=== PATIENT | female | born 1950 | race African-American/Black ===

== ENCOUNTER 2016-06-16 19:17 | Emergency (ER) | payer OTHER ==
[2016-06-16 20:29] VITALS: TEMP 97.8; BMI 27.4
--- NOTE | 2016-06-16 20:39 | PDOC ---
History of Present Illness - General Chief Complaint: Alcohol intoxication Stated Complaint: Alcohol intoxication Time Seen by Provider: 06/16/16 19:40 History Source: Patient Exam Limitations: No Limitations - History of Present Illness Timing/Duration: 1/2 hour Associated Symptoms: reports: denies symptoms Past History - Travel Traveled outside of the country in the last 30 days: No Close contact w/someone who was outside of country & ill: No - Past Medical History Allergies/Adverse Reactions: Allergies Allergy/AdvReac Type Severity Reaction Status Date / Time Aminoglycosides Allergy Severe Rash Verified 06/16/16 19:44 potassium clavulanate Allergy Severe Rash Verified 06/16/16 19:44 [From Augmentin] amoxicillin trihydrate Allergy Rash Verified 06/16/16 19:44 [From Augmentin] erythromycin base Allergy Rash Verified 06/16/16 19:44 [Erythromycin Base] gentamicin [Gentamicin] Allergy Rash Verified 06/16/16 19:44 Home Medications: Ambulatory Orders Amlodipine Besylate [Norvasc -] 10 mg PO DAILY 03/20/15 Aspirin [ASA -] 81 mg PO DAILY 03/20/15 Doxepin HCl [Sinequan -] 10 mg PO HS PRN 03/20/15 Fluticasone/Salmeterol [Advair 250-50 Diskus] 1 each IH BID 03/20/15 Lisinopril [Prinivil] 10 mg PO DAILY 03/20/15 Montelukast Na [Singulair -] 10 mg PO HS 03/20/15 Simvastatin [Zocor -] 20 mg PO HS 03/20/15 Ipratropium/Albuterol Sulfate [Combivent Respimat Inhal [place]] 2 inh IH Q6H PRN 12/23/15 Magnesium Oxide [Mag-Ox -] 400 mg PO BID 12/23/15 Naproxen [Naprosyn -] 500 mg PO BID PRN 12/23/15 Potassium Chloride [K-Dur -] 20 meq PO DAILY 12/23/15 Duloxetine HCl [Cymbalta] 60 mg PO DAILY #20 capsule. 12/26/15 Anemia: No Asthma: Yes Cancer: No Cardiac Disorders: No CVA: Yes (right sided residule weakness) COPD: Yes CHF: No Dementia: No Diabetes: Yes (currently not on medication) GI Disorders: No Disorders: No HTN: Yes Hypercholesterolemia: Yes Kidney Stones: No Liver Disease: No Suicide Attempt (Hx): No Seizures: No Thyroid Disease: No - Surgical History Abdominal Surgery: Yes (lower) Appendectomy: Yes Cardiac Surgery: No Cholecystectomy: No Lung Surgery: No Neurologic Surgery: No Orthopedic Surgery: No - Reproductive History PID: No - Immunization History Td Vaccination: Yes Immunization Up to Date: Yes - Psycho/Social/Smoking Cessation Hx Anxiety: No Suicidal Ideation: No Smoking Status: Yes Smoking History: Current every day smoker Years of Tobacco Use: 20 Have you smoked in the past 12 months: No Number of Cigarettes Smoked Daily: 20 Cigars Per Day: 0 Information on smoking cessation initiated: No 'Breaking Loose' booklet given: 12/23/15 Hx Alcohol Use: Yes Drug/Substance Use Hx: No Substance Use Type: Alcohol Hx Substance Use Treatment: Yes Review of Systems - Review of Systems Able to Perform ROS?: Yes Comments:: 06/16/16 20:37 CONSTITUTIONAL: Absent: fever, chills, diaphoresis, generalized weakness, malaise, loss of appetite HEENT: Absent: rhinorrhea, nasal congestion, throat pain, throat swelling, difficulty swallowing, mouth swelling, ear pain, eye pain, visual Changes CARDIOVASCULAR: Absent: chest pain, loss of consciousness, palpitations, irregular heart rate, peripheral edema RESPIRATORY: Absent: cough, shortness of breath, dyspnea with exertion, orthopnea, wheezing, stridor, hemoptysis GASTROINTESTINAL: Absent: abdominal pain, abdominal distension, nausea, vomiting, diarrhea, constipation, melena, hematochezia GENITOURINARY: Absent: dysuria, frequency, urgency, hesitancy, hematuria, flank pain, genital pain MUSCULOSKELETAL: Absent: myalgia, arthralgia, joint swelling SKIN: Absent: rash, itching, pallor HEMATOLOGIC/IMMUNOLOGIC: Absent: easy bleeding, easy bruising, lymphadenopathy, frequent infections ENDOCRINE: Absent: unexplained weight gain, unexplained weight loss, heat intolerance, cold intolerance NEUROLOGIC: Absent: headache, focal weakness or paresthesias, dizziness, unsteady gait, seizure, mental status changes, bladder or bowel incontinence PSYCHIATRIC: Absent: anxiety, depression, suicidal or homicidal ideation, hallucinations. Is the patient limited Polish proficient: No *Physical Exam - Vital Signs Last Vital Signs Temp Pulse Resp BP Pulse Ox 97.8 F 84 18 131/76 96 06/16/16 19:44 06/16/16 19:44 06/16/16 19:44 06/16/16 19:44 06/16/16 19:44 - Physical Exam Comments: 06/16/16 20:37 GENERAL: Well developed, well nourished. Awake and alert. No acute distress. HEENT: Normocephalic, atraumatic. PERRLA, EOMI. No conjunctival pallor. Sclera are non- icteric. Moist mucous membranes. Oropharynx is clear. NECK: Supple. Full ROM. No JVD. Carotid pulses 2+ and symmetric, without bruits. No thyromegaly. No lymphadenopathy. CARDIOVASCULAR: Regular rate and rhythm. No murmurs, rubs, or gallops. Distal pulses are 2+ and symmetric. PULMONARY: No evidence of respiratory distress. Lungs clear to auscultation bilaterally. No wheezing, rales or rhonchi. ABDOMINAL: Soft. Non-tender. Non-distended. No rebound or guarding. No organomegaly. Normoactive bowel sounds. MUSCULOSKELETAL Normal range of motion at all joints. No bony deformities or tenderness. No CVA tenderness. EXTREMITIES: No cyanosis. No clubbing. No edema. No calf tenderness. SKIN: Warm and dry. Normal capillary refill. No rashes. No jaundice. NEUROLOGICAL: Alert, awake, appropriate. Cranial nerves 2-12 intact. No deficits to light touch and temperature in face, upper extremities and lower extremities. No motor deficits in the in face, upper extremities and lower extremities. Normoreflexic in the upper and lower extremities. Normal speech. Toes are down- going bilaterally. Gait is normal without ataxia. PSYCHIATRIC: Cooperative. Good eye contact. Appropriate mood and affect. *DC/Admit/Observation/Transfer Diagnosis at time of Disposition: Contusion of head Qualifiers: Encounter type: initial encounter Contusion of head detail: scalp Qualified Code(s): S00.03XA - Contusion of scalp, initial encounter - Discharge Dispostion Disposition: HOME Condition at time of disposition: Stable - Referrals Referrals: STAFF,NOT ON [Primary Care Provider] - Laury Canchola MD [Staff Physician] - - Patient Instructions Additional Instructions: Rest Tylenol as needed for pain Follow up with your physician or the physician listed on your discharge. Return to the ER for severe/persistent/worsening symptoms Progress Note - Progress Note Progress Note: 66-year-old female presents to the emergency department without any complaints. Patient states she lost her balance and almost fell but "bumped " her head against the wall prior to her arrival to the emergency department. She states she had 2 small drinks of gin 4 hours ago. Patient denies any headache, dizziness, lightheadedness, visual disturbance, blurry vision, neck pains, back pains, chest pain, shortness of breath, abdominal pains, urinary symptoms: Frequency/urgency/hesitancy, hematuria, extremity numbness or tingling sensation. Patient states she has no complaints at this time. CT head w/o contrast; neg
[2016-06-17 00:28] VITALS: BP 130/70; PULSE 80
== END 2016-06-17 00:27 | disposition home or self-care (01) ==
LOC: JER 19:17
DX: S00.03XA Contusion of scalp, initial encounter (principal); J45.909 Unspecified asthma, uncomplicated; J44.9 Chronic obstructive pulmonary disease, unspecified; E11.9 Type 2 diabetes mellitus without complications; I10 Essential (primary) hypertension; E78.00 Pure hypercholesterolemia, unspecified; F17.210 Nicotine dependence, cigarettes, uncomplicated; W18.39XA Other fall on same level, initial encounter; Y93.9 Activity, unspecified; Y92.9 Unspecified place or not applicable
CPT/HCPCS: 70450-TC; 99282-25

== ENCOUNTER 2018-04-16 05:02 | Inpatient (IN) | payer OTHER ==
--- NOTE | 2018-04-16 05:32 | PDOC ---
History of Present Illness - General Chief Complaint: Asthma Stated Complaint: DIFF BREATHING Time Seen by Provider: 04/16/18 05:27 History Source: Patient Exam Limitations: No Limitations - History of Present Illness Timing/Duration: 4-6 hours Severity: mild Associated Symptoms: reports: chest pain Asa Contraindications(Core Measure): Yes: Other Beta Juve Given by EMS(Core Measure): No Beta Juve Taken at Home(Core Measure): No Beta Juve Not Indicated at this Time(Core Measure): No Past History - Travel Traveled outside of the country in the last 30 days: No Close contact w/someone who was outside of country & ill: No - Past Medical History Allergies/Adverse Reactions: Allergies Allergy/AdvReac Type Severity Reaction Status Date / Time Aminoglycosides Allergy Severe Rash Verified 04/16/18 05:47 potassium clavulanate Allergy Severe Rash Verified 04/16/18 05:47 [From Augmentin] amoxicillin trihydrate Allergy Rash Verified 04/16/18 05:47 [From Augmentin] erythromycin base Allergy Rash Verified 04/16/18 05:47 [Erythromycin Base] gentamicin [Gentamicin] Allergy Rash Verified 04/16/18 05:47 Home Medications: Ambulatory Orders Amlodipine Besylate [Norvasc -] 10 mg PO DAILY 03/20/15 Aspirin [ASA -] 81 mg PO DAILY 03/20/15 Doxepin HCl [Sinequan -] 10 mg PO HS PRN 03/20/15 Fluticasone/Salmeterol [Advair 250-50 Diskus] 1 each IH BID 03/20/15 Lisinopril [Prinivil] 10 mg PO DAILY 03/20/15 Montelukast Na [Singulair -] 10 mg PO HS 03/20/15 Simvastatin [Zocor -] 20 mg PO HS 03/20/15 Ipratropium/Albuterol Sulfate [Combivent Respimat 20-100 Mcg] 2 inh IH Q6H PRN 12/23/15 Magnesium Oxide [Mag-Ox -] 400 mg PO BID 12/23/15 Naproxen [Naprosyn -] 500 mg PO BID PRN 12/23/15 Potassium Chloride [K-Dur -] 20 meq PO DAILY 12/23/15 Duloxetine HCl [Cymbalta] 60 mg PO DAILY #20 capsule. 12/26/15 Anemia: No Asthma: Yes Cancer: No Cardiac Disorders: No CVA: Yes (right sided residule weakness) COPD: Yes CHF: No Dementia: No Diabetes: Yes (currently not on medication) GI Disorders: No Disorders: No HTN: Yes Hypercholesterolemia: Yes Kidney Stones: No Liver Disease: No Seizures: No Thyroid Disease: No - Surgical History Abdominal Surgery: Yes (lower) Appendectomy: Yes Cardiac Surgery: No Cholecystectomy: No Lung Surgery: No Neurologic Surgery: No Orthopedic Surgery: No - Reproductive History PID: No - Immunization History Td Vaccination: Yes Immunization Up to Date: Yes - Suicide/Smoking/Psychosocial Hx Smoking Status: Yes Smoking History: Current every day smoker Years of Tobacco Use: 20 Have you smoked in the past 12 months: No Number of Cigarettes Smoked Daily: 20 Cigars Per Day: 0 'Breaking Loose' booklet given: 12/23/15 Hx Alcohol Use: Yes Drug/Substance Use Hx: No Substance Use Type: Alcohol Hx Substance Use Treatment: Yes Review of Systems - Review of Systems Constitutional: No: Symptoms Reported, See HPI, Chills, Diaphoresis, Fever, Loss of Appetite, Malaise, Night Sweats, Weakness, Weight Stable, Unintentional Wgt. Loss, Unexplained wgt Loss, Other Respiratory: Yes: Shortness of Breath, SOB at Rest, Wheezing Cardiac (ROS): No: Symptoms Reported, See HPI, Chest Pain, Edema, Irregular Heart Rate, Lightheadedness, Palpitations, Syncope, Chest Tightness, Other ABD/GI: No: Symptoms Reported, See HPI, Abdominal Distended, Abd. Pain w/ defecation, Blood Streaked Bowels, Constipated, Diarrhea, Difficulty Swallowing , Nausea, Poor Appetite, Poor Fluid Intake, Rectal Bleeding, Vomiting, Indigestion, Abdominal cramping, Tarry Stools, Other Musculoskeletal: No: Symptoms Reported, See HPI, Back Pain, Gout, Joint Pain, Joint Swelling, Muscle Pain, Muscle Weakness, Neck Pain, Joint Stiffness, Other Integumentary: No: Symptoms Reported, See HPI, Bruising, Change in Color, Change in Hair/Nails, Dryness, Erythema, Flushing, Lesions, Lumps, Pallor, Pruritus, Rash, Sweating, Other Neurological: No: Symptoms reported, See HPI, Headache, Numbness, Paresthesia, Pre-Existing Deficit, Seizure, Tingling, Tremors, Weakness, Unsteady Gait, Ataxia, Dizziness, Other Psychiatric: No: Anxiety, Depression, Frequent Crying, Stressors, Sleep Pattern Change, Emotional Problems, Mood Swings, Change in Appetite, Other Endocrine: No: Symptoms Reported, See HPI, Excessive Sweating, Flushing, Intolerance to Cold, Intolerance to Heat, Increased Hunger, Increased Thirst, Increased Urine, Unexplained Weight Gain, Unexplained Weight Loss, Change in Weight, Other *Physical Exam - Physical Exam General Appearance: Yes: Nourished, Appropriately Dressed, Mild Distress, Thin. No: Moderate Distress, Severe Distress, Alcohol on Breath, Intoxicated, Cachetic, Obese HEENT: positive: EOMI, CINDY, Normal ENT Inspection, Normal Voice, Symmetrical, TMs Normal, Pharynx Normal. negative: Scleral Icterus (R), Scleral Icterus (L) , Pharyngeal Erythema, Nasal Congestion, Rhinorrhea, Sinus Tenderness Neck: positive: Trachea midline, Supple Respiratory/Chest: positive: Lungs Clear, Normal Breath Sounds, Rhonchi, Wheezing. negative: Chest Tender, Stridor Cardiovascular: positive: Regular Rhythm, Regular Rate, S1, S2 Gastrointestinal/Abdominal: positive: Normal Bowel Sounds, Flat, Soft Musculoskeletal: positive: Normal Inspection Extremity: positive: Normal Inspection Integumentary: positive: Normal Color, Dry, Warm Neurologic: positive: modeling director II-XII NML intact, Fully Oriented, Normal Mood/Affect , Normal Response, Motor Strength 5/ ED Treatment Course - LABORATORY CBC & Chemistry Diagram: 04/16/18 06:58 04/17/18 01:45 Medical Decision Making - Medical Decision Making 04/16/18 06:57 Pt has CHF and enlarged heart on CXR 04/17/18 04:39 Signed out to the day team. She will require admission for her SOB. *DC/Admit/Observation/Transfer Diagnosis at time of Disposition: COPD (chronic obstructive pulmonary disease), CHF (congestive heart failure), NSTEMI (non-ST elevated myocardial infarction) - Discharge Dispostion Condition at time of disposition: Fair - Referrals - Patient Instructions - Post Discharge Activity
[2018-04-16 07:17] LABS: EOS % 0.1 % (0-4.5); HEMATOCRIT 26.4 % (32.4-45.2); HEMOGLOBIN 8.6 GM/dL (10.7-15.3); LYMPH % 29.2 % (8-40); MCHC 32.5 g/dl (32.0-36.0); MEAN CELL VOLUME 59.2 fl (80-96); MEAN PLT VOLUME 8.8 fl (7.5-11.1); NEUT % 59.7 % (42.8-82.8); PLATELET COUNT 462 K/MM3 (134-434); RBC 4.45 M/mm3 (3.60-5.2); RDW 25.6 % (11.6-15.6)
[2018-04-16 07:21] LABS: MCH 19.2 pg (25.7-33.7)
--- NOTE | 2018-04-16 07:43 | PDOC ---
*Physical Exam - Vital Signs Last Vital Signs Temp Pulse Resp BP Pulse Ox 98.5 F 72 18 148/85 98 04/16/18 05:02 04/16/18 07:09 04/16/18 07:09 04/16/18 07:09 04/16/18 07:09 ED Treatment Course - LABORATORY CBC & Chemistry Diagram: 04/20/18 05:30 04/20/18 05:30 - ADDITIONAL ORDERS Additional order review: 04/16/18 06:58 RBC 4.45 MCV 59.2 L MCHC 32.5 RDW 25.6 H MPV 8.8 Neutrophils % 59.7 D Lymphocytes % 29.2 D Monocytes % 10.0 Eosinophils % 0.1 D Basophils % 1.0 Medical Decision Making - Critical Care Time Total Critical Care Time (minutes): 90 Critical Care Statement: The care of this patient involved high complexity decision making to prevent further life threatening deterioration of the patient 's condition and/or to evaluate & treat vital organ system(s) failure or risk of failure. - Medical Decision Making 04/16/18 07:39 I received this patient on sign out Pt presents with shortness of breath which was thought to be a COPD exacerbation CXR wet read - CHF Hgb decreased 04/16/18 07:42 Laboratory Tests 03/08/16 04/16/18 02:24 06:58 WBC 9.5 8.0 Hgb 11.5 8.6 L Hct 36.4 26.4 L D Plt Count 306 462 H D 04/16/18 08:10 I have assessed this patient She 04/16/18 08:13 Laboratory Tests 03/08/16 04/16/18 04/16/18 02:24 06:58 06:58 Sodium 139 134 L Potassium 4.3 Chloride 102 74 L Carbon Dioxide 22 D > 45 H Anion Gap 15 15 BUN 11 D 5 L Creatinine 1.3 H D 0.7 Calcium 7.2 L Magnesium 1.6 L Total Bilirubin 0.9 AST 64 H ALT 21 Alkaline Phosphatase 99 B-Natriuretic Peptide 3690.1 H Total Protein 7.3 Albumin 2.2 L Lipase 88 Solumedrol/Magnesium/Azithromycin/Duo nebs ordered ABG ordered Cardiac profile added 04/16/18 08:55 Laboratory Tests 04/16/18 06:58 Creatine Kinase 1046 H Troponin I 0.18 H B-Natriuretic Peptide 3690.1 H 01/05/19 08:57 Laboratory Tests 04/16/18 08:47 ABG pH 7.60 H ABG pCO2 at Pt Temp 57.3 H ABG pO2 at Pt Temp 49.8 L* ABG HCO3 57.0 H* ABG O2 Sat (Measured) 81.5 L Will CTA 04/16/18 09:11 EKG could not be found Repeated EKG: NSR rate of 75 bpm, axis nml, intervals nml, no st elevations or depressions 04/16/18 09:12 Laboratory Tests 04/16/18 07:55 Stool Occult Blood Negative *DC/Admit/Observation/Transfer Diagnosis at time of Disposition: NSTEMI (non-ST elevated myocardial infarction) COPD (chronic obstructive pulmonary disease) Qualifiers: COPD type: unspecified COPD Qualified Code(s): J44.9 - Chronic obstructive pulmonary disease, unspecified CHF (congestive heart failure) Qualifiers: Heart failure type: unspecified Heart failure chronicity: acute Qualified Code( s): I50.9 - Heart failure, unspecified - Discharge Dispostion Condition at time of disposition: Fair Decision to Admit order: Yes - Referrals - Patient Instructions - Post Discharge Activity
[2018-04-16 07:59] LABS: ALBUMIN 2.2 g/dl (3.4-5.0); ALK PHOS 99 U/L (45-117); BILIRUBIN,TOTAL 0.9 mg/dL (0.2-1); BLOOD UREA NITROGEN 5 mg/dL (7-18); CALCIUM 7.2 mg/dL (8.5-10.1); CHLORIDE 74 mmol/L (98-107); CREATININE 0.7 mg/dL (0.55-1.3); GLUCOSE,RANDOM 87 mg/dL (74-106); LIPASE 88 U/L (73-393); N-TERMINAL BNP 3690.1 pg/ml (5-125); SGOT/AST 64 U/L (15-37); SGPT/ALT 21 U/L (13-61); SODIUM 134 mmol/L (136-145); TOT PROT 7.3 g/dl (6.4-8.2)
[2018-04-16] MEDS ORDERED: ALBUTEROL SO4 2.5/IPRATROPIUM 0.5 INH SOL 3 ML VIAL.NEB. NEB ONE ×6 (08:08→09:43)
[2018-04-16] MEDS ORDERED: methylPREDNISolone NA SUCC 125 MG/2 ML VIAL IVPB ONE (08:08)
[2018-04-16] MEDS ORDERED: MAGNESIUM 1GM/D5W - 1 GM/100 ML IVPB IVPB ONE (08:15)
[2018-04-16] MEDS ORDERED: methylPREDNISolone NA SUCC 125 MG/2 ML VIAL ONE (08:15)
[2018-04-16 08:50] LABS: ARTERIAL BLD GAS O2 SATURATION 81.5 % (90-98.9); ARTERIAL BLOOD GAS PCO2 57.3 mmHg (35-45)
[2018-04-16] MEDS ORDERED: POTASSIUM CHLORIDE TABS 20 MEQ TABLET.ER (FP) PO ONE ×6 (08:52→23:00)
[2018-04-16 08:56] LABS: ARTERIAL BLOOD GAS BASE EXCESS 30.1 meq/l (-2-2); ARTERIAL BLOOD GAS PO2 49.8 mmHg (80-100)
[2018-04-16] MEDS ORDERED: KCL 10 MEQ IVPB 30 MEQ/300 ML INFUS.BAG IVPB ONE (09:12)
[2018-04-16 09:20] LABS: ANION GAP 6 MMOL/L (8-16); CO2 54 mmol/L (21-32)
[2018-04-16] MEDS: KCL 10 MEQ IVPB 10 MEQ/100 ML INFUS.BAG IVPB SCH ×11 (09:28→22:55)
[2018-04-16 10:49] LABS: ANISOCYTOSIS 2+; PLATELET ESTIMATE SLT INCREASE
--- NOTE | 2018-04-16 11:52 | HP ---
Admitting History and Physical - Admission Chief Complaint: worsening SOB History of Present Illness: This is a 67 y/o female patient with Hx of HTN, DL, active smoking (quit 4 days ago), COPD and ?CHF presented to the hospital with worsening SOB productive cough with greyish sputum, inability to lay on her. Patient stated that she had a cold recently, and she is recovering from that, patient didnt receive her influenza vaccination this year. stated she does not know why. ROS is negative besides what was presented. 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: CVA (10 years ago...with right hemiparesis) Cardiovascular: Yes: HTN ( x 15years), Hyperlipdemia Pulmonary: Yes: COPD Psych: Yes: Depression Musculoskeletal: Yes: Hemiparesis (right sided) Endocrine: Yes: Diabetes Mellitus (x 10 years) - Past Surgical History Past Surgical History: Yes: Appendectomy, , Hernia Repair (multiple incisional hernia repairs), Hysterectomy, Oopherectomy - Smoking History Smoking history: Current every day smoker Have you smoked in the past 12 months: No Aproximately how many cigarettes per day: 20 - Alcohol/Substance Use Hx Alcohol Use: Yes - Social History 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 Home Medications - Allergies Allergies/Adverse Reactions: Allergies Allergy/AdvReac Type Severity Reaction Status Date / Time Aminoglycosides Allergy Severe Rash Verified 04/16/18 05:47 potassium clavulanate Allergy Severe Rash Verified 04/16/18 05:47 [From Augmentin] amoxicillin trihydrate Allergy Rash Verified 04/16/18 05:47 [From Augmentin] erythromycin base Allergy Rash Verified 04/16/18 05:47 [Erythromycin Base] gentamicin [Gentamicin] Allergy Rash Verified 04/16/18 05:47 - Home Medications Home Medications: Ambulatory Orders Amlodipine Besylate [Norvasc -] 10 mg PO DAILY 03/20/15 Aspirin [ASA -] 81 mg PO DAILY 03/20/15 Doxepin HCl [Sinequan -] 10 mg PO HS PRN 03/20/15 Fluticasone/Salmeterol [Advair 250-50 Diskus] 1 each IH BID 03/20/15 Lisinopril [Prinivil] 10 mg PO DAILY 03/20/15 Montelukast Na [Singulair -] 10 mg PO HS 03/20/15 Simvastatin [Zocor -] 20 mg PO HS 03/20/15 Ipratropium/Albuterol Sulfate [Combivent Respimat 20-100 Mcg] 2 inh IH Q6H PRN 12/23/15 Magnesium Oxide [Mag-Ox -] 400 mg PO BID 12/23/15 Naproxen [Naprosyn -] 500 mg PO BID PRN 12/23/15 Potassium Chloride [K-Dur -] 20 meq PO DAILY 12/23/15 Duloxetine HCl [Cymbalta] 60 mg PO DAILY #20 capsule. 12/26/15 Family Disease History - Family Disease History Family Disease History: Diabetes: Mother (HTN), Sister (HTN), Heart Disease: Mother, Other: Mother, Brother (HTN), Sister Review of Systems - Review of Systems Constitutional: reports: Loss of Appetite, Unintentional Wgt. Loss Eyes: reports: No Symptoms HENT: reports: No Symptoms Neck: reports: No Symptoms Cardiovascular: reports: Chest Pain Respiratory: reports: No Symptoms Gastrointestinal: reports: No Symptoms Genitourinary: reports: No Symptoms Breasts: reports: No Symptoms Reported Musculoskeletal: reports: No Symptoms Integumentary: reports: No Symptoms Neurological: reports: No Symptoms Physical Examination Vital Signs: Vital Signs Temperature 98.5 F 04/16/18 05:02 Pulse Rate 82 04/16/18 10:28 Respiratory Rate 18 04/16/18 10:28 Blood Pressure 168/94 04/16/18 10:28 O2 Sat by Pulse Oximetry (%) 95 04/16/18 10:28 Constitutional: Yes: Well Nourished, No Distress, Calm Eyes: Yes: Conjunctiva Clear, EOM Intact HENT: Yes: WNL, Atraumatic, Normocephalic Neck: Yes: WNL, Supple, Trachea Midline Cardiovascular: Yes: WNL, Regular Rate and Rhythm, S1, S2 Respiratory: Yes: WNL, Regular, CTA Bilaterally Gastrointestinal: Yes: WNL, Normal Bowel Sounds, Soft ...Rectal Exam: Yes: Deferred Musculoskeletal: Yes: WNL Extremities: Yes: WNL Integumentary: Yes: WNL Neurological: Yes: WNL, Alert, Oriented ...Motor Strength: WNL Psychiatric: Yes: WNL, Alert, Oriented Labs: CBC, BMP 04/16/18 06:58 04/16/18 06:58 Imaging - Results Chest X-ray: Report Reviewed, Image Reviewed X-ray: Report Reviewed, Image Reviewed EKG: Report Reviewed, Image Reviewed Problem List - Problems (1) CHF (congestive heart failure) Assessment/Plan: stable at this time not in an acute DCHF will start the patient on carvedilol 3.125mg twice a day c/w lisinopril 10mg obtain echocardiogram Code(s): I50.9 - HEART FAILURE, UNSPECIFIED Qualifiers: Heart failure type: unspecified Heart failure chronicity: acute Qualified Code(s): I50.9 - Heart failure, unspecified (2) COPD (chronic obstructive pulmonary disease) Assessment/Plan: acute exacerbation of COPD start patient on prednisone 40mg daily duonebs q4hrs pulmonary evaluation start the patient on antibiotics if she develops fever consider levofloxacin Code(s): J44.9 - CHRONIC OBSTRUCTIVE PULMONARY DISEASE, UNSPECIFIED Qualifiers: COPD type: unspecified COPD Qualified Code(s): J44.9 - Chronic obstructive pulmonary disease, unspecified (3) Diabetes mellitus type 2 in nonobese Assessment/Plan: insulin sliding scale diabetic diet Code(s): E11.9 - TYPE 2 DIABETES MELLITUS WITHOUT COMPLICATIONS (4) Hypercholesteremia Assessment/Plan: c/w atorvastatin 20mg daily Code(s): E78.0 - PURE HYPERCHOLESTEROLEMIA * DO NOT USE * (5) Hypertension Assessment/Plan: c/w lisinopril c/w amlodipine start the patient on spironolactone 25mg daily Code(s): I10 - ESSENTIAL (PRIMARY) HYPERTENSION Qualifiers: Hypertension type: essential hypertension Qualified Code(s): I10 - Essential (primary) hypertension (6) Metabolic alkalosis with respiratory acidosis Assessment/Plan: patient is on BiPAP unclear the reason for her metabolic alkylosis patient denied any diuretic use will obtain cortisol level will obtain aldosterone level will replenish potassium level will admit the patient to ICU Code(s): E87.4 - MIXED DISORDER OF ACID-BASE BALANCE (7) Hypokalemia due to loss of potassium Assessment/Plan: potassium supplementation monitor K+ level q6 hrs monitor ECG obtain magnesium supplement magnesium if needed Code(s): E87.6 - HYPOKALEMIA (8) Pneumonia Assessment/Plan: start the patient on levofloxacin obtain cultures Code(s): J18.9 - PNEUMONIA, UNSPECIFIED ORGANISM
--- NOTE | 2018-04-16 12:03 | CONSULT ---
Consult - text type - Consultation Consultation Note: Patient is a 67 y/o F w/ PMHx COPD not on O2, ?CHF, HTN, DM, current smoker 42- pack year Hx, p/w 1 week SOB, cough, malaise, anorexia. Severely hypokalemic and in metabolic alkalosis on presentation. CXR showing congestive changes, BNP elevated. Hemodynamically stable, maintaining target saturation on BiPAP. PE significant only for diffuse rhonchi and JVD. ICU team recommends monitoring on telemetry, electrolyte correction, possible diuresis once K is within target range. Dr. Alanis will see as pulmonary devops consultant. D/w primary team which agrees w/ tele admission.
--- NOTE | 2018-04-16 12:40 | EKG ---
Test Reason : Blood Pressure : / mmHG Vent. Rate : 079 BPM Atrial Rate : 079 BPM P-R Int : 180 ms QRS Dur : 094 ms QT Int : 430 ms P-R-T Axes : 085 -29 079 degrees QTc Int : 493 ms NORMAL SINUS RHYTHM POSSIBLE LEFT ATRIAL ENLARGEMENT POSSIBLE ANTERIOR INFARCT (CITED ON OR BEFORE 31-MAR-2012) ABNORMAL ECG WHEN COMPARED WITH ECG OF 24-DEC-2014 14:29, QUESTIONABLE CHANGE IN INITIAL FORCES OF ANTERIOR LEADS Confirmed by MD JARRETT, SAFIA ([id number]) on 04/16/2018 12:39:56 PM Referred By: Confirmed By:SAFIA FARIAS MD
[2018-04-16] MEDS ORDERED: ALBUTEROL SO4 2.5/IPRATROPIUM 0.5 INH SOL 3 ML VIAL.NEB. NEB PRN (14:23)
--- NOTE | 2018-04-16 15:41 | CONSULT ---
Consultation: REQUESTING PROVIDER: Sulaiman Montgomery MD CONSULT REQUEST: We have been asked to medically evaluate this patient for CHF/ severe alkalosis. HISTORY OF PRESENT ILLNESS: *This note amends and replaces prior ICU consult note.* The patient is a 67 y/o F w/ PMHx COPD not on O2, unspecified cardiac Hx including "enlarged heart", HTN , DM, current smoker 42-pack year Hx, p/w 1 week progressively worsening SOB, minimally productive cough, malaise, anorexia, orthopnea. ROS otherwise negative. Severely hypokalemic and in metabolic alkalosis on presentation. CXR showing congestive changes, troponins and BNP elevated. Hemodynamically stable, maintaining target saturation on NIPPV. REVIEW OF SYSTEMS: as per HPI PHYSICAL EXAMINATION Vital Signs - 24 hr 04/16/18 04/16/18 04/16/18 05:02 05:33 07:09 Temperature 98.5 F Pulse Rate 74 Pulse Rate [ 72 Apical] Respiratory 15 18 Rate Blood Pressure 118/78 Blood Pressure 148/85 [Left] O2 Sat by Pulse 95 98 98 Oximetry (%) 04/16/18 04/16/18 04/16/18 08:00 08:50 10:28 Temperature Pulse Rate Pulse Rate [ 82 Apical] Respiratory 18 Rate Blood Pressure Blood Pressure 168/94 [Left] O2 Sat by Pulse 97 96 95 Oximetry (%) 04/16/18 12:14 Temperature Pulse Rate Pulse Rate [ Apical] Respiratory Rate Blood Pressure Blood Pressure [Left] O2 Sat by Pulse 100 Oximetry (%) GENERAL: A&Ox3, NAD HEAD: NC/AT EYES: PERRLA, EOMI EARS, NOSE, THROAT: Dry mucous membranes NECK: Normal range of motion, supple, +JVD LUNGS: Coarse breathing and diffuse rhonchi HEART: RRR no m/r/g ABDOMEN: +bs, soft, NT, ND EXTREMITIES: 2+ pulses, warm, well-perfused. Non-edematous extremities appear dry and contracted. 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 Good eye contact. Appropriate mood and affect. SKIN: Warm, dry, decreased turgor Laboratory Results - last 24 hr 04/16/18 04/16/18 04/16/18 06:58 06:58 06:58 WBC 8.0 RBC 4.45 Hgb 8.6 L Hct 26.4 L D MCV 59.2 L MCH 19.2 L D MCHC 32.5 RDW 25.6 H Plt Count 462 H D MPV 8.8 Absolute Neuts (auto) 4.8 Neutrophils % 59.7 D Lymphocytes % 29.2 D Monocytes % 10.0 Eosinophils % 0.1 D Basophils % 1.0 Nucleated RBC % 0 Hypochromia 2+ Platelet Estimate Slt increase Platelet Comment Large platelets Polychromasia 1+ Anisocytosis 2+ [place] Cells Few ABG pH ABG pCO2 at Pt Temp ABG pO2 at Pt Temp ABG HCO3 ABG O2 Sat (Measured) ABG O2 Content ABG Base Excess Sodium 134 L Potassium 2.0 L* Chloride 74 L Carbon Dioxide 54 H Anion Gap 6 L BUN 5 L Creatinine 0.7 Creat Clearance w eGFR > 60 Random Glucose 87 Calcium 7.2 L Magnesium 1.6 L Total Bilirubin 0.9 AST 64 H ALT 21 Alkaline Phosphatase 99 Creatine Kinase 1046 H Creatine Kinase Index 0.2 CK-MB (CK-2) 2.1 Troponin I 0.18 H B-Natriuretic Peptide 3690.1 H Total Protein 7.3 Albumin 2.2 L Lipase 88 Stool Occult Blood 04/16/18 04/16/18 07:55 08:47 WBC RBC Hgb Hct MCV MCH MCHC RDW Plt Count MPV Absolute Neuts (auto) Neutrophils % Lymphocytes % Monocytes % Eosinophils % Basophils % Nucleated RBC % Hypochromia Platelet Estimate Platelet Comment Polychromasia Anisocytosis Foster Cells ABG pH 7.60 H ABG pCO2 at Pt Temp 57.3 H ABG pO2 at Pt Temp 49.8 L* ABG HCO3 57.0 H* ABG O2 Sat (Measured) 81.5 L ABG O2 Content 8.3 L* ABG Base Excess 30.1 H* Sodium Potassium Chloride Carbon Dioxide Anion Gap BUN Creatinine Creat Clearance w eGFR Random Glucose Calcium Magnesium Total Bilirubin AST ALT Alkaline Phosphatase Creatine Kinase Creatine Kinase Index CK-MB (CK-2) Troponin I B-Natriuretic Peptide Total Protein Albumin Lipase Stool Occult Blood Negative Active Medications Generic Name Dose Route Start Last Admin Trade Name Freq PRN Reason Stop Dose Admin Albuterol/Ipratropium 1 amp 04/16/18 14:23 Duoneb - NEB Q6H PRN SHORTNESS OF BREATH Amlodipine Besylate 10 mg 04/17/18 10:00 Norvasc - PO DAILY [facility] Aspirin 81 mg 04/17/18 10:00 Asa - PO DAILY [facility] Atorvastatin Calcium 10 mg 04/16/18 22:00 Lipitor - PO HS [facility] Budesonide/Formoterol Fumarate 2 puff 04/16/18 22:00 Symbicort 80/4.5mcg - IH BID [facility] Chlorhexidine Gluconate 1 applic 04/16/18 22:00 Hibiclens For Decolonization - TP HS [facility] Doxepin HCl 10 mg 04/16/18 22:00 Sinequan - PO HS PRN INSOMNIA Duloxetine HCl 60 mg 04/17/18 10:00 Cymbalta - PO DAILY [facility] Heparin Sodium (Porcine) 5,000 unit 04/16/18 22:00 Heparin - SQ TID [facility] Lisinopril 10 mg 04/17/18 10:00 Prinivil PO DAILY [facility] Montelukast Sodium 10 mg 04/16/18 22:00 Singulair - PO HS [facility] Mupirocin 1 applic 04/16/18 22:00 Bactroban Ointment (For Decolonization) - NS 04/21/18 21:59 BID [facility] Spironolactone 25 mg 04/17/18 10:00 Aldactone - PO DAILY [facility] ASSESSMENT/PLAN: 67 y/o F w/ PMHx COPD not on O2, unspecified cardiac Hx including "enlarged heart", HTN, DM, current smoker 42-pack year Hx, p/w 1 week progressively worsening SOB, minimally productive cough, malaise, anorexia, orthopnea. DDx is broad including: metabolic alkalosis w/ respiratory acidosis acute hypoxemic hypercapneic respiratory failure COPD exacerbation CHF r/o NSTEMI hypokalemia FTT r/o occult malignancy Plan: #CV -echo -aldosterone level -cortisol level -trend troponins -ASA, norvasc, atorvastatin -cardiology consulted #nephro -aggressive potassium repletion -trend electrolytes and aggressively replete K, Mg, Phos -trend ABG -starting spironolactone -consider acetazolamide for correction of HCO3 -urine electrolytes, spot sodium, creatinine -nephrology consulted -encourage PO hydration #pulmonary -maintaining saturation -trend ABG -avoid K-reducing bronchodilators if possible -contrast chest CT pending -NIPPV as needed #endocrine -BGM, SSI -A1c #social -encourage smoking cessation and nicotine patch #FEN -encourage PO hydration -trend BMP and correct electrolytes -diabetic sodium fat/cholesterol controlled diet #PPx -DVT: heparin subq -GI: not indicated #code -full #Dispo: We will continue to follow the patient in the ICU. Thank you for this consultative opportunity. Visit type - Emergency Visit Emergency Visit: Yes ED Registration Date: 04/16/18 Care time: The patient presented to the Emergency Department on the above date and was hospitalized for further evaluation of their emergent condition. - New Patient This patient is new to me today: Yes Date on this admission: 04/16/18 - Critical Care Critical Care patient: Yes Total Critical Care Time (in minutes): 40 Critical Care Statement: The care of this patient involved high complexity decision making to prevent further life threatening deterioration of the patient 's condition and/or to evaluate & treat vital organ system(s) failure or risk of failure.
[2018-04-16] MEDS ORDERED: MAGNESIUM SULF 50% (8.12 MEQ/2 ML-1 GM VIAL) IVPB ONE (15:45)
[2018-04-16] MEDS ORDERED: KCL 10 MEQ IVPB 10 MEQ/100 ML INFUS.BAG IVPB ONE (15:54)
[2018-04-16] MEDS ORDERED: INSULIN SLIDING SCALE (NOVOLOG) 1 VIAL SQ SCH (16:30)
[2018-04-16 16:40] LABS: ARTERIAL BLD GAS O2 SATURATION 92.6 % (90-98.9); ARTERIAL BLOOD GAS BASE EXCESS 25.7 meq/l (-2-2); ARTERIAL BLOOD GAS PCO2 58.3 mmHg (35-45); ARTERIAL BLOOD GAS PO2 70.4 mmHg (80-100); ARTERIAL BLOOD GAS pH 7.56 (7.35-7.45)
[2018-04-16 16:43] LABS: ALLENS TEST POSITIVE
[2018-04-16] MEDS: INSULIN SLIDING SCALE (NOVOLOG) 1 VIAL SQ SCH ×2 (18:01→22:54)
[2018-04-16 19:22] LABS: ANION GAP 14 MMOL/L (8-16); BLOOD UREA NITROGEN 6 mg/dL (7-18); CHLORIDE 76 mmol/L (98-107); CO2 > 45 mmol/L (21-32); CREATININE 0.7 mg/dL (0.55-1.3); GLUCOSE,RANDOM 132 mg/dL (74-106); MAGNESIUM 1.8 mg/dL (1.8-2.4); PHOSPHOROUS 3.9 mg/dL (2.5-4.9); SODIUM 135 mmol/L (136-145)
[2018-04-16 19:25] LABS: POTASSIUM 2.3 mmol/L (3.5-5.1)
--- NOTE | 2018-04-16 21:07 | CON.NEP ---
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) Cardio/Vascular: Yes: HTN ( x 15years), Hyperlipdemia Pulmonary: Yes: COPD ...: No Psych: Yes: Depression Musculoskeletal: Yes: Hemiparesis (right sided) Endocrine: Yes: Diabetes Mellitus (x 10 years) - Past Surgical History Past Surgical History: Yes: Appendectomy, , Hernia Repair (multiple incisional hernia repairs), Hysterectomy, Oopherectomy - Alcohol/Substance Use Hx Alcohol Use: Yes - Smoking History Smoking history: Current every day smoker Have you smoked in the past 12 months: No Aproximately how many cigarettes per day: 20 - Social History Usual Living Arrangement: Alone 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 Home Medications - Allergies Allergies/Adverse Reactions: Allergies Allergy/AdvReac Type Severity Reaction Status Date / Time Aminoglycosides Allergy Severe Rash Verified 04/16/18 05:47 potassium clavulanate Allergy Severe Rash Verified 04/16/18 05:47 [From Augmentin] amoxicillin trihydrate Allergy Rash Verified 04/16/18 05:47 [From Augmentin] erythromycin base Allergy Rash Verified 04/16/18 05:47 [Erythromycin Base] gentamicin [Gentamicin] Allergy Rash Verified 04/16/18 05:47 - Home Medications Home Medications: Ambulatory Orders Amlodipine Besylate [Norvasc -] 10 mg PO DAILY 03/20/15 Aspirin [ASA -] 81 mg PO DAILY 03/20/15 Doxepin HCl [Sinequan -] 10 mg PO HS PRN 03/20/15 Fluticasone/Salmeterol [Advair 250-50 Diskus] 1 each IH BID 03/20/15 Lisinopril [Prinivil] 10 mg PO DAILY 03/20/15 Montelukast Na [Singulair -] 10 mg PO HS 03/20/15 Simvastatin [Zocor -] 20 mg PO HS 03/20/15 Ipratropium/Albuterol Sulfate [Combivent Respimat 20-100 Mcg] 2 inh IH Q6H PRN 12/23/15 Magnesium Oxide [Mag-Ox -] 400 mg PO BID 12/23/15 Naproxen [Naprosyn -] 500 mg PO BID PRN 12/23/15 Potassium Chloride [K-Dur -] 20 meq PO DAILY 12/23/15 Duloxetine HCl [Cymbalta] 60 mg PO DAILY #20 capsule. 12/26/15 Family Disease History - Family Disease History Family Disease History: Diabetes: Mother (HTN), Sister (HTN), Heart Disease: Mother, Other: Mother, Brother (HTN), Sister Nephrology Consult - Height Height: 5 ft 5 in - Weight Weight: 163 lb 5 oz - BMI Body Mass Index (BMI): 27.1 - Lab Results CBC,BMP: CBC, BMP 04/16/18 06:58 04/16/18 17:29 Anion Gap: Anion Gap Anion Gap 14 MMOL/L (8-16) 04/16/18 17:29 - Physical Examination Vital Signs: Vital Signs Temperature 98 F 04/16/18 09:42 Pulse Rate 82 04/16/18 19:00 Respiratory Rate 24 H 04/16/18 19:00 Blood Pressure 138/69 04/16/18 19:00 O2 Sat by Pulse Oximetry (%) 99 04/16/18 20:30 Constitutional: Yes: Cachectic Eyes: Yes: WNL, Conjunctiva Clear, EOM Intact HENT: Yes: WNL, Atraumatic, Normocephalic Neck: Yes: WNL, Supple, Trachea Midline Respiratory: Yes: WNL, Regular, CTA Bilaterally, Accessory Muscle Use, Diminished Gastrointestinal: Yes: WNL, Normal Bowel Sounds Renal/: Yes: WNL Musculoskeletal: Yes: WNL Extremities: Yes: WNL Edema: No Integumentary: Yes: WNL Neurological: Yes: WNL, Alert, Oriented Psychiatric: Yes: WNL, Alert, Oriented Assessment/Plan hypokalemia primary metabolic alkalosis respiratory alkalosis hypochloremia electrolyte deficiency h/o dm h/o etoh copd htn replace k cautious rehydration orally and low rate of ns monitor trend of K
[2018-04-16] MEDS ORDERED: DOXEPIN HCL 10 MG CAPSULE PO PRN (22:00)
[2018-04-16] MEDS: HEPARIN NA (PORCINE) 5,000 UNITS/ML 1ML VIAL SQ SCH (22:28)
[2018-04-16] MEDS: ATORVASTATIN CA 10 MG TABLET (FP) PO SCH (22:30)
[2018-04-16] MEDS: MONTELUKAST NA 10 MG TABLET PO SCH (22:30)
[2018-04-16] MEDS: CARVEDILOL 3.125 MG TABLET (FP) PO SCH (22:35)
[2018-04-16] MEDS: MUPIROCIN 2% TOPICAL OINTMENT FOR DECOLONIZATION NS SCH (22:39)
[2018-04-16] MEDS: CHLORHEXIDINE GLUCONATE 4% CLEANSER FOR DECOLONIZATION TP SCH (22:40)
[2018-04-16] MEDS ORDERED: PT OWN MED DRAWER 7, Y5N ONE (22:58)
[2018-04-16] MEDS: BUDESONIDE/FORMETEROL FUMARATE 80/4.5 mcg INHALER IH SCH (22:58)
[2018-04-17 02:59] LABS: ALK PHOS 86 U/L (45-117); BILIRUBIN,TOTAL 0.5 mg/dL (0.2-1); BLOOD UREA NITROGEN 8 mg/dL (7-18); CHLORIDE 81 mmol/L (98-107); CREATININE 0.9 mg/dL (0.55-1.3); MAGNESIUM 2.1 mg/dL (1.8-2.4); PHOSPHOROUS 2.6 mg/dL (2.5-4.9); SGOT/AST 49 U/L (15-37); SGPT/ALT 21 U/L (13-61); SODIUM 136 mmol/L (136-145); TOT PROT 6.7 g/dl (6.4-8.2)
[2018-04-17 03:03] LABS: GLUCOSE,RANDOM 39 mg/dL (74-106)
[2018-04-17 03:04] LABS: POTASSIUM 2.8 mmol/L (3.5-5.1)
[2018-04-17 03:05] LABS: CALCIUM 6.9 mg/dL (8.5-10.1)
[2018-04-17] MEDS ORDERED: POTASSIUM CHLORIDE TABS 20 MEQ TABLET.ER (FP) PO ONE ×3 (03:10→11:09)
[2018-04-17] MEDS: KCL 10 MEQ IVPB 10 MEQ/100 ML INFUS.BAG IVPB SCH ×6 (03:28→13:41)
[2018-04-17 04:11] LABS: ANION GAP 1 MMOL/L (8-16)
[2018-04-17 04:12] LABS: CO2 54 mmol/L (21-32)
[2018-04-17] MEDS ORDERED: DEXTROSE 50%-WATER 25 GM/50 ML DISP.SYRIN IVPUSH PRN (04:34)
[2018-04-17] MEDS: INSULIN SLIDING SCALE (NOVOLOG) 1 VIAL SQ SCH ×4 (06:01→22:34)
[2018-04-17] MEDS: HEPARIN NA (PORCINE) 5,000 UNITS/ML 1ML VIAL SQ SCH ×3 (06:03→22:35)
[2018-04-17] MEDS ORDERED: PT OWN MED DRAWER 7, Y5N ONE ×3 (06:23→22:30)
[2018-04-17 07:50] LABS: ARTERIAL BLD GAS O2 SATURATION 82.9 % (90-98.9); ARTERIAL BLOOD GAS PO2 56.1 mmHg (80-100); ARTERIAL BLOOD GAS pH 7.49 (7.35-7.45)
[2018-04-17 07:52] LABS: ALLENS TEST POSITIVE
--- NOTE | 2018-04-17 07:52 | PN ---
Physical Exam: SUBJECTIVE: Patient seen and examined. Endorses SOB, cough. Denies chest pain, abdominal pain, N/V/C/D. OBJECTIVE: Vital Signs Period Temp Pulse Resp BP Sys/Min Pulse Ox Last 24 Hr 97.6 F-98 F 73-83 16-24 137-168/65-94 95-100 GENERAL: Awake, alert, and fully oriented, in no acute distress HEAD: No signs of trauma, normocephalic, atraumatic EYES: PERRLA, EOMI, sclera anicteric, conjunctiva clear ENT: Hearing grossly normal, nares patent, oropharynx clear without exudates. Moist mucosa LUNGS: Increased WOB, speaks in short phrases, becomes hypoxic w/ prolonged speech, diffuse b/l crackles/wheeze HEART: Regular rate and rhythm, normal S1 and S2, no murmurs appreciated, peripheral pulses normal and equal bilaterally ABDOMEN: Soft, nontender, normoactive bowel sounds. No guarding, no rebound EXTREMITIES : Normal inspection, Normal range of motion, no edema. No clubbing or cyanosis NEUROLOGICAL: Cranial nerves II through XII grossly intact. Normal speech, no focal sensorimotor deficits SKIN: Warm, Dry Active Medications Generic Name Dose Route Start Last Admin Trade Name Freq PRN Reason Stop Dose Admin Albuterol/Ipratropium 1 amp 04/16/18 14:23 Duoneb - NEB Q6H PRN SHORTNESS OF BREATH Amlodipine Besylate 10 mg 04/17/18 10:00 Norvasc - PO DAILY [facility] Aspirin 81 mg 04/17/18 10:00 Asa - PO DAILY [facility] Atorvastatin Calcium 10 mg 04/16/18 22:00 04/16/18 22:30 Lipitor - PO 10 mg HS [facility] Administration Budesonide/Formoterol Fumarate 2 puff 04/16/18 22:00 04/16/18 22:58 Symbicort 80/4.5mcg - IH 2 puff BID [facility] Administration Carvedilol 3.125 mg 04/16/18 22:00 04/16/18 22:35 Coreg - PO 3.125 mg BID [facility] Administration Chlorhexidine Gluconate 1 applic 04/16/18 22:00 04/16/18 22:40 Hibiclens For Decolonization - TP 1 applic HS [facility] Administration Dextrose 25 gm 04/17/18 04:34 D50w (Syringe) - IVPUSH PRN PRN HYPOGLYCEMIA (BG < 70) Doxepin HCl 10 mg 04/16/18 22:00 Sinequan - PO HS PRN INSOMNIA Duloxetine HCl 60 mg 04/17/18 10:00 Cymbalta - PO DAILY [facility] Heparin Sodium (Porcine) 5,000 unit 04/16/18 22:00 04/17/18 06:03 Heparin - SQ 5,000 unit TID [facility] Administration Influenza Virus Vaccine Quadrival 60 mcg 04/17/18 10:00 Flulaval Quad [id number] IM 04/17/18 10:01 .ONCE ONE Insulin Aspart 1 vial 04/16/18 16:30 04/17/18 06:01 Novolog Vial Sliding Scale - SQ Not Given ACHS [facility] Protocol Lisinopril 10 mg 04/17/18 10:00 Prinivil PO DAILY [facility] Montelukast Sodium 10 mg 04/16/18 22:00 04/16/18 22:30 Singulair - PO 10 mg HS [facility] Administration Mupirocin 1 applic 04/16/18 22:00 04/16/18 22:39 Bactroban Ointment (For Decolonization) - NS 04/21/18 21:59 1 applic BID [facility] Administration Pneumococcal 13-Valent Conj Vacc 0.5 ml 04/17/18 10:00 Prevnar 13 Syringe - IM 04/17/18 10:01 .ONCE ONE Spironolactone 25 mg 04/17/18 10:00 Aldactone - PO DAILY [facility] ASSESSMENT/PLAN: 67 y/o F w/ PMHx COPD not on O2, unspecified cardiac Hx including "enlarged heart", HTN, DM, current smoker 42-pack year Hx, p/w 1 week progressively worsening SOB, minimally productive cough, malaise, anorexia, orthopnea. DDx is broad including: Neuro Depression -Duloxetine Chronic Pain -Doxepin CV Troponinemia/NSTEMI -Trop down trending -ECHO pending -Cardiology consulted HTN -Lisinopril -Amlodipine -Coreg HLD -Atorvastatin Pulm COPD Acute hypercapnic respiratory failure -Continue nebs, symbicort -BiPap PRN -Duoneb -Symbicort -Singulair PNA -Levaquin IV daily -ID consulted -UAg for PNA -Sputum Cx GI Nutrition -DM/sodium diet Metabolic alkalosis w/ respiratory acidosis -trend ABG -Spironolactone 25mg PO daily -consider acetazolamide for correction of HCO3 once hypokalemia corrected -Nephrology consulted -Aldosterone level -C.ortisol level Hypokalemia -Repleted Hypoglycemia -Resolved s/p D50 x1 Heme DVT Ppx -Heparin 5000u SQ daily ID PNA -Abx as above -Blood Cx NGTD Endo DM -BGM, ISS Dispo: The patient continues to require ICU level of care Visit type - Emergency Visit Emergency Visit: Yes ED Registration Date: 04/16/18 Care time: The patient presented to the Emergency Department on the above date and was hospitalized for further evaluation of their emergent condition. - New Patient This patient is new to me today: Yes Date on this admission: 04/17/18 - Critical Care Critical Care patient: Yes Total Critical Care Time (in minutes): 35 Critical Care Statement: The care of this patient involved high complexity decision making to prevent further life threatening deterioration of the patient 's condition and/or to evaluate & treat vital organ system(s) failure or risk of failure.
[2018-04-17 07:54] LABS: ARTERIAL BLOOD GAS BASE EXCESS 24.5 meq/l (-2-2); ARTERIAL BLOOD GAS PCO2 67.7 mmHg (35-45)
[2018-04-17 08:59] LABS: CREATININE 0.8 mg/dL (0.55-1.3); POTASSIUM 2.8 mmol/L (3.5-5.1)
[2018-04-17] MEDS: DULoxetine HCL 30 MG CAPSULE.DR (FP) PO SCH (09:00)
[2018-04-17 09:01] LABS: ALBUMIN 2.3 g/dl (3.4-5.0)
[2018-04-17] MEDS: CARVEDILOL 3.125 MG TABLET (FP) PO SCH ×2 (09:02→22:32)
[2018-04-17] MEDS: amLODIPine BESYLATE 10 MG TABLET (FP) PO SCH (09:02)
[2018-04-17] MEDS: ASPIRIN 81 MG CHEWABLE TABLETS PO SCH (09:02)
[2018-04-17] MEDS: BUDESONIDE/FORMETEROL FUMARATE 80/4.5 mcg INHALER IH SCH ×2 (09:06→22:32)
[2018-04-17] MEDS ORDERED: FLU VACCINE QUAD 60 MCG/0.5 ML (MDV 18-19) IM ONE (10:00)
[2018-04-17] MEDS ORDERED: PNEUMOC 13-VAL CONJ-DIP CRM/PF 0.5 ML DISP.SYRIN IM ONE (10:00)
[2018-04-17] MEDS: SPIRONOLACTONE 25 MG TABLET (FP) PO SCH (10:24)
--- NOTE | 2018-04-17 10:31 | PN ---
Teaching Attending Note Name of Resident: Hayden Farris ATTENDING PHYSICIAN STATEMENT I saw and evaluated the patient. I reviewed the resident's note and discussed the case with the resident. I agree with the resident's findings and plan as documented. SUBJECTIVE: Patient seen and examined in the ICU. Awake and alert. Remains mildly tachypneic at rest, saturatuion low 80's on NC O2 while eating. Congested cough. No hemoptysis. Used NIPPV overnight. Intake & Output 04/14/18 04/15/18 04/16/18 04/17/18 23:59 23:59 23:59 23:59 Intake Total 889 Output Total 150 Balance -150 889 Weight 163 lb 5 oz 167 lb 15.876 oz Last Vital Signs Temp Pulse Resp BP Pulse Ox 98.4 F 76 21 H 123/59 L 88 L 04/17/18 09:14 04/17/18 09:14 04/17/18 09:14 04/17/18 08:00 04/17/18 08:14 Active Medications Albuterol/Ipratropium (Duoneb -) 1 amp NEB RQID [facility] Amlodipine Besylate (Norvasc -) 10 mg PO DAILY [facility] Last Admin: 04/17/18 09:02 Dose: 10 mg Aspirin (Asa -) 81 mg PO DAILY [facility] Last Admin: 04/17/18 09:02 Dose: 81 mg Atorvastatin Calcium (Lipitor -) 10 mg PO HS [facility] Last Admin: 04/16/18 22:30 Dose: 10 mg Budesonide/Formoterol Fumarate (Symbicort 80/4.5mcg -) 2 puff IH BID [facility] Last Admin: 04/17/18 09:06 Dose: 2 puff Carvedilol (Coreg -) 3.125 mg PO BID [facility] Last Admin: 04/17/18 09:02 Dose: 3.125 mg Chlorhexidine Gluconate (Hibiclens For Decolonization -) 1 applic TP HS [facility] Last Admin: 04/16/18 22:40 Dose: 1 applic Dextrose (D50w (Syringe) -) 25 gm IVPUSH PRN PRN PRN Reason: HYPOGLYCEMIA (BG < 70) Doxepin HCl (Sinequan -) 10 mg PO HS PRN PRN Reason: INSOMNIA Duloxetine HCl (Cymbalta -) 60 mg PO DAILY [facility] Last Admin: 04/17/18 09:00 Dose: 60 mg Heparin Sodium (Porcine) (Heparin -) 5,000 unit SQ TID [facility] Last Admin: 04/17/18 06:03 Dose: 5,000 unit Levofloxacin (Levaquin 750 Mg Premixed Ivpb -) 750 mg in 150 mls @ 150 mls/hr IVPB DAILY [facility]; Protocol Potassium Chloride (Potassium Chloride 10 Meq Premix Ivpb -) 10 meq in 100 mls @ 100 mls/hr IVPB Q60M [facility] Stop: 04/17/18 12:59 Insulin Aspart (Novolog Vial Sliding Scale -) 1 vial SQ ACHS [facility]; Protocol Last Admin: 04/17/18 06:01 Dose: Not Given Lisinopril (Prinivil) 10 mg PO DAILY [facility] Montelukast Sodium (Singulair -) 10 mg PO HS [facility] Last Admin: 04/16/18 22:30 Dose: 10 mg Mupirocin (Bactroban Ointment (For Decolonization) -) 1 applic NS BID [facility] Stop: 04/21/18 21:59 Last Admin: 04/16/18 22:39 Dose: 1 applic Potassium Chloride (K-Dur -) 40 meq PO BID [facility] Stop: 04/17/18 22:01 Spironolactone (Aldactone -) 25 mg PO DAILY [facility] GENERAL: A&Ox3, Mildly tachypneic at rest HEAD: NC/AT EYES: PERRLA, EOMI EARS, NOSE, THROAT: Dry mucous membranes NECK: Normal range of motion, supple, +JVD LUNGS: Coarse rhonchi and expiratory wheezing HEART: RRR no m/r/g ABDOMEN: +bs, soft, NT, ND EXTREMITIES: 2+ pulses, warm, well-perfused. Non-edematous extremities appear dry and contracted. 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 Good eye contact. Appropriate mood and affect. SKIN: Warm, dry, decreased turgor Laboratory Results - last 24 hr 04/16/18 04/16/18 04/16/18 06:58 16:32 17:06 Hypochromia 2+ Platelet Estimate Slt increase Platelet Comment Large platelets Polychromasia 1+ Anisocytosis 2+ [place] Cells Few Anticoagulation Therapy Puncture Site Right radial ABG pH 7.56 H ABG pCO2 at Pt Temp 58.3 H ABG pO2 at Pt Temp 70.4 L D ABG HCO3 52.2 H* ABG O2 Sat (Measured) 92.6 ABG O2 Content 10.6 L ABG Base Excess 25.7 H* Wyatt Test Positive O2 Delivery Device Oxygen Flow Rate Yes Vent Mode Vent Rate Mechanical Rate Pressure Support Vent Sodium Potassium Chloride Carbon Dioxide Anion Gap BUN Creatinine Creat Clearance w eGFR POC Glucometer 159.68444 Random Glucose Hemoglobin A1c % Calcium Phosphorus Magnesium Total Bilirubin AST ALT Alkaline Phosphatase Creatine Kinase Creatine Kinase Index CK-MB (CK-2) Troponin I Total Protein Albumin Cholesterol 04/16/18 04/17/18 04/17/18 17:29 01:00 01:45 Hypochromia Platelet Estimate Platelet Comment Polychromasia Anisocytosis [place] Cells Anticoagulation Therapy Puncture Site ABG pH ABG pCO2 at Pt Temp ABG pO2 at Pt Temp ABG HCO3 ABG O2 Sat (Measured) ABG O2 Content ABG Base Excess Wyatt Test O2 Delivery Device Oxygen Flow Rate Vent Mode Vent Rate Mechanical Rate Pressure Support Vent Sodium 135 L Cancelled 136 Potassium 2.3 L* Cancelled 2.8 L* Chloride 76 L Cancelled 81 L Carbon Dioxide > 45 H Cancelled 54 H Anion Gap 14 Cancelled 1 L BUN 6 L Cancelled 8 Creatinine 0.7 Cancelled 0.9 Creat Clearance w eGFR > 60 Cancelled > 60 POC Glucometer Random Glucose 132 H Cancelled 39 L* Hemoglobin A1c % Calcium 7.0 L Cancelled 6.9 L* Phosphorus 3.9 Cancelled 2.6 Magnesium 1.8 Cancelled 2.1 Total Bilirubin 0.5 AST 49 H ALT 21 Alkaline Phosphatase 86 Creatine Kinase 998 H Creatine Kinase Index 0.1 CK-MB (CK-2) 1.9 Troponin I 0.16 H Total Protein 6.7 Albumin 2.0 L Cholesterol 04/17/18 04/17/18 04/17/18 04:41 06:05 07:45 Hypochromia Platelet Estimate Platelet Comment Polychromasia Anisocytosis [place] Cells Anticoagulation Therapy No Result Required. Puncture Site Right radial ABG pH 7.49 H ABG pCO2 at Pt Temp 67.7 H* ABG pO2 at Pt Temp 56.1 L D ABG HCO3 51.1 H* ABG O2 Sat (Measured) 82.9 L ABG O2 Content 8.5 L* ABG Base Excess 24.5 H* Wyatt Test Positive O2 Delivery Device Bipap Oxygen Flow Rate 45% Vent Mode No Result Required. Vent Rate No Result Required. Mechanical Rate No Result Required. Pressure Support Vent No Result Required. Sodium 137 Potassium 2.8 L* Chloride 83 L Carbon Dioxide 52 H Anion Gap 2 L BUN 8 Creatinine 0.8 Creat Clearance w eGFR > 60 POC Glucometer 132.88126 Random Glucose 87 Hemoglobin A1c % Calcium 7.2 L Phosphorus 2.3 L Magnesium 2.0 Total Bilirubin 1.0 AST 62 H ALT 24 Alkaline Phosphatase 98 Creatine Kinase 1039 H Creatine Kinase Index 0.2 CK-MB (CK-2) 2.48 Troponin I 0.14 H Total Protein 7.1 Albumin 2.3 L Cholesterol 143 04/17/18 04/17/18 07:45 07:59 Hypochromia Platelet Estimate Platelet Comment Polychromasia Anisocytosis Foster Cells Anticoagulation Therapy Puncture Site ABG pH ABG pCO2 at Pt Temp ABG pO2 at Pt Temp ABG HCO3 ABG O2 Sat (Measured) ABG O2 Content ABG Base Excess Wyatt Test O2 Delivery Device Oxygen Flow Rate Vent Mode Vent Rate Mechanical Rate Pressure Support Vent Sodium Potassium Chloride Carbon Dioxide Anion Gap BUN Creatinine Creat Clearance w eGFR POC Glucometer 105.54509 Random Glucose Hemoglobin A1c % < 5.0 Calcium Phosphorus Magnesium Total Bilirubin AST ALT Alkaline Phosphatase Creatine Kinase Creatine Kinase Index CK-MB (CK-2) Troponin I Total Protein Albumin Cholesterol ASSESSMENT/PLAN: Acute Respiratory Failure AE of COPD HTN DM Active smoker Suspected CAP Severe Metabolic Alkalosis: Suspected contraction alkalosis in the setting on chronic hypercapnia (?) Hilar adenopathy, given prolonged smoking history need to rule out malignancy (+) Troponin Severe Metabolic derangement CHF ABX coverage Check sputum Check urinary antigen ECHO Lasix as needed BD TX Medrol Check urine lytes Noted Aldactone Would give Spironolactone Aggressive correction of K PO as tolerated Glycemic control No smoking Will need further evaluation of abnormal right hilar area Cardiology evaluation ICU monitoring Dr Alanis Critical Care patient: Yes Total Critical Care Time (in minutes): 35 Critical Care Statement: The care of this patient involved high complexity decision making to prevent further life threatening deterioration of the patient 's condition and/or to evaluate & treat vital organ system(s) failure or risk of failure.
[2018-04-17] MEDS: POTASSIUM CHLORIDE TABS 20 MEQ TABLET.ER (FP) PO SCH ×2 (10:36→22:32)
[2018-04-17] MEDS: LISINOPRIL 10 MG TABLET (FP) PO SCH (10:37)
[2018-04-17] MEDS: MUPIROCIN 2% TOPICAL OINTMENT FOR DECOLONIZATION NS SCH ×2 (10:37→22:35)
--- NOTE | 2018-04-17 11:10 | PN ---
Progress Note, Physician - Current Medication List Current Medications: Active Medications Albuterol/Ipratropium (Duoneb -) 1 amp NEB RQID [facility] Amlodipine Besylate (Norvasc -) 10 mg PO DAILY [facility] Last Admin: 04/17/18 09:02 Dose: 10 mg Aspirin (Asa -) 81 mg PO DAILY [facility] Last Admin: 04/17/18 09:02 Dose: 81 mg Atorvastatin Calcium (Lipitor -) 10 mg PO HS [facility] Last Admin: 04/16/18 22:30 Dose: 10 mg Budesonide/Formoterol Fumarate (Symbicort 80/4.5mcg -) 2 puff IH BID [facility] Last Admin: 04/17/18 09:06 Dose: 2 puff Carvedilol (Coreg -) 3.125 mg PO BID [facility] Last Admin: 04/17/18 09:02 Dose: 3.125 mg Chlorhexidine Gluconate (Hibiclens For Decolonization -) 1 applic TP HS [facility] Last Admin: 04/16/18 22:40 Dose: 1 applic Dextrose (D50w (Syringe) -) 25 gm IVPUSH PRN PRN PRN Reason: HYPOGLYCEMIA (BG < 70) Doxepin HCl (Sinequan -) 10 mg PO HS PRN PRN Reason: INSOMNIA Duloxetine HCl (Cymbalta -) 60 mg PO DAILY [facility] Last Admin: 04/17/18 09:00 Dose: 60 mg Heparin Sodium (Porcine) (Heparin -) 5,000 unit SQ TID [facility] Last Admin: 04/17/18 06:03 Dose: 5,000 unit Levofloxacin (Levaquin 750 Mg Premixed Ivpb -) 750 mg in 150 mls @ 150 mls/hr IVPB DAILY [facility]; Protocol Last Admin: 04/17/18 10:44 Dose: 150 mls/hr Potassium Chloride (Potassium Chloride 10 Meq Premix Ivpb -) 10 meq in 100 mls @ 100 mls/hr IVPB Q60M [facility] Stop: 04/17/18 12:59 Last Admin: 04/17/18 10:28 Dose: 100 mls/hr Insulin Aspart (Novolog Vial Sliding Scale -) 1 vial SQ ACHS [facility]; Protocol Last Admin: 04/17/18 06:01 Dose: Not Given Lisinopril (Prinivil) 10 mg PO DAILY [facility] Last Admin: 04/17/18 10:37 Dose: 10 mg Montelukast Sodium (Singulair -) 10 mg PO HS [facility] Last Admin: 04/16/18 22:30 Dose: 10 mg Mupirocin (Bactroban Ointment (For Decolonization) -) 1 applic NS BID [facility] Stop: 04/21/18 21:59 Last Admin: 04/17/18 10:37 Dose: 1 applic Potassium Chloride (K-Dur -) 40 meq PO BID [facility] Stop: 04/17/18 22:01 Last Admin: 04/17/18 10:36 Dose: 40 meq Spironolactone (Aldactone -) 25 mg PO DAILY [facility] Last Admin: 04/17/18 10:24 Dose: 25 mg - Objective Vital Signs: Vital Signs Temperature 98.4 F 04/17/18 10:00 Pulse Rate 76 04/17/18 10:00 Respiratory Rate 21 H 04/17/18 10:00 Blood Pressure 159/80 04/17/18 10:00 O2 Sat by Pulse Oximetry (%) 88 L 04/17/18 08:14 Constitutional: Yes: Well Nourished, No Distress, Calm Eyes: Yes: WNL, Conjunctiva Clear, EOM Intact HENT: Yes: WNL, Atraumatic, Normocephalic Neck: Yes: WNL, Supple, Trachea Midline Cardiovascular: Yes: WNL, Regular Rate and Rhythm, S1, S2 Respiratory: Yes: WNL, Regular, CTA Bilaterally, Cough, On BiPap, SOB on Exertion Gastrointestinal: Yes: WNL, Normal Bowel Sounds, Soft, Abdomen, Obese Extremities: Yes: WNL Edema: No Peripheral Pulses WNL: Yes Labs: CBC, BMP 04/17/18 07:45 Problem List - Problems (1) CHF (congestive heart failure) Code(s): I50.9 - HEART FAILURE, UNSPECIFIED Qualifiers: Heart failure type: unspecified Heart failure chronicity: acute Qualified Code(s): I50.9 - Heart failure, unspecified (2) COPD (chronic obstructive pulmonary disease) Code(s): J44.9 - CHRONIC OBSTRUCTIVE PULMONARY DISEASE, UNSPECIFIED Qualifiers: COPD type: unspecified COPD Qualified Code(s): J44.9 - Chronic obstructive pulmonary disease, unspecified (3) Diabetes mellitus type 2 in nonobese Code(s): E11.9 - TYPE 2 DIABETES MELLITUS WITHOUT COMPLICATIONS (4) Hypercholesteremia Code(s): E78.0 - PURE HYPERCHOLESTEROLEMIA * DO NOT USE * (5) Hypertension Code(s): I10 - ESSENTIAL (PRIMARY) HYPERTENSION Qualifiers: Hypertension type: essential hypertension Qualified Code(s): I10 - Essential (primary) hypertension (6) Metabolic alkalosis with respiratory acidosis Code(s): E87.4 - MIXED DISORDER OF ACID-BASE BALANCE (7) Hypokalemia due to loss of potassium Code(s): E87.6 - HYPOKALEMIA (8) Pneumonia Code(s): J18.9 - PNEUMONIA, UNSPECIFIED ORGANISM Assessment/Plan Assessment/Plan: CHF (congestive heart failure) stable at this time not in an acute DCHF will start the patient on carvedilol 3.125mg twice a day c/w lisinopril 10mg obtain echocardiogram COPD (chronic obstructive pulmonary disease) acute exacerbation of COPD start patient on prednisone 40mg daily duonebs q4hrs pulmonary evaluation Diabetes mellitus type 2 in non-obese insulin sliding scale diabetic diet Hypercholesteremia c/w atorvastatin 20mg daily Hypertension c/w lisinopril c/w amlodipine c/w spironolactone 25mg daily Metabolic alkalosis with respiratory acidosis patient is on BiPAP f/u with cortisol level F/u with aldosterone level will replenish potassium level will admit the patient to ICU (7) Hypokalemia due to loss of potassium with metabolic alkalosis - resolving potassium supplementation monitor K+ level q6 hrs monitor ECG obtain magnesium Pneumonia c/w with levofloxacin 750mg daily IVPG switch to PO when patient status improves. obtain cultures
[2018-04-17] MEDS: ALBUTEROL SO4 2.5/IPRATROPIUM 0.5 INH SOL 3 ML VIAL.NEB. NEB SCH ×3 (12:30→20:50)
[2018-04-17 12:32] LABS: ALK PHOS 98 U/L (45-117); ANION GAP 10 MMOL/L (8-16); BLOOD UREA NITROGEN 8 mg/dL (7-18); CALCIUM 7.2 mg/dL (8.5-10.1); CHLORIDE 83 mmol/L (98-107); CHOLESTEROL 143 mg/dL (50-200); CO2 > 45 mmol/L (21-32); GLUCOSE,RANDOM 87 mg/dL (74-106); PHOSPHOROUS 2.3 mg/dL (2.5-4.9); SGOT/AST 62 U/L (15-37); SGPT/ALT 24 U/L (13-61); SODIUM 137 mmol/L (136-145); TOT PROT 7.1 g/dl (6.4-8.2)
[2018-04-17 12:40] LABS: BASO % 0.5 % (0-2.0); EOS % 0.1 % (0-4.5); HEMOGLOBIN 8.1 GM/dL (10.7-15.3); LYMPH % 33.2 % (8-40); MEAN CELL VOLUME 61.5 fl (80-96); MEAN PLT VOLUME 8.7 fl (7.5-11.1); MONO % 7.8 % (3.8-10.2); NEUT % 58.4 % (42.8-82.8); PLATELET COUNT 340 K/MM3 (134-434); RBC 4.23 M/mm3 (3.60-5.2); RDW 26.9 % (11.6-15.6); WHITE BLOOD COUNT 9.5 K/mm3 (4.0-10.0)
--- NOTE | 2018-04-17 15:01 | PN ---
Progress Note (short form) - Note Progress Note: copd cardiomyopathy hypokalemia ?etoh Current Medications Albuterol/Ipratropium (Duoneb -) 1 amp NEB RQID [facility] Amlodipine Besylate (Norvasc -) 10 mg PO DAILY [facility] Last Admin: 04/17/18 09:02 Dose: 10 mg Aspirin (Asa -) 81 mg PO DAILY [facility] Last Admin: 04/17/18 09:02 Dose: 81 mg Atorvastatin Calcium (Lipitor -) 10 mg PO [facility] Last Admin: 04/16/18 22:30 Dose: 10 mg Budesonide/Formoterol Fumarate (Symbicort 80/4.5mcg -) 2 puff IH BID [facility] Last Admin: 04/17/18 09:06 Dose: 2 puff Carvedilol (Coreg -) 3.125 mg PO BID [facility] Last Admin: 04/17/18 09:02 Dose: 3.125 mg Chlorhexidine Gluconate (Hibiclens For Decolonization -) 1 applic TP [facility] Last Admin: 04/16/18 22:40 Dose: 1 applic Dextrose (D50w (Syringe) -) 25 gm IVPUSH PRN PRN PRN Reason: HYPOGLYCEMIA (BG < 70) Doxepin HCl (Sinequan -) 10 mg PO HS PRN PRN Reason: INSOMNIA Duloxetine HCl (Cymbalta -) 60 mg PO DAILY [facility] Last Admin: 04/17/18 09:00 Dose: 60 mg Heparin Sodium (Porcine) (Heparin -) 5,000 unit SQ TID [facility] Last Admin: 04/17/18 13:41 Dose: 5,000 unit Levofloxacin (Levaquin 750 Mg Premixed Ivpb -) 750 mg in 150 mls @ 150 mls/hr IVPB DAILY [facility]; Protocol Last Admin: 04/17/18 10:44 Dose: 150 mls/hr Insulin Aspart (Novolog Vial Sliding Scale -) 1 vial SQ ACHS [facility]; Protocol Last Admin: 04/17/18 06:01 Dose: Not Given Lisinopril (Prinivil) 10 mg PO DAILY [facility] Last Admin: 04/17/18 10:37 Dose: 10 mg Montelukast Sodium (Singulair -) 10 mg PO [facility] Last Admin: 04/16/18 22:30 Dose: 10 mg Mupirocin (Bactroban Ointment (For Decolonization) -) 1 applic NS BID [facility] Stop: 04/21/18 21:59 Last Admin: 04/17/18 10:37 Dose: 1 applic Potassium Chloride (K-Dur -) 40 meq PO BID [facility] Stop: 04/17/18 22:01 Last Admin: 04/17/18 10:36 Dose: 40 meq Spironolactone (Aldactone -) 25 mg PO DAILY [facility] Last Admin: 04/17/18 10:24 Dose: 25 mg Last Vital Signs Temp Pulse Resp BP Pulse Ox 98.6 F 74 22 H 139/82 88 L 04/17/18 14:00 04/17/18 14:00 04/17/18 14:00 04/17/18 14:00 04/17/18 08:14 sleepy but alert during exam on bipap Lungs clear Heart reg Abd soft Ext no edema CBC, BMP 04/17/18 07:45 04/17/18 07:45 IMP- electrolyte disorder hypokalemia protein malnutrition alcohol use? metabolic alkalosis resp alkalosis Plan- continue k replacements thiamine mvi nutrition consult
[2018-04-17 17:31] LABS: ANION GAP 6 MMOL/L (8-16); BLOOD UREA NITROGEN 8 mg/dL (7-18); CHLORIDE 86 mmol/L (98-107); CO2 > 45 mmol/L (21-32); CREATININE 0.8 mg/dL (0.55-1.3); GLUCOSE,RANDOM 111 mg/dL (74-106); POTASSIUM 3.4 mmol/L (3.5-5.1); SODIUM 137 mmol/L (136-145)
--- NOTE | 2018-04-17 20:42 | CON.CARD ---
Consult - History of Present Illness History of Present Illness: This is a 67 y/o female patient with Hx of HTN, DL, active smoking (quit 4 days ago), COPD and ?CHF presented to the hospital with worsening SOB productive cough with greyish sputum, inability to lay on her. Patient stated that she had a cold recently, and she is recovering from that, patient didnt receive her influenza vaccination this year. stated she does not know why. 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) Cardio/Vascular: Yes: HTN ( x 15years), Hyperlipdemia Pulmonary: Yes: COPD ...: No Psych: Yes: Depression Musculoskeletal: Yes: Hemiparesis (right sided) Endocrine: Yes: Diabetes Mellitus (x 10 years) - Past Surgical History Past Surgical History: Yes: Appendectomy, , Hernia Repair (multiple incisional hernia repairs), Hysterectomy, Oopherectomy - Alcohol/Substance Use Hx Alcohol Use: Yes - Smoking History Smoking history: Current every day smoker Have you smoked in the past 12 months: No Aproximately how many cigarettes per day: 20 - Social History Usual Living Arrangement: Alone 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 Home Medications - Allergies Allergies/Adverse Reactions: Allergies Allergy/AdvReac Type Severity Reaction Status Date / Time Aminoglycosides Allergy Severe Rash Verified 04/16/18 05:47 potassium clavulanate Allergy Severe Rash Verified 04/16/18 05:47 [From Augmentin] amoxicillin trihydrate Allergy Rash Verified 04/16/18 05:47 [From Augmentin] erythromycin base Allergy Rash Verified 04/16/18 05:47 [Erythromycin Base] gentamicin [Gentamicin] Allergy Rash Verified 04/16/18 05:47 - Home Medications Home Medications: Ambulatory Orders Amlodipine Besylate [Norvasc -] 10 mg PO DAILY 03/20/15 Aspirin [ASA -] 81 mg PO DAILY 03/20/15 Doxepin HCl [Sinequan -] 10 mg PO HS PRN 03/20/15 Fluticasone/Salmeterol [Advair 250-50 Diskus] 1 each IH BID 03/20/15 Lisinopril [Prinivil] 10 mg PO DAILY 03/20/15 Montelukast Na [Singulair -] 10 mg PO HS 03/20/15 Simvastatin [Zocor -] 20 mg PO HS 03/20/15 Ipratropium/Albuterol Sulfate [Combivent Respimat 20-100 Mcg] 2 inh IH Q6H PRN 12/23/15 Magnesium Oxide [Mag-Ox -] 400 mg PO BID 12/23/15 Naproxen [Naprosyn -] 500 mg PO BID PRN 12/23/15 Potassium Chloride [K-Dur -] 20 meq PO DAILY 12/23/15 Duloxetine HCl [Cymbalta] 60 mg PO DAILY #20 capsule. 12/26/15 Family Disease History - Family Disease History Family Disease History: Diabetes: Mother (HTN), Sister (HTN), Heart Disease: Mother, Other: Mother, Brother (HTN), Sister Review of Systems - Review of Systems Constitutional: reports: No Symptoms Eyes: reports: No Symptoms HENT: reports: No Symptoms Neck: reports: No Symptoms Cardiovascular: reports: No Symptoms Respiratory: reports: Cough Gastrointestinal: reports: No Symptoms Genitourinary: reports: No Symptoms Breasts: reports: No Symptoms Reported Musculoskeletal: reports: No Symptoms Integumentary: reports: No Symptoms Neurological: reports: No Symptoms Endocrine: reports: No Symptoms Hematology/Lymphatic: reports: No Symptoms Psychiatric: reports: No Symptoms Vital Signs: Vital Signs Temperature 98.4 F 04/17/18 20:00 Pulse Rate 79 04/17/18 20:00 Respiratory Rate 22 H 04/17/18 20:20 Blood Pressure 153/90 04/17/18 20:00 O2 Sat by Pulse Oximetry (%) 86 L 04/17/18 20:20 Constitutional: Yes: Well Nourished, No Distress, Calm Eyes: Yes: WNL, Conjunctiva Clear, EOM Intact HENT: Yes: WNL, Atraumatic, Normocephalic Neck: Yes: WNL, Supple, Trachea Midline Respiratory: Yes: WNL, Regular, CTA Bilaterally Gastrointestinal: Yes: WNL, Normal Bowel Sounds Renal/: Yes: WNL Cardiovascular: Yes: WNL, Regular Rate and Rhythm Musculoskeletal: Yes: WNL Extremities: Yes: WNL Integumentary: Yes: WNL Neurological: Yes: WNL, Alert, Oriented ...Motor Strength: WNL Psychiatric: Yes: WNL, Alert, Oriented - Other Data Labs, Other Data: CBC, BMP 04/17/18 07:45 04/17/18 14:45 Troponin, BNP 04/17/18 07:45 Troponin I 0.13 H Troponin, BNP 04/17/18 07:45 Troponin I 0.13 H Imaging - Results Chest X-ray: Image Reviewed (chf cm) EKG: Image Reviewed (sr old iwmi) Problem List - Problems (1) CHF (congestive heart failure) Code(s): I50.9 - HEART FAILURE, UNSPECIFIED Qualifiers: Heart failure type: unspecified Heart failure chronicity: acute Qualified Code(s): I50.9 - Heart failure, unspecified (2) Hypokalemia due to loss of potassium Code(s): E87.6 - HYPOKALEMIA (3) Metabolic alkalosis with respiratory acidosis Code(s): E87.4 - MIXED DISORDER OF ACID-BASE BALANCE (4) NSTEMI (non-ST elevated myocardial infarction) Code(s): I21.4 - NON-ST ELEVATION (NSTEMI) MYOCARDIAL INFARCTION (5) Pneumonia Code(s): J18.9 - PNEUMONIA, UNSPECIFIED ORGANISM (6) COPD (chronic obstructive pulmonary disease) Code(s): J44.9 - CHRONIC OBSTRUCTIVE PULMONARY DISEASE, UNSPECIFIED Qualifiers: COPD type: unspecified COPD Qualified Code(s): J44.9 - Chronic obstructive pulmonary disease, unspecified (7) Abdominal pain Code(s): R10.9 - UNSPECIFIED ABDOMINAL PAIN (8) Alcohol dependence Code(s): F10.20 - ALCOHOL DEPENDENCE, UNCOMPLICATED Qualifiers: Substance use status: uncomplicated Qualified Code(s): F10.20 - Alcohol dependence, uncomplicated (9) Alcohol intoxication Code(s): F10.129 - ALCOHOL ABUSE WITH INTOXICATION, UNSPECIFIED Qualifiers: Complication of substance-induced condition: uncomplicated Qualified Code(s ): F10.920 - Alcohol use, unspecified with intoxication, uncomplicated (10) Closed head injury Code(s): S09.90XA - UNSPECIFIED INJURY OF HEAD, INITIAL ENCOUNTER Qualifiers: Encounter type: initial encounter Qualified Code(s): S09.90XA - Unspecified injury of head, initial encounter (11) Diabetes mellitus type 2 in nonobese Code(s): E11.9 - TYPE 2 DIABETES MELLITUS WITHOUT COMPLICATIONS (12) Diabetes mellitus type 2 in obese Code(s): E11.9 - TYPE 2 DIABETES MELLITUS WITHOUT COMPLICATIONS; E66.9 - OBESITY , UNSPECIFIED (13) Encounter for removal of sutures Code(s): Z48.02 - ENCOUNTER FOR REMOVAL OF SUTURES (14) Fall Code(s): W19.XXXA - UNSPECIFIED FALL, INITIAL ENCOUNTER Qualifiers: Encounter type: initial encounter Qualified Code(s): W19.XXXA - Unspecified fall, initial encounter (15) Head contusion Code(s): S00.93XA - CONTUSION OF UNSPECIFIED PART OF HEAD, INITIAL ENCOUNTER Qualifiers: Encounter type: initial encounter Contusion of head detail: scalp Qualified Code(s): S00.03XA - Contusion of scalp, initial encounter (16) Headache Code(s): R51 - HEADACHE (17) Intoxication Code(s): [id number] - (18) Left against medical advice Code(s): Z53.20 - PROC/TRTMT NOT CRD OUT BEC PT DECISION FOR UNSP REASONS (19) Scalp laceration Code(s): S01.01XA - LACERATION WITHOUT FOREIGN BODY OF SCALP, INITIAL ENCOUNTER (20) Alcohol-induced mood disorder Code(s): F10.94 - ALCOHOL USE, UNSPECIFIED WITH ALCOHOL-INDUCED MOOD DISORDER (21) Asthma Code(s): J45.909 - UNSPECIFIED ASTHMA, UNCOMPLICATED Qualifiers: Asthma severity: mild intermittent Asthma complication type: with status asthmaticus (22) Borderline diabetes mellitus Code(s): R73.09 - OTHER ABNORMAL GLUCOSE (23) Depressive disorder Code(s): F32.9 - MAJOR DEPRESSIVE DISORDER, SINGLE EPISODE, UNSPECIFIED (24) Hypercholesteremia Code(s): E78.0 - PURE HYPERCHOLESTEROLEMIA * DO NOT USE * (25) Hypertension Code(s): I10 - ESSENTIAL (PRIMARY) HYPERTENSION Qualifiers: Hypertension type: essential hypertension Qualified Code(s): I10 - Essential (primary) hypertension (26) Sequela, post-stroke Code(s): I69.30 - UNSPECIFIED SEQUELAE OF CEREBRAL INFARCTION (27) Depression (emotion) Code(s): F32.9 - MAJOR DEPRESSIVE DISORDER, SINGLE EPISODE, UNSPECIFIED Qualifiers: Depression Type: dysthymia Qualified Code(s): F34.1 - Dysthymic disorder Assessment/Plan chf nonstemi ashd? stent or c. cath 2010 -pt not sure hypokalemia echo pending bronchitis old cva htn hlp plan echo, mibi when stable cionider iv lasix supplement K cont asa cc time 70 min
[2018-04-17] MEDS: MONTELUKAST NA 10 MG TABLET PO SCH (22:32)
[2018-04-17] MEDS: ATORVASTATIN CA 10 MG TABLET (FP) PO SCH (22:32)
[2018-04-17] MEDS: CHLORHEXIDINE GLUCONATE 4% CLEANSER FOR DECOLONIZATION TP SCH (22:35)
[2018-04-18 05:59] LABS: BASO % 0.6 % (0-2.0); EOS % 0.1 % (0-4.5); HEMATOCRIT 23.4 % (32.4-45.2); HEMOGLOBIN 7.4 GM/dL (10.7-15.3); LYMPH % 22.3 % (8-40); MCHC 31.8 g/dl (32.0-36.0); MEAN CELL VOLUME 60.8 fl (80-96); MEAN PLT VOLUME 8.9 fl (7.5-11.1); PLATELET COUNT 398 K/MM3 (134-434); RBC 3.85 M/mm3 (3.60-5.2); RDW 26.6 % (11.6-15.6); WHITE BLOOD COUNT 8.2 K/mm3 (4.0-10.0)
[2018-04-18 06:07] LABS: MCH 19.3 pg (25.7-33.7)
[2018-04-18] MEDS: HEPARIN NA (PORCINE) 5,000 UNITS/ML 1ML VIAL SQ SCH ×3 (06:07→21:05)
[2018-04-18] MEDS: INSULIN SLIDING SCALE (NOVOLOG) 1 VIAL SQ SCH ×4 (06:07→21:23)
[2018-04-18 06:20] LABS: ARTERIAL BLOOD GAS BASE EXCESS 19.5 meq/l (-2-2); ARTERIAL BLOOD GAS PCO2 58.5 mmHg (35-45)
[2018-04-18 06:28] LABS: ALK PHOS 82 U/L (45-117); ANION GAP 2 MMOL/L (8-16); BILIRUBIN,TOTAL 0.5 mg/dL (0.2-1); BLOOD UREA NITROGEN 6 mg/dL (7-18); CALCIUM 7.1 mg/dL (8.5-10.1); CHLORIDE 91 mmol/L (98-107); CO2 45 mmol/L (21-32); CREATININE 0.7 mg/dL (0.55-1.3); GLUCOSE,RANDOM 98 mg/dL (74-106); MAGNESIUM 1.7 mg/dL (1.8-2.4); PHOSPHOROUS 2.4 mg/dL (2.5-4.9); POTASSIUM 3.4 mmol/L (3.5-5.1); SGOT/AST 36 U/L (15-37); SGPT/ALT 18 U/L (13-61); SODIUM 138 mmol/L (136-145); TOT PROT 6.6 g/dl (6.4-8.2)
[2018-04-18 06:45] LABS: ALLENS TEST POSITIVE
--- NOTE | 2018-04-18 07:24 | PN ---
Physical Exam: SUBJECTIVE: Patient seen and examined. Reports feeling improved. Denies SOB. Denies chest pain. OBJECTIVE: Vital Signs Period Temp Pulse Resp BP Sys/Min Pulse Ox Last 24 Hr 98 F-98.8 F 71-88 18-26 123-163/59-90 85-100 GENERAL: Awake, alert, and fully oriented, in no acute distress HEAD: No signs of trauma, normocephalic, atraumatic EYES: PERRLA, EOMI, sclera anicteric, conjunctiva clear ENT: Hearing grossly normal, nares patent, oropharynx clear without exudates. Moist mucosa LUNGS: Breathing comfortably on NC, speaks in short phrases, becomes hypoxic w/ prolonged speech, mild diffuse b/l wheeze HEART: Regular rate and rhythm, normal S1 and S2, no murmurs appreciated, peripheral pulses normal and equal bilaterally ABDOMEN: Soft, nontender, normoactive bowel sounds. No guarding, no rebound EXTREMITIES : Normal inspection, Normal range of motion, no edema. No clubbing or cyanosis NEUROLOGICAL: Cranial nerves II through XII grossly intact. Normal speech, no focal sensorimotor deficits SKIN: Warm, Dry ASSESSMENT/PLAN: The pt is a 67F w/ a PMH of COPD, unspecified cardiac Hx including "enlarged heart", HTN, T2DM, current smoker 42-pack year Hx, p/w 1 week progressively worsening SOB, minimally productive cough, malaise, anorexia, orthopnea. DDx is broad including: Neuro Depression -Duloxetine 60mg PO daily Chronic Pain -Doxepin 10mg PO Qhs CV Troponinemia/NSTEMI -Trop down trending -ECHO pending -Cardiology consulted HTN -Lisinopril 10mg PO daily -Amlodipine 10 mg PO daily -Coreg 3.125mg PO BID HLD -Atorvastatin 10mg PO Qhs CAD -ASA 81mg PO daily Pulm COPD Acute hypercapnic respiratory failure -Continue nebs, symbicort -BiPap PRN -Duoneb 1 amp NEB QID -Symbicort 2 puff IH BID -Singulair 10mg PO Qhs -Methylprednisolone 40mg IV Q8H PNA -Levaquin 750mg IV daily -ID consulted -UAg for PNA -Sputum Cx GI Nutrition -DM/sodium diet -Thiamine 100mg PO daily -Mutlivitamin daily Metabolic alkalosis w/ respiratory acidosis -Spironolactone 25mg PO daily -Acetazolamide 250mg PO once for elevated bicarb -Nephrology consulted -Aldosterone level -Cortisol level Hypokalemia -Repleted Hypoglycemia -Resolved s/p D50 x1 Heme DVT Ppx -Heparin 5000u SQ Q8H ID PNA -Abx as above -Blood Cx NGTD Endo DM -BGM, ISS Dispo: The patient continues to require ICU level of care Visit type - Emergency Visit Emergency Visit: Yes ED Registration Date: 04/16/18 Care time: The patient presented to the Emergency Department on the above date and was hospitalized for further evaluation of their emergent condition. - New Patient This patient is new to me today: No - Critical Care Critical Care patient: Yes Total Critical Care Time (in minutes): 35 Critical Care Statement: The care of this patient involved high complexity decision making to prevent further life threatening deterioration of the patient 's condition and/or to evaluate & treat vital organ system(s) failure or risk of failure.
[2018-04-18] MEDS: ALBUTEROL SO4 2.5/IPRATROPIUM 0.5 INH SOL 3 ML VIAL.NEB. NEB SCH ×4 (07:50→21:35)
[2018-04-18] MEDS ORDERED: MAGNESIUM SULF 50% (8.12 MEQ/2 ML-1 GM VIAL) IVPB ONE (08:23)
--- NOTE | 2018-04-18 08:34 | PN ---
Physical Exam: SUBJECTIVE: Patient seen and examined OBJECTIVE: Vital Signs Period Temp Pulse Resp BP Sys/Min Pulse Ox Last 24 Hr 98 F-98.8 F 71-88 18-26 139-163/74-90 85-100 GENERAL: Awake, alert, and fully oriented, in no acute distress HEAD: No signs of trauma, normocephalic, atraumatic EYES: PERRLA, EOMI, sclera anicteric, conjunctiva clear ENT: Hearing grossly normal, nares patent, oropharynx clear without exudates. Moist mucosa LUNGS: Increased WOB, speaks in short phrases, becomes hypoxic w/ prolonged speech, diffuse b/l crackles/wheeze HEART: Regular rate and rhythm, normal S1 and S2, no murmurs appreciated, peripheral pulses normal and equal bilaterally ABDOMEN: Soft, nontender, normoactive bowel sounds. No guarding, no rebound EXTREMITIES : Normal inspection, Normal range of motion, no edema. No clubbing or cyanosis NEUROLOGICAL: Cranial nerves II through XII grossly intact. Normal speech, no focal sensorimotor deficits SKIN: Warm, Dry ASSESSMENT/PLAN: The pt is a 67F w/ a PMH of COPD, unspecified cardiac Hx including "enlarged heart", HTN, DM, current smoker 42-pack year Hx, p/w 1 week progressively worsening SOB, minimally productive cough, malaise, anorexia, orthopnea. DDx is broad including: Neuro Depression -Duloxetine Chronic Pain -Doxepin CV Troponinemia/NSTEMI -Trop down trending -ECHO pending -Cardiology consulted HTN -Lisinopril -Amlodipine -Coreg HLD -Atorvastatin Pulm COPD Acute hypercapnic respiratory failure -Continue nebs, symbicort -BiPap PRN -Duoneb -Symbicort -Singulair PNA -Levaquin IV daily -ID consulted -UAg for PNA -Sputum Cx GI Nutrition -DM/sodium diet Metabolic alkalosis w/ respiratory acidosis -trend ABG -Spironolactone 25mg PO daily -consider acetazolamide for correction of HCO3 once hypokalemia corrected -Nephrology consulted -Aldosterone level -Cortisol level Hypokalemia -Repleted Hypoglycemia -Resolved s/p D50 x1 Heme DVT Ppx -Heparin 5000u SQ daily ID PNA -Abx as above -Blood Cx NGTD Endo DM -BGM, ISS Dispo: The patient continues to require ICU level of care Visit type - Emergency Visit Emergency Visit: Yes ED Registration Date: 04/16/18 Care time: The patient presented to the Emergency Department on the above date and was hospitalized for further evaluation of their emergent condition. - New Patient This patient is new to me today: No - Critical Care Critical Care patient: Yes Total Critical Care Time (in minutes): 40 Critical Care Statement: The care of this patient involved high complexity decision making to prevent further life threatening deterioration of the patient 's condition and/or to evaluate & treat vital organ system(s) failure or risk of failure.
[2018-04-18] MEDS ORDERED: acetaZOLAMIDE 250 MG TABLET PO ONE (09:00)
[2018-04-18] MEDS ORDERED: PT OWN MED DRAWER 7, Y5N ONE ×3 (09:06→21:10)
[2018-04-18] MEDS: KCL 10 MEQ IVPB 10 MEQ/100 ML INFUS.BAG IVPB SCH ×3 (09:18→12:14)
[2018-04-18] MEDS: ASPIRIN 81 MG CHEWABLE TABLETS PO SCH (09:20)
[2018-04-18] MEDS: MULTIVITAMINS (DAILY MVI) TABLET (FP) PO SCH (09:21)
[2018-04-18] MEDS: LISINOPRIL 10 MG TABLET (FP) PO SCH (09:22)
[2018-04-18] MEDS: DULoxetine HCL 30 MG CAPSULE.DR (FP) PO SCH (09:22)
[2018-04-18] MEDS: amLODIPine BESYLATE 10 MG TABLET (FP) PO SCH (09:22)
[2018-04-18] MEDS: POTASSIUM CHLORIDE TABS 20 MEQ TABLET.ER (FP) PO SCH ×2 (09:23→21:06)
[2018-04-18] MEDS: SPIRONOLACTONE 25 MG TABLET (FP) PO SCH (09:25)
[2018-04-18] MEDS: MUPIROCIN 2% TOPICAL OINTMENT FOR DECOLONIZATION NS SCH ×2 (09:26→21:11)
[2018-04-18] MEDS: THIAMINE HCL 100 MG TABLET (FP) PO SCH (09:27)
[2018-04-18] MEDS: CARVEDILOL 3.125 MG TABLET (FP) PO SCH ×2 (09:27→21:05)
[2018-04-18] MEDS: BUDESONIDE/FORMETEROL FUMARATE 80/4.5 mcg INHALER IH SCH ×2 (09:52→21:07)
[2018-04-18] MEDS: methylPREDNISolone NA SUCC 40 MG/1 ML VIAL IVPUSH SCH ×2 (12:14→17:36)
--- NOTE | 2018-04-18 12:56 | PN ---
Teaching Attending Note Name of Resident: Hayden Farris ATTENDING PHYSICIAN STATEMENT I saw and evaluated the patient. I reviewed the resident's note and discussed the case with the resident. I agree with the resident's findings and plan as documented. SUBJECTIVE: Pt seen and examined in the ICU. States breathing is better today. On 50% ventimask saturating low 90s. +cough and wheezing. OBJECTIVE: Vital Signs Period Temp Pulse Resp BP Sys/Min Pulse Ox Last 24 Hr 98 F-98.9 F 71-88 18-26 139-174/74-90 85-100 Intake & Output 04/15/18 04/16/18 04/17/18 04/18/18 23:59 23:59 23:59 23:59 Intake Total 2089 Output Total 150 650 Balance -150 1439 Weight 74.077 kg 76.2 kg Gen: mildly tachypneic with speaking Heart: RRR Lung: scattered rhonchi, wheezes Abd: soft, nontender Ext: no edema CBC, BMP 04/18/18 05:15 04/18/18 05:15 Active Medications Albuterol/Ipratropium (Duoneb -) 1 amp NEB RQID [facility] Last Admin: 04/18/18 11:35 Dose: 1 amp Amlodipine Besylate (Norvasc -) 10 mg PO DAILY [facility] Last Admin: 04/18/18 09:22 Dose: 10 mg Aspirin (Asa -) 81 mg PO DAILY [facility] Last Admin: 04/18/18 09:20 Dose: 81 mg Atorvastatin Calcium (Lipitor -) 10 mg PO HS [facility] Last Admin: 04/17/18 22:32 Dose: 10 mg Budesonide/Formoterol Fumarate (Symbicort 80/4.5mcg -) 2 puff IH BID [facility] Last Admin: 04/18/18 09:52 Dose: 2 puff Carvedilol (Coreg -) 3.125 mg PO BID [facility] Last Admin: 04/18/18 09:27 Dose: 3.125 mg Chlorhexidine Gluconate (Hibiclens For Decolonization -) 1 applic TP [facility] Last Admin: 04/17/18 22:35 Dose: 1 applic Dextrose (D50w (Syringe) -) 25 gm IVPUSH PRN PRN PRN Reason: HYPOGLYCEMIA (BG < 70) Doxepin HCl (Sinequan -) 10 mg PO HS PRN PRN Reason: INSOMNIA Duloxetine HCl (Cymbalta -) 60 mg PO DAILY [facility] Last Admin: 04/18/18 09:22 Dose: 60 mg Heparin Sodium (Porcine) (Heparin -) 5,000 unit SQ TID [facility] Last Admin: 04/18/18 06:07 Dose: 5,000 unit Levofloxacin (Levaquin 750 Mg Premixed Ivpb -) 750 mg in 150 mls @ 150 mls/hr IVPB DAILY [facility]; Protocol Last Admin: 04/18/18 09:23 Dose: 150 mls/hr Insulin Aspart (Novolog Vial Sliding Scale -) 1 vial SQ ACHS [facility]; Protocol Last Admin: 04/18/18 12:00 Dose: Not Given Lisinopril (Prinivil) 10 mg PO DAILY [facility] Last Admin: 04/18/18 09:22 Dose: 10 mg Methylprednisolone Sodium Succinate (Solu-Medrol -) 40 mg IVPUSH Q8H-IV [facility] Last Admin: 04/18/18 12:14 Dose: 40 mg Montelukast Sodium (Singulair -) 10 mg PO HS [facility] Last Admin: 04/17/18 22:32 Dose: 10 mg Multivitamins/Minerals/Vitamin C (Tab-A-Vit -) 1 tab PO DAILY [facility] Last Admin: 04/18/18 09:21 Dose: 1 tab Mupirocin (Bactroban Ointment (For Decolonization) -) 1 applic NS BID [facility] Stop: 04/21/18 21:59 Last Admin: 04/18/18 09:26 Dose: 1 applic Potassium Chloride (K-Dur -) 40 meq PO BID [facility] Stop: 04/18/18 22:01 Last Admin: 04/18/18 09:23 Dose: 40 meq Spironolactone (Aldactone -) 25 mg PO DAILY [facility] Last Admin: 04/18/18 09:25 Dose: 25 mg Thiamine HCl (Vitamin B1 -) 100 mg PO DAILY [facility] Last Admin: 04/18/18 09:27 Dose: 100 mg ASSESSMENT AND PLAN: Acute on Likely Chronic Hypoxic and Hypercapneic Respiratory Failure Acute COPD Exacerbation Pneumonia LV Diastolic Dysfunction DM Hypercholesterolemia - continue antibiotics - start course of medrol - inhaled bronchodilators - O2 to keep Spo2 >90% - BiPAP as needed to assist in work of breathing - replete lytes - DVT prophylaxis - continue ICU monitoring for tenuous respiratory status critical care time spent in reviewing chart, evaluating patient and formulating plan 35 min
--- NOTE | 2018-04-18 14:03 | PN ---
Progress Note, Physician History of Present Illness: This is a 67 y/o female patient with Hx of HTN, DL, active smoking (quit 4 days ago), COPD and ?CHF presented to the hospital with worsening SOB productive cough with greyish sputum, inability to lay on her. Patient stated that she had a cold recently, and she is recovering from that, patient didnt receive her influenza vaccination this year. stated she does not know why. - Current Medication List Current Medications: Active Medications Albuterol/Ipratropium (Duoneb -) 1 amp NEB RQID [facility] Last Admin: 04/18/18 11:35 Dose: 1 amp Amlodipine Besylate (Norvasc -) 10 mg PO DAILY [facility] Last Admin: 04/18/18 09:22 Dose: 10 mg Aspirin (Asa -) 81 mg PO DAILY [facility] Last Admin: 04/18/18 09:20 Dose: 81 mg Atorvastatin Calcium (Lipitor -) 10 mg PO HS [facility] Last Admin: 04/17/18 22:32 Dose: 10 mg Budesonide/Formoterol Fumarate (Symbicort 80/4.5mcg -) 2 puff IH BID [facility] Last Admin: 04/18/18 09:52 Dose: 2 puff Carvedilol (Coreg -) 3.125 mg PO BID [facility] Last Admin: 04/18/18 09:27 Dose: 3.125 mg Chlorhexidine Gluconate (Hibiclens For Decolonization -) 1 applic TP HS [facility] Last Admin: 04/17/18 22:35 Dose: 1 applic Dextrose (D50w (Syringe) -) 25 gm IVPUSH PRN PRN PRN Reason: HYPOGLYCEMIA (BG < 70) Doxepin HCl (Sinequan -) 10 mg PO HS PRN PRN Reason: INSOMNIA Duloxetine HCl (Cymbalta -) 60 mg PO DAILY [facility] Last Admin: 04/18/18 09:22 Dose: 60 mg Heparin Sodium (Porcine) (Heparin -) 5,000 unit SQ TID [facility] Last Admin: 04/18/18 06:07 Dose: 5,000 unit Levofloxacin (Levaquin 750 Mg Premixed Ivpb -) 750 mg in 150 mls @ 150 mls/hr IVPB DAILY [facility]; Protocol Last Admin: 04/18/18 09:23 Dose: 150 mls/hr Insulin Aspart (Novolog Vial Sliding Scale -) 1 vial SQ ACHS [facility]; Protocol Last Admin: 04/18/18 12:00 Dose: Not Given Lisinopril (Prinivil) 10 mg PO DAILY [facility] Last Admin: 04/18/18 09:22 Dose: 10 mg Methylprednisolone Sodium Succinate (Solu-Medrol -) 40 mg IVPUSH Q8H-IV [facility] Last Admin: 04/18/18 12:14 Dose: 40 mg Montelukast Sodium (Singulair -) 10 mg PO HS [facility] Last Admin: 04/17/18 22:32 Dose: 10 mg Multivitamins/Minerals/Vitamin C (Tab-A-Vit -) 1 tab PO DAILY [facility] Last Admin: 04/18/18 09:21 Dose: 1 tab Mupirocin (Bactroban Ointment (For Decolonization) -) 1 applic NS BID [facility] Stop: 04/21/18 21:59 Last Admin: 04/18/18 09:26 Dose: 1 applic Potassium Chloride (K-Dur -) 40 meq PO BID [facility] Stop: 04/18/18 22:01 Last Admin: 04/18/18 09:23 Dose: 40 meq Spironolactone (Aldactone -) 25 mg PO DAILY [facility] Last Admin: 04/18/18 09:25 Dose: 25 mg Thiamine HCl (Vitamin B1 -) 100 mg PO DAILY [facility] Last Admin: 04/18/18 09:27 Dose: 100 mg - Objective Vital Signs: Vital Signs Temperature 98.6 F 04/18/18 14:00 Pulse Rate 76 04/18/18 14:00 Respiratory Rate 24 H 04/18/18 14:00 Blood Pressure 145/76 04/18/18 14:00 O2 Sat by Pulse Oximetry (%) 94 L 04/18/18 09:00 Eyes: Yes: WNL, Conjunctiva Clear, EOM Intact HENT: Yes: WNL, Atraumatic, Normocephalic Neck: Yes: WNL, Supple, Trachea Midline Cardiovascular: Yes: WNL, Regular Rate and Rhythm Respiratory: Yes: WNL, Regular, CTA Bilaterally Gastrointestinal: Yes: WNL, Normal Bowel Sounds Genitourinary: Yes: WNL Musculoskeletal: Yes: WNL Extremities: Yes: WNL Edema: No Integumentary: Yes: WNL Neurological: Yes: WNL, Alert, Oriented ...Motor Strength: WNL Psychiatric: Yes: WNL Labs: CBC, BMP 04/18/18 05:15 04/18/18 05:15 Assessment/Plan chf nonstemi ashd? stent or c. cath 2010 -pt not sure hypokalemia echo pending bronchitis old cva htn hlp plan echo, mibi when stable cionider iv lasix supplement K cont asa cc time 70 min
--- NOTE | 2018-04-18 14:49 | PN ---
Progress Note, Physician History of Present Illness: Pt seen and examined at bedside. She is awake and appears comfortable. She says she stopped drinking alcohol about 5 days ago. She was drinking a pint of gin daily. - Current Medication List Current Medications: Active Medications Albuterol/Ipratropium (Duoneb -) 1 amp NEB RQID [facility] Last Admin: 04/18/18 11:35 Dose: 1 amp Amlodipine Besylate (Norvasc -) 10 mg PO DAILY [facility] Last Admin: 04/18/18 09:22 Dose: 10 mg Aspirin (Asa -) 81 mg PO DAILY [facility] Last Admin: 04/18/18 09:20 Dose: 81 mg Atorvastatin Calcium (Lipitor -) 10 mg PO HS [facility] Last Admin: 04/17/18 22:32 Dose: 10 mg Budesonide/Formoterol Fumarate (Symbicort 80/4.5mcg -) 2 puff IH BID [facility] Last Admin: 04/18/18 09:52 Dose: 2 puff Carvedilol (Coreg -) 3.125 mg PO BID [facility] Last Admin: 04/18/18 09:27 Dose: 3.125 mg Chlorhexidine Gluconate (Hibiclens For Decolonization -) 1 applic TP HS [facility] Last Admin: 04/17/18 22:35 Dose: 1 applic Dextrose (D50w (Syringe) -) 25 gm IVPUSH PRN PRN PRN Reason: HYPOGLYCEMIA (BG < 70) Doxepin HCl (Sinequan -) 10 mg PO HS PRN PRN Reason: INSOMNIA Duloxetine HCl (Cymbalta -) 60 mg PO DAILY [facility] Last Admin: 04/18/18 09:22 Dose: 60 mg Heparin Sodium (Porcine) (Heparin -) 5,000 unit SQ TID [facility] Last Admin: 04/18/18 06:07 Dose: 5,000 unit Levofloxacin (Levaquin 750 Mg Premixed Ivpb -) 750 mg in 150 mls @ 150 mls/hr IVPB DAILY [facility]; Protocol Last Admin: 04/18/18 09:23 Dose: 150 mls/hr Insulin Aspart (Novolog Vial Sliding Scale -) 1 vial SQ ACHS [facility]; Protocol Last Admin: 04/18/18 12:00 Dose: Not Given Lisinopril (Prinivil) 10 mg PO DAILY [facility] Last Admin: 01/07/19 09:22 Dose: 10 mg Methylprednisolone Sodium Succinate (Solu-Medrol -) 40 mg IVPUSH Q8H-IV [facility] Last Admin: 04/18/18 12:14 Dose: 40 mg Montelukast Sodium (Singulair -) 10 mg PO HS [facility] Last Admin: 04/17/18 22:32 Dose: 10 mg Multivitamins/Minerals/Vitamin C (Tab-A-Vit -) 1 tab PO DAILY [facility] Last Admin: 04/18/18 09:21 Dose: 1 tab Mupirocin (Bactroban Ointment (For Decolonization) -) 1 applic NS BID [facility] Stop: 04/21/18 21:59 Last Admin: 04/18/18 09:26 Dose: 1 applic Potassium Chloride (K-Dur -) 40 meq PO BID [facility] Stop: 04/18/18 22:01 Last Admin: 04/18/18 09:23 Dose: 40 meq Spironolactone (Aldactone -) 25 mg PO DAILY [facility] Last Admin: 04/18/18 09:25 Dose: 25 mg Thiamine HCl (Vitamin B1 -) 100 mg PO DAILY [facility] Last Admin: 04/18/18 09:27 Dose: 100 mg - Objective Vital Signs: Vital Signs Temperature 98.6 F 04/18/18 14:00 Pulse Rate 76 04/18/18 14:00 Respiratory Rate 24 H 04/18/18 14:00 Blood Pressure 145/76 04/18/18 14:00 O2 Sat by Pulse Oximetry (%) 94 L 04/18/18 09:00 Constitutional: Yes: Calm Eyes: Yes: Conjunctiva Clear HENT: Yes: Atraumatic Cardiovascular: Yes: S1, S2 Respiratory: Yes: On Nasal O2 Gastrointestinal: Yes: Normal Bowel Sounds Musculoskeletal: Yes: WNL Edema: No Neurological: Yes: Oriented Psychiatric: Yes: Oriented Labs: CBC, BMP 04/18/18 05:15 04/18/18 05:15 Assessment/Plan Current Medications Generic Name Dose Route Start Last Admin Trade Name Freq PRN Reason Stop Dose Admin Albuterol/Ipratropium 1 amp 04/17/18 12:00 04/18/18 11:35 Duoneb - NEB 1 amp RQID [facility] Administration Amlodipine Besylate 10 mg 04/17/18 10:00 04/18/18 09:22 Norvasc - PO 10 mg DAILY [facility] Administration Aspirin 81 mg 04/17/18 10:00 04/18/18 09:20 Asa - PO 81 mg DAILY [facility] Administration Atorvastatin Calcium 10 mg 04/16/18 22:00 04/17/18 22:32 Lipitor - PO 10 mg HS [facility] Administration Budesonide/Formoterol Fumarate 2 puff 04/16/18 22:00 04/18/18 09:52 Symbicort 80/4.5mcg - IH 2 puff BID [facility] Administration Carvedilol 3.125 mg 04/16/18 22:00 04/18/18 09:27 Coreg - PO 3.125 mg BID [facility] Administration Chlorhexidine Gluconate 1 applic 04/16/18 22:00 04/17/18 22:35 Hibiclens For Decolonization - TP 1 applic HS [facility] Administration Dextrose 25 gm 04/17/18 04:34 D50w (Syringe) - IVPUSH PRN PRN HYPOGLYCEMIA (BG < 70) Doxepin HCl 10 mg 04/16/18 22:00 Sinequan - PO HS PRN INSOMNIA Duloxetine HCl 60 mg 04/17/18 10:00 04/18/18 09:22 Cymbalta - PO 60 mg DAILY [facility] Administration Heparin Sodium (Porcine) 5,000 unit 04/16/18 22:00 04/18/18 06:07 Heparin - SQ 5,000 unit TID [facility] Administration Levofloxacin 750 mg in 150 mls @ 150 mls/hr 04/17/18 10:00 04/18/18 09:23 Levaquin 750 Mg Premixed Ivpb - IVPB 150 mls/hr DAILY [facility] Administration Protocol Insulin Aspart 1 vial 04/16/18 16:30 04/18/18 12:00 Novolog Vial Sliding Scale - SQ Not Given ACHS [facility] Protocol Lisinopril 10 mg 04/17/18 10:00 04/18/18 09:22 Prinivil PO 10 mg DAILY [facility] Administration Methylprednisolone Sodium Succinate 40 mg 04/18/18 11:15 04/18/18 12:14 Solu-Medrol - IVPUSH 40 mg Q8H-IV [facility] Administration Montelukast Sodium 10 mg 04/16/18 22:00 04/17/18 22:32 Singulair - PO 10 mg HS [facility] Administration Multivitamins/Minerals/Vitamin C 1 tab 04/18/18 10:00 04/18/18 09:21 Tab-A-Vit - PO 1 tab DAILY [facility] Administration Mupirocin 1 applic 04/16/18 22:00 04/18/18 09:26 Bactroban Ointment (For Decolonization) - NS 04/21/18 21:59 1 applic BID [facility] Administration Potassium Chloride 40 meq 04/18/18 10:00 04/18/18 09:23 K-Dur - PO 04/18/18 22:01 40 meq BID [facility] Administration Spironolactone 25 mg 04/17/18 10:00 04/18/18 09:25 Aldactone - PO 25 mg DAILY [facility] Administration Thiamine HCl 100 mg 04/18/18 10:00 04/18/18 09:27 Vitamin B1 - PO 100 mg DAILY [facility] Administration Impression 1. hypokalemia 2. hypomagnesemia 3. etoh abuse 4. cardiomyopathy 5. HTN 6. HLD Plan - cont supplements - check lytes daily - check ua - monitor renal function Dr Mccauley
--- NOTE | 2018-04-18 15:27 | PN ---
Physical Exam: SUBJECTIVE: Patient seen and examined FeeLS better today. No acute distress otherwise. OBJECTIVE: Vital Signs Period Temp Pulse Resp BP Sys/Min Pulse Ox Last 24 Hr 98 F-98.9 F 71-88 18-26 141-174/74-90 85-100 GENERAL: The patient is awake, alert, and fully oriented, in no acute distress. HEAD: Normal with no signs of trauma. EYES: PERRL, extraocular movements intact, sclera anicteric, conjunctiva clear. No ptosis. ENT: Ears normal, nares patent, oropharynx clear without exudates, moist mucous membranes. NECK: Trachea midline, full range of motion, supple. LUNGS: Breath sounds equal, B/B crackles , no accessory muscle use. HEART: Regular rate and rhythm, S1, S2 without murmur, rub or gallop. ABDOMEN: Soft, nontender, nondistended, normoactive bowel sounds, no guarding, no rebound, no hepatosplenomegaly, no masses. EXTREMITIES: 2+ pulses, warm, well-perfused, Improved LE edema. NEUROLOGICAL: Cranial nerves II through XII grossly intact. Normal speech, gait not observed. PSYCH: Normal mood, normal affect. SKIN: Warm, dry, normal turgor, no rashes or lesions noted Laboratory Results - last 24 hr 04/16/18 04/17/18 04/17/18 08:47 07:45 14:45 WBC RBC Hgb Hct MCV MCH MCHC RDW Plt Count MPV Absolute Neuts (auto) Neutrophils % Lymphocytes % Monocytes % Eosinophils % Basophils % Nucleated RBC % Puncture Site No Result Required. ABG pH ABG pCO2 at Pt Temp ABG pO2 at Pt Temp ABG HCO3 ABG O2 Sat (Measured) ABG O2 Content ABG Base Excess Wyatt Test No Result Required. O2 Delivery Device Oxygen Flow Rate No Result Required. Vent Mode Vent Rate Mechanical Rate Pressure Support Vent Sodium 137 Potassium 3.4 L Chloride 86 L Carbon Dioxide > 45 H Anion Gap 6 L BUN 8 Creatinine 0.8 Creat Clearance w eGFR > 60 POC Glucometer Random Glucose 111 H Calcium 7.0 L Phosphorus Magnesium Ferritin Total Bilirubin AST ALT Alkaline Phosphatase Total Protein Albumin Serum Folate 5 Cortisol AM Sample 5.7 Urine Creatinine 04/17/18 04/17/18 04/17/18 17:17 20:00 22:31 WBC RBC Hgb Hct MCV MCH MCHC RDW Plt Count MPV Absolute Neuts (auto) Neutrophils % Lymphocytes % Monocytes % Eosinophils % Basophils % Nucleated RBC % Puncture Site ABG pH ABG pCO2 at Pt Temp ABG pO2 at Pt Temp ABG HCO3 ABG O2 Sat (Measured) ABG O2 Content ABG Base Excess Wyatt Test O2 Delivery Device Oxygen Flow Rate Vent Mode Vent Rate Mechanical Rate Pressure Support Vent Sodium Potassium Chloride Carbon Dioxide Anion Gap BUN Creatinine Creat Clearance w eGFR POC Glucometer 128.14639 165.33911 Random Glucose Calcium Phosphorus Magnesium Ferritin Total Bilirubin AST ALT Alkaline Phosphatase Total Protein Albumin Serum Folate Cortisol AM Sample Urine Creatinine 57.0 H 04/18/18 04/18/18 04/18/18 05:15 05:15 05:15 WBC 8.2 RBC 3.85 Hgb 7.4 L Hct 23.4 L MCV 60.8 L MCH 19.3 L MCHC 31.8 L RDW 26.6 H Plt Count 398 MPV 8.9 Absolute Neuts (auto) 5.8 Neutrophils % 70.0 Lymphocytes % 22.3 D Monocytes % 7.0 Eosinophils % 0.1 Basophils % 0.6 Nucleated RBC % 0 Puncture Site ABG pH ABG pCO2 at Pt Temp ABG pO2 at Pt Temp ABG HCO3 ABG O2 Sat (Measured) ABG O2 Content ABG Base Excess Wyatt Test O2 Delivery Device Oxygen Flow Rate Vent Mode Vent Rate Mechanical Rate Pressure Support Vent Sodium 138 Potassium 3.4 L Chloride 91 L Carbon Dioxide 45 H Anion Gap 2 L BUN 6 L Creatinine 0.7 Creat Clearance w eGFR > 60 POC Glucometer Random Glucose 98 Calcium 7.1 L Phosphorus 2.4 L Magnesium 1.7 L Ferritin Total Bilirubin 0.5 AST 36 ALT 18 Alkaline Phosphatase 82 Total Protein 6.6 Albumin 2.0 L Serum Folate 6 Cortisol AM Sample Urine Creatinine 04/18/18 04/18/18 04/18/18 05:15 05:47 05:53 WBC RBC Hgb Hct MCV MCH MCHC RDW Plt Count MPV Absolute Neuts (auto) Neutrophils % Lymphocytes % Monocytes % Eosinophils % Basophils % Nucleated RBC % Puncture Site Left radial ABG pH 7.50 H ABG pCO2 at Pt Temp 58.5 H ABG pO2 at Pt Temp 65.0 L ABG HCO3 45.1 H* ABG O2 Sat (Measured) 90.0 ABG O2 Content 8.9 L* ABG Base Excess 19.5 H* Wyatt Test Positive O2 Delivery Device Bipap Oxygen Flow Rate 50% Vent Mode S/t Vent Rate 14 Mechanical Rate Bipab Pressure Support Vent [id number] Sodium Potassium Chloride Carbon Dioxide Anion Gap BUN Creatinine Creat Clearance w eGFR POC Glucometer 115.52608 Random Glucose Calcium Phosphorus Magnesium Ferritin 12.6 Total Bilirubin AST ALT Alkaline Phosphatase Total Protein Albumin Serum Folate Cortisol AM Sample Urine Creatinine 04/18/18 12:06 WBC RBC Hgb Hct MCV MCH MCHC RDW Plt Count MPV Absolute Neuts (auto) Neutrophils % Lymphocytes % Monocytes % Eosinophils % Basophils % Nucleated RBC % Puncture Site ABG pH ABG pCO2 at Pt Temp ABG pO2 at Pt Temp ABG HCO3 ABG O2 Sat (Measured) ABG O2 Content ABG Base Excess Wyatt Test O2 Delivery Device Oxygen Flow Rate Vent Mode Vent Rate Mechanical Rate Pressure Support Vent Sodium Potassium Chloride Carbon Dioxide Anion Gap BUN Creatinine Creat Clearance w eGFR POC Glucometer [phone] Random Glucose Calcium Phosphorus Magnesium Ferritin Total Bilirubin AST ALT Alkaline Phosphatase Total Protein Albumin Serum Folate Cortisol AM Sample Urine Creatinine Active Medications Generic Name Dose Route Start Last Admin Trade Name Freq PRN Reason Stop Dose Admin Albuterol/Ipratropium 1 amp 04/17/18 12:00 04/18/18 11:35 Duoneb - NEB 1 amp RQID [facility] Administration Amlodipine Besylate 10 mg 04/17/18 10:00 04/18/18 09:22 Norvasc - PO 10 mg DAILY [facility] Administration Aspirin 81 mg 04/17/18 10:00 04/18/18 09:20 Asa - PO 81 mg DAILY [facility] Administration Atorvastatin Calcium 10 mg 04/16/18 22:00 04/17/18 22:32 Lipitor - PO 10 mg HS [facility] Administration Budesonide/Formoterol Fumarate 2 puff 04/16/18 22:00 04/18/18 09:52 Symbicort 80/4.5mcg - IH 2 puff BID [facility] Administration Carvedilol 3.125 mg 04/16/18 22:00 04/18/18 09:27 Coreg - PO 3.125 mg BID [facility] Administration Chlorhexidine Gluconate 1 applic 04/16/18 22:00 04/17/18 22:35 Hibiclens For Decolonization - TP 1 applic HS [facility] Administration Dextrose 25 gm 04/17/18 04:34 D50w (Syringe) - IVPUSH PRN PRN HYPOGLYCEMIA (BG < 70) Doxepin HCl 10 mg 04/16/18 22:00 Sinequan - PO HS PRN INSOMNIA Duloxetine HCl 60 mg 04/17/18 10:00 04/18/18 09:22 Cymbalta - PO 60 mg DAILY [facility] Administration Heparin Sodium (Porcine) 5,000 unit 04/16/18 22:00 04/18/18 06:07 Heparin - SQ 5,000 unit TID [facility] Administration Levofloxacin 750 mg in 150 mls @ 150 mls/hr 04/17/18 10:00 04/18/18 09:23 Levaquin 750 Mg Premixed Ivpb - IVPB 150 mls/hr DAILY [facility] Administration Protocol Insulin Aspart 1 vial 04/16/18 16:30 04/18/18 12:00 Novolog Vial Sliding Scale - SQ Not Given ACHS [facility] Protocol Lisinopril 10 mg 04/17/18 10:00 04/18/18 09:22 Prinivil PO 10 mg DAILY [facility] Administration Methylprednisolone Sodium Succinate 40 mg 04/18/18 11:15 04/18/18 12:14 Solu-Medrol - IVPUSH 40 mg Q8H-IV [facility] Administration Montelukast Sodium 10 mg 04/16/18 22:00 04/17/18 22:32 Singulair - PO 10 mg HS [facility] Administration Multivitamins/Minerals/Vitamin C 1 tab 04/18/18 10:00 04/18/18 09:21 Tab-A-Vit - PO 1 tab DAILY [facility] Administration Mupirocin 1 applic 04/16/18 22:00 04/18/18 09:26 Bactroban Ointment (For Decolonization) - NS 04/21/18 21:59 1 applic BID [facility] Administration Potassium Chloride 40 meq 04/18/18 10:00 04/18/18 09:23 K-Dur - PO 04/18/18 22:01 40 meq BID [facility] Administration Spironolactone 25 mg 04/17/18 10:00 04/18/18 09:25 Aldactone - PO 25 mg DAILY [facility] Administration Thiamine HCl 100 mg 04/18/18 10:00 04/18/18 09:27 Vitamin B1 - PO 100 mg DAILY [facility] Administration ASSESSMENT/PLAN: This is a 67 y/o female patient with Hx of HTN, DL, active smoking (quit 4 days ago), COPD and ?CHF presented to the hospital with worsening SOB productive cough with greyish sputum, inability to lay on her. Patient stated that she had a cold recently, and she is recovering from that, patient didnt receive her influenza vaccination this year. # COPD exacerbation 2/2 possible PNA improving , would taper down IV steroid to q12 c/w Nebs. Check Pulse ox, wean off oxygen. # HTN/ DL >>c/w current medical mgmt. Plan d/w the patient at bedside. Visit type - Emergency Visit Emergency Visit: Yes ED Registration Date: 04/16/18 Care time: The patient presented to the Emergency Department on the above date and was hospitalized for further evaluation of their emergent condition. - New Patient This patient is new to me today: Yes Date on this admission: 04/18/18 - Critical Care Critical Care patient: Yes Total Critical Care Time (in minutes): 35 Critical Care Statement: The care of this patient involved high complexity decision making to prevent further life threatening deterioration of the patient 's condition and/or to evaluate & treat vital organ system(s) failure or risk of failure. - Discharge Referral Referred to [facility] No
[2018-04-18] MEDS: ATORVASTATIN CA 10 MG TABLET (FP) PO SCH (21:05)
[2018-04-18] MEDS: MONTELUKAST NA 10 MG TABLET PO SCH (21:06)
[2018-04-18] MEDS: CHLORHEXIDINE GLUCONATE 4% CLEANSER FOR DECOLONIZATION TP SCH (21:06)
[2018-04-19] MEDS: methylPREDNISolone NA SUCC 40 MG/1 ML VIAL IVPUSH SCH ×4 (02:30→21:39)
[2018-04-19 04:17] LABS: SERUM IRON SATURATION 6 % (15-55); TOTAL IRON BINDING CAPACITY 278 ug/dL (250-450); UIBC 260 ug/dL (118-369)
[2018-04-19] MEDS: INSULIN SLIDING SCALE (NOVOLOG) 1 VIAL SQ SCH ×4 (06:16→23:00)
[2018-04-19] MEDS: HEPARIN NA (PORCINE) 5,000 UNITS/ML 1ML VIAL SQ SCH ×3 (06:16→21:37)
[2018-04-19 06:43] LABS: HEMATOCRIT 29.6 % (32.4-45.2); HEMOGLOBIN 8.4 GM/dL (10.7-15.3); MCHC 28.5 g/dl (32.0-36.0); MEAN CELL VOLUME 61.8 fl (80-96); MEAN PLT VOLUME 8.5 fl (7.5-11.1); PLATELET COUNT 345 K/MM3 (134-434); RBC 4.79 M/mm3 (3.60-5.2); RDW 27.6 % (11.6-15.6); WHITE BLOOD COUNT 14.1 K/mm3 (4.0-10.0)
[2018-04-19 06:45] LABS: MCH 17.6 pg (25.7-33.7)
[2018-04-19 06:46] LABS: ADD RBC MORPHOLOGY YES
--- NOTE | 2018-04-19 07:17 | PN ---
Physical Exam: SUBJECTIVE: Patient seen and examined. Reports improved breathing. Endorses persistent mild cough and wheeze. Denies pain. Denies N/V. OBJECTIVE: Vital Signs Period Temp Pulse Resp BP Sys/Min Pulse Ox Last 24 Hr 98.6 F-99.0 F 74-88 14-26 90-174/61-86 90-98 GENERAL: Awake, alert, and fully oriented, in no acute distress HEAD: No signs of trauma, normocephalic, atraumatic EYES: PERRLA, EOMI, sclera anicteric, conjunctiva clear ENT: Hearing grossly normal, nares patent, oropharynx clear without exudates. Moist mucosa LUNGS: Breathing comfortably on NC, speaking in full sentences, no increased WOB , mild b/l wheeze but improved from previously HEART: Regular rate and rhythm, normal S1 and S2, no murmurs appreciated, peripheral pulses normal and equal bilaterally ABDOMEN: Soft, nontender, normoactive bowel sounds. No guarding, no rebound EXTREMITIES : Normal inspection, Normal range of motion, no edema. No clubbing or cyanosis NEUROLOGICAL: Cranial nerves II through XII grossly intact. Normal speech, no focal sensorimotor deficits SKIN: Warm, Dry ASSESSMENT/PLAN: The pt is a 67F w/ a PMH of COPD, unspecified cardiac Hx including "enlarged heart", HTN, T2DM, current smoker 42-pack year Hx, p/w 1 week progressively worsening SOB, minimally productive cough, malaise, anorexia, orthopnea. DDx is broad including: Neuro Depression -Duloxetine 60mg PO daily Insomnia -Doxepin 10mg PO Qhs CV Troponinemia/NSTEMI -Trop down trending -ECHO pending -Cardiology consulted HTN -Lisinopril 10mg PO daily -Amlodipine 10 mg PO daily -Coreg 3.125mg PO BID HLD -Atorvastatin 10mg PO Qhs CAD -ASA 81mg PO daily Pulm COPD Acute hypercapnic respiratory failure -Acute failure resolving -BiPap PRN -On NC today -Duoneb 1 amp NEB QID -Symbicort 2 puff IH BID -Singulair 10mg PO Qhs -Methylprednisolone 40mg IV Q12H PNA -Levaquin 750mg IV daily -ID consulted -UAg for PNA --Positive -Sputum Cx GI Nutrition -DM/sodium diet -Thiamine 100mg PO daily -Mutlivitamin daily Metabolic alkalosis w/ respiratory acidosis -Resolving -Spironolactone 25mg PO daily --Will D/C as hypokalemia resolved -Acetazolamide 250mg PO once for elevated bicarb --Resolved -Nephrology consulted -Aldosterone level -Cortisol level Hypokalemia -Repleted -Resolved Hypoglycemia -Resolved s/p D50 x1 Heme DVT Ppx -Heparin 5000u SQ Q8H ID PNA -Abx as above -Blood Cx NGTD Endo DM -BGM, ISS Dispo: Patient no longer requires ICU level of care, plan to transfer to floor today Visit type - Emergency Visit Emergency Visit: Yes ED Registration Date: 04/16/18 Care time: The patient presented to the Emergency Department on the above date and was hospitalized for further evaluation of their emergent condition. - New Patient This patient is new to me today: No - Critical Care Critical Care patient: Yes Total Critical Care Time (in minutes): 35 Critical Care Statement: The care of this patient involved high complexity decision making to prevent further life threatening deterioration of the patient 's condition and/or to evaluate & treat vital organ system(s) failure or risk of failure.
[2018-04-19 07:25] LABS: ALBUMIN 2.3 g/dl (3.4-5.0); ALK PHOS 96 U/L (45-117); ANION GAP 4 MMOL/L (8-16); BILIRUBIN,TOTAL 0.5 mg/dL (0.2-1); BLOOD UREA NITROGEN 9 mg/dL (7-18); CALCIUM 8.5 mg/dL (8.5-10.1); CHLORIDE 99 mmol/L (98-107); CO2 32 mmol/L (21-32); CREATININE 0.7 mg/dL (0.55-1.3); GLUCOSE,RANDOM 128 mg/dL (74-106); MAGNESIUM 1.9 mg/dL (1.8-2.4); PHOSPHOROUS 2.9 mg/dL (2.5-4.9); SGOT/AST 31 U/L (15-37); SGPT/ALT 19 U/L (13-61); SODIUM 135 mmol/L (136-145); TOT PROT 7.5 g/dl (6.4-8.2)
[2018-04-19] MEDS: ALBUTEROL SO4 2.5/IPRATROPIUM 0.5 INH SOL 3 ML VIAL.NEB. NEB SCH ×4 (07:45→21:00)
--- NOTE | 2018-04-19 09:24 | PN ---
Physical Exam: SUBJECTIVE: Patient seen and examined in the ICU. Awake, alert, in no acute distress. feels better, denies pain. not home oxygen dependent. OBJECTIVE: Vital Signs Period Temp Pulse Resp BP Sys/Min Pulse Ox Last 24 Hr 98.6 F-99.0 F 74-88 14-26 90-168/61-86 95-98 GENERAL: The patient is awake, alert, and fully oriented, in no acute distress. HEAD: Normal with no signs of trauma. EYES: PERRL, extraocular movements intact, sclera anicteric, conjunctiva clear. No ptosis. ENT: Ears normal, nares patent, oropharynx clear without exudates, moist mucous membranes. NECK: Trachea midline, full range of motion, supple. LUNGS: Breath sounds equal, no wheezing, no crackles, on supplemental oxygen @ 3 litersaccessory muscle use. HEART: Regular rate and rhythm, S1, S2 without murmur, rub or gallop. ABDOMEN: Soft, nontender, nondistended, normoactive bowel sounds, no guarding, no rebound, no hepatosplenomegaly, no masses. EXTREMITIES: 2+ pulses, warm, well-perfused NEUROLOGICAL: Normal speech, gait not observed. PSYCH: Normal mood, normal affect. SKIN: Warm, dry, normal turgor, no rashes or lesions noted Laboratory Results - last 24 hr 04/17/18 04/18/18 04/18/18 07:45 05:15 12:06 WBC RBC Hgb Hct MCV MCH MCHC RDW Plt Count MPV Absolute Neuts (auto) Neutrophils % Lymphocytes % Monocytes % Eosinophils % Basophils % Nucleated RBC % Sodium Potassium Chloride Carbon Dioxide Anion Gap BUN Creatinine Creat Clearance w eGFR POC Glucometer [phone] Random Glucose Calcium Phosphorus Magnesium Iron 18 L TIBC 278 Iron Saturation 6 L Transferrin 224 Total Bilirubin AST ALT Alkaline Phosphatase Total Protein Albumin Cortisol AM Sample 5.7 04/18/18 04/18/18 04/19/18 17:33 21:19 05:15 WBC 14.1 H RBC 4.79 Hgb 8.4 L Hct 29.6 L D MCV 61.8 L MCH 17.6 L MCHC 28.5 L RDW 27.6 H Plt Count 345 MPV 8.5 Absolute Neuts (auto) 12.8 H Neutrophils % Instrument And Control Service Person Lymphocytes % Instrument And Control Service Person Monocytes % Instrument And Control Service Person Eosinophils % Instrument And Control Service Person Basophils % Instrument And Control Service Person Nucleated RBC % 0 Sodium Potassium Chloride Carbon Dioxide Anion Gap BUN Creatinine Creat Clearance w eGFR POC Glucometer [phone] Random Glucose Calcium Phosphorus Magnesium Iron TIBC Iron Saturation Transferrin Total Bilirubin AST ALT Alkaline Phosphatase Total Protein Albumin Cortisol AM Sample 04/19/18 05:15 WBC RBC Hgb Hct MCV MCH MCHC RDW Plt Count MPV Absolute Neuts (auto) Neutrophils % Lymphocytes % Monocytes % Eosinophils % Basophils % Nucleated RBC % Sodium 135 L Potassium 5.0 Chloride 99 Carbon Dioxide 32 Anion Gap 4 L BUN 9 Creatinine 0.7 Creat Clearance w eGFR > 60 POC Glucometer Random Glucose 128 H Calcium 8.5 Phosphorus 2.9 Magnesium 1.9 Iron TIBC Iron Saturation Transferrin Total Bilirubin 0.5 AST 31 ALT 19 Alkaline Phosphatase 96 Total Protein 7.5 Albumin 2.3 L Cortisol AM Sample Active Medications Generic Name Dose Route Start Last Admin Trade Name Freq PRN Reason Stop Dose Admin Albuterol/Ipratropium 1 amp 04/17/18 12:00 04/19/18 07:45 Duoneb - NEB 1 amp RQID MAGDA Administration Amlodipine Besylate 10 mg 04/17/18 10:00 04/18/18 09:22 Norvasc - PO 10 mg DAILY [facility]DA Administration Aspirin 81 mg 04/17/18 10:00 04/18/18 09:20 Asa - PO 81 mg DAILY [facility]DA Administration Atorvastatin Calcium 10 mg 04/16/18 22:00 04/18/18 21:05 Lipitor - PO 10 mg HS [facility]DA Administration Budesonide/Formoterol Fumarate 2 puff 04/16/18 22:00 04/18/18 21:07 Symbicort 80/4.5mcg - IH 2 puff BID MAGDA Administration Carvedilol 3.125 mg 04/16/18 22:00 04/18/18 21:05 Coreg - PO 3.125 mg BID MAGDA Administration Chlorhexidine Gluconate 1 applic 04/16/18 22:00 04/18/18 21:06 Hibiclens For Decolonization - TP 1 applic HS [facility]DA Administration Dextrose 25 gm 04/17/18 04:34 D50w (Syringe) - IVPUSH PRN PRN HYPOGLYCEMIA (BG < 70) Doxepin HCl 10 mg 04/16/18 22:00 Sinequan - PO HS PRN INSOMNIA Duloxetine HCl 60 mg 04/17/18 10:00 04/18/18 09:22 Cymbalta - PO 60 mg DAILY [facility]DA Administration Heparin Sodium (Porcine) 5,000 unit 04/16/18 22:00 04/19/18 06:16 Heparin - SQ 5,000 unit TID [facility]DA Administration Levofloxacin 750 mg in 150 mls @ 150 mls/hr 04/17/18 10:00 04/18/18 09:23 Levaquin 750 Mg Premixed Ivpb - IVPB 150 mls/hr DAILY MAGDA Administration Protocol Insulin Aspart 1 vial 04/16/18 16:30 04/19/18 06:16 Novolog Vial Sliding Scale - SQ Not Given ACHS [facility] Protocol Lisinopril 10 mg 04/17/18 10:00 04/18/18 09:22 Prinivil PO 10 mg DAILY [facility] Administration Methylprednisolone Sodium Succinate 40 mg 04/18/18 11:15 04/19/18 02:30 Solu-Medrol - IVPUSH 40 mg Q8H-IV MAGDA Administration Montelukast Sodium 10 mg 04/16/18 22:00 04/18/18 21:06 Singulair - PO 10 mg HS [facility]DA Administration Multivitamins/Minerals/Vitamin C 1 tab 04/18/18 10:00 04/18/18 09:21 Tab-A-Vit - PO 1 tab DAILY [facility] Administration Mupirocin 1 applic 04/16/18 22:00 04/18/18 21:11 Bactroban Ointment (For Decolonization) - NS 04/21/18 21:59 1 applic BID [facility]DA Administration Spironolactone 25 mg 04/17/18 10:00 04/18/18 09:25 Aldactone - PO 25 mg DAILY [facility] Administration Thiamine HCl 100 mg 04/18/18 10:00 04/18/18 09:27 Vitamin B1 - PO 100 mg DAILY [facility] Administration ASSESSMENT/PLAN: Patient is a 67 year old female with a significant past medical history of HTN, DM, active smoking (quit 4 days ago), COPD and CHF. She presents to the ED with c/o of worsening SOB productive cough with greyish sputum, inability to lay flat. Pulmonary: COPD exacerbation 2/2 possible PNA Clinically improving, on supplemental oxygen at 3 liters She is improving On duonebs, symbicort 2 puffs bid, singular 10mg hs On Levaquin 750mg iv Attempt to wean her off oxygen will need pre and post prior to d/c Card: hypertension, controlled Endocrine: diabetes, controlled Psyche: smoking, cessation discussed. fen tolerating po monitor electrolytes low salt diet/diabetic full code Visit type - Emergency Visit Emergency Visit: Yes ED Registration Date: 04/16/18 Care time: The patient presented to the Emergency Department on the above date and was hospitalized for further evaluation of their emergent condition. - New Patient This patient is new to me today: Yes Date on this admission: 04/19/18 - Critical Care Critical Care patient: Yes Total Critical Care Time (in minutes): 45 Critical Care Statement: The care of this patient involved high complexity decision making to prevent further life threatening deterioration of the patient 's condition and/or to evaluate & treat vital organ system(s) failure or risk of failure. - Discharge Referral Referred to [facility] Med P.C.: No
--- NOTE | 2018-04-19 10:05 | EKG ---
Test Reason : Blood Pressure : / mmHG Vent. Rate : 075 BPM Atrial Rate : 075 BPM P-R Int : 140 ms QRS Dur : 094 ms QT Int : 402 ms P-R-T Axes : 083 -11 086 degrees QTc Int : 448 ms NORMAL SINUS RHYTHM POSSIBLE LEFT ATRIAL ENLARGEMENT ANTERIOR INFARCT (CITED ON OR BEFORE 31-MAR-2012) ABNORMAL ECG WHEN COMPARED WITH ECG OF 16-APR-2018 05:27, NO SIGNIFICANT CHANGE WAS FOUND Confirmed by Rohith Gage MD ([id number]) on 04/19/2018 10:04:46 AM Referred By: Confirmed By:Rohith Gage MD
[2018-04-19] MEDS: MULTIVITAMINS (DAILY MVI) TABLET (FP) PO SCH (10:06)
[2018-04-19] MEDS: PANTOPRAZOLE 40 MG TABLET (FP) PO SCH (10:06)
[2018-04-19] MEDS: LISINOPRIL 10 MG TABLET (FP) PO SCH (10:06)
[2018-04-19] MEDS: amLODIPine BESYLATE 10 MG TABLET (FP) PO SCH (10:06)
[2018-04-19] MEDS: DULoxetine HCL 30 MG CAPSULE.DR (FP) PO SCH (10:07)
[2018-04-19] MEDS: CARVEDILOL 3.125 MG TABLET (FP) PO SCH ×2 (10:07→21:38)
[2018-04-19] MEDS: THIAMINE HCL 100 MG TABLET (FP) PO SCH (10:07)
[2018-04-19] MEDS: ASPIRIN 81 MG CHEWABLE TABLETS PO SCH (10:07)
[2018-04-19] MEDS: MUPIROCIN 2% TOPICAL OINTMENT FOR DECOLONIZATION NS SCH ×2 (10:08→21:38)
[2018-04-19] MEDS: BUDESONIDE/FORMETEROL FUMARATE 80/4.5 mcg INHALER IH SCH ×2 (10:10→23:00)
[2018-04-19 11:58] LABS: ANISOCYTOSIS 2+; MACROCYTOSIS 1+; OVALOCYTE 1+; PLATELET ESTIMATE NORMAL; TARGET CELLS 2+
--- NOTE | 2018-04-19 12:02 | PN ---
Teaching Attending Note Name of Resident: Hayden Farris ATTENDING PHYSICIAN STATEMENT I saw and evaluated the patient. I reviewed the resident's note and discussed the case with the resident. I agree with the resident's findings and plan as documented. SUBJECTIVE: Pt seen and examined in the ICU. Breathing much improved today. Less cough and wheezing. Did not require BiPAP. OBJECTIVE: Vital Signs Period Temp Pulse Resp BP Sys/Min Pulse Ox Last 24 Hr 98.6 F-99.8 F 76-88 14-25 90-168/61-84 93-98 Intake & Output 04/16/18 04/17/18 04/18/18 04/19/18 23:59 23:59 23:59 23:59 Intake Total 2089 600 Output Total 150 650 Balance -150 1439 600 Weight 74.077 kg 76.2 kg 75.75 kg 76.3 kg Gen: less tachypneic Heart: RRR Lung: decreased breath sounds at the bases, no wheezes Abd: soft, nontender Ext: no edema CBC, BMP 04/19/18 05:15 04/19/18 05:15 Active Medications Albuterol/Ipratropium (Duoneb -) 1 amp NEB RQID [facility] Last Admin: 04/19/18 07:45 Dose: 1 amp Amlodipine Besylate (Norvasc -) 10 mg PO DAILY [facility] Last Admin: 04/19/18 10:06 Dose: 10 mg Aspirin (Asa -) 81 mg PO DAILY [facility] Last Admin: 04/19/18 10:07 Dose: 81 mg Atorvastatin Calcium (Lipitor -) 10 mg PO [facility] Last Admin: 04/18/18 21:05 Dose: 10 mg Budesonide/Formoterol Fumarate (Symbicort 80/4.5mcg -) 2 puff IH BID [facility] Last Admin: 04/19/18 10:10 Dose: 2 puff Carvedilol (Coreg -) 3.125 mg PO BID [facility] Last Admin: 04/19/18 10:07 Dose: 3.125 mg Chlorhexidine Gluconate (Hibiclens For Decolonization -) 1 applic TP [facility] Last Admin: 04/18/18 21:06 Dose: 1 applic Dextrose (D50w (Syringe) -) 25 gm IVPUSH PRN PRN PRN Reason: HYPOGLYCEMIA (BG < 70) Doxepin HCl (Sinequan -) 10 mg PO HS PRN PRN Reason: INSOMNIA Duloxetine HCl (Cymbalta -) 60 mg PO DAILY [facility] Last Admin: 04/19/18 10:07 Dose: 60 mg Heparin Sodium (Porcine) (Heparin -) 5,000 unit SQ TID [facility] Last Admin: 04/19/18 06:16 Dose: 5,000 unit Levofloxacin (Levaquin 750 Mg Premixed Ivpb -) 750 mg in 150 mls @ 150 mls/hr IVPB DAILY [facility]; Protocol Last Admin: 04/19/18 10:08 Dose: 150 mls/hr Insulin Aspart (Novolog Vial Sliding Scale -) 1 vial SQ ACHS [facility]; Protocol Last Admin: 04/19/18 06:16 Dose: Not Given Lisinopril (Prinivil) 10 mg PO DAILY [facility] Last Admin: 04/19/18 10:06 Dose: 10 mg Methylprednisolone Sodium Succinate (Solu-Medrol -) 40 mg IVPUSH BID [facility] Montelukast Sodium (Singulair -) 10 mg PO HS [facility] Last Admin: 04/18/18 21:06 Dose: 10 mg Multivitamins/Minerals/Vitamin C (Tab-A-Vit -) 1 tab PO DAILY [facility] Last Admin: 04/19/18 10:06 Dose: 1 tab Mupirocin (Bactroban Ointment (For Decolonization) -) 1 applic NS BID [facility] Stop: 04/21/18 21:59 Last Admin: 04/19/18 10:08 Dose: 1 applic Pantoprazole Sodium (Protonix -) 40 mg PO DAILY [facility] Last Admin: 04/19/18 10:06 Dose: 40 mg Thiamine HCl (Vitamin B1 -) 100 mg PO DAILY [facility] Last Admin: 04/19/18 10:07 Dose: 100 mg ASSESSMENT AND PLAN: Acute on Likely Chronic Hypoxic and Hypercapneic Respiratory Failure Acute COPD Exacerbation Pneumonia LV Diastolic Dysfunction DM Hypercholesterolemia - continue antibiotics - taper medrol - inhaled bronchodilators - O2 to keep Spo2 >90% - BiPAP as needed to assist in work of breathing - replete lytes - DVT prophylaxis - continued smoking cessation - can monitor on floor
[2018-04-19] MEDS ORDERED: FLU VACCINE QUAD 60 MCG/0.5 ML (MDV 18-19) IM ONE (16:00)
[2018-04-19] MEDS ORDERED: PNEUMOC 13-VAL CONJ-DIP CRM/PF 0.5 ML DISP.SYRIN IM ONE (16:00)
[2018-04-19 16:06] LABS: URINE APPEARANCE CLEAR; URINE BILIRUBIN NEGATIVE (<2.0 mg/dL); URINE COLOR LTYELLOW; URINE GLUCOSE (UA) NEGATIVE (NEGATIVE); URINE KETONE NEGATIVE (NEGATIVE); URINE LEUK ESTERASE NEGATIVE (NEGATIVE); URINE NITRITE NEGATIVE (NEGATIVE); URINE PROTEIN NEGATIVE (NEGATIVE)
--- NOTE | 2018-04-19 16:46 | PN ---
Progress Note, Physician History of Present Illness: Pt seen and examined at bedside. She is awake and alert. She is out of bed to chair. - Current Medication List Current Medications: Active Medications Albuterol/Ipratropium (Duoneb -) 1 amp NEB RQID [facility] Last Admin: 04/19/18 15:18 Dose: 1 amp Amlodipine Besylate (Norvasc -) 10 mg PO DAILY [facility] Last Admin: 04/19/18 10:06 Dose: 10 mg Aspirin (Asa -) 81 mg PO DAILY [facility] Last Admin: 04/19/18 10:07 Dose: 81 mg Atorvastatin Calcium (Lipitor -) 10 mg PO HS [facility] Last Admin: 04/18/18 21:05 Dose: 10 mg Budesonide/Formoterol Fumarate (Symbicort 80/4.5mcg -) 2 puff IH BID [facility] Last Admin: 04/19/18 10:10 Dose: 2 puff Carvedilol (Coreg -) 3.125 mg PO BID [facility] Last Admin: 04/19/18 10:07 Dose: 3.125 mg Chlorhexidine Gluconate (Hibiclens For Decolonization -) 1 applic TP HS [facility] Last Admin: 04/18/18 21:06 Dose: 1 applic Dextrose (D50w (Syringe) -) 25 gm IVPUSH PRN PRN PRN Reason: HYPOGLYCEMIA (BG < 70) Doxepin HCl (Sinequan -) 10 mg PO HS PRN PRN Reason: INSOMNIA Duloxetine HCl (Cymbalta -) 60 mg PO DAILY [facility] Last Admin: 04/19/18 10:07 Dose: 60 mg Heparin Sodium (Porcine) (Heparin -) 5,000 unit SQ TID [facility] Last Admin: 04/19/18 13:17 Dose: 5,000 unit Levofloxacin (Levaquin 750 Mg Premixed Ivpb -) 750 mg in 150 mls @ 150 mls/hr IVPB DAILY [facility]; Protocol Last Admin: 04/19/18 10:08 Dose: 150 mls/hr Insulin Aspart (Novolog Vial Sliding Scale -) 1 vial SQ ACHS [facility]; Protocol Last Admin: 04/19/18 12:05 Dose: 4 units Lisinopril (Prinivil) 10 mg PO DAILY [facility] Last Admin: 04/19/18 10:06 Dose: 10 mg Methylprednisolone Sodium Succinate (Solu-Medrol -) 40 mg IVPUSH BID [facility] Last Admin: 04/19/18 13:17 Dose: 40 mg Montelukast Sodium (Singulair -) 10 mg PO HS [facility] Last Admin: 04/18/18 21:06 Dose: 10 mg Multivitamins/Minerals/Vitamin C (Tab-A-Vit -) 1 tab PO DAILY [facility] Last Admin: 04/19/18 10:06 Dose: 1 tab Mupirocin (Bactroban Ointment (For Decolonization) -) 1 applic NS BID [facility] Stop: 04/21/18 21:59 Last Admin: 04/19/18 10:08 Dose: 1 applic Pantoprazole Sodium (Protonix -) 40 mg PO DAILY [facility] Last Admin: 04/19/18 10:06 Dose: 40 mg Thiamine HCl (Vitamin B1 -) 100 mg PO DAILY [facility] Last Admin: 04/19/18 10:07 Dose: 100 mg - Objective Vital Signs: Vital Signs Temperature 98.5 F 04/19/18 14:00 Pulse Rate 90 04/19/18 14:00 Respiratory Rate 22 H 04/19/18 14:00 Blood Pressure 152/75 04/19/18 14:00 O2 Sat by Pulse Oximetry (%) 93 L 04/19/18 09:00 Constitutional: Yes: Calm Eyes: Yes: Conjunctiva Clear HENT: Yes: Atraumatic Neck: Yes: Supple Cardiovascular: Yes: S1, S2 Respiratory: Yes: CTA Bilaterally Gastrointestinal: Yes: Soft Genitourinary: Yes: WNL Musculoskeletal: Yes: WNL Edema: No Neurological: Yes: Oriented Psychiatric: Yes: Oriented Labs: CBC, BMP 04/19/18 05:15 04/19/18 05:15 Assessment/Plan Current Medications Generic Name Dose Route Start Last Admin Trade Name Keeganq PRN Reason Stop Dose Admin Albuterol/Ipratropium 1 amp 04/17/18 12:00 04/19/18 15:18 Duoneb - NEB 1 amp RQID [facility] Administration Amlodipine Besylate 10 mg 04/17/18 10:00 04/19/18 10:06 Norvasc - PO 10 mg DAILY [facility] Administration Aspirin 81 mg 04/17/18 10:00 04/19/18 10:07 Asa - PO 81 mg DAILY [facility] Administration Atorvastatin Calcium 10 mg 04/16/18 22:00 04/18/18 21:05 Lipitor - PO 10 mg HS [facility] Administration Budesonide/Formoterol Fumarate 2 puff 04/16/18 22:00 04/19/18 10:10 Symbicort 80/4.5mcg - IH 2 puff BID [facility] Administration Carvedilol 3.125 mg 04/16/18 22:00 04/19/18 10:07 Coreg - PO 3.125 mg BID [facility] Administration Chlorhexidine Gluconate 1 applic 04/16/18 22:00 04/18/18 21:06 Hibiclens For Decolonization - TP 1 applic HS [facility] Administration Dextrose 25 gm 04/17/18 04:34 D50w (Syringe) - IVPUSH PRN PRN HYPOGLYCEMIA (BG < 70) Doxepin HCl 10 mg 04/16/18 22:00 Sinequan - PO HS PRN INSOMNIA Duloxetine HCl 60 mg 04/17/18 10:00 04/19/18 10:07 Cymbalta - PO 60 mg DAILY [facility] Administration Heparin Sodium (Porcine) 5,000 unit 04/16/18 22:00 04/19/18 13:17 Heparin - SQ 5,000 unit TID [facility] Administration Levofloxacin 750 mg in 150 mls @ 150 mls/hr 04/17/18 10:00 04/19/18 10:08 Levaquin 750 Mg Premixed Ivpb - IVPB 150 mls/hr DAILY [facility] Administration Protocol Insulin Aspart 1 vial 04/16/18 16:30 04/19/18 12:05 Novolog Vial Sliding Scale - SQ 4 units ACHS [facility] Administration Protocol Lisinopril 10 mg 04/17/18 10:00 04/19/18 10:06 Prinivil PO 10 mg DAILY [facility] Administration Methylprednisolone Sodium Succinate 40 mg 04/19/18 12:00 04/19/18 13:17 Solu-Medrol - IVPUSH 40 mg BID [facility] Administration Montelukast Sodium 10 mg 04/16/18 22:00 04/18/18 21:06 Singulair - PO 10 mg HS [facility] Administration Multivitamins/Minerals/Vitamin C 1 tab 04/18/18 10:00 04/19/18 10:06 Tab-A-Vit - PO 1 tab DAILY [facility] Administration Mupirocin 1 applic 04/16/18 22:00 04/19/18 10:08 Bactroban Ointment (For Decolonization) - NS 04/21/18 21:59 1 applic BID [facility] Administration Pantoprazole Sodium 40 mg 04/19/18 10:00 04/19/18 10:06 Protonix - PO 40 mg DAILY [facility] Administration Thiamine HCl 100 mg 04/18/18 10:00 04/19/18 10:07 Vitamin B1 - PO 100 mg DAILY [facility] Administration Impression 1. hypokalemia 2. hypomagnesemia 3. etoh abuse 4. cardiomyopathy 5. HTN 6. HLD Plan - repeat labs in am - aldactone on hold - hold potassium supplements - check lytes daily - check ua - monitor renal function Dr Mccauley
[2018-04-19] MEDS: MONTELUKAST NA 10 MG TABLET PO SCH (21:39)
[2018-04-19] MEDS: ATORVASTATIN CA 10 MG TABLET (FP) PO SCH (21:39)
[2018-04-19] MEDS: CHLORHEXIDINE GLUCONATE 4% CLEANSER FOR DECOLONIZATION TP SCH (21:40)
[2018-04-20] MEDS: HEPARIN NA (PORCINE) 5,000 UNITS/ML 1ML VIAL SQ SCH ×3 (05:53→21:35)
[2018-04-20] MEDS: INSULIN SLIDING SCALE (NOVOLOG) 1 VIAL SQ SCH ×4 (06:10→21:35)
[2018-04-20 06:57] LABS: BASO % 0.4 % (0-2.0); HEMATOCRIT 27.2 % (32.4-45.2); HEMOGLOBIN 8.4 GM/dL (10.7-15.3); LYMPH % 9.3 % (8-40); MCHC 30.8 g/dl (32.0-36.0); MEAN CELL VOLUME 60.8 fl (80-96); MEAN PLT VOLUME 9.4 fl (7.5-11.1); MONO % 2.5 % (3.8-10.2); NEUT % 87.8 % (42.8-82.8); PLATELET COUNT 449 K/MM3 (134-434); RBC 4.48 M/mm3 (3.60-5.2); RDW 27.1 % (11.6-15.6); WHITE BLOOD COUNT 14.9 K/mm3 (4.0-10.0)
[2018-04-20 07:08] LABS: MCH 18.7 pg (25.7-33.7)
[2018-04-20 07:17] LABS: ALBUMIN 2.4 g/dl (3.4-5.0); ALK PHOS 91 U/L (45-117); ANION GAP 5 MMOL/L (8-16); BILIRUBIN,TOTAL 0.4 mg/dL (0.2-1); BLOOD UREA NITROGEN 12 mg/dL (7-18); CALCIUM 9.1 mg/dL (8.5-10.1); CHLORIDE 101 mmol/L (98-107); CO2 27 mmol/L (21-32); CREATININE 0.7 mg/dL (0.55-1.3); GLUCOSE,RANDOM 132 mg/dL (74-106); MAGNESIUM 1.6 mg/dL (1.8-2.4); PHOSPHOROUS 3.4 mg/dL (2.5-4.9); POTASSIUM 4.7 mmol/L (3.5-5.1); SGOT/AST 24 U/L (15-37); SGPT/ALT 18 U/L (13-61); SODIUM 132 mmol/L (136-145); TOT PROT 7.5 g/dl (6.4-8.2)
[2018-04-20] MEDS ORDERED: MAGNESIUM SULF 50% (8.12 MEQ/2 ML-1 GM VIAL) IVPB ONE (07:39)
[2018-04-20] MEDS: ALBUTEROL SO4 2.5/IPRATROPIUM 0.5 INH SOL 3 ML VIAL.NEB. NEB SCH ×4 (08:41→19:38)
--- NOTE | 2018-04-20 08:57 | PN ---
Progress Note, Physician Chief Complaint: Pt A&O; no chest pain; able to breathe much better today. History of Present Illness: This is a 67 y/o female patient with Hx of HTN, DL, active smoking (quit 4 days ago), COPD and ?CHF presented to the hospital with worsening SOB productive cough with greyish sputum, inability to lay on her back. Patient stated that she had a cold recently, and she is recovering from that, patient didnt receive her influenza vaccination this year. - Current Medication List Current Medications: Active Medications Albuterol/Ipratropium (Duoneb -) 1 amp NEB RQID [facility] Last Admin: 04/20/18 08:41 Dose: 1 amp Amlodipine Besylate (Norvasc -) 10 mg PO DAILY [facility] Last Admin: 04/19/18 10:06 Dose: 10 mg Aspirin (Asa -) 81 mg PO DAILY [facility] Last Admin: 04/19/18 10:07 Dose: 81 mg Atorvastatin Calcium (Lipitor -) 10 mg PO HS [facility] Last Admin: 04/19/18 21:39 Dose: 10 mg Budesonide/Formoterol Fumarate (Symbicort 80/4.5mcg -) 2 puff IH BID [facility] Last Admin: 04/19/18 23:00 Dose: 2 puff Carvedilol (Coreg -) 3.125 mg PO BID [facility] Last Admin: 04/19/18 21:38 Dose: 3.125 mg Chlorhexidine Gluconate (Hibiclens For Decolonization -) 1 applic TP HS [facility] Last Admin: 04/19/18 21:40 Dose: 1 applic Dextrose (D50w (Syringe) -) 25 gm IVPUSH PRN PRN PRN Reason: HYPOGLYCEMIA (BG < 70) Doxepin HCl (Sinequan -) 10 mg PO HS PRN PRN Reason: INSOMNIA Duloxetine HCl (Cymbalta -) 60 mg PO DAILY [facility] Last Admin: 04/19/18 10:07 Dose: 60 mg Heparin Sodium (Porcine) (Heparin -) 5,000 unit SQ TID [facility] Last Admin: 04/20/18 05:53 Dose: 5,000 unit Levofloxacin (Levaquin 750 Mg Premixed Ivpb -) 750 mg in 150 mls @ 150 mls/hr IVPB DAILY [facility]; Protocol Last Admin: 04/19/18 10:08 Dose: 150 mls/hr Insulin Aspart (Novolog Vial Sliding Scale -) 1 vial SQ ACHS [facility]; Protocol Last Admin: 04/20/18 06:10 Dose: 2 units Lisinopril (Prinivil) 20 mg PO DAILY [facility] Methylprednisolone Sodium Succinate (Solu-Medrol -) 40 mg IVPUSH BID [facility] Last Admin: 04/19/18 21:39 Dose: 40 mg Montelukast Sodium (Singulair -) 10 mg PO HS [facility] Last Admin: 04/19/18 21:39 Dose: 10 mg Multivitamins/Minerals/Vitamin C (Tab-A-Vit -) 1 tab PO DAILY [facility] Last Admin: 04/19/18 10:06 Dose: 1 tab Mupirocin (Bactroban Ointment (For Decolonization) -) 1 applic NS BID [facility] Stop: 04/21/18 21:59 Last Admin: 04/19/18 21:38 Dose: 1 applic Pantoprazole Sodium (Protonix -) 40 mg PO DAILY [facility] Last Admin: 04/19/18 10:06 Dose: 40 mg Thiamine HCl (Vitamin B1 -) 100 mg PO DAILY [facility] Last Admin: 04/19/18 10:07 Dose: 100 mg - Objective Vital Signs: Vital Signs Temperature 99.3 F 04/19/18 22:00 Pulse Rate 86 04/20/18 08:00 Respiratory Rate 24 H 04/20/18 08:00 Blood Pressure 176/91 H 04/20/18 08:00 O2 Sat by Pulse Oximetry (%) 99 04/20/18 08:40 Constitutional: Yes: Calm Eyes: Yes: WNL Labs: CBC, BMP 04/20/18 05:30 04/20/18 05:30 Problem List - Problems (1) Diastolic CHF Code(s): I50.30 - UNSPECIFIED DIASTOLIC (CONGESTIVE) HEART FAILURE (2) COPD (chronic obstructive pulmonary disease) Code(s): J44.9 - CHRONIC OBSTRUCTIVE PULMONARY DISEASE, UNSPECIFIED Qualifiers: COPD type: unspecified COPD Qualified Code(s): J44.9 - Chronic obstructive pulmonary disease, unspecified (3) Depressive disorder Code(s): F32.9 - MAJOR DEPRESSIVE DISORDER, SINGLE EPISODE, UNSPECIFIED (4) Hypercholesteremia Code(s): E78.0 - PURE HYPERCHOLESTEROLEMIA * DO NOT USE * (5) Hypertension Code(s): I10 - ESSENTIAL (PRIMARY) HYPERTENSION Qualifiers: Hypertension type: essential hypertension Qualified Code(s): I10 - Essential (primary) hypertension (6) Elevated troponin Assessment/Plan: Mildly elevated likely due to demand ischemia from respiratory condition, sepsis. Multiple CAD risks. Coronary artery evaluation (stress MIBI) when stable. Code(s): R74.8 - ABNORMAL LEVELS OF OTHER SERUM ENZYMES
--- NOTE | 2018-04-20 09:06 | PN ---
Physical Exam: SUBJECTIVE: Patient seen and examined at bed side , make 3 L of urine last 24 hours , not on any diuretics , mild hyponatremia and BP was elevated in 170 over night cough or sob has improved saturating 95 % on 3 L , will try pre and post today OBJECTIVE: Vital Signs Period Temp Pulse Resp BP Sys/Min Pulse Ox Last 24 Hr 98.5 F-99.8 F 83-93 17-25 151-176/72-95 95-99 GENERAL:AAOx3 in AND HEAD:NC/AT EYES: PERRL, extraocular movements intact, sclera anicteric, ENT: MMM NECK: Trachea midline, full range of motion, supple. LUNGS: decreased at the bases , no wheezes HEART: Regular rate and rhythm, S1, S2 without murmur, rub or gallop. ABDOMEN: Soft, nontender, nondistended, normoactive bowel sounds, no guarding, no rebound, EXTREMITIES: 2+ pulses, warm, well-perfused, no edema. NEUROLOGICAL:no focal deficit . Normal speech, gait not observed. PSYCH: Normal mood, normal affect. SKIN: Warm, dry, normal turgor, Laboratory Results - last 24 hr 04/17/18 04/19/18 04/19/18 07:45 05:15 05:17 WBC RBC Hgb Hct MCV MCH MCHC RDW Plt Count MPV Absolute Neuts (auto) Neutrophils % Neutrophils % (Manual) 94.0 H Band Neutrophils % 0.0 Lymphocytes % Lymphocytes % (Manual) 6.0 L Monocytes % Monocytes % (Manual) 0 L Eosinophils % Eosinophils % (Manual) 0.0 Basophils % Basophils % (Manual) 0.0 Myelocytes % (Man) 0 Promyelocytes % (Man) 0 Blast Cells % (Manual) 0 Nucleated RBC % Metamyelocytes 0 Hypochromia 2+ Platelet Estimate Normal Polychromasia 1+ Poikilocytosis 2+ Anisocytosis 2+ Microcytosis 2+ Macrocytosis 1+ Target Cells 2+ Ovalocytes 1+ Sodium Potassium Chloride Carbon Dioxide Anion Gap BUN Creatinine Creat Clearance w eGFR POC Glucometer [phone] Random Glucose Calcium Phosphorus Magnesium Total Bilirubin AST ALT Alkaline Phosphatase Total Protein Albumin Aldosterone < 1.0 Urine Color Urine Appearance Urine pH Ur Specific [place] Urine Protein Urine Glucose (UA) Urine Ketones Urine Blood Urine Nitrite Urine Bilirubin Urine Urobilinogen Ur Leukocyte Esterase 04/19/18 04/19/18 04/19/18 11:13 15:15 17:33 WBC RBC Hgb Hct MCV MCH MCHC RDW Plt Count MPV Absolute Neuts (auto) Neutrophils % Neutrophils % (Manual) Band Neutrophils % Lymphocytes % Lymphocytes % (Manual) Monocytes % Monocytes % (Manual) Eosinophils % Eosinophils % (Manual) Basophils % Basophils % (Manual) Myelocytes % (Man) Promyelocytes % (Man) Blast Cells % (Manual) Nucleated RBC % Metamyelocytes Hypochromia Platelet Estimate Polychromasia Poikilocytosis Anisocytosis Microcytosis Macrocytosis Target Cells Ovalocytes Sodium Potassium Chloride Carbon Dioxide Anion Gap BUN Creatinine Creat Clearance w eGFR POC Glucometer [phone] Random Glucose Calcium Phosphorus Magnesium Total Bilirubin AST ALT Alkaline Phosphatase Total Protein Albumin Aldosterone Urine Color Ltyellow Urine Appearance Clear Urine pH 9.0 H D Ur Specific [place] 1.011 Urine Protein Negative Urine Glucose (UA) Negative Urine Ketones Negative Urine Blood Negative Urine Nitrite Negative Urine Bilirubin Negative Urine Urobilinogen 2.0 H Ur Leukocyte Esterase Negative 04/19/18 04/20/18 04/20/18 22:15 05:30 05:30 WBC 14.9 H RBC 4.48 Hgb 8.4 L Hct 27.2 L MCV 60.8 L MCH 18.7 L MCHC 30.8 L RDW 27.1 H Plt Count 449 H D MPV 9.4 D Absolute Neuts (auto) 13.1 H Neutrophils % 87.8 H D Neutrophils % (Manual) Band Neutrophils % Lymphocytes % 9.3 D Lymphocytes % (Manual) Monocytes % 2.5 L Monocytes % (Manual) Eosinophils % 0.0 D Eosinophils % (Manual) Basophils % 0.4 Basophils % (Manual) Myelocytes % (Man) Promyelocytes % (Man) Blast Cells % (Manual) Nucleated RBC % 0 Metamyelocytes Hypochromia Platelet Estimate Polychromasia Poikilocytosis Anisocytosis Microcytosis Macrocytosis Target Cells Ovalocytes Sodium 132 L Potassium 4.7 Chloride 101 Carbon Dioxide 27 Anion Gap 5 L BUN 12 Creatinine 0.7 Creat Clearance w eGFR > 60 POC Glucometer [phone] Random Glucose 132 H Calcium 9.1 Phosphorus 3.4 Magnesium 1.6 L Total Bilirubin 0.4 AST 24 ALT 18 Alkaline Phosphatase 91 Total Protein 7.5 Albumin 2.4 L Aldosterone Urine Color Urine Appearance Urine pH Ur Specific [place] Urine Protein Urine Glucose (UA) Urine Ketones Urine Blood Urine Nitrite Urine Bilirubin Urine Urobilinogen Ur Leukocyte Esterase 04/20/18 05:31 WBC RBC Hgb Hct MCV MCH MCHC RDW Plt Count MPV Absolute Neuts (auto) Neutrophils % Neutrophils % (Manual) Band Neutrophils % Lymphocytes % Lymphocytes % (Manual) Monocytes % Monocytes % (Manual) Eosinophils % Eosinophils % (Manual) Basophils % Basophils % (Manual) Myelocytes % (Man) Promyelocytes % (Man) Blast Cells % (Manual) Nucleated RBC % Metamyelocytes Hypochromia Platelet Estimate Polychromasia Poikilocytosis Anisocytosis Microcytosis Macrocytosis Target Cells Ovalocytes Sodium Potassium Chloride Carbon Dioxide Anion Gap BUN Creatinine Creat Clearance w eGFR POC Glucometer [phone] Random Glucose Calcium Phosphorus Magnesium Total Bilirubin AST ALT Alkaline Phosphatase Total Protein Albumin Aldosterone Urine Color Urine Appearance Urine pH Ur Specific [place] Urine Protein Urine Glucose (UA) Urine Ketones Urine Blood Urine Nitrite Urine Bilirubin Urine Urobilinogen Ur Leukocyte Esterase Active Medications Generic Name Dose Route Start Last Admin Trade Name Freq PRN Reason Stop Dose Admin Albuterol/Ipratropium 1 amp 04/17/18 12:00 04/20/18 08:41 Duoneb - NEB 1 amp RQID MAGDA Administration Amlodipine Besylate 10 mg 04/17/18 10:00 04/19/18 10:06 Norvasc - PO 10 mg DAILY MAGDA Administration Aspirin 81 mg 04/17/18 10:00 04/19/18 10:07 Asa - PO 81 mg DAILY MAGDA Administration Atorvastatin Calcium 10 mg 04/16/18 22:00 04/19/18 21:39 Lipitor - PO 10 mg HS MAGDA Administration Budesonide/Formoterol Fumarate 2 puff 04/16/18 22:00 04/19/18 23:00 Symbicort 80/4.5mcg - IH 2 puff BID MAGDA Administration Carvedilol 3.125 mg 04/16/18 22:00 04/19/18 21:38 Coreg - PO 3.125 mg BID MAGDA Administration Chlorhexidine Gluconate 1 applic 04/16/18 22:00 04/19/18 21:40 Hibiclens For Decolonization - TP 1 applic HS MAGDA Administration Dextrose 25 gm 04/17/18 04:34 D50w (Syringe) - IVPUSH PRN PRN HYPOGLYCEMIA (BG < 70) Doxepin HCl 10 mg 04/16/18 22:00 Sinequan - PO HS PRN INSOMNIA Duloxetine HCl 60 mg 04/17/18 10:00 04/19/18 10:07 Cymbalta - PO 60 mg DAILY MAGDA Administration Heparin Sodium (Porcine) 5,000 unit 04/16/18 22:00 04/20/18 05:53 Heparin - SQ 5,000 unit TID MAGDA Administration Levofloxacin 750 mg in 150 mls @ 150 mls/hr 04/17/18 10:00 04/19/18 10:08 Levaquin 750 Mg Premixed Ivpb - IVPB 150 mls/hr DAILY MAGDA Administration Protocol Insulin Aspart 1 vial 04/16/18 16:30 04/20/18 06:10 Novolog Vial Sliding Scale - SQ 2 units ACHS MAGDA Administration Protocol Lisinopril 20 mg 04/20/18 08:14 Prinivil PO DAILY MAGDA Methylprednisolone Sodium Succinate 40 mg 04/19/18 12:00 04/19/18 21:39 Solu-Medrol - IVPUSH 40 mg BID MAGDA Administration Montelukast Sodium 10 mg 04/16/18 22:00 04/19/18 21:39 Singulair - PO 10 mg HS MAGDA Administration Multivitamins/Minerals/Vitamin C 1 tab 04/18/18 10:00 04/19/18 10:06 Tab-A-Vit - PO 1 tab DAILY MAGDA Administration Mupirocin 1 applic 04/16/18 22:00 04/19/18 21:38 Bactroban Ointment (For Decolonization) - NS 04/21/18 21:59 1 applic BID MAGDA Administration Pantoprazole Sodium 40 mg 04/19/18 10:00 04/19/18 10:06 Protonix - PO 40 mg DAILY MAGDA Administration Thiamine HCl 100 mg 04/18/18 10:00 04/19/18 10:07 Vitamin B1 - PO 100 mg DAILY MAGDA Administration CBC, BMP 04/20/18 05:30 04/20/18 05:30 ASSESSMENT/PLAN: pt is a 67F w/ a PMH of COPD, unspecified cardiac Hx including "enlarged heart ", HTN, T2DM, current smoker 42-pack year Hx, p/w 1 week progressively worsening SOB, minimally productive cough, malaise, anorexia, orthopnea. DDx is broad including: #Neuro -Depression * Duloxetine 60mg PO daily -Insomnia * cont Doxepin 10mg PO Qhs #CV -Troponinemia/NSTEMI * Trop down trending * ECHO ith EF 55-60% * Cardiology consulted -HTN * Lisinopril 10mg PO daily increased to 20 * Amlodipine 10 mg PO daily * Coreg 3.125mg PO BID -HLD resume Atorvastatin 10mg PO Qhs -CAD resume ASA 81mg PO daily Pulm COPD Acute hypercapnic respiratory failure,improving * BiPap PRN * On NC today , pre and post * Duoneb 1 amp NEB QID * Symbicort 2 puff IH BID * Singulair 10mg PO Qhs * switch Solumedrol to prednisone 40 daily -PNA * Levaquin 750mg IV daily switch to po if primary team agree * ID consulted * UAg negative legionealla and strpto * Sputum Cx negative #GI -Nutrition * DM/sodium diet * Thiamine 100mg PO daily * Mutlivitamin daily # Metabolic alkalosis w/ respiratory acidosis, Resolving * Spironolactone 25mg PO X1 * Acetazolamide 250mg PO once for elevated bicarb, resolved * Nephrology consulted * Aldosterone level * Cortisol level * serum osmolality , Urine osmolality , Urine NA -Hypokalemia, Repleted, Resolved #Heme -DVT Ppx Heparin 5000u SQ Q8H #ID -PNA * cont Levaquin 750 IV can switch to PO * Blood Cx NGTD #Endo -DM * BGM, ISS, diabetic diet #Dispo: monitor on med surg Visit type - Emergency Visit Emergency Visit: Yes ED Registration Date: 04/16/18 Care time: The patient presented to the Emergency Department on the above date and was hospitalized for further evaluation of their emergent condition. - New Patient This patient is new to me today: No - Critical Care Critical Care patient: Yes Total Critical Care Time (in minutes): 45 Critical Care Statement: The care of this patient involved high complexity decision making to prevent further life threatening deterioration of the patient 's condition and/or to evaluate & treat vital organ system(s) failure or risk of failure. - Discharge Referral Referred to [facility] Med [facility].: No
[2018-04-20] MEDS ORDERED: PT OWN MED DRAWER 7, Y5N ONE (09:27)
[2018-04-20] MEDS: ASPIRIN 81 MG CHEWABLE TABLETS PO SCH (09:36)
[2018-04-20] MEDS: MULTIVITAMINS (DAILY MVI) TABLET (FP) PO SCH (09:36)
[2018-04-20] MEDS: DULoxetine HCL 30 MG CAPSULE.DR (FP) PO SCH (09:36)
[2018-04-20] MEDS: CARVEDILOL 3.125 MG TABLET (FP) PO SCH ×2 (09:37→21:36)
[2018-04-20] MEDS: amLODIPine BESYLATE 10 MG TABLET (FP) PO SCH (09:37)
[2018-04-20] MEDS: THIAMINE HCL 100 MG TABLET (FP) PO SCH (09:37)
[2018-04-20] MEDS: LISINOPRIL 20 MG TABLET (FP) PO SCH (09:37)
[2018-04-20] MEDS: PANTOPRAZOLE 40 MG TABLET (FP) PO SCH (09:41)
[2018-04-20] MEDS: methylPREDNISolone NA SUCC 40 MG/1 ML VIAL IVPUSH SCH (09:47)
[2018-04-20] MEDS: BUDESONIDE/FORMETEROL FUMARATE 80/4.5 mcg INHALER IH SCH ×2 (09:49→22:18)
[2018-04-20] MEDS: MUPIROCIN 2% TOPICAL OINTMENT FOR DECOLONIZATION NS SCH (09:52)
[2018-04-20 10:13] LABS: ANISOCYTOSIS 2+; MACROCYTOSIS 1+
[2018-04-20 10:14] LABS: TARGET CELLS 2+
--- NOTE | 2018-04-20 12:14 | PN ---
Progress Note, Physician History of Present Illness: This is a 67 y/o female patient with Hx of HTN, DL, active smoking (quit 4 days ago), COPD and ?CHF presented to the hospital with worsening SOB productive cough with greyish sputum, inability to lay on her. Patient stated that she had a cold recently, and she is recovering from that, patient didnt receive her influenza vaccination this year. stated she does not know why. - Current Medication List Current Medications: Active Medications Albuterol/Ipratropium (Duoneb -) 1 amp NEB RQID [facility] Last Admin: 04/20/18 08:41 Dose: 1 amp Amlodipine Besylate (Norvasc -) 10 mg PO DAILY [facility] Last Admin: 04/20/18 09:37 Dose: 10 mg Aspirin (Asa -) 81 mg PO DAILY [facility] Last Admin: 04/20/18 09:36 Dose: 81 mg Atorvastatin Calcium (Lipitor -) 10 mg PO HS [facility] Last Admin: 04/19/18 21:39 Dose: 10 mg Budesonide/Formoterol Fumarate (Symbicort 80/4.5mcg -) 2 puff IH BID [facility] Last Admin: 04/20/18 09:49 Dose: 2 puff Carvedilol (Coreg -) 3.125 mg PO BID [facility] Last Admin: 04/20/18 09:37 Dose: 3.125 mg Chlorhexidine Gluconate (Hibiclens For Decolonization -) 1 applic TP HS [facility] Last Admin: 04/19/18 21:40 Dose: 1 applic Dextrose (D50w (Syringe) -) 25 gm IVPUSH PRN PRN PRN Reason: HYPOGLYCEMIA (BG < 70) Doxepin HCl (Sinequan -) 10 mg PO HS PRN PRN Reason: INSOMNIA Duloxetine HCl (Cymbalta -) 60 mg PO DAILY [facility] Last Admin: 04/20/18 09:36 Dose: 60 mg Heparin Sodium (Porcine) (Heparin -) 5,000 unit SQ TID [facility] Last Admin: 04/20/18 05:53 Dose: 5,000 unit Levofloxacin (Levaquin 750 Mg Premixed Ivpb -) 750 mg in 150 mls @ 150 mls/hr IVPB DAILY [facility]; Protocol Last Admin: 04/20/18 09:42 Dose: 150 mls/hr Insulin Aspart (Novolog Vial Sliding Scale -) 1 vial SQ ACHS [facility]; Protocol Last Admin: 04/20/18 06:10 Dose: 2 units Lisinopril (Prinivil) 20 mg PO DAILY [facility] Last Admin: 04/20/18 09:37 Dose: 20 mg Montelukast Sodium (Singulair -) 10 mg PO HS [facility] Last Admin: 04/19/18 21:39 Dose: 10 mg Multivitamins/Minerals/Vitamin C (Tab-A-Vit -) 1 tab PO DAILY [facility] Last Admin: 04/20/18 09:36 Dose: 1 tab Mupirocin (Bactroban Ointment (For Decolonization) -) 1 applic NS BID [facility] Stop: 04/21/18 21:59 Last Admin: 04/20/18 09:52 Dose: 1 applic Pantoprazole Sodium (Protonix -) 40 mg PO DAILY [facility] Last Admin: 04/20/18 09:41 Dose: 40 mg Prednisone (Deltasone -) 40 mg PO DAILY [facility] Thiamine HCl (Vitamin B1 -) 100 mg PO DAILY [facility] Last Admin: 04/20/18 09:37 Dose: 100 mg - Objective Vital Signs: Vital Signs Temperature 98.9 F 04/20/18 10:00 Pulse Rate 86 04/20/18 12:00 Respiratory Rate 24 H 04/20/18 12:00 Blood Pressure 148/83 04/20/18 12:00 O2 Sat by Pulse Oximetry (%) 99 04/20/18 08:40 Eyes: Yes: WNL, Conjunctiva Clear, EOM Intact HENT: Yes: WNL, Atraumatic, Normocephalic Neck: Yes: WNL, Supple, Trachea Midline Cardiovascular: Yes: WNL, Regular Rate and Rhythm Respiratory: Yes: WNL, Regular, CTA Bilaterally Gastrointestinal: Yes: WNL, Normal Bowel Sounds Genitourinary: Yes: WNL Musculoskeletal: Yes: WNL Extremities: Yes: WNL Edema: No Integumentary: Yes: WNL Neurological: Yes: WNL, Alert, Oriented ...Motor Strength: WNL Psychiatric: Yes: WNL Labs: CBC, BMP 04/20/18 05:30 04/20/18 05:30 Problem List - Problems (1) CHF (congestive heart failure) Code(s): I50.9 - HEART FAILURE, UNSPECIFIED Qualifiers: Heart failure type: unspecified Heart failure chronicity: acute Qualified Code(s): I50.9 - Heart failure, unspecified (2) Hypokalemia due to loss of potassium Code(s): E87.6 - HYPOKALEMIA (3) Metabolic alkalosis with respiratory acidosis Code(s): E87.4 - MIXED DISORDER OF ACID-BASE BALANCE (4) NSTEMI (non-ST elevated myocardial infarction) Code(s): I21.4 - NON-ST ELEVATION (NSTEMI) MYOCARDIAL INFARCTION (5) Pneumonia Code(s): J18.9 - PNEUMONIA, UNSPECIFIED ORGANISM (6) COPD (chronic obstructive pulmonary disease) Code(s): J44.9 - CHRONIC OBSTRUCTIVE PULMONARY DISEASE, UNSPECIFIED Qualifiers: COPD type: unspecified COPD Qualified Code(s): J44.9 - Chronic obstructive pulmonary disease, unspecified (7) Abdominal pain Code(s): R10.9 - UNSPECIFIED ABDOMINAL PAIN (8) Alcohol dependence Code(s): F10.20 - ALCOHOL DEPENDENCE, UNCOMPLICATED Qualifiers: Substance use status: uncomplicated Qualified Code(s): F10.20 - Alcohol dependence, uncomplicated (9) Alcohol intoxication Code(s): F10.129 - ALCOHOL ABUSE WITH INTOXICATION, UNSPECIFIED Qualifiers: Complication of substance-induced condition: uncomplicated Qualified Code(s ): F10.920 - Alcohol use, unspecified with intoxication, uncomplicated (10) Closed head injury Code(s): S09.90XA - UNSPECIFIED INJURY OF HEAD, INITIAL ENCOUNTER Qualifiers: Encounter type: initial encounter Qualified Code(s): S09.90XA - Unspecified injury of head, initial encounter (11) Diabetes mellitus type 2 in nonobese Code(s): E11.9 - TYPE 2 DIABETES MELLITUS WITHOUT COMPLICATIONS (12) Diabetes mellitus type 2 in obese Code(s): E11.9 - TYPE 2 DIABETES MELLITUS WITHOUT COMPLICATIONS; E66.9 - OBESITY , UNSPECIFIED (13) Encounter for removal of sutures Code(s): Z48.02 - ENCOUNTER FOR REMOVAL OF SUTURES (14) Fall Code(s): W19.XXXA - UNSPECIFIED FALL, INITIAL ENCOUNTER Qualifiers: Encounter type: initial encounter Qualified Code(s): W19.XXXA - Unspecified fall, initial encounter (15) Head contusion Code(s): S00.93XA - CONTUSION OF UNSPECIFIED PART OF HEAD, INITIAL ENCOUNTER Qualifiers: Encounter type: initial encounter Contusion of head detail: scalp Qualified Code(s): S00.03XA - Contusion of scalp, initial encounter (16) Headache Code(s): R51 - HEADACHE (17) Intoxication Code(s): [id number] - (18) Left against medical advice Code(s): Z53.20 - PROC/TRTMT NOT CRD OUT BEC PT DECISION FOR UNSP REASONS (19) Scalp laceration Code(s): S01.01XA - LACERATION WITHOUT FOREIGN BODY OF SCALP, INITIAL ENCOUNTER (20) Alcohol-induced mood disorder Code(s): F10.94 - ALCOHOL USE, UNSPECIFIED WITH ALCOHOL-INDUCED MOOD DISORDER (21) Asthma Code(s): J45.909 - UNSPECIFIED ASTHMA, UNCOMPLICATED Qualifiers: Asthma severity: mild intermittent Asthma complication type: with status asthmaticus (22) Borderline diabetes mellitus Code(s): R73.09 - OTHER ABNORMAL GLUCOSE (23) Depressive disorder Code(s): F32.9 - MAJOR DEPRESSIVE DISORDER, SINGLE EPISODE, UNSPECIFIED (24) Hypercholesteremia Code(s): E78.0 - PURE HYPERCHOLESTEROLEMIA * DO NOT USE * (25) Hypertension Code(s): I10 - ESSENTIAL (PRIMARY) HYPERTENSION Qualifiers: Hypertension type: essential hypertension Qualified Code(s): I10 - Essential (primary) hypertension (26) Sequela, post-stroke Code(s): I69.30 - UNSPECIFIED SEQUELAE OF CEREBRAL INFARCTION (27) Depression (emotion) Code(s): F32.9 - MAJOR DEPRESSIVE DISORDER, SINGLE EPISODE, UNSPECIFIED Qualifiers: Depression Type: dysthymia Qualified Code(s): F34.1 - Dysthymic disorder Assessment/Plan - Problems (1) Diastolic CHF Code(s): I50.30 - UNSPECIFIED DIASTOLIC (CONGESTIVE) HEART FAILURE (2) COPD (chronic obstructive pulmonary disease) Code(s): J44.9 - CHRONIC OBSTRUCTIVE PULMONARY DISEASE, UNSPECIFIED Qualifiers: COPD type: unspecified COPD Qualified Code(s): J44.9 - Chronic obstructive pulmonary disease, unspecified (3) Depressive disorder Code(s): F32.9 - MAJOR DEPRESSIVE DISORDER, SINGLE EPISODE, UNSPECIFIED (4) Hypercholesteremia Code(s): E78.0 - PURE HYPERCHOLESTEROLEMIA * DO NOT USE * (5) Hypertension Code(s): I10 - ESSENTIAL (PRIMARY) HYPERTENSION Qualifiers: Hypertension type: essential hypertension Qualified Code(s): I10 - Essential (primary) hypertension (6) Elevated troponin Assessment/Plan: Mildly elevated likely due to demand ischemia from respiratory condition, sepsis. Multiple CAD risks. Coronary artery evaluation (stress MIBI) when stable. Code(s): R74.8 - ABNORMAL LEVELS OF OTHER SERUM ENZYMES cc time 36 min
--- NOTE | 2018-04-20 12:33 | PN ---
Teaching Attending Note Name of Resident: Robert Seo ATTENDING PHYSICIAN STATEMENT I saw and evaluated the patient. I reviewed the resident's note and discussed the case with the resident. I agree with the resident's findings and plan as documented. SUBJECTIVE: Pt seen and examined in the ICU. Breathing continues to improve. Cough and wheezing resolved. OBJECTIVE: Vital Signs Period Temp Pulse Resp BP Sys/Min Pulse Ox Last 24 Hr 98.5 F-99.3 F 86-93 17-25 148-176/72-95 95-99 Intake & Output 04/17/18 04/18/18 04/19/18 04/20/18 23:59 23:59 23:59 23:59 Intake Total 2089 600 750 Output Total 650 1000 300 Balance 1439 600 -250 -300 Weight 76.2 kg 75.75 kg 76.3 kg 73.9 kg Gen: NAD at rest Heart: RRR Lung: decreased breath sounds at the bases Abd: soft, nontender Ext: no edema CBC, BMP 04/20/18 05:30 04/20/18 05:30 Active Medications Albuterol/Ipratropium (Duoneb -) 1 amp NEB RQID [facility] Last Admin: 04/20/18 08:41 Dose: 1 amp Amlodipine Besylate (Norvasc -) 10 mg PO DAILY [facility] Last Admin: 04/20/18 09:37 Dose: 10 mg Aspirin (Asa -) 81 mg PO DAILY [facility] Last Admin: 04/20/18 09:36 Dose: 81 mg Atorvastatin Calcium (Lipitor -) 10 mg PO HS [facility] Last Admin: 04/19/18 21:39 Dose: 10 mg Budesonide/Formoterol Fumarate (Symbicort 80/4.5mcg -) 2 puff IH BID [facility] Last Admin: 04/20/18 09:49 Dose: 2 puff Carvedilol (Coreg -) 3.125 mg PO BID [facility] Last Admin: 04/20/18 09:37 Dose: 3.125 mg Chlorhexidine Gluconate (Hibiclens For Decolonization -) 1 applic TP HS [facility] Last Admin: 04/19/18 21:40 Dose: 1 applic Dextrose (D50w (Syringe) -) 25 gm IVPUSH PRN PRN PRN Reason: HYPOGLYCEMIA (BG < 70) Doxepin HCl (Sinequan -) 10 mg PO HS PRN PRN Reason: INSOMNIA Duloxetine HCl (Cymbalta -) 60 mg PO DAILY [facility] Last Admin: 04/20/18 09:36 Dose: 60 mg Heparin Sodium (Porcine) (Heparin -) 5,000 unit SQ TID [facility] Last Admin: 04/20/18 05:53 Dose: 5,000 unit Levofloxacin (Levaquin 750 Mg Premixed Ivpb -) 750 mg in 150 mls @ 150 mls/hr IVPB DAILY [facility]; Protocol Last Admin: 04/20/18 09:42 Dose: 150 mls/hr Insulin Aspart (Novolog Vial Sliding Scale -) 1 vial SQ ACHS [facility]; Protocol Last Admin: 04/20/18 06:10 Dose: 2 units Lisinopril (Prinivil) 20 mg PO DAILY [facility] Last Admin: 04/20/18 09:37 Dose: 20 mg Montelukast Sodium (Singulair -) 10 mg PO HS [facility] Last Admin: 04/19/18 21:39 Dose: 10 mg Multivitamins/Minerals/Vitamin C (Tab-A-Vit -) 1 tab PO DAILY [facility] Last Admin: 04/20/18 09:36 Dose: 1 tab Mupirocin (Bactroban Ointment (For Decolonization) -) 1 applic NS BID [facility] Stop: 04/21/18 21:59 Last Admin: 04/20/18 09:52 Dose: 1 applic Pantoprazole Sodium (Protonix -) 40 mg PO DAILY [facility] Last Admin: 04/20/18 09:41 Dose: 40 mg Prednisone (Deltasone -) 40 mg PO DAILY [facility] Thiamine HCl (Vitamin B1 -) 100 mg PO DAILY [facility] Last Admin: 04/20/18 09:37 Dose: 100 mg ASSESSMENT AND PLAN: Acute on Likely Chronic Hypoxic and Hypercapneic Respiratory Failure improving Acute COPD Exacerbation Pneumonia LV Diastolic Dysfunction DM Hypercholesterolemia - continue antibiotics - can change steroids to PO prednisone 40mg daily - inhaled bronchodilators - O2 to keep Spo2 >90% - DVT prophylaxis - outpt PFTs - continued smoking cessation - check ambulatory SpO2 on room air to assess for home O2 - can monitor on floor or d/c home pending oxygen evaluation from pulmonary standpoint
--- NOTE | 2018-04-20 13:00 | PN ---
Progress Note, Physician History of Present Illness: Pt seen and examined at bedside. She is awake and alert. She is tolerating diet. - Current Medication List Current Medications: Active Medications Albuterol/Ipratropium (Duoneb -) 1 amp NEB RQID [facility] Last Admin: 04/20/18 08:41 Dose: 1 amp Amlodipine Besylate (Norvasc -) 10 mg PO DAILY [facility] Last Admin: 04/20/18 09:37 Dose: 10 mg Aspirin (Asa -) 81 mg PO DAILY [facility] Last Admin: 04/20/18 09:36 Dose: 81 mg Atorvastatin Calcium (Lipitor -) 10 mg PO HS [facility] Last Admin: 04/19/18 21:39 Dose: 10 mg Budesonide/Formoterol Fumarate (Symbicort 80/4.5mcg -) 2 puff IH BID [facility] Last Admin: 04/20/18 09:49 Dose: 2 puff Carvedilol (Coreg -) 3.125 mg PO BID [facility] Last Admin: 04/20/18 09:37 Dose: 3.125 mg Chlorhexidine Gluconate (Hibiclens For Decolonization -) 1 applic TP HS [facility] Last Admin: 04/19/18 21:40 Dose: 1 applic Dextrose (D50w (Syringe) -) 25 gm IVPUSH PRN PRN PRN Reason: HYPOGLYCEMIA (BG < 70) Doxepin HCl (Sinequan -) 10 mg PO HS PRN PRN Reason: INSOMNIA Duloxetine HCl (Cymbalta -) 60 mg PO DAILY [facility] Last Admin: 04/20/18 09:36 Dose: 60 mg Heparin Sodium (Porcine) (Heparin -) 5,000 unit SQ TID [facility] Last Admin: 04/20/18 05:53 Dose: 5,000 unit Levofloxacin (Levaquin 750 Mg Premixed Ivpb -) 750 mg in 150 mls @ 150 mls/hr IVPB DAILY [facility]; Protocol Last Admin: 04/20/18 09:42 Dose: 150 mls/hr Insulin Aspart (Novolog Vial Sliding Scale -) 1 vial SQ ACHS [facility]; Protocol Last Admin: 04/20/18 06:10 Dose: 2 units Lisinopril (Prinivil) 20 mg PO DAILY [facility] Last Admin: 04/20/18 09:37 Dose: 20 mg Montelukast Sodium (Singulair -) 10 mg PO HS [facility] Last Admin: 01/08/19 21:39 Dose: 10 mg Multivitamins/Minerals/Vitamin C (Tab-A-Vit -) 1 tab PO DAILY [facility] Last Admin: 04/20/18 09:36 Dose: 1 tab Mupirocin (Bactroban Ointment (For Decolonization) -) 1 applic NS BID [facility] Stop: 04/21/18 21:59 Last Admin: 04/20/18 09:52 Dose: 1 applic Pantoprazole Sodium (Protonix -) 40 mg PO DAILY [facility] Last Admin: 04/20/18 09:41 Dose: 40 mg Prednisone (Deltasone -) 40 mg PO DAILY [facility] Thiamine HCl (Vitamin B1 -) 100 mg PO DAILY [facility] Last Admin: 04/20/18 09:37 Dose: 100 mg - Objective Vital Signs: Vital Signs Temperature 98.9 F 04/20/18 10:00 Pulse Rate 86 04/20/18 12:00 Respiratory Rate 24 H 04/20/18 12:00 Blood Pressure 148/83 04/20/18 12:00 O2 Sat by Pulse Oximetry (%) 99 04/20/18 08:40 Constitutional: Yes: Calm Eyes: Yes: Conjunctiva Clear HENT: Yes: Atraumatic Cardiovascular: Yes: S1, S2 Respiratory: Yes: CTA Bilaterally Gastrointestinal: Yes: Soft Genitourinary: Yes: WNL Musculoskeletal: Yes: WNL Edema: No Neurological: Yes: Oriented Psychiatric: Yes: Oriented Labs: CBC, BMP 04/20/18 05:30 04/20/18 05:30 Assessment/Plan Current Medications Generic Name Dose Route Start Last Admin Trade Name Santi PRN Reason Stop Dose Admin Albuterol/Ipratropium 1 amp 04/17/18 12:00 04/20/18 08:41 Duoneb - NEB 1 amp RQID [facility] Administration Amlodipine Besylate 10 mg 04/17/18 10:00 04/20/18 09:37 Norvasc - PO 10 mg DAILY [facility] Administration Aspirin 81 mg 04/17/18 10:00 04/20/18 09:36 Asa - PO 81 mg DAILY [facility] Administration Atorvastatin Calcium 10 mg 04/16/18 22:00 04/19/18 21:39 Lipitor - PO 10 mg HS [facility] Administration Budesonide/Formoterol Fumarate 2 puff 04/16/18 22:00 04/20/18 09:49 Symbicort 80/4.5mcg - IH 2 puff BID [facility] Administration Carvedilol 3.125 mg 04/16/18 22:00 04/20/18 09:37 Coreg - PO 3.125 mg BID [facility] Administration Chlorhexidine Gluconate 1 applic 04/16/18 22:00 04/19/18 21:40 Hibiclens For Decolonization - TP 1 applic HS [facility] Administration Dextrose 25 gm 04/17/18 04:34 D50w (Syringe) - IVPUSH PRN PRN HYPOGLYCEMIA (BG < 70) Doxepin HCl 10 mg 04/16/18 22:00 Sinequan - PO HS PRN INSOMNIA Duloxetine HCl 60 mg 04/17/18 10:00 04/20/18 09:36 Cymbalta - PO 60 mg DAILY [facility] Administration Heparin Sodium (Porcine) 5,000 unit 04/16/18 22:00 04/20/18 05:53 Heparin - SQ 5,000 unit TID [facility] Administration Levofloxacin 750 mg in 150 mls @ 150 mls/hr 04/17/18 10:00 04/20/18 09:42 Levaquin 750 Mg Premixed Ivpb - IVPB 150 mls/hr DAILY [facility] Administration Protocol Insulin Aspart 1 vial 04/16/18 16:30 04/20/18 06:10 Novolog Vial Sliding Scale - SQ 2 units ACHS [facility] Administration Protocol Lisinopril 20 mg 04/20/18 08:14 04/20/18 09:37 Prinivil PO 20 mg DAILY [facility] Administration Montelukast Sodium 10 mg 04/16/18 22:00 04/19/18 21:39 Singulair - PO 10 mg HS [facility] Administration Multivitamins/Minerals/Vitamin C 1 tab 04/18/18 10:00 04/20/18 09:36 Tab-A-Vit - PO 1 tab DAILY [facility] Administration Mupirocin 1 applic 04/16/18 22:00 04/20/18 09:52 Bactroban Ointment (For Decolonization) - NS 04/21/18 21:59 1 applic BID [facility] Administration Pantoprazole Sodium 40 mg 04/19/18 10:00 04/20/18 09:41 Protonix - PO 40 mg DAILY [facility] Administration Prednisone 40 mg 04/20/18 11:45 Deltasone - PO DAILY [facility] Thiamine HCl 100 mg 04/18/18 10:00 04/20/18 09:37 Vitamin B1 - PO 100 mg DAILY [facility] Administration Impression 1. hypokalemia 2. hypomagnesemia 3. etoh abuse 4. cardiomyopathy 5. HTN 6. HLD Plan - cont to monitor renal function - repeat sodium in am - encourage PO intake - replace lytes - check ua - Dr Mccauley
[2018-04-20] MEDS: predniSONE 20 MG TABLET (UD) PO SCH (14:14)
--- NOTE | 2018-04-20 18:09 | PN ---
Physical Exam: SUBJECTIVE: Patient seen and examined OBJECTIVE: Vital Signs Period Temp Pulse Resp BP Sys/Min Pulse Ox Last 24 Hr 98.2 F-99.3 F 81-93 18-25 135-176/75-95 85-99 GENERAL: The patient is awake, alert, and fully oriented, in no acute distress. HEAD: Normal with no signs of trauma. EYES: PERRL, extraocular movements intact, sclera anicteric, conjunctiva clear. No ptosis. ENT: Ears normal, nares patent, oropharynx clear without exudates, moist mucous membranes. NECK: Trachea midline, full range of motion, supple. LUNGS: Breath sounds equal, no wheezing, no crackles, on supplemental oxygen @ 3 liters HEART: Regular rate and rhythm, S1, S2 without murmur, rub or gallop. ABDOMEN: Soft, nontender, nondistended, normoactive bowel sounds, no guarding, no rebound, no hepatosplenomegaly, no masses. EXTREMITIES: 2+ pulses, warm, well-perfused NEUROLOGICAL: Normal speech, gait not observed. PSYCH: Normal mood, normal affect. SKIN: Warm, dry, normal turgor, no rashes or lesions noted Laboratory Results - last 24 hr 04/16/18 04/17/18 04/19/18 22:53 07:45 17:33 WBC RBC Hgb Hct MCV MCH MCHC RDW Plt Count MPV Absolute Neuts (auto) Neutrophils % Lymphocytes % Monocytes % Eosinophils % Basophils % Nucleated RBC % Hypochromia Polychromasia Poikilocytosis Anisocytosis Microcytosis Macrocytosis Target Cells Sodium Potassium Chloride Carbon Dioxide Anion Gap BUN Creatinine Creat Clearance w eGFR POC Glucometer [phone] Random Glucose Calcium Phosphorus Magnesium Total Bilirubin AST ALT Alkaline Phosphatase Total Protein Albumin Aldosterone < 1.0 04/19/18 04/20/18 04/20/18 22:15 05:30 05:30 WBC 14.9 H RBC 4.48 Hgb 8.4 L Hct 27.2 L MCV 60.8 L MCH 18.7 L MCHC 30.8 L RDW 27.1 H Plt Count 449 H D MPV 9.4 D Absolute Neuts (auto) 13.1 H Neutrophils % 87.8 H D Lymphocytes % 9.3 D Monocytes % 2.5 L Eosinophils % 0.0 D Basophils % 0.4 Nucleated RBC % 0 Hypochromia 2+ Polychromasia 1+ Poikilocytosis 2+ Anisocytosis 2+ Microcytosis 2+ Macrocytosis 1+ Target Cells 2+ Sodium 132 L Potassium 4.7 Chloride 101 Carbon Dioxide 27 Anion Gap 5 L BUN 12 Creatinine 0.7 Creat Clearance w eGFR > 60 POC Glucometer [phone] Random Glucose 132 H Calcium 9.1 Phosphorus 3.4 Magnesium 1.6 L Total Bilirubin 0.4 AST 24 ALT 18 Alkaline Phosphatase 91 Total Protein 7.5 Albumin 2.4 L Aldosterone 04/20/18 04/20/18 04/20/18 05:31 14:13 16:50 WBC RBC Hgb Hct MCV MCH MCHC RDW Plt Count MPV Absolute Neuts (auto) Neutrophils % Lymphocytes % Monocytes % Eosinophils % Basophils % Nucleated RBC % Hypochromia Polychromasia Poikilocytosis Anisocytosis Microcytosis Macrocytosis Target Cells Sodium Potassium Chloride Carbon Dioxide Anion Gap BUN Creatinine Creat Clearance w eGFR POC Glucometer [phone] 121 Random Glucose Calcium Phosphorus Magnesium Total Bilirubin AST ALT Alkaline Phosphatase Total Protein Albumin Aldosterone Active Medications Generic Name Dose Route Start Last Admin Trade Name Freq PRN Reason Stop Dose Admin Albuterol/Ipratropium 1 amp 04/17/18 12:00 04/20/18 15:52 Duoneb - NEB 1 amp RQID [facility] Administration Amlodipine Besylate 10 mg 04/17/18 10:00 04/20/18 09:37 Norvasc - PO 10 mg DAILY [facility] Administration Aspirin 81 mg 04/17/18 10:00 04/20/18 09:36 Asa - PO 81 mg DAILY [facility] Administration Atorvastatin Calcium 10 mg 04/16/18 22:00 04/19/18 21:39 Lipitor - PO 10 mg HS [facility] Administration Budesonide/Formoterol Fumarate 2 puff 04/16/18 22:00 04/20/18 09:49 Symbicort 80/4.5mcg - IH 2 puff BID [facility] Administration Carvedilol 3.125 mg 04/16/18 22:00 04/20/18 09:37 Coreg - PO 3.125 mg BID [facility] Administration Chlorhexidine Gluconate 1 applic 04/16/18 22:00 04/19/18 21:40 Hibiclens For Decolonization - TP 1 applic HS [facility] Administration Dextrose 25 gm 04/17/18 04:34 D50w (Syringe) - IVPUSH PRN PRN HYPOGLYCEMIA (BG < 70) Doxepin HCl 10 mg 04/16/18 22:00 Sinequan - PO HS PRN INSOMNIA Duloxetine HCl 60 mg 04/17/18 10:00 04/20/18 09:36 Cymbalta - PO 60 mg DAILY [facility] Administration Heparin Sodium (Porcine) 5,000 unit 04/16/18 22:00 04/20/18 14:14 Heparin - SQ 5,000 unit TID [facility] Administration Levofloxacin 750 mg in 150 mls @ 150 mls/hr 04/17/18 10:00 04/20/18 09:42 Levaquin 750 Mg Premixed Ivpb - IVPB 150 mls/hr DAILY [facility] Administration Protocol Insulin Aspart 1 vial 04/16/18 16:30 04/20/18 16:52 Novolog Vial Sliding Scale - SQ Not Given ACHS [facility] Protocol Lisinopril 20 mg 04/20/18 08:14 04/20/18 09:37 Prinivil PO 20 mg DAILY [facility] Administration Montelukast Sodium 10 mg 04/16/18 22:00 04/19/18 21:39 Singulair - PO 10 mg HS [facility] Administration Multivitamins/Minerals/Vitamin C 1 tab 04/18/18 10:00 04/20/18 09:36 Tab-A-Vit - PO 1 tab DAILY [facility] Administration Mupirocin 1 applic 04/16/18 22:00 04/20/18 09:52 Bactroban Ointment (For Decolonization) - NS 04/21/18 21:59 1 applic BID [facility] Administration Pantoprazole Sodium 40 mg 04/19/18 10:00 04/20/18 09:41 Protonix - PO 40 mg DAILY [facility] Administration Prednisone 40 mg 04/20/18 11:45 04/20/18 14:14 Deltasone - PO 40 mg DAILY [facility] Administration Thiamine HCl 100 mg 04/18/18 10:00 04/20/18 09:37 Vitamin B1 - PO 100 mg DAILY [facility] Administration ASSESSMENT/PLAN: Patient is a 67 year old female with a significant past medical history of HTN, DM, active smoking (quit 4 days ago), COPD and CHF. She presents to the ED with c/o of worsening SOB productive cough with greyish sputum, inability to lay flat. Pulmonary: COPD exacerbation 2/2 possible PNA Clinically improving, on supplemental oxygen at 3 liters On duonebs, symbicort 2 puffs bid, singular 10mg hs On Levaquin 750mg iv Attempt to wean her off oxygen will need pre and post prior to d/c Card: hypertension, controlled Elevated troponins Seen and evaluated by cardiology for possible stress test when more stable, per cardiology. Endocrine: diabetes, controlled Psyche: smoking, cessation discussed. fen tolerating po monitor electrolytes low salt diet/diabetic full code Visit type - Emergency Visit Emergency Visit: Yes ED Registration Date: 04/16/18 Care time: The patient presented to the Emergency Department on the above date and was hospitalized for further evaluation of their emergent condition. - New Patient This patient is new to me today: No - Critical Care Critical Care patient: No - Discharge Referral Referred to [facility] No
[2018-04-20] MEDS ORDERED: DOXEPIN HCL 10 MG CAPSULE PO PRN (20:18)
[2018-04-20] MEDS ORDERED: DEXTROSE 50%-WATER 25 GM/50 ML DISP.SYRIN IVPUSH PRN (20:18)
[2018-04-20] MEDS: ATORVASTATIN CA 10 MG TABLET (FP) PO SCH (21:35)
[2018-04-20] MEDS: MONTELUKAST NA 10 MG TABLET PO SCH (21:36)
[2018-04-21] MEDS: INSULIN SLIDING SCALE (NOVOLOG) 1 VIAL SQ SCH ×5 (06:34→21:43)
[2018-04-21] MEDS: HEPARIN NA (PORCINE) 5,000 UNITS/ML 1ML VIAL SQ SCH ×4 (06:35→21:37)
[2018-04-21 07:20] LABS: BASO % 0.5 % (0-2.0); HEMATOCRIT 26.2 % (32.4-45.2); HEMOGLOBIN 8.3 GM/dL (10.7-15.3); LYMPH % 16.7 % (8-40); MCHC 31.7 g/dl (32.0-36.0); MEAN CELL VOLUME 60.2 fl (80-96); MEAN PLT VOLUME 9.1 fl (7.5-11.1); MONO % 7.6 % (3.8-10.2); NEUT % 75.2 % (42.8-82.8); PLATELET COUNT 448 K/MM3 (134-434); RBC 4.35 M/mm3 (3.60-5.2); RDW 26.8 % (11.6-15.6); WHITE BLOOD COUNT 10.1 K/mm3 (4.0-10.0)
[2018-04-21 07:23] LABS: MCH 19.1 pg (25.7-33.7)
[2018-04-21] MEDS: ALBUTEROL SO4 2.5/IPRATROPIUM 0.5 INH SOL 3 ML VIAL.NEB. NEB SCH ×3 (07:43→15:40)
[2018-04-21 07:46] LABS: ALBUMIN 2.3 g/dl (3.4-5.0); ALK PHOS 86 U/L (45-117); ANION GAP 6 MMOL/L (8-16); BILIRUBIN,TOTAL 0.4 mg/dL (0.2-1); BLOOD UREA NITROGEN 13 mg/dL (7-18); CALCIUM 8.7 mg/dL (8.5-10.1); CHLORIDE 103 mmol/L (98-107); CO2 26 mmol/L (21-32); CREATININE 0.8 mg/dL (0.55-1.3); GLUCOSE,RANDOM 181 mg/dL (74-106); MAGNESIUM 1.7 mg/dL (1.8-2.4); POTASSIUM 4.2 mmol/L (3.5-5.1); SGOT/AST 19 U/L (15-37); SGPT/ALT 20 U/L (13-61); SODIUM 135 mmol/L (136-145)
[2018-04-21] MEDS: ASPIRIN 81 MG CHEWABLE TABLETS PO SCH (09:07)
[2018-04-21] MEDS: amLODIPine BESYLATE 10 MG TABLET (FP) PO SCH (09:07)
[2018-04-21] MEDS: DULoxetine HCL 30 MG CAPSULE.DR (FP) PO SCH (09:07)
[2018-04-21] MEDS: CARVEDILOL 3.125 MG TABLET (FP) PO SCH ×2 (09:08→21:36)
[2018-04-21] MEDS: BUDESONIDE/FORMETEROL FUMARATE 80/4.5 mcg INHALER IH SCH ×2 (09:08→22:00)
[2018-04-21] MEDS: MULTIVITAMINS (DAILY MVI) TABLET (FP) PO SCH (09:08)
[2018-04-21] MEDS: predniSONE 20 MG TABLET (UD) PO SCH (09:08)
[2018-04-21] MEDS: LISINOPRIL 20 MG TABLET (FP) PO SCH (09:08)
[2018-04-21] MEDS: THIAMINE HCL 100 MG TABLET (FP) PO SCH (09:08)
[2018-04-21] MEDS: PANTOPRAZOLE 40 MG TABLET (FP) PO SCH (09:08)
--- NOTE | 2018-04-21 09:42 | PN ---
Progress Note (short form) - Note Progress Note: Overall feels better. Less SOB. Apparently ambulated yesterday. No CP. Intake & Output 04/18/18 04/19/18 04/20/18 04/21/18 23:59 23:59 23:59 23:59 Intake Total 600 750 500 400 Output Total 1000 300 Balance 600 -250 200 400 Weight 167 lb 168 lb 3.403 oz 162 lb 14.746 oz Last Vital Signs Temp Pulse Resp BP Pulse Ox 98.1 F 82 20 150/71 96 04/21/18 06:00 04/21/18 06:00 04/21/18 06:00 04/21/18 06:00 04/21/18 07:43 Active Medications Albuterol/Ipratropium (Duoneb -) 1 amp NEB RQID [facility] Last Admin: 04/21/18 07:43 Dose: 1 amp Amlodipine Besylate (Norvasc -) 10 mg PO DAILY [facility] Last Admin: 04/21/18 09:07 Dose: 10 mg Aspirin (Asa -) 81 mg PO DAILY [facility] Last Admin: 04/21/18 09:07 Dose: 81 mg Atorvastatin Calcium (Lipitor -) 10 mg PO HS [facility] Last Admin: 04/20/18 21:35 Dose: 10 mg Budesonide/Formoterol Fumarate (Symbicort 80/4.5mcg -) 2 puff IH BID [facility] Last Admin: 04/21/18 09:08 Dose: 2 puff Carvedilol (Coreg -) 3.125 mg PO BID [facility] Last Admin: 04/21/18 09:08 Dose: 3.125 mg Dextrose (D50w (Syringe) -) 25 gm IVPUSH PRN PRN PRN Reason: HYPOGLYCEMIA (BG < 70) Doxepin HCl (Sinequan -) 10 mg PO HS PRN PRN Reason: INSOMNIA Duloxetine HCl (Cymbalta -) 60 mg PO DAILY [facility] Last Admin: 04/21/18 09:07 Dose: 60 mg Heparin Sodium (Porcine) (Heparin -) 5,000 unit SQ TID [facility] Last Admin: 04/21/18 06:40 Dose: Not Given Levofloxacin (Levaquin 750 Mg Premixed Ivpb -) 750 mg in 150 mls @ 100 mls/hr IVPB DAILY [facility]; Protocol Last Admin: 04/21/18 09:07 Dose: 100 mls/hr Insulin Aspart (Novolog Vial Sliding Scale -) 1 vial SQ ACHS [facility]; Protocol Last Admin: 04/21/18 06:39 Dose: Not Given Lisinopril (Prinivil) 20 mg PO DAILY [facility] Last Admin: 04/21/18 09:08 Dose: 20 mg Montelukast Sodium (Singulair -) 10 mg PO HS [facility] Last Admin: 04/20/18 21:36 Dose: 10 mg Multivitamins/Minerals/Vitamin C (Tab-A-Vit -) 1 tab PO DAILY [facility] Last Admin: 04/21/18 09:08 Dose: 1 tab Pantoprazole Sodium (Protonix -) 40 mg PO DAILY [facility] Last Admin: 04/21/18 09:08 Dose: 40 mg Prednisone (Deltasone -) 40 mg PO DAILY [facility] Last Admin: 04/21/18 09:08 Dose: 40 mg Thiamine HCl (Vitamin B1 -) 100 mg PO DAILY [facility] Last Admin: 04/21/18 09:08 Dose: 100 mg Gen: NAD at rest Heart: RRR Lung: decreased breath sounds at the bases, no wheeze Abd: soft, nontender Ext: no edema Intake & Output 04/18/18 04/19/18 04/20/18 04/21/18 23:59 23:59 23:59 23:59 Intake Total 600 750 500 400 Output Total 1000 300 Balance 600 -250 200 400 Weight 167 lb 168 lb 3.403 oz 162 lb 14.746 oz Last Vital Signs Temp Pulse Resp BP Pulse Ox 98.1 F 82 20 150/71 96 04/21/18 06:00 04/21/18 06:00 04/21/18 06:00 04/21/18 06:00 04/21/18 07:43 Active Medications Albuterol/Ipratropium (Duoneb -) 1 amp NEB RQID [facility] Last Admin: 04/21/18 07:43 Dose: 1 amp Amlodipine Besylate (Norvasc -) 10 mg PO DAILY [facility] Last Admin: 04/21/18 09:07 Dose: 10 mg Aspirin (Asa -) 81 mg PO DAILY [facility] Last Admin: 04/21/18 09:07 Dose: 81 mg Atorvastatin Calcium (Lipitor -) 10 mg PO HS [facility] Last Admin: 04/20/18 21:35 Dose: 10 mg Budesonide/Formoterol Fumarate (Symbicort 80/4.5mcg -) 2 puff IH BID [facility] Last Admin: 04/21/18 09:08 Dose: 2 puff Carvedilol (Coreg -) 3.125 mg PO BID [facility] Last Admin: 04/21/18 09:08 Dose: 3.125 mg Dextrose (D50w (Syringe) -) 25 gm IVPUSH PRN PRN PRN Reason: HYPOGLYCEMIA (BG < 70) Doxepin HCl (Sinequan -) 10 mg PO HS PRN PRN Reason: INSOMNIA Duloxetine HCl (Cymbalta -) 60 mg PO DAILY [facility] Last Admin: 04/21/18 09:07 Dose: 60 mg Heparin Sodium (Porcine) (Heparin -) 5,000 unit SQ TID [facility] Last Admin: 04/21/18 06:40 Dose: Not Given Levofloxacin (Levaquin 750 Mg Premixed Ivpb -) 750 mg in 150 mls @ 100 mls/hr IVPB DAILY [facility]; Protocol Last Admin: 04/21/18 09:07 Dose: 100 mls/hr Insulin Aspart (Novolog Vial Sliding Scale -) 1 vial SQ ACHS [facility]; Protocol Last Admin: 04/21/18 06:39 Dose: Not Given Lisinopril (Prinivil) 20 mg PO DAILY [facility] Last Admin: 04/21/18 09:08 Dose: 20 mg Montelukast Sodium (Singulair -) 10 mg PO HS [facility] Last Admin: 04/20/18 21:36 Dose: 10 mg Multivitamins/Minerals/Vitamin C (Tab-A-Vit -) 1 tab PO DAILY [facility] Last Admin: 04/21/18 09:08 Dose: 1 tab Pantoprazole Sodium (Protonix -) 40 mg PO DAILY [facility] Last Admin: 04/21/18 09:08 Dose: 40 mg Prednisone (Deltasone -) 40 mg PO DAILY [facility] Last Admin: 04/21/18 09:08 Dose: 40 mg Thiamine HCl (Vitamin B1 -) 100 mg PO DAILY [facility] Last Admin: 04/21/18 09:08 Dose: 100 mg ASSESSMENT AND PLAN: Acute on Likely Chronic Hypoxic and Hypercapneic Respiratory Failure improved Acute COPD Exacerbation Pneumonia LV Diastolic Dysfunction DM Hypercholesterolemia - Prednisone 40mg OD - ABX - inhaled bronchodilators - O2 to keep Spo2 >90% - DVT prophylaxis - outpt PFTs - No smoking - continued smoking cessation - Has qualified for home O2 with RA saturation of 85% - There is no Pulmonary contraindication for D/C planning - Should be on LABA/LAMA/ICS on D/C Dr Alanis
--- NOTE | 2018-04-21 15:04 | PN ---
Progress Note, Physician History of Present Illness: Pt seen and examined at bedside. She is tolerating diet. She denies shortness of breath. - Current Medication List Current Medications: Active Medications Albuterol/Ipratropium (Duoneb -) 1 amp NEB RQID [facility] Last Admin: 04/21/18 11:19 Dose: 1 amp Amlodipine Besylate (Norvasc -) 10 mg PO DAILY [facility] Last Admin: 04/21/18 09:07 Dose: 10 mg Aspirin (Asa -) 81 mg PO DAILY [facility] Last Admin: 04/21/18 09:07 Dose: 81 mg Atorvastatin Calcium (Lipitor -) 10 mg PO HS [facility] Last Admin: 04/20/18 21:35 Dose: 10 mg Budesonide/Formoterol Fumarate (Symbicort 80/4.5mcg -) 2 puff IH BID [facility] Last Admin: 04/21/18 09:08 Dose: 2 puff Carvedilol (Coreg -) 3.125 mg PO BID [facility] Last Admin: 04/21/18 09:08 Dose: 3.125 mg Dextrose (D50w (Syringe) -) 25 gm IVPUSH PRN PRN PRN Reason: HYPOGLYCEMIA (BG < 70) Doxepin HCl (Sinequan -) 10 mg PO HS PRN PRN Reason: INSOMNIA Duloxetine HCl (Cymbalta -) 60 mg PO DAILY [facility] Last Admin: 04/21/18 09:07 Dose: 60 mg Heparin Sodium (Porcine) (Heparin -) 5,000 unit SQ TID [facility] Last Admin: 04/21/18 13:52 Dose: 5,000 unit Levofloxacin (Levaquin 750 Mg Premixed Ivpb -) 750 mg in 150 mls @ 100 mls/hr IVPB DAILY [facility]; Protocol Last Admin: 04/21/18 09:07 Dose: 100 mls/hr Insulin Aspart (Novolog Vial Sliding Scale -) 1 vial SQ ACHS [facility]; Protocol Last Admin: 04/21/18 12:00 Dose: 2 units Lisinopril (Prinivil) 20 mg PO DAILY [facility] Last Admin: 04/21/18 09:08 Dose: 20 mg Montelukast Sodium (Singulair -) 10 mg PO HS [facility] Last Admin: 04/20/18 21:36 Dose: 10 mg Multivitamins/Minerals/Vitamin C (Tab-A-Vit -) 1 tab PO DAILY [facility] Last Admin: 04/21/18 09:08 Dose: 1 tab Pantoprazole Sodium (Protonix -) 40 mg PO DAILY [facility] Last Admin: 04/21/18 09:08 Dose: 40 mg Prednisone (Deltasone -) 40 mg PO DAILY [facility] Last Admin: 04/21/18 09:08 Dose: 40 mg Thiamine HCl (Vitamin B1 -) 100 mg PO DAILY [facility] Last Admin: 04/21/18 09:08 Dose: 100 mg - Objective Vital Signs: Vital Signs Temperature 98.7 F 04/21/18 14:33 Pulse Rate 82 04/21/18 14:33 Respiratory Rate 20 04/21/18 14:33 Blood Pressure 151/81 04/21/18 14:33 O2 Sat by Pulse Oximetry (%) 96 04/21/18 09:00 Constitutional: Yes: Calm Eyes: Yes: Conjunctiva Clear HENT: Yes: Atraumatic Cardiovascular: Yes: S1, S2 Respiratory: Yes: CTA Bilaterally Gastrointestinal: Yes: Soft Genitourinary: Yes: WNL Musculoskeletal: Yes: WNL Extremities: Yes: WNL Edema: No Integumentary: Yes: WNL Neurological: Yes: Oriented Psychiatric: Yes: Oriented Labs: CBC, BMP 04/21/18 06:30 04/21/18 06:30 Assessment/Plan Current Medications Generic Name Dose Route Start Last Admin Trade Name Santi PRN Reason Stop Dose Admin Albuterol/Ipratropium 1 amp 04/21/18 08:00 04/21/18 11:19 Duoneb - NEB 1 amp RQID [facility] Administration Amlodipine Besylate 10 mg 04/21/18 10:00 04/21/18 09:07 Norvasc - PO 10 mg DAILY [facility] Administration Aspirin 81 mg 04/21/18 10:00 04/21/18 09:07 Asa - PO 81 mg DAILY [facility] Administration Atorvastatin Calcium 10 mg 04/20/18 22:00 04/20/18 21:35 Lipitor - PO 10 mg HS [facility] Administration Budesonide/Formoterol Fumarate 2 puff 04/20/18 22:00 04/21/18 09:08 Symbicort 80/4.5mcg - IH 2 puff BID [facility] Administration Carvedilol 3.125 mg 04/20/18 22:00 04/21/18 09:08 Coreg - PO 3.125 mg BID [facility] Administration Dextrose 25 gm 04/20/18 20:18 D50w (Syringe) - IVPUSH PRN PRN HYPOGLYCEMIA (BG < 70) Doxepin HCl 10 mg 04/20/18 20:18 Sinequan - PO HS PRN INSOMNIA Duloxetine HCl 60 mg 04/21/18 10:00 04/21/18 09:07 Cymbalta - PO 60 mg DAILY [facility] Administration Heparin Sodium (Porcine) 5,000 unit 04/20/18 22:00 04/21/18 13:52 Heparin - SQ 5,000 unit TID [facility] Administration Levofloxacin 750 mg in 150 mls @ 100 mls/hr 04/21/18 10:00 04/21/18 09:07 Levaquin 750 Mg Premixed Ivpb - IVPB 100 mls/hr DAILY [facility] Administration Protocol Insulin Aspart 1 vial 04/20/18 22:00 04/21/18 12:00 Novolog Vial Sliding Scale - SQ 2 units ACHS [facility] Administration Protocol Lisinopril 20 mg 04/20/18 08:14 04/21/18 09:08 Prinivil PO 20 mg DAILY [facility] Administration Montelukast Sodium 10 mg 04/20/18 22:00 04/20/18 21:36 Singulair - PO 10 mg HS [facility] Administration Multivitamins/Minerals/Vitamin C 1 tab 04/21/18 10:00 04/21/18 09:08 Tab-A-Vit - PO 1 tab DAILY [facility] Administration Pantoprazole Sodium 40 mg 04/21/18 10:00 04/21/18 09:08 Protonix - PO 40 mg DAILY [facility] Administration Prednisone 40 mg 04/20/18 11:45 04/21/18 09:08 Deltasone - PO 40 mg DAILY [facility] Administration Thiamine HCl 100 mg 04/21/18 10:00 04/21/18 09:08 Vitamin B1 - PO 100 mg DAILY [facility] Administration Laboratory Tests 04/19/18 04/21/18 15:15 06:30 Potassium 4.2 Creatinine 0.8 Magnesium 1.7 L Urine Protein Negative Urine Blood Negative Impression 1. hypokalemia 2. hypomagnesemia 3. etoh abuse 4. cardiomyopathy 5. HTN 6. HLD Plan - replace mag - monitor renal function - monitor potassium - will follow prn - ua neg for blood or protein Dr Mccauley
--- NOTE | 2018-04-21 16:38 | PN ---
Physical Exam: SUBJECTIVE: Patient seen and examined at the bedside. reports feeling better. pt qualifies for home oxygen OBJECTIVE: patient unsteady, will benefit from STR Vital Signs Period Temp Pulse Resp BP Sys/Min Pulse Ox Last 24 Hr 98.1 F-98.7 F 80-86 18-20 136-160/71-89 96-96 GENERAL: The patient is awake, alert, and fully oriented, in no acute distress. HEAD: Normal with no signs of trauma. EYES: PERRL, extraocular movements intact, sclera anicteric, conjunctiva clear. No ptosis. ENT: Ears normal, nares patent, oropharynx clear without exudates, moist mucous membranes. NECK: Trachea midline, full range of motion, supple. LUNGS: Breath sounds equal, no wheezing, no crackles, on supplemental oxygen @ 3 liters HEART: Regular rate and rhythm, S1, S2 without murmur, rub or gallop. ABDOMEN: Soft, nontender, nondistended, normoactive bowel sounds, no guarding, no rebound, no hepatosplenomegaly, no masses. EXTREMITIES: 2+ pulses, warm, well-perfused NEUROLOGICAL: Normal speech, gait not observed. PSYCH: Normal mood, normal affect. SKIN: Warm, dry, normal turgor, no rashes or lesions noted Laboratory Results - last 24 hr 04/16/18 04/20/18 04/20/18 22:53 16:50 21:33 WBC RBC Hgb Hct MCV MCH MCHC RDW Plt Count MPV Absolute Neuts (auto) Neutrophils % Lymphocytes % Monocytes % Eosinophils % Basophils % Nucleated RBC % Sodium Potassium Chloride Carbon Dioxide Anion Gap BUN Creatinine Creat Clearance w eGFR POC Glucometer [phone] 321 Random Glucose Serum Osmolality Calcium Phosphorus Magnesium Total Bilirubin AST ALT Alkaline Phosphatase Total Protein Albumin Urine Osmolality Ur Random Sodium 04/21/18 04/21/18 04/21/18 06:30 06:30 06:30 WBC 10.1 H RBC 4.35 Hgb 8.3 L Hct 26.2 L MCV 60.2 L MCH 19.1 L MCHC 31.7 L RDW 26.8 H Plt Count 448 H MPV 9.1 Absolute Neuts (auto) 7.6 Neutrophils % 75.2 Lymphocytes % 16.7 D Monocytes % 7.6 D Eosinophils % 0.0 Basophils % 0.5 Nucleated RBC % 0 Sodium 135 L Potassium 4.2 Chloride 103 Carbon Dioxide 26 Anion Gap 6 L BUN 13 Creatinine 0.8 Creat Clearance w eGFR > 60 POC Glucometer Random Glucose 181 H Serum Osmolality 288 Calcium 8.7 Phosphorus 4.0 Magnesium 1.7 L Total Bilirubin 0.4 AST 19 ALT 20 Alkaline Phosphatase 86 Total Protein 7.0 Albumin 2.3 L Urine Osmolality Ur Random Sodium 04/21/18 04/21/18 04/21/18 06:33 09:35 09:35 WBC RBC Hgb Hct MCV MCH MCHC RDW Plt Count MPV Absolute Neuts (auto) Neutrophils % Lymphocytes % Monocytes % Eosinophils % Basophils % Nucleated RBC % Sodium Potassium Chloride Carbon Dioxide Anion Gap BUN Creatinine Creat Clearance w eGFR POC Glucometer 269 Random Glucose Serum Osmolality Calcium Phosphorus Magnesium Total Bilirubin AST ALT Alkaline Phosphatase Total Protein Albumin Urine Osmolality 414 Ur Random Sodium 100 04/21/18 04/21/18 11:48 16:19 WBC RBC Hgb Hct MCV MCH MCHC RDW Plt Count MPV Absolute Neuts (auto) Neutrophils % Lymphocytes % Monocytes % Eosinophils % Basophils % Nucleated RBC % Sodium Potassium Chloride Carbon Dioxide Anion Gap BUN Creatinine Creat Clearance w eGFR POC Glucometer 163 221 Random Glucose Serum Osmolality Calcium Phosphorus Magnesium Total Bilirubin AST ALT Alkaline Phosphatase Total Protein Albumin Urine Osmolality Ur Random Sodium Active Medications Generic Name Dose Route Start Last Admin Trade Name Freq PRN Reason Stop Dose Admin Albuterol/Ipratropium 1 amp 04/21/18 08:00 04/21/18 11:19 Duoneb - NEB 1 amp RQID MAGDA Administration Amlodipine Besylate 10 mg 04/21/18 10:00 04/21/18 09:07 Norvasc - PO 10 mg DAILY MAGDA Administration Aspirin 81 mg 04/21/18 10:00 04/21/18 09:07 Asa - PO 81 mg DAILY MAGDA Administration Atorvastatin Calcium 10 mg 04/20/18 22:00 04/20/18 21:35 Lipitor - PO 10 mg HS MAGDA Administration Budesonide/Formoterol Fumarate 2 puff 04/20/18 22:00 04/21/18 09:08 Symbicort 80/4.5mcg - IH 2 puff BID MAGDA Administration Carvedilol 3.125 mg 04/20/18 22:00 04/21/18 09:08 Coreg - PO 3.125 mg BID MAGDA Administration Dextrose 25 gm 04/20/18 20:18 D50w (Syringe) - IVPUSH PRN PRN HYPOGLYCEMIA (BG < 70) Doxepin HCl 10 mg 04/20/18 20:18 Sinequan - PO HS PRN INSOMNIA Duloxetine HCl 60 mg 04/21/18 10:00 04/21/18 09:07 Cymbalta - PO 60 mg DAILY MAGDA Administration Heparin Sodium (Porcine) 5,000 unit 04/20/18 22:00 04/21/18 13:52 Heparin - SQ 5,000 unit TID MAGDA Administration Levofloxacin 750 mg in 150 mls @ 100 mls/hr 04/21/18 10:00 04/21/18 09:07 Levaquin 750 Mg Premixed Ivpb - IVPB 100 mls/hr DAILY MAGDA Administration Protocol Insulin Aspart 1 vial 04/20/18 22:00 04/21/18 12:00 Novolog Vial Sliding Scale - SQ 2 units ACHS MAGDA Administration Protocol Lisinopril 20 mg 04/20/18 08:14 04/21/18 09:08 Prinivil PO 20 mg DAILY MAGDA Administration Montelukast Sodium 10 mg 04/20/18 22:00 04/20/18 21:36 Singulair - PO 10 mg HS MAGDA Administration Multivitamins/Minerals/Vitamin C 1 tab 04/21/18 10:00 04/21/18 09:08 Tab-A-Vit - PO 1 tab DAILY MAGDA Administration Pantoprazole Sodium 40 mg 04/21/18 10:00 04/21/18 09:08 Protonix - PO 40 mg DAILY MAGDA Administration Prednisone 40 mg 04/20/18 11:45 04/21/18 09:08 Deltasone - PO 40 mg DAILY MAGDA Administration Thiamine HCl 100 mg 04/21/18 10:00 04/21/18 09:08 Vitamin B1 - PO 100 mg DAILY MAGDA Administration ASSESSMENT/PLAN: Patient is a 67 year old female with a significant past medical history of HTN, DM, active smoking, COPD and CHF. She presents to the ED with c/o of worsening SOB productive cough with greyish sputum, inability to lay flat. Pulmonary: COPD exacerbation 2/2 possible PNA Clinically improving, on supplemental oxygen at 3 liters On duonebs, symbicort 2 puffs bid, singular 10mg hs and spiriva On Levaquin 750mg iv She qualifies for home oxygen per pre and post Card: hypertension, controlled Elevated troponins, flat trending. Seen and evaluated by cardiology no chest pain, no shortness of breath for possible stress test when more stable, per cardiology. patient w/o chest pain Endocrine: diabetes, controlled Psyche: smoking, cessation discussed. fen tolerating po monitor electrolytes low salt diet/diabetic full code Visit type - Emergency Visit Emergency Visit: Yes ED Registration Date: 04/16/18 Care time: The patient presented to the Emergency Department on the above date and was hospitalized for further evaluation of their emergent condition. - New Patient This patient is new to me today: No - Critical Care Critical Care patient: No - Discharge Referral Referred to [facility] Med P.C.: No
[2018-04-21] MEDS: MONTELUKAST NA 10 MG TABLET PO SCH (21:36)
[2018-04-21] MEDS: ATORVASTATIN CA 10 MG TABLET (FP) PO SCH (21:36)
[2018-04-22] MEDS: HEPARIN NA (PORCINE) 5,000 UNITS/ML 1ML VIAL SQ SCH ×3 (05:59→22:22)
[2018-04-22] MEDS: INSULIN SLIDING SCALE (NOVOLOG) 1 VIAL SQ SCH ×4 (06:00→22:57)
[2018-04-22 08:04] LABS: ALBUMIN 2.6 g/dl (3.4-5.0); ALK PHOS 111 U/L (45-117); ANION GAP 6 MMOL/L (8-16); BILIRUBIN,TOTAL 0.4 mg/dL (0.2-1); BLOOD UREA NITROGEN 14 mg/dL (7-18); CHLORIDE 101 mmol/L (98-107); CO2 29 mmol/L (21-32); CREATININE 0.7 mg/dL (0.55-1.3); GLUCOSE,RANDOM 86 mg/dL (74-106); MAGNESIUM 1.4 mg/dL (1.8-2.4); POTASSIUM 3.9 mmol/L (3.5-5.1); SGOT/AST 43 U/L (15-37); SGPT/ALT 43 U/L (13-61); SODIUM 135 mmol/L (136-145); TOT PROT 7.5 g/dl (6.4-8.2)
[2018-04-22] MEDS ORDERED: MAGNESIUM OXIDE 400 MG TABLET (FP) PO ONE (08:30)
[2018-04-22 08:41] LABS: BASO % 0.4 % (0-2.0); EOS % 0.2 % (0-4.5); HEMOGLOBIN 9.1 GM/dL (10.7-15.3); LYMPH % 32.6 % (8-40); MCHC 31.6 g/dl (32.0-36.0); MEAN CELL VOLUME 60.5 fl (80-96); MEAN PLT VOLUME 9.4 fl (7.5-11.1); MONO % 14.4 % (3.8-10.2); NEUT % 52.4 % (42.8-82.8); PLATELET COUNT 484 K/MM3 (134-434); RBC 4.79 M/mm3 (3.60-5.2); RDW 27.1 % (11.6-15.6); WHITE BLOOD COUNT 12.9 K/mm3 (4.0-10.0)
[2018-04-22 08:43] LABS: MCH 19.1 pg (25.7-33.7)
[2018-04-22] MEDS ORDERED: PT OWN MED DRAWER 7, Y5N ONE (10:26)
[2018-04-22] MEDS: BUDESONIDE/FORMETEROL FUMARATE 80/4.5 mcg INHALER IH SCH ×2 (10:45→22:23)
[2018-04-22] MEDS: MULTIVITAMINS (DAILY MVI) TABLET (FP) PO SCH (10:46)
[2018-04-22] MEDS: CARVEDILOL 3.125 MG TABLET (FP) PO SCH ×2 (10:46→22:22)
[2018-04-22] MEDS: predniSONE 20 MG TABLET (UD) PO SCH (10:46)
[2018-04-22] MEDS: DULoxetine HCL 30 MG CAPSULE.DR (FP) PO SCH (10:46)
[2018-04-22] MEDS: ASPIRIN 81 MG CHEWABLE TABLETS PO SCH (10:47)
[2018-04-22] MEDS: PANTOPRAZOLE 40 MG TABLET (FP) PO SCH (10:47)
[2018-04-22] MEDS: amLODIPine BESYLATE 10 MG TABLET (FP) PO SCH (10:47)
[2018-04-22] MEDS: LISINOPRIL 20 MG TABLET (FP) PO SCH (10:47)
[2018-04-22] MEDS: THIAMINE HCL 100 MG TABLET (FP) PO SCH (10:47)
[2018-04-22] MEDS: TIOTROPIUM BROMIDE 2.5 MCG (SPIRIVA) RESPIMAT INHALER IH SCH (10:55)
[2018-04-22] MEDS ORDERED: MAGNESIUM SULF 50% (8.12 MEQ/2 ML-1 GM VIAL) IVPB ONE (11:00)
--- NOTE | 2018-04-22 11:53 | PN ---
Progress Note, Physician History of Present Illness: Pt seen and examined at bedside. She is awake and alert. She denies shortness of breath or palpitations. - Current Medication List Current Medications: Active Medications Amlodipine Besylate (Norvasc -) 10 mg PO DAILY [facility] Last Admin: 04/22/18 10:47 Dose: 10 mg Aspirin (Asa -) 81 mg PO DAILY [facility] Last Admin: 04/22/18 10:47 Dose: 81 mg Atorvastatin Calcium (Lipitor -) 10 mg PO HS [facility] Last Admin: 04/21/18 21:36 Dose: 10 mg Budesonide/Formoterol Fumarate (Symbicort 80/4.5mcg -) 2 puff IH BID [facility] Last Admin: 04/22/18 10:45 Dose: 2 puff Carvedilol (Coreg -) 3.125 mg PO BID [facility] Last Admin: 04/22/18 10:46 Dose: 3.125 mg Dextrose (D50w (Syringe) -) 25 gm IVPUSH PRN PRN PRN Reason: HYPOGLYCEMIA (BG < 70) Doxepin HCl (Sinequan -) 10 mg PO HS PRN PRN Reason: INSOMNIA Duloxetine HCl (Cymbalta -) 60 mg PO DAILY [facility] Last Admin: 04/22/18 10:46 Dose: 60 mg Heparin Sodium (Porcine) (Heparin -) 5,000 unit SQ TID [facility] Last Admin: 04/22/18 05:59 Dose: 5,000 unit Levofloxacin (Levaquin 750 Mg Premixed Ivpb -) 750 mg in 150 mls @ 100 mls/hr IVPB DAILY [facility]; Protocol Last Admin: 04/22/18 10:49 Dose: 100 mls/hr Insulin Aspart (Novolog Vial Sliding Scale -) 1 vial SQ ACHS [facility]; Protocol Last Admin: 04/22/18 06:00 Dose: Not Given Lisinopril (Prinivil) 20 mg PO DAILY [facility] Last Admin: 04/22/18 10:47 Dose: 20 mg Montelukast Sodium (Singulair -) 10 mg PO HS [facility] Last Admin: 04/21/18 21:36 Dose: 10 mg Multivitamins/Minerals/Vitamin C (Tab-A-Vit -) 1 tab PO DAILY [facility] Last Admin: 04/22/18 10:46 Dose: 1 tab Pantoprazole Sodium (Protonix -) 40 mg PO DAILY [facility] Last Admin: 04/22/18 10:47 Dose: 40 mg Prednisone (Deltasone -) 40 mg PO DAILY [facility] Last Admin: 04/22/18 10:46 Dose: 40 mg Thiamine HCl (Vitamin B1 -) 100 mg PO DAILY [facility] Last Admin: 04/22/18 10:47 Dose: 100 mg Tiotropium [place] (Spiriva Respimat) 2 puff IH DAILY [facility] Last Admin: 04/22/18 10:55 Dose: 2 puff - Objective Vital Signs: Vital Signs Temperature 98.8 F 04/22/18 10:00 Pulse Rate 85 04/22/18 10:00 Respiratory Rate 20 04/22/18 10:00 Blood Pressure 151/79 04/22/18 10:00 O2 Sat by Pulse Oximetry (%) 96 04/21/18 21:00 Constitutional: Yes: Calm Eyes: Yes: Conjunctiva Clear HENT: Yes: Atraumatic Cardiovascular: Yes: S1, S2 Respiratory: Yes: CTA Bilaterally Gastrointestinal: Yes: Normal Bowel Sounds, Soft Genitourinary: Yes: WNL Musculoskeletal: Yes: WNL Edema: No Neurological: Yes: Oriented Psychiatric: Yes: Oriented Labs: CBC, BMP 04/22/18 06:45 04/22/18 06:45 Assessment/Plan Current Medications Generic Name Dose Route Start Last Admin Trade Name Freq PRN Reason Stop Dose Admin Amlodipine Besylate 10 mg 04/21/18 10:00 04/22/18 10:47 Norvasc - PO 10 mg DAILY MAGDA Administration Aspirin 81 mg 04/21/18 10:00 04/22/18 10:47 Asa - PO 81 mg DAILY MAGDA Administration Atorvastatin Calcium 10 mg 04/20/18 22:00 04/21/18 21:36 Lipitor - PO 10 mg HS MAGDA Administration Budesonide/Formoterol Fumarate 2 puff 04/20/18 22:00 04/22/18 10:45 Symbicort 80/4.5mcg - IH 2 puff BID MAGDA Administration Carvedilol 3.125 mg 04/20/18 22:00 04/22/18 10:46 Coreg - PO 3.125 mg BID MAGDA Administration Dextrose 25 gm 04/20/18 20:18 D50w (Syringe) - IVPUSH PRN PRN HYPOGLYCEMIA (BG < 70) Doxepin HCl 10 mg 04/20/18 20:18 Sinequan - PO HS PRN INSOMNIA Duloxetine HCl 60 mg 04/21/18 10:00 04/22/18 10:46 Cymbalta - PO 60 mg DAILY MAGDA Administration Heparin Sodium (Porcine) 5,000 unit 04/20/18 22:00 04/22/18 05:59 Heparin - SQ 5,000 unit TID MAGDA Administration Levofloxacin 750 mg in 150 mls @ 100 mls/hr 04/21/18 10:00 04/22/18 10:49 Levaquin 750 Mg Premixed Ivpb - IVPB 100 mls/hr DAILY MAGDA Administration Protocol Insulin Aspart 1 vial 04/20/18 22:00 04/22/18 06:00 Novolog Vial Sliding Scale - SQ Not Given ACHS [facility] Protocol Lisinopril 20 mg 04/20/18 08:14 04/22/18 10:47 Prinivil PO 20 mg DAILY MAGDA Administration Montelukast Sodium 10 mg 04/20/18 22:00 04/21/18 21:36 Singulair - PO 10 mg HS MAGDA Administration Multivitamins/Minerals/Vitamin C 1 tab 04/21/18 10:00 04/22/18 10:46 Tab-A-Vit - PO 1 tab DAILY MAGDA Administration Pantoprazole Sodium 40 mg 04/21/18 10:00 04/22/18 10:47 Protonix - PO 40 mg DAILY MAGDA Administration Prednisone 40 mg 04/20/18 11:45 04/22/18 10:46 Deltasone - PO 40 mg DAILY MAGDA Administration Thiamine HCl 100 mg 04/21/18 10:00 04/22/18 10:47 Vitamin B1 - PO 100 mg DAILY MAGDA Administration Tiotropium [place] 2 puff 04/22/18 10:00 04/22/18 10:55 Spiriva Respimat IH 2 puff DAILY MAGDA Administration Impression 1. hypokalemia 2. hypomagnesemia 3. etoh abuse 4. cardiomyopathy 5. HTN 6. HLD Plan - replace lytes - renal function stable - encourage PO intake - discussed etoh intake - will follow prn - ua neg for blood or protein Dr Mccauley
--- NOTE | 2018-04-22 12:24 | PN ---
Progress Note, Physician History of Present Illness: This is a 67 y/o female patient with Hx of HTN, DL, active smoking (quit 4 days ago), COPD and ?CHF presented to the hospital with worsening SOB productive cough with greyish sputum, inability to lay on her. Patient stated that she had a cold recently, and she is recovering from that, patient didnt receive her influenza vaccination this year. stated she does not know why. - Current Medication List Current Medications: Active Medications Amlodipine Besylate (Norvasc -) 10 mg PO DAILY [facility] Last Admin: 04/22/18 10:47 Dose: 10 mg Aspirin (Asa -) 81 mg PO DAILY [facility] Last Admin: 04/22/18 10:47 Dose: 81 mg Atorvastatin Calcium (Lipitor -) 10 mg PO HS [facility] Last Admin: 04/21/18 21:36 Dose: 10 mg Budesonide/Formoterol Fumarate (Symbicort 80/4.5mcg -) 2 puff IH BID [facility] Last Admin: 04/22/18 10:45 Dose: 2 puff Carvedilol (Coreg -) 3.125 mg PO BID [facility] Last Admin: 04/22/18 10:46 Dose: 3.125 mg Dextrose (D50w (Syringe) -) 25 gm IVPUSH PRN PRN PRN Reason: HYPOGLYCEMIA (BG < 70) Doxepin HCl (Sinequan -) 10 mg PO HS PRN PRN Reason: INSOMNIA Duloxetine HCl (Cymbalta -) 60 mg PO DAILY [facility] Last Admin: 04/22/18 10:46 Dose: 60 mg Heparin Sodium (Porcine) (Heparin -) 5,000 unit SQ TID [facility] Last Admin: 04/22/18 05:59 Dose: 5,000 unit Levofloxacin (Levaquin 750 Mg Premixed Ivpb -) 750 mg in 150 mls @ 100 mls/hr IVPB DAILY [facility]; Protocol Last Admin: 04/22/18 10:49 Dose: 100 mls/hr Insulin Aspart (Novolog Vial Sliding Scale -) 1 vial SQ ACHS [facility]; Protocol Last Admin: 04/22/18 12:12 Dose: Not Given Lisinopril (Prinivil) 20 mg PO DAILY [facility] Last Admin: 04/22/18 10:47 Dose: 20 mg Magnesium Oxide (Mag-Ox -) 400 mg PO DAILY [facility] Stop: 04/29/18 10:01 Montelukast Sodium (Singulair -) 10 mg PO HS [facility] Last Admin: 04/21/18 21:36 Dose: 10 mg Multivitamins/Minerals/Vitamin C (Tab-A-Vit -) 1 tab PO DAILY [facility] Last Admin: 04/22/18 10:46 Dose: 1 tab Pantoprazole Sodium (Protonix -) 40 mg PO DAILY [facility] Last Admin: 04/22/18 10:47 Dose: 40 mg Prednisone (Deltasone -) 40 mg PO DAILY [facility] Last Admin: 04/22/18 10:46 Dose: 40 mg Thiamine HCl (Vitamin B1 -) 100 mg PO DAILY [facility] Last Admin: 04/22/18 10:47 Dose: 100 mg Tiotropium [place] (Spiriva Respimat) 2 puff IH DAILY [facility] Last Admin: 04/22/18 10:55 Dose: 2 puff - Objective Vital Signs: Vital Signs Temperature 98.8 F 04/22/18 10:00 Pulse Rate 85 04/22/18 10:00 Respiratory Rate 20 04/22/18 10:00 Blood Pressure 151/79 04/22/18 10:00 O2 Sat by Pulse Oximetry (%) 96 04/21/18 21:00 Eyes: Yes: WNL, Conjunctiva Clear, EOM Intact HENT: Yes: WNL, Atraumatic, Normocephalic Neck: Yes: WNL, Supple, Trachea Midline Cardiovascular: Yes: WNL, Regular Rate and Rhythm Respiratory: Yes: WNL, Regular, CTA Bilaterally Gastrointestinal: Yes: WNL, Normal Bowel Sounds Genitourinary: Yes: WNL Musculoskeletal: Yes: WNL Extremities: Yes: WNL Edema: No Integumentary: Yes: WNL Neurological: Yes: WNL, Alert, Oriented ...Motor Strength: WNL Psychiatric: Yes: WNL Labs: CBC, BMP 04/22/18 06:45 04/22/18 06:45 Problem List - Problems (1) CHF (congestive heart failure) Code(s): I50.9 - HEART FAILURE, UNSPECIFIED Qualifiers: Heart failure type: unspecified Heart failure chronicity: acute Qualified Code(s): I50.9 - Heart failure, unspecified (2) Hypokalemia due to loss of potassium Code(s): E87.6 - HYPOKALEMIA (3) Metabolic alkalosis with respiratory acidosis Code(s): E87.4 - MIXED DISORDER OF ACID-BASE BALANCE (4) NSTEMI (non-ST elevated myocardial infarction) Code(s): I21.4 - NON-ST ELEVATION (NSTEMI) MYOCARDIAL INFARCTION (5) Pneumonia Code(s): J18.9 - PNEUMONIA, UNSPECIFIED ORGANISM (6) COPD (chronic obstructive pulmonary disease) Code(s): J44.9 - CHRONIC OBSTRUCTIVE PULMONARY DISEASE, UNSPECIFIED Qualifiers: COPD type: unspecified COPD Qualified Code(s): J44.9 - Chronic obstructive pulmonary disease, unspecified (7) Abdominal pain Code(s): R10.9 - UNSPECIFIED ABDOMINAL PAIN (8) Alcohol dependence Code(s): F10.20 - ALCOHOL DEPENDENCE, UNCOMPLICATED Qualifiers: Substance use status: uncomplicated Qualified Code(s): F10.20 - Alcohol dependence, uncomplicated (9) Alcohol intoxication Code(s): F10.129 - ALCOHOL ABUSE WITH INTOXICATION, UNSPECIFIED Qualifiers: Complication of substance-induced condition: uncomplicated Qualified Code(s ): F10.920 - Alcohol use, unspecified with intoxication, uncomplicated (10) Closed head injury Code(s): S09.90XA - UNSPECIFIED INJURY OF HEAD, INITIAL ENCOUNTER Qualifiers: Encounter type: initial encounter Qualified Code(s): S09.90XA - Unspecified injury of head, initial encounter (11) Diabetes mellitus type 2 in nonobese Code(s): E11.9 - TYPE 2 DIABETES MELLITUS WITHOUT COMPLICATIONS (12) Diabetes mellitus type 2 in obese Code(s): E11.9 - TYPE 2 DIABETES MELLITUS WITHOUT COMPLICATIONS; E66.9 - OBESITY , UNSPECIFIED (13) Encounter for removal of sutures Code(s): Z48.02 - ENCOUNTER FOR REMOVAL OF SUTURES (14) Fall Code(s): W19.XXXA - UNSPECIFIED FALL, INITIAL ENCOUNTER Qualifiers: Encounter type: initial encounter Qualified Code(s): W19.XXXA - Unspecified fall, initial encounter (15) Head contusion Code(s): S00.93XA - CONTUSION OF UNSPECIFIED PART OF HEAD, INITIAL ENCOUNTER Qualifiers: Encounter type: initial encounter Contusion of head detail: scalp Qualified Code(s): S00.03XA - Contusion of scalp, initial encounter (16) Headache Code(s): R51 - HEADACHE (17) Intoxication Code(s): [id number] - (18) Left against medical advice Code(s): Z53.20 - PROC/TRTMT NOT CRD OUT BEC PT DECISION FOR UNSP REASONS (19) Scalp laceration Code(s): S01.01XA - LACERATION WITHOUT FOREIGN BODY OF SCALP, INITIAL ENCOUNTER (20) Alcohol-induced mood disorder Code(s): F10.94 - ALCOHOL USE, UNSPECIFIED WITH ALCOHOL-INDUCED MOOD DISORDER (21) Asthma Code(s): J45.909 - UNSPECIFIED ASTHMA, UNCOMPLICATED Qualifiers: Asthma severity: mild intermittent Asthma complication type: with status asthmaticus (22) Borderline diabetes mellitus Code(s): R73.09 - OTHER ABNORMAL GLUCOSE (23) Depressive disorder Code(s): F32.9 - MAJOR DEPRESSIVE DISORDER, SINGLE EPISODE, UNSPECIFIED (24) Hypercholesteremia Code(s): E78.0 - PURE HYPERCHOLESTEROLEMIA * DO NOT USE * (25) Hypertension Code(s): I10 - ESSENTIAL (PRIMARY) HYPERTENSION Qualifiers: Hypertension type: essential hypertension Qualified Code(s): I10 - Essential (primary) hypertension (26) [place], post-stroke Code(s): I69.30 - UNSPECIFIED SEQUELAE OF CEREBRAL INFARCTION (27) Depression (emotion) Code(s): F32.9 - MAJOR DEPRESSIVE DISORDER, SINGLE EPISODE, UNSPECIFIED Qualifiers: Depression Type: dysthymia Qualified Code(s): F34.1 - Dysthymic disorder Assessment/Plan - Problems (1) Diastolic CHF Code(s): I50.30 - UNSPECIFIED DIASTOLIC (CONGESTIVE) HEART FAILURE (2) COPD (chronic obstructive pulmonary disease) Code(s): J44.9 - CHRONIC OBSTRUCTIVE PULMONARY DISEASE, UNSPECIFIED Qualifiers: COPD type: unspecified COPD Qualified Code(s): J44.9 - Chronic obstructive pulmonary disease, unspecified (3) Depressive disorder Code(s): F32.9 - MAJOR DEPRESSIVE DISORDER, SINGLE EPISODE, UNSPECIFIED (4) Hypercholesteremia Code(s): E78.0 - PURE HYPERCHOLESTEROLEMIA * DO NOT USE * (5) Hypertension Code(s): I10 - ESSENTIAL (PRIMARY) HYPERTENSION Qualifiers: Hypertension type: essential hypertension Qualified Code(s): I10 - Essential (primary) hypertension (6) Elevated troponin Assessment/Plan: Mildly elevated likely due to demand ischemia from respiratory condition, sepsis. Multiple CAD risks. Coronary artery evaluation (stress MIBI) when stable. Will order MIBI stress tets Code(s): R74.8 - ABNORMAL LEVELS OF OTHER SERUM ENZYMES
[2018-04-22 13:24] VITALS: BMI 26.9
--- NOTE | 2018-04-22 16:49 | PN ---
Physical Exam: SUBJECTIVE: Patient seen and examined at the bedside. patient in agreement to go to rehab. SW aware. OBJECTIVE: Vital Signs Period Temp Pulse Resp BP Sys/Min Pulse Ox Last 24 Hr 98.1 F-98.8 F 81-100 20-20 123-166/67-96 96 GENERAL: The patient is awake, alert, and fully oriented, in no acute distress. HEAD: Normal with no signs of trauma. EYES: PERRL, extraocular movements intact, sclera anicteric, conjunctiva clear. No ptosis. ENT: Ears normal, nares patent, oropharynx clear without exudates, moist mucous membranes. NECK: Trachea midline, full range of motion, supple. LUNGS: Breath sounds equal, no wheezing, no crackles, on supplemental oxygen 2 liters HEART: Regular rate and rhythm, S1, S2 without murmur, rub or gallop. ABDOMEN: Soft, nontender, nondistended, normoactive bowel sounds, no guarding, no rebound, no hepatosplenomegaly, no masses. EXTREMITIES: 2+ pulses, warm, well-perfused NEUROLOGICAL: Normal speech, gait not observed. PSYCH: Normal mood, normal affect. SKIN: Warm, dry, normal turgor, no rashes or lesions noted Laboratory Results - last 24 hr 04/21/18 04/22/18 04/22/18 21:43 05:57 06:45 WBC 12.9 H RBC 4.79 Hgb 9.1 L Hct 29.0 L MCV 60.5 L MCH 19.1 L MCHC 31.6 L RDW 27.1 H Plt Count 484 H MPV 9.4 Absolute Neuts (auto) 6.8 Neutrophils % 52.4 D Lymphocytes % 32.6 D Monocytes % 14.4 H D Eosinophils % 0.2 D Basophils % 0.4 Nucleated RBC % 0 Sodium Potassium Chloride Carbon Dioxide Anion Gap BUN Creatinine Creat Clearance w eGFR POC Glucometer 333 112 Random Glucose Calcium Magnesium Total Bilirubin AST ALT Alkaline Phosphatase Total Protein Albumin 04/22/18 04/22/18 06:45 11:21 WBC RBC Hgb Hct MCV MCH MCHC RDW Plt Count MPV Absolute Neuts (auto) Neutrophils % Lymphocytes % Monocytes % Eosinophils % Basophils % Nucleated RBC % Sodium 135 L Potassium 3.9 Chloride 101 Carbon Dioxide 29 Anion Gap 6 L BUN 14 Creatinine 0.7 Creat Clearance w eGFR > 60 POC Glucometer 126 Random Glucose 86 Calcium 9.0 Magnesium 1.4 L Total Bilirubin 0.4 AST 43 H ALT 43 Alkaline Phosphatase 111 Total Protein 7.5 Albumin 2.6 L Active Medications Generic Name Dose Route Start Last Admin Trade Name Freq PRN Reason Stop Dose Admin Amlodipine Besylate 10 mg 04/21/18 10:00 04/22/18 10:47 Norvasc - PO 10 mg DAILY [facility] Administration Aspirin 81 mg 04/21/18 10:00 04/22/18 10:47 Asa - PO 81 mg DAILY [facility] Administration Atorvastatin Calcium 10 mg 04/20/18 22:00 04/21/18 21:36 Lipitor - PO 10 mg HS [facility] Administration Budesonide/Formoterol Fumarate 2 puff 04/20/18 22:00 04/22/18 10:45 Symbicort 80/4.5mcg - IH 2 puff BID [facility] Administration Carvedilol 3.125 mg 04/20/18 22:00 04/22/18 10:46 Coreg - PO 3.125 mg BID [facility] Administration Dextrose 25 gm 04/20/18 20:18 D50w (Syringe) - IVPUSH PRN PRN HYPOGLYCEMIA (BG < 70) Doxepin HCl 10 mg 04/20/18 20:18 Sinequan - PO HS PRN INSOMNIA Duloxetine HCl 60 mg 04/21/18 10:00 04/22/18 10:46 Cymbalta - PO 60 mg DAILY [facility] Administration Heparin Sodium (Porcine) 5,000 unit 04/20/18 22:00 04/22/18 14:36 Heparin - SQ Not Given TID [facility] Levofloxacin 750 mg in 150 mls @ 100 mls/hr 04/21/18 10:00 04/22/18 10:49 Levaquin 750 Mg Premixed Ivpb - IVPB 100 mls/hr DAILY [facility] Administration Protocol Insulin Aspart 1 vial 04/20/18 22:00 04/22/18 12:12 Novolog Vial Sliding Scale - SQ Not Given ACHS [facility] Protocol Lisinopril 20 mg 04/20/18 08:14 04/22/18 10:47 Prinivil PO 20 mg DAILY [facility] Administration Magnesium Oxide 400 mg 04/23/18 10:00 Mag-Ox - PO 04/29/18 10:01 DAILY [facility] Montelukast Sodium 10 mg 04/20/18 22:00 04/21/18 21:36 Singulair - PO 10 mg HS [facility] Administration Multivitamins/Minerals/Vitamin C 1 tab 04/21/18 10:00 04/22/18 10:46 Tab-A-Vit - PO 1 tab DAILY [facility] Administration Pantoprazole Sodium 40 mg 04/21/18 10:00 04/22/18 10:47 Protonix - PO 40 mg DAILY [facility] Administration Prednisone 40 mg 04/20/18 11:45 04/22/18 10:46 Deltasone - PO 40 mg DAILY [facility] Administration Thiamine HCl 100 mg 04/21/18 10:00 04/22/18 10:47 Vitamin B1 - PO 100 mg DAILY [facility] Administration Tiotropium [place] 2 puff 04/22/18 10:00 04/22/18 10:55 Spiriva Respimat IH 2 puff DAILY [facility] Administration ASSESSMENT/PLAN: Patient is a 67 year old female with a significant past medical history of HTN, DM, active smoking, COPD and CHF. She presents to the ED with c/o of worsening SOB productive cough with greyish sputum, inability to lay flat. Pulmonary: COPD exacerbation 2/2 possible PNA Clinically improving, on supplemental oxygen at 2-3 liters On duonebs, symbicort 2 puffs bid, singular 10mg hs and spiriva On Levaquin 750mg iv, received 7 days of levaquin, discontinue She qualifies for home oxygen per pre and post Card: hypertension, controlled Elevated troponins, flat trending. Seen and evaluated by cardiology no chest pain, no shortness of breath for stress test Wednesday, npo wednesday night. Endocrine: diabetes, controlled Psyche: smoking, cessation discussed. fen tolerating po monitor electrolytes low salt diet/diabetic full code Visit type - Emergency Visit Emergency Visit: Yes ED Registration Date: 04/16/18 Care time: The patient presented to the Emergency Department on the above date and was hospitalized for further evaluation of their emergent condition. - New Patient This patient is new to me today: No - Critical Care Critical Care patient: No - Discharge Referral Referred to [facility] Med P.C.: No
[2018-04-22] MEDS: ATORVASTATIN CA 10 MG TABLET (FP) PO SCH (22:22)
[2018-04-22] MEDS: MONTELUKAST NA 10 MG TABLET PO SCH (22:22)
[2018-04-23] MEDS: HEPARIN NA (PORCINE) 5,000 UNITS/ML 1ML VIAL SQ SCH ×3 (06:57→22:30)
[2018-04-23] MEDS: INSULIN SLIDING SCALE (NOVOLOG) 1 VIAL SQ SCH ×4 (07:03→22:30)
--- NOTE | 2018-04-23 08:15 | PN ---
Physical Exam: SUBJECTIVE: Patient seen and examined. tolerating PT. pt for placement to snf. OBJECTIVE: ambulating with PT still with an unsteady gait. for stress test wednesday, then can d/c to rehab Vital Signs Period Temp Pulse Resp BP Sys/Min Pulse Ox Last 24 Hr 98.1 F-98.8 F 79-85 20-20 123-175/67-84 97 GENERAL: The patient is awake, alert, and fully oriented, in no acute distress. HEAD: Normal with no signs of trauma. EYES: PERRL, extraocular movements intact, sclera anicteric, conjunctiva clear. No ptosis. ENT: Ears normal, nares patent, oropharynx clear without exudates, moist mucous membranes. NECK: Trachea midline, full range of motion, supple. LUNGS: Breath sounds equal, no wheezing, no crackles, on supplemental oxygen 2 liters HEART: Regular rate and rhythm, S1, S2 without murmur, rub or gallop. ABDOMEN: Soft, nontender, nondistended, normoactive bowel sounds, no guarding, no rebound, no hepatosplenomegaly, no masses. EXTREMITIES: 2+ pulses, warm, well-perfused NEUROLOGICAL: Normal speech, gait not observed. PSYCH: Normal mood, normal affect. SKIN: Warm, dry, normal turgor, no rashes or lesions noted Laboratory Results - last 24 hr 04/22/18 04/22/18 04/22/18 06:45 11:21 16:43 WBC 12.9 H RBC 4.79 Hgb 9.1 L Hct 29.0 L MCV 60.5 L MCH 19.1 L MCHC 31.6 L RDW 27.1 H Plt Count 484 H MPV 9.4 Absolute Neuts (auto) 6.8 Neutrophils % 52.4 D Lymphocytes % 32.6 D Monocytes % 14.4 H D Eosinophils % 0.2 D Basophils % 0.4 Nucleated RBC % 0 POC Glucometer 126 323 04/22/18 04/23/18 22:54 07:00 WBC RBC Hgb Hct MCV MCH MCHC RDW Plt Count MPV Absolute Neuts (auto) Neutrophils % Lymphocytes % Monocytes % Eosinophils % Basophils % Nucleated RBC % POC Glucometer 184 132 Active Medications Generic Name Dose Route Start Last Admin Trade Name Freq PRN Reason Stop Dose Admin Amlodipine Besylate 10 mg 04/21/18 10:00 04/22/18 10:47 Norvasc - PO 10 mg DAILY [facility] Administration Aspirin 81 mg 04/21/18 10:00 04/22/18 10:47 Asa - PO 81 mg DAILY [facility] Administration Atorvastatin Calcium 10 mg 04/20/18 22:00 04/22/18 22:22 Lipitor - PO 10 mg HS [facility] Administration Budesonide/Formoterol Fumarate 2 puff 04/20/18 22:00 04/22/18 22:23 Symbicort 80/4.5mcg - IH 2 puff BID [facility] Administration Carvedilol 3.125 mg 04/20/18 22:00 04/22/18 22:22 Coreg - PO 3.125 mg BID [facility] Administration Dextrose 25 gm 04/20/18 20:18 D50w (Syringe) - IVPUSH PRN PRN HYPOGLYCEMIA (BG < 70) Doxepin HCl 10 mg 04/20/18 20:18 Sinequan - PO HS PRN INSOMNIA Duloxetine HCl 60 mg 04/21/18 10:00 04/22/18 10:46 Cymbalta - PO 60 mg DAILY [facility] Administration Heparin Sodium (Porcine) 5,000 unit 04/20/18 22:00 04/23/18 06:57 Heparin - SQ 5,000 unit TID [facility] Administration Insulin Aspart 1 vial 04/20/18 22:00 04/23/18 07:03 Novolog Vial Sliding Scale - SQ Not Given ACHS [facility] Protocol Lisinopril 20 mg 04/20/18 08:14 04/22/18 10:47 Prinivil PO 20 mg DAILY [facility] Administration Magnesium Oxide 400 mg 04/23/18 10:00 Mag-Ox - PO 04/29/18 10:01 DAILY [facility] Montelukast Sodium 10 mg 04/20/18 22:00 04/22/18 22:22 Singulair - PO 10 mg HS [facility] Administration Multivitamins/Minerals/Vitamin C 1 tab 04/21/18 10:00 04/22/18 10:46 Tab-A-Vit - PO 1 tab DAILY [facility] Administration Pantoprazole Sodium 40 mg 04/21/18 10:00 04/22/18 10:47 Protonix - PO 40 mg DAILY [facility] Administration Prednisone 40 mg 04/20/18 11:45 04/22/18 10:46 Deltasone - PO 40 mg DAILY [facility] Administration Thiamine HCl 100 mg 04/21/18 10:00 04/22/18 10:47 Vitamin B1 - PO 100 mg DAILY [facility] Administration Tiotropium [place] 2 puff 04/22/18 10:00 04/22/18 10:55 Spiriva Respimat IH 2 puff DAILY [facility] Administration ASSESSMENT/PLAN: Patient is a 67 year old female with a significant past medical history of HTN, DM, active smoking, COPD and CHF. She presents to the ED with c/o of worsening SOB productive cough with greyish sputum, inability to lay flat. Pulmonary: COPD exacerbation 2/2 possible PNA Clinically improving, on supplemental oxygen at 2-3 liters On duonebs, symbicort 2 puffs bid, singular 10mg hs and spiriva received 7 days of levaquin She qualifies for home oxygen per pre and post Card: hypertension, controlled Elevated troponins, flat trending. for stress test Wednesday, npo wednesday night. Endocrine: diabetes, controlled Psyche: smoking, cessation discussed. fen tolerating po monitor electrolytes low salt diet/diabetic full code Visit type - Emergency Visit Emergency Visit: Yes ED Registration Date: 04/16/18 Care time: The patient presented to the Emergency Department on the above date and was hospitalized for further evaluation of their emergent condition. - New Patient This patient is new to me today: No - Critical Care Critical Care patient: No - Discharge Referral Referred to [facility] Med P.C.: No
--- NOTE | 2018-04-23 09:41 | PN ---
Progress Note, Physician History of Present Illness: This is a 67 y/o female patient with Hx of HTN, DL, active smoking (quit 4 days ago), COPD and ?CHF presented to the hospital with worsening SOB productive cough with greyish sputum, inability to lay on her. Patient stated that she had a cold recently, and she is recovering from that, patient didnt receive her influenza vaccination this year. stated she does not know why. - Current Medication List Current Medications: Active Medications Amlodipine Besylate (Norvasc -) 10 mg PO DAILY [facility] Last Admin: 04/22/18 10:47 Dose: 10 mg Aspirin (Asa -) 81 mg PO DAILY [facility] Last Admin: 04/22/18 10:47 Dose: 81 mg Atorvastatin Calcium (Lipitor -) 10 mg PO HS [facility] Last Admin: 04/22/18 22:22 Dose: 10 mg Budesonide/Formoterol Fumarate (Symbicort 80/4.5mcg -) 2 puff IH BID [facility] Last Admin: 04/22/18 22:23 Dose: 2 puff Carvedilol (Coreg -) 3.125 mg PO BID [facility] Last Admin: 04/22/18 22:22 Dose: 3.125 mg Dextrose (D50w (Syringe) -) 25 gm IVPUSH PRN PRN PRN Reason: HYPOGLYCEMIA (BG < 70) Doxepin HCl (Sinequan -) 10 mg PO HS PRN PRN Reason: INSOMNIA Duloxetine HCl (Cymbalta -) 60 mg PO DAILY [facility] Last Admin: 04/22/18 10:46 Dose: 60 mg Heparin Sodium (Porcine) (Heparin -) 5,000 unit SQ TID [facility] Last Admin: 04/23/18 06:57 Dose: 5,000 unit Insulin Aspart (Novolog Vial Sliding Scale -) 1 vial SQ ACHS [facility]; Protocol Last Admin: 04/23/18 07:03 Dose: Not Given Lisinopril (Prinivil) 20 mg PO DAILY [facility] Last Admin: 04/22/18 10:47 Dose: 20 mg Magnesium Oxide (Mag-Ox -) 400 mg PO DAILY [facility] Stop: 04/29/18 10:01 Montelukast Sodium (Singulair -) 10 mg PO HS [facility] Last Admin: 04/22/18 22:22 Dose: 10 mg Multivitamins/Minerals/Vitamin C (Tab-A-Vit -) 1 tab PO DAILY [facility] Last Admin: 04/22/18 10:46 Dose: 1 tab Pantoprazole Sodium (Protonix -) 40 mg PO DAILY [facility] Last Admin: 04/22/18 10:47 Dose: 40 mg Prednisone (Deltasone -) 40 mg PO DAILY [facility] Last Admin: 04/22/18 10:46 Dose: 40 mg Thiamine HCl (Vitamin B1 -) 100 mg PO DAILY [facility] Last Admin: 04/22/18 10:47 Dose: 100 mg Tiotropium [place] (Spiriva Respimat) 2 puff IH DAILY [facility] Last Admin: 04/22/18 10:55 Dose: 2 puff - Objective Vital Signs: Vital Signs Temperature 98.2 F 04/23/18 06:00 Pulse Rate 79 04/23/18 06:00 Respiratory Rate 20 04/23/18 06:00 Blood Pressure 175/84 H 04/23/18 06:00 O2 Sat by Pulse Oximetry (%) 97 04/22/18 21:00 Eyes: Yes: WNL, Conjunctiva Clear, EOM Intact HENT: Yes: WNL, Atraumatic, Normocephalic Neck: Yes: WNL, Supple, Trachea Midline Cardiovascular: Yes: WNL, Regular Rate and Rhythm Respiratory: Yes: WNL, Regular, CTA Bilaterally Gastrointestinal: Yes: WNL, Normal Bowel Sounds Genitourinary: Yes: WNL Musculoskeletal: Yes: WNL Extremities: Yes: WNL Edema: No Integumentary: Yes: WNL Neurological: Yes: WNL, Alert, Oriented ...Motor Strength: WNL Psychiatric: Yes: WNL Labs: CBC, BMP 04/22/18 06:45 04/22/18 06:45 Problem List - Problems (1) CHF (congestive heart failure) Code(s): I50.9 - HEART FAILURE, UNSPECIFIED Qualifiers: Heart failure type: unspecified Heart failure chronicity: acute Qualified Code(s): I50.9 - Heart failure, unspecified (2) Hypokalemia due to loss of potassium Code(s): E87.6 - HYPOKALEMIA (3) Metabolic alkalosis with respiratory acidosis Code(s): E87.4 - MIXED DISORDER OF ACID-BASE BALANCE (4) NSTEMI (non-ST elevated myocardial infarction) Code(s): I21.4 - NON-ST ELEVATION (NSTEMI) MYOCARDIAL INFARCTION (5) Pneumonia Code(s): J18.9 - PNEUMONIA, UNSPECIFIED ORGANISM (6) COPD (chronic obstructive pulmonary disease) Code(s): J44.9 - CHRONIC OBSTRUCTIVE PULMONARY DISEASE, UNSPECIFIED Qualifiers: COPD type: unspecified COPD Qualified Code(s): J44.9 - Chronic obstructive pulmonary disease, unspecified (7) Abdominal pain Code(s): R10.9 - UNSPECIFIED ABDOMINAL PAIN (8) Alcohol dependence Code(s): F10.20 - ALCOHOL DEPENDENCE, UNCOMPLICATED Qualifiers: Substance use status: uncomplicated Qualified Code(s): F10.20 - Alcohol dependence, uncomplicated (9) Alcohol intoxication Code(s): F10.129 - ALCOHOL ABUSE WITH INTOXICATION, UNSPECIFIED Qualifiers: Complication of substance-induced condition: uncomplicated Qualified Code(s ): F10.920 - Alcohol use, unspecified with intoxication, uncomplicated (10) Closed head injury Code(s): S09.90XA - UNSPECIFIED INJURY OF HEAD, INITIAL ENCOUNTER Qualifiers: Encounter type: initial encounter Qualified Code(s): S09.90XA - Unspecified injury of head, initial encounter (11) Diabetes mellitus type 2 in nonobese Code(s): E11.9 - TYPE 2 DIABETES MELLITUS WITHOUT COMPLICATIONS (12) Diabetes mellitus type 2 in obese Code(s): E11.9 - TYPE 2 DIABETES MELLITUS WITHOUT COMPLICATIONS; E66.9 - OBESITY , UNSPECIFIED (13) Encounter for removal of sutures Code(s): Z48.02 - ENCOUNTER FOR REMOVAL OF SUTURES (14) Fall Code(s): W19.XXXA - UNSPECIFIED FALL, INITIAL ENCOUNTER Qualifiers: Encounter type: initial encounter Qualified Code(s): W19.XXXA - Unspecified fall, initial encounter (15) Head contusion Code(s): S00.93XA - CONTUSION OF UNSPECIFIED PART OF HEAD, INITIAL ENCOUNTER Qualifiers: Encounter type: initial encounter Contusion of head detail: scalp Qualified Code(s): S00.03XA - Contusion of scalp, initial encounter (16) Headache Code(s): R51 - HEADACHE (17) Intoxication Code(s): QDW1212 - (18) Left against medical advice Code(s): Z53.20 - PROC/TRTMT NOT CRD OUT BEC PT DECISION FOR UNSP REASONS (19) Scalp laceration Code(s): S01.01XA - LACERATION WITHOUT FOREIGN BODY OF SCALP, INITIAL ENCOUNTER (20) Alcohol-induced mood disorder Code(s): F10.94 - ALCOHOL USE, UNSPECIFIED WITH ALCOHOL-INDUCED MOOD DISORDER (21) Asthma Code(s): J45.909 - UNSPECIFIED ASTHMA, UNCOMPLICATED Qualifiers: Asthma severity: mild intermittent Asthma complication type: with status asthmaticus (22) Borderline diabetes mellitus Code(s): R73.09 - OTHER ABNORMAL GLUCOSE (23) Depressive disorder Code(s): F32.9 - MAJOR DEPRESSIVE DISORDER, SINGLE EPISODE, UNSPECIFIED (24) Hypercholesteremia Code(s): E78.0 - PURE HYPERCHOLESTEROLEMIA * DO NOT USE * (25) Hypertension Code(s): I10 - ESSENTIAL (PRIMARY) HYPERTENSION Qualifiers: Hypertension type: essential hypertension Qualified Code(s): I10 - Essential (primary) hypertension (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, post-stroke Code(s): I69.30 - UNSPECIFIED SEQUELAE OF CEREBRAL INFARCTION (27) Depression (emotion) Code(s): F32.9 - MAJOR DEPRESSIVE DISORDER, SINGLE EPISODE, UNSPECIFIED Qualifiers: Depression Type: dysthymia Qualified Code(s): F34.1 - Dysthymic disorder Assessment/Plan - Problems (1) Diastolic CHF Code(s): I50.30 - UNSPECIFIED DIASTOLIC (CONGESTIVE) HEART FAILURE (2) COPD (chronic obstructive pulmonary disease) Code(s): J44.9 - CHRONIC OBSTRUCTIVE PULMONARY DISEASE, UNSPECIFIED Qualifiers: COPD type: unspecified COPD Qualified Code(s): J44.9 - Chronic obstructive pulmonary disease, unspecified (3) Depressive disorder Code(s): F32.9 - MAJOR DEPRESSIVE DISORDER, SINGLE EPISODE, UNSPECIFIED (4) Hypercholesteremia Code(s): E78.0 - PURE HYPERCHOLESTEROLEMIA * DO NOT USE * (5) Hypertension Code(s): I10 - ESSENTIAL (PRIMARY) HYPERTENSION Qualifiers: Hypertension type: essential hypertension Qualified Code(s): I10 - Essential (primary) hypertension (6) Elevated troponin Assessment/Plan: Mildly elevated likely due to demand ischemia from respiratory condition, sepsis. Multiple CAD risks. Coronary artery evaluation (stress MIBI) when stable. Will order MIBI stress tets Code(s): R74.8 - ABNORMAL LEVELS OF OTHER SERUM ENZYMES
[2018-04-23] MEDS ORDERED: PT OWN MED DRAWER 7, Y5N ONE (10:20)
[2018-04-23] MEDS: amLODIPine BESYLATE 10 MG TABLET (FP) PO SCH (10:27)
[2018-04-23] MEDS: DULoxetine HCL 30 MG CAPSULE.DR (FP) PO SCH (10:27)
[2018-04-23] MEDS: CARVEDILOL 3.125 MG TABLET (FP) PO SCH ×2 (10:27→22:29)
[2018-04-23] MEDS: THIAMINE HCL 100 MG TABLET (FP) PO SCH (10:27)
[2018-04-23] MEDS: MAGNESIUM OXIDE 400 MG TABLET (FP) PO SCH (10:27)
[2018-04-23] MEDS: ASPIRIN 81 MG CHEWABLE TABLETS PO SCH (10:27)
[2018-04-23] MEDS: LISINOPRIL 20 MG TABLET (FP) PO SCH (10:28)
[2018-04-23] MEDS: MULTIVITAMINS (DAILY MVI) TABLET (FP) PO SCH (10:28)
[2018-04-23] MEDS: predniSONE 20 MG TABLET (UD) PO SCH (10:28)
[2018-04-23] MEDS: PANTOPRAZOLE 40 MG TABLET (FP) PO SCH (10:28)
[2018-04-23] MEDS: TIOTROPIUM BROMIDE 2.5 MCG (SPIRIVA) RESPIMAT INHALER IH SCH (10:40)
[2018-04-23] MEDS: BUDESONIDE/FORMETEROL FUMARATE 80/4.5 mcg INHALER IH SCH ×2 (10:40→22:34)
--- NOTE | 2018-04-23 16:43 | PN ---
Progress Note, Physician History of Present Illness: pulmonary alert,comfortable,sob improving,-cough,-cp - Current Medication List Current Medications: Active Medications Amlodipine Besylate (Norvasc -) 10 mg PO DAILY [facility] Last Admin: 04/23/18 10:27 Dose: 10 mg Aspirin (Asa -) 81 mg PO DAILY [facility] Last Admin: 04/23/18 10:27 Dose: 81 mg Atorvastatin Calcium (Lipitor -) 10 mg PO HS [facility] Last Admin: 04/22/18 22:22 Dose: 10 mg Budesonide/Formoterol Fumarate (Symbicort 80/4.5mcg -) 2 puff IH BID [facility] Last Admin: 04/23/18 10:40 Dose: 2 puff Carvedilol (Coreg -) 3.125 mg PO BID [facility] Last Admin: 04/23/18 10:27 Dose: 3.125 mg Dextrose (D50w (Syringe) -) 25 gm IVPUSH PRN PRN PRN Reason: HYPOGLYCEMIA (BG < 70) Doxepin HCl (Sinequan -) 10 mg PO HS PRN PRN Reason: INSOMNIA Duloxetine HCl (Cymbalta -) 60 mg PO DAILY [facility] Last Admin: 04/23/18 10:27 Dose: 60 mg Heparin Sodium (Porcine) (Heparin -) 5,000 unit SQ TID [facility] Last Admin: 04/23/18 16:02 Dose: Not Given Insulin Aspart (Novolog Vial Sliding Scale -) 1 vial SQ [facility]; Protocol Last Admin: 04/23/18 14:25 Dose: Not Given Lisinopril (Prinivil) 20 mg PO DAILY [facility] Last Admin: 04/23/18 10:28 Dose: 20 mg Magnesium Oxide (Mag-Ox -) 400 mg PO DAILY [facility] Stop: 04/29/18 10:01 Last Admin: 04/23/18 10:27 Dose: 400 mg Montelukast Sodium (Singulair -) 10 mg PO HS [facility] Last Admin: 04/22/18 22:22 Dose: 10 mg Multivitamins/Minerals/Vitamin C (Tab-A-Vit -) 1 tab PO DAILY [facility] Last Admin: 04/23/18 10:28 Dose: 1 tab Pantoprazole Sodium (Protonix -) 40 mg PO DAILY [facility] Last Admin: 04/23/18 10:28 Dose: 40 mg Prednisone (Deltasone -) 40 mg PO DAILY [facility] Last Admin: 04/23/18 10:28 Dose: 40 mg Thiamine HCl (Vitamin B1 -) 100 mg PO DAILY [facility] Last Admin: 04/23/18 10:27 Dose: 100 mg Tiotropium [place] (Spiriva Respimat) 2 puff IH DAILY [facility] Last Admin: 04/23/18 10:40 Dose: 2 puff - Objective Vital Signs: Vital Signs Temperature 98.6 F 04/23/18 13:55 Pulse Rate 87 04/23/18 13:55 Respiratory Rate 20 04/23/18 13:55 Blood Pressure 117/72 04/23/18 13:55 O2 Sat by Pulse Oximetry (%) 98 04/23/18 09:00 Constitutional: Yes: Well Nourished, Calm Eyes: Yes: WNL HENT: Yes: WNL Neck: Yes: WNL Cardiovascular: Yes: Regular Rate and Rhythm, S1, S2 Respiratory: Yes: Diminished Gastrointestinal: Yes: Normal Bowel Sounds, Soft Extremities: Yes: WNL Edema: No Labs: Problem List - Problems (1) COPD exacerbation Code(s): J44.1 - CHRONIC OBSTRUCTIVE PULMONARY DISEASE W (ACUTE) EXACERBATION (2) CHF (congestive heart failure) Code(s): I50.9 - HEART FAILURE, UNSPECIFIED Qualifiers: Heart failure type: unspecified Heart failure chronicity: acute Qualified Code(s): I50.9 - Heart failure, unspecified (3) Diastolic CHF Code(s): I50.30 - UNSPECIFIED DIASTOLIC (CONGESTIVE) HEART FAILURE (4) Hypercholesteremia Code(s): E78.0 - PURE HYPERCHOLESTEROLEMIA * DO NOT USE * (5) Hypertension Code(s): I10 - ESSENTIAL (PRIMARY) HYPERTENSION Qualifiers: Hypertension type: essential hypertension Qualified Code(s): I10 - Essential (primary) hypertension Assessment/Plan ASSESSMENT AND PLAN: Acute on Likely Chronic Hypoxic and Hypercapneic Respiratory Failure improving Acute COPD Exacerbation Pneumonia LV Diastolic Dysfunction DM Hypercholesterolemia - prednisone 40mg daily - inhaled bronchodilators - O2 to keep Spo2 >90% - DVT prophylaxis - outpt PFTs - continued smoking cessation - check ambulatory SpO2 on room air to assess for home O2 DR HERNANDEZ
[2018-04-23] MEDS ORDERED: INSULIN (NOVOLOG) ASPART 100 UNITS/ML 10ML VIAL SQ ONE (17:57)
[2018-04-23] MEDS: MONTELUKAST NA 10 MG TABLET PO SCH (22:29)
[2018-04-23] MEDS: ATORVASTATIN CA 10 MG TABLET (FP) PO SCH (22:29)
[2018-04-23] MEDS: INSULIN (LEVEMIR) 100 UNITS/ML UNITS SQ SCH (22:32)
[2018-04-24] MEDS: INSULIN SLIDING SCALE (NOVOLOG) 1 VIAL SQ SCH ×4 (06:42→22:18)
[2018-04-24] MEDS: HEPARIN NA (PORCINE) 5,000 UNITS/ML 1ML VIAL SQ SCH ×3 (06:42→22:19)
[2018-04-24] MEDS ORDERED: INSULIN (NOVOLOG) ASPART 100 UNITS/ML 10ML VIAL ONE (06:53)
[2018-04-24 08:38] LABS: BASO % 0.4 % (0-2.0); EOS % 0.1 % (0-4.5); HEMATOCRIT 27.8 % (32.4-45.2); HEMOGLOBIN 8.1 GM/dL (10.7-15.3); LYMPH % 39.1 % (8-40); MEAN CELL VOLUME 61.2 fl (80-96); NEUT % 46.4 % (42.8-82.8); PLATELET COUNT 436 K/MM3 (134-434); RBC 4.55 M/mm3 (3.60-5.2); RDW 26.1 % (11.6-15.6); WHITE BLOOD COUNT 13.6 K/mm3 (4.0-10.0)
[2018-04-24 08:41] LABS: MCH 17.8 pg (25.7-33.7)
[2018-04-24 09:11] LABS: ALBUMIN 2.6 g/dl (3.4-5.0); ALK PHOS 103 U/L (45-117); ANION GAP 7 MMOL/L (8-16); BILIRUBIN,TOTAL 0.4 mg/dL (0.2-1); BLOOD UREA NITROGEN 22 mg/dL (7-18); CALCIUM 8.9 mg/dL (8.5-10.1); CHLORIDE 102 mmol/L (98-107); CO2 27 mmol/L (21-32); CREATININE 0.7 mg/dL (0.55-1.3); GLUCOSE,RANDOM 81 mg/dL (74-106); MAGNESIUM 1.7 mg/dL (1.8-2.4); POTASSIUM 4.2 mmol/L (3.5-5.1); SGOT/AST 25 U/L (15-37); SGPT/ALT 45 U/L (13-61); SODIUM 136 mmol/L (136-145); TOT PROT 6.8 g/dl (6.4-8.2)
--- NOTE | 2018-04-24 09:21 | PN ---
Progress Note, Physician History of Present Illness: This is a 67 y/o female patient with Hx of HTN, DL, active smoking (quit 4 days ago), COPD and ?CHF presented to the hospital with worsening SOB productive cough with greyish sputum, inability to lay on her. Patient stated that she had a cold recently, and she is recovering from that, patient didnt receive her influenza vaccination this year. stated she does not know why. - Current Medication List Current Medications: Active Medications Amlodipine Besylate (Norvasc -) 10 mg PO DAILY [facility] Last Admin: 04/23/18 10:27 Dose: 10 mg Aspirin (Asa -) 81 mg PO DAILY [facility] Last Admin: 04/23/18 10:27 Dose: 81 mg Atorvastatin Calcium (Lipitor -) 10 mg PO HS [facility] Last Admin: 04/23/18 22:29 Dose: 10 mg Budesonide/Formoterol Fumarate (Symbicort 80/4.5mcg -) 2 puff IH BID [facility] Last Admin: 04/23/18 22:34 Dose: 2 puff Carvedilol (Coreg -) 3.125 mg PO BID [facility] Last Admin: 04/23/18 22:29 Dose: 3.125 mg Dextrose (D50w (Syringe) -) 25 gm IVPUSH PRN PRN PRN Reason: HYPOGLYCEMIA (BG < 70) Doxepin HCl (Sinequan -) 10 mg PO HS PRN PRN Reason: INSOMNIA Duloxetine HCl (Cymbalta -) 60 mg PO DAILY [facility] Last Admin: 04/23/18 10:27 Dose: 60 mg Heparin Sodium (Porcine) (Heparin -) 5,000 unit SQ TID [facility] Last Admin: 04/24/18 06:42 Dose: 5,000 unit Insulin Aspart (Novolog Vial Sliding Scale -) 1 vial SQ [facility]; Protocol Last Admin: 04/24/18 06:42 Dose: Not Given Insulin Detemir (Levemir Vial) 5 units SQ HS [facility] Last Admin: 04/23/18 22:32 Dose: 5 unit Lisinopril (Prinivil) 20 mg PO DAILY [facility] Last Admin: 04/23/18 10:28 Dose: 20 mg Magnesium Oxide (Mag-Ox -) 400 mg PO DAILY [facility] Stop: 04/29/18 10:01 Last Admin: 04/23/18 10:27 Dose: 400 mg Montelukast Sodium (Singulair -) 10 mg PO HS [facility] Last Admin: 04/23/18 22:29 Dose: 10 mg Multivitamins/Minerals/Vitamin C (Tab-A-Vit -) 1 tab PO DAILY [facility] Last Admin: 04/23/18 10:28 Dose: 1 tab Pantoprazole Sodium (Protonix -) 40 mg PO DAILY [facility] Last Admin: 04/23/18 10:28 Dose: 40 mg Prednisone (Deltasone -) 40 mg PO DAILY [facility] Last Admin: 04/23/18 10:28 Dose: 40 mg Thiamine HCl (Vitamin B1 -) 100 mg PO DAILY [facility] Last Admin: 04/23/18 10:27 Dose: 100 mg Tiotropium [place] (Spiriva Respimat) 2 puff IH DAILY [facility] Last Admin: 04/23/18 10:40 Dose: 2 puff - Objective Vital Signs: Vital Signs Temperature 99.1 F 04/24/18 06:18 Pulse Rate 84 04/24/18 06:18 Respiratory Rate 20 04/24/18 06:18 Blood Pressure 159/87 04/24/18 06:18 O2 Sat by Pulse Oximetry (%) 96 04/23/18 20:34 Eyes: Yes: WNL, Conjunctiva Clear, EOM Intact HENT: Yes: WNL, Atraumatic, Normocephalic Neck: Yes: WNL, Supple, Trachea Midline Cardiovascular: Yes: WNL, Regular Rate and Rhythm Respiratory: Yes: WNL, Regular, CTA Bilaterally Gastrointestinal: Yes: WNL, Normal Bowel Sounds Genitourinary: Yes: WNL Musculoskeletal: Yes: WNL Extremities: Yes: WNL Edema: No Integumentary: Yes: WNL Neurological: Yes: WNL, Alert, Oriented ...Motor Strength: WNL Psychiatric: Yes: WNL Labs: CBC, BMP 04/24/18 07:00 04/24/18 07:00 Problem List - Problems (1) CHF (congestive heart failure) Code(s): I50.9 - HEART FAILURE, UNSPECIFIED Qualifiers: Heart failure type: unspecified Heart failure chronicity: acute Qualified Code(s): I50.9 - Heart failure, unspecified (2) Hypokalemia due to loss of potassium Code(s): E87.6 - HYPOKALEMIA (3) Metabolic alkalosis with respiratory acidosis Code(s): E87.4 - MIXED DISORDER OF ACID-BASE BALANCE (4) NSTEMI (non-ST elevated myocardial infarction) Code(s): I21.4 - NON-ST ELEVATION (NSTEMI) MYOCARDIAL INFARCTION (5) Pneumonia Code(s): J18.9 - PNEUMONIA, UNSPECIFIED ORGANISM (6) COPD (chronic obstructive pulmonary disease) Code(s): J44.9 - CHRONIC OBSTRUCTIVE PULMONARY DISEASE, UNSPECIFIED Qualifiers: COPD type: unspecified COPD Qualified Code(s): J44.9 - Chronic obstructive pulmonary disease, unspecified (7) Abdominal pain Code(s): R10.9 - UNSPECIFIED ABDOMINAL PAIN (8) Alcohol dependence Code(s): F10.20 - ALCOHOL DEPENDENCE, UNCOMPLICATED Qualifiers: Substance use status: uncomplicated Qualified Code(s): F10.20 - Alcohol dependence, uncomplicated (9) Alcohol intoxication Code(s): F10.129 - ALCOHOL ABUSE WITH INTOXICATION, UNSPECIFIED Qualifiers: Complication of substance-induced condition: uncomplicated Qualified Code(s ): F10.920 - Alcohol use, unspecified with intoxication, uncomplicated (10) Closed head injury Code(s): S09.90XA - UNSPECIFIED INJURY OF HEAD, INITIAL ENCOUNTER Qualifiers: Encounter type: initial encounter Qualified Code(s): S09.90XA - Unspecified injury of head, initial encounter (11) Diabetes mellitus type 2 in nonobese Code(s): E11.9 - TYPE 2 DIABETES MELLITUS WITHOUT COMPLICATIONS (12) Diabetes mellitus type 2 in obese Code(s): E11.9 - TYPE 2 DIABETES MELLITUS WITHOUT COMPLICATIONS; E66.9 - OBESITY , UNSPECIFIED (13) Encounter for removal of sutures Code(s): Z48.02 - ENCOUNTER FOR REMOVAL OF SUTURES (14) Fall Code(s): W19.XXXA - UNSPECIFIED FALL, INITIAL ENCOUNTER Qualifiers: Encounter type: initial encounter Qualified Code(s): W19.XXXA - Unspecified fall, initial encounter (15) Head contusion Code(s): S00.93XA - CONTUSION OF UNSPECIFIED PART OF HEAD, INITIAL ENCOUNTER Qualifiers: Encounter type: initial encounter Contusion of head detail: scalp Qualified Code(s): S00.03XA - Contusion of scalp, initial encounter (16) Headache Code(s): R51 - HEADACHE (17) Intoxication Code(s): NNP2497 - (18) Left against medical advice Code(s): Z53.20 - PROC/TRTMT NOT CRD OUT BEC PT DECISION FOR UNSP REASONS (19) Scalp laceration Code(s): S01.01XA - LACERATION WITHOUT FOREIGN BODY OF SCALP, INITIAL ENCOUNTER (20) Alcohol-induced mood disorder Code(s): F10.94 - ALCOHOL USE, UNSPECIFIED WITH ALCOHOL-INDUCED MOOD DISORDER (21) Asthma Code(s): J45.909 - UNSPECIFIED ASTHMA, UNCOMPLICATED Qualifiers: Asthma severity: mild intermittent Asthma complication type: with status asthmaticus (22) Borderline diabetes mellitus Code(s): R73.09 - OTHER ABNORMAL GLUCOSE (23) Depressive disorder Code(s): F32.9 - MAJOR DEPRESSIVE DISORDER, SINGLE EPISODE, UNSPECIFIED (24) Hypercholesteremia Code(s): E78.0 - PURE HYPERCHOLESTEROLEMIA * DO NOT USE * (25) Hypertension Code(s): I10 - ESSENTIAL (PRIMARY) HYPERTENSION Qualifiers: Hypertension type: essential hypertension Qualified Code(s): I10 - Essential (primary) hypertension (26) [place], post-stroke Code(s): I69.30 - UNSPECIFIED SEQUELAE OF CEREBRAL INFARCTION (27) Depression (emotion) Code(s): F32.9 - MAJOR DEPRESSIVE DISORDER, SINGLE EPISODE, UNSPECIFIED Qualifiers: Depression Type: dysthymia Qualified Code(s): F34.1 - Dysthymic disorder Assessment/Plan - Problems (1) Diastolic CHF Code(s): I50.30 - UNSPECIFIED DIASTOLIC (CONGESTIVE) HEART FAILURE (2) COPD (chronic obstructive pulmonary disease) Code(s): J44.9 - CHRONIC OBSTRUCTIVE PULMONARY DISEASE, UNSPECIFIED Qualifiers: COPD type: unspecified COPD Qualified Code(s): J44.9 - Chronic obstructive pulmonary disease, unspecified (3) Depressive disorder Code(s): F32.9 - MAJOR DEPRESSIVE DISORDER, SINGLE EPISODE, UNSPECIFIED (4) Hypercholesteremia Code(s): E78.0 - PURE HYPERCHOLESTEROLEMIA * DO NOT USE * (5) Hypertension Code(s): I10 - ESSENTIAL (PRIMARY) HYPERTENSION Qualifiers: Hypertension type: essential hypertension Qualified Code(s): I10 - Essential (primary) hypertension (6) Elevated troponin Assessment/Plan: Mildly elevated likely due to demand ischemia from respiratory condition, sepsis. Multiple CAD risks. Coronary artery evaluation (stress MIBI) when stable. Will order MIBI stress tets Code(s): R74.8 - ABNORMAL LEVELS OF OTHER SERUM ENZYMES
[2018-04-24 10:02] LABS: ANISOCYTOSIS 2+; MACROCYTOSIS 0; PLATELET ESTIMATE NORMAL; TARGET CELLS 2+
[2018-04-24] MEDS ORDERED: PT OWN MED DRAWER 7, Y5N ONE (10:15)
[2018-04-24] MEDS: ASPIRIN 81 MG CHEWABLE TABLETS PO SCH (10:36)
[2018-04-24] MEDS: BUDESONIDE/FORMETEROL FUMARATE 80/4.5 mcg INHALER IH SCH ×2 (10:36→22:22)
[2018-04-24] MEDS: CARVEDILOL 3.125 MG TABLET (FP) PO SCH ×2 (10:36→22:20)
[2018-04-24] MEDS: amLODIPine BESYLATE 10 MG TABLET (FP) PO SCH (10:36)
[2018-04-24] MEDS: MAGNESIUM OXIDE 400 MG TABLET (FP) PO SCH (10:42)
[2018-04-24] MEDS: DULoxetine HCL 30 MG CAPSULE.DR (FP) PO SCH (10:42)
[2018-04-24] MEDS: THIAMINE HCL 100 MG TABLET (FP) PO SCH (10:42)
[2018-04-24] MEDS: MULTIVITAMINS (DAILY MVI) TABLET (FP) PO SCH (10:43)
[2018-04-24] MEDS: LISINOPRIL 20 MG TABLET (FP) PO SCH (10:43)
[2018-04-24] MEDS: PANTOPRAZOLE 40 MG TABLET (FP) PO SCH (10:43)
[2018-04-24] MEDS: predniSONE 20 MG TABLET (UD) PO SCH (10:43)
--- NOTE | 2018-04-24 13:53 | PN ---
Progress Note, Physician History of Present Illness: pulmonary alert,no distress,-sob,-cp,-cough - Current Medication List Current Medications: Active Medications Amlodipine Besylate (Norvasc -) 10 mg PO DAILY [facility] Last Admin: 04/24/18 10:36 Dose: 10 mg Aspirin (Asa -) 81 mg PO DAILY [facility] Last Admin: 04/24/18 10:36 Dose: 81 mg Atorvastatin Calcium (Lipitor -) 10 mg PO HS [facility] Last Admin: 04/23/18 22:29 Dose: 10 mg Budesonide/Formoterol Fumarate (Symbicort 80/4.5mcg -) 2 puff IH BID [facility] Last Admin: 04/24/18 10:36 Dose: 2 puff Carvedilol (Coreg -) 3.125 mg PO BID [facility] Last Admin: 04/24/18 10:36 Dose: 3.125 mg Dextrose (D50w (Syringe) -) 25 gm IVPUSH PRN PRN PRN Reason: HYPOGLYCEMIA (BG < 70) Doxepin HCl (Sinequan -) 10 mg PO HS PRN PRN Reason: INSOMNIA Last Admin: 04/24/18 10:36 Dose: 10 mg Duloxetine HCl (Cymbalta -) 60 mg PO DAILY [facility] Last Admin: 04/24/18 10:42 Dose: 60 mg Heparin Sodium (Porcine) (Heparin -) 5,000 unit SQ TID [facility] Last Admin: 04/24/18 06:42 Dose: 5,000 unit Insulin Aspart (Novolog Vial Sliding Scale -) 1 vial SQ [facility]; Protocol Last Admin: 04/24/18 12:00 Dose: Not Given Insulin Detemir (Levemir Vial) 5 units SQ [facility] Last Admin: 04/23/18 22:32 Dose: 5 unit Lisinopril (Prinivil) 20 mg PO DAILY [facility] Last Admin: 04/24/18 10:43 Dose: 20 mg Magnesium Oxide (Mag-Ox -) 400 mg PO DAILY [facility] Stop: 04/29/18 10:01 Last Admin: 04/24/18 10:42 Dose: 400 mg Montelukast Sodium (Singulair -) 10 mg PO HS [facility] Last Admin: 04/23/18 22:29 Dose: 10 mg Multivitamins/Minerals/Vitamin C (Tab-A-Vit -) 1 tab PO DAILY [facility] Last Admin: 04/24/18 10:43 Dose: 1 tab Pantoprazole Sodium (Protonix -) 40 mg PO DAILY [facility] Last Admin: 04/24/18 10:43 Dose: 40 mg Prednisone (Deltasone -) 40 mg PO DAILY [facility] Last Admin: 04/24/18 10:43 Dose: 40 mg Thiamine HCl (Vitamin B1 -) 100 mg PO DAILY [facility] Last Admin: 04/24/18 10:42 Dose: 100 mg Tiotropium [place] (Spiriva Respimat) 2 puff IH DAILY [facility] Last Admin: 04/23/18 10:40 Dose: 2 puff - Objective Vital Signs: Vital Signs Temperature 98.7 F 04/24/18 13:18 Pulse Rate 90 04/24/18 13:18 Respiratory Rate 20 04/24/18 13:18 Blood Pressure 145/66 04/24/18 13:18 O2 Sat by Pulse Oximetry (%) 96 04/23/18 20:34 Constitutional: Yes: Well Nourished, Calm HENT: Yes: WNL Neck: Yes: WNL Cardiovascular: Yes: Regular Rate and Rhythm, S1, S2 Respiratory: Yes: Diminished Gastrointestinal: Yes: Normal Bowel Sounds, Soft Extremities: Yes: WNL Edema: No Labs: CBC, BMP 04/24/18 07:00 04/24/18 07:00 Problem List - Problems (1) COPD exacerbation Code(s): J44.1 - CHRONIC OBSTRUCTIVE PULMONARY DISEASE W (ACUTE) EXACERBATION (2) CHF (congestive heart failure) Code(s): I50.9 - HEART FAILURE, UNSPECIFIED Qualifiers: Heart failure type: unspecified Heart failure chronicity: acute Qualified Code(s): I50.9 - Heart failure, unspecified (3) Diastolic CHF Code(s): I50.30 - UNSPECIFIED DIASTOLIC (CONGESTIVE) HEART FAILURE (4) Hypercholesteremia Code(s): E78.0 - PURE HYPERCHOLESTEROLEMIA * DO NOT USE * (5) Hypertension Code(s): I10 - ESSENTIAL (PRIMARY) HYPERTENSION Qualifiers: Hypertension type: essential hypertension Qualified Code(s): I10 - Essential (primary) hypertension Assessment/Plan ASSESSMENT AND PLAN: Acute on Likely Chronic Hypoxic and Hypercapneic Respiratory Failure improving Acute COPD Exacerbation Pneumonia LV Diastolic Dysfunction DM Hypercholesterolemia - prednisone 40mg daily - inhaled bronchodilators - O2 to keep Spo2 >90% - DVT prophylaxis - outpt PFTs - continued smoking cessation - check ambulatory SpO2 on room air to assess for home O2 DR HERNANDEZ
[2018-04-24] MEDS: TIOTROPIUM BROMIDE 2.5 MCG (SPIRIVA) RESPIMAT INHALER IH SCH (15:05)
--- NOTE | 2018-04-24 16:31 | PN ---
Physical Exam: SUBJECTIVE: Patient seen and examined at the bedside. pt for a stress test tomorrow. she wants to go to rehab, either inpatient or outpatient. OBJECTIVE: Vital Signs Period Temp Pulse Resp BP Sys/Min Pulse Ox Last 24 Hr 98.5 F-99.1 F 76-90 18-20 141-159/66-87 96-96 GENERAL: The patient is awake, alert, and fully oriented, in no acute distress. HEAD: Normal with no signs of trauma. EYES: PERRL, extraocular movements intact, sclera anicteric, conjunctiva clear. No ptosis. ENT: Ears normal, nares patent, oropharynx clear without exudates, moist mucous membranes. NECK: Trachea midline, full range of motion, supple. LUNGS: Breath sounds equal, no wheezing, no crackles, tolerating episodes of room air HEART: Regular rate and rhythm, S1, S2 without murmur, rub or gallop. ABDOMEN: Soft, nontender, nondistended, normoactive bowel sounds, no guarding, no rebound, no hepatosplenomegaly, no masses. EXTREMITIES: 2+ pulses, warm, well-perfused NEUROLOGICAL: Normal speech, gait not observed. PSYCH: Normal mood, normal affect. SKIN: Warm, dry, normal turgor, no rashes or lesions noted Laboratory Results - last 24 hr 04/23/18 04/23/18 04/23/18 16:59 17:01 19:31 WBC RBC Hgb Hct MCV MCH MCHC RDW Plt Count MPV Absolute Neuts (auto) Neutrophils % Lymphocytes % Monocytes % Eosinophils % Basophils % Nucleated RBC % Hypochromia Platelet Estimate Polychromasia Poikilocytosis Anisocytosis Microcytosis Macrocytosis Target Cells Sodium Potassium Chloride Carbon Dioxide Anion Gap BUN Creatinine Creat Clearance w eGFR POC Glucometer 449 430 367 Random Glucose Calcium Magnesium Total Bilirubin AST ALT Alkaline Phosphatase Total Protein Albumin 04/23/18 04/24/18 04/24/18 22:27 06:42 07:00 WBC 13.6 H RBC 4.55 Hgb 8.1 L Hct 27.8 L MCV 61.2 L MCH 17.8 L MCHC 29.0 L RDW 26.1 H Plt Count 436 H MPV 9.0 Absolute Neuts (auto) 6.3 Neutrophils % 46.4 Lymphocytes % 39.1 Monocytes % 14.0 H Eosinophils % 0.1 Basophils % 0.4 Nucleated RBC % 0 Hypochromia 1+ Platelet Estimate Normal Polychromasia 0 Poikilocytosis 1+ Anisocytosis 2+ Microcytosis 2+ Macrocytosis 0 Target Cells 2+ Sodium Potassium Chloride Carbon Dioxide Anion Gap BUN Creatinine Creat Clearance w eGFR POC Glucometer 240 106 Random Glucose Calcium Magnesium Total Bilirubin AST ALT Alkaline Phosphatase Total Protein Albumin 04/24/18 04/24/18 07:00 11:52 WBC RBC Hgb Hct MCV MCH MCHC RDW Plt Count MPV Absolute Neuts (auto) Neutrophils % Lymphocytes % Monocytes % Eosinophils % Basophils % Nucleated RBC % Hypochromia Platelet Estimate Polychromasia Poikilocytosis Anisocytosis Microcytosis Macrocytosis Target Cells Sodium 136 Potassium 4.2 Chloride 102 Carbon Dioxide 27 Anion Gap 7 L BUN 22 H Creatinine 0.7 Creat Clearance w eGFR > 60 POC Glucometer 155 Random Glucose 81 Calcium 8.9 Magnesium 1.7 L Total Bilirubin 0.4 AST 25 ALT 45 Alkaline Phosphatase 103 Total Protein 6.8 Albumin 2.6 L Active Medications Generic Name Dose Route Start Last Admin Trade Name Freq PRN Reason Stop Dose Admin Amlodipine Besylate 10 mg 04/21/18 10:00 04/24/18 10:36 Norvasc - PO 10 mg DAILY [facility] Administration Aspirin 81 mg 04/21/18 10:00 04/24/18 10:36 Asa - PO 81 mg DAILY [facility] Administration Atorvastatin Calcium 10 mg 04/20/18 22:00 04/23/18 22:29 Lipitor - PO 10 mg HS [facility] Administration Budesonide/Formoterol Fumarate 2 puff 04/20/18 22:00 04/24/18 10:36 Symbicort 80/4.5mcg - IH 2 puff BID [facility] Administration Carvedilol 3.125 mg 04/20/18 22:00 04/24/18 10:36 Coreg - PO 3.125 mg BID [facility] Administration Dextrose 25 gm 04/20/18 20:18 D50w (Syringe) - IVPUSH PRN PRN HYPOGLYCEMIA (BG < 70) Doxepin HCl 10 mg 04/20/18 20:18 04/24/18 10:36 Sinequan - PO 10 mg HS PRN Administration INSOMNIA Duloxetine HCl 60 mg 04/21/18 10:00 04/24/18 10:42 Cymbalta - PO 60 mg DAILY [facility] Administration Heparin Sodium (Porcine) 5,000 unit 04/20/18 22:00 04/24/18 15:05 Heparin - SQ 5,000 unit TID [facility] Administration Insulin Aspart 1 vial 04/23/18 22:00 04/24/18 12:00 Novolog Vial Sliding Scale - SQ Not Given ACHS [facility] Protocol Insulin Detemir 5 units 04/23/18 22:00 04/23/18 22:32 Levemir Vial SQ 5 unit HS [facility] Administration Lisinopril 20 mg 04/20/18 08:14 04/24/18 10:43 Prinivil PO 20 mg DAILY [facility] Administration Magnesium Oxide 400 mg 04/23/18 10:00 04/24/18 10:42 Mag-Ox - PO 04/29/18 10:01 400 mg DAILY [facility] Administration Montelukast Sodium 10 mg 04/20/18 22:00 04/23/18 22:29 Singulair - PO 10 mg HS [facility] Administration Multivitamins/Minerals/Vitamin C 1 tab 04/21/18 10:00 04/24/18 10:43 Tab-A-Vit - PO 1 tab DAILY [facility] Administration Pantoprazole Sodium 40 mg 04/21/18 10:00 04/24/18 10:43 Protonix - PO 40 mg DAILY [facility] Administration Prednisone 40 mg 04/20/18 11:45 04/24/18 10:43 Deltasone - PO 40 mg DAILY [facility] Administration Thiamine HCl 100 mg 04/21/18 10:00 04/24/18 10:42 Vitamin B1 - PO 100 mg DAILY [facility] Administration Tiotropium [place] 2 puff 04/22/18 10:00 04/24/18 15:05 Spiriva Respimat IH 2 puff DAILY [facility] Administration ASSESSMENT/PLAN: Patient is a 67 year old female with a significant past medical history of HTN, DM, active smoking, COPD and CHF. She presents to the ED with c/o of worsening SOB productive cough with greyish sputum, inability to lay flat. Pulmonary: COPD exacerbation 2/2 possible PNA. resolved. On duonebs, symbicort 2 puffs bid, singular 10mg hs and spiriva received 7 days of levaquin She qualifies for home oxygen per pre and post Card: hypertension, controlled Elevated troponins, flat trending. for stress test Wednesday, npo wednesday night. Endocrine: diabetes, controlled Psyche: smoking, cessation discussed. fen tolerating po monitor electrolytes low salt diet/diabetic full code Visit type - Emergency Visit Emergency Visit: Yes ED Registration Date: 04/16/18 Care time: The patient presented to the Emergency Department on the above date and was hospitalized for further evaluation of their emergent condition. - New Patient This patient is new to me today: No - Critical Care Critical Care patient: No - Discharge Referral Referred to [facility] Med P.C.: No
[2018-04-24] MEDS: INSULIN (LEVEMIR) 100 UNITS/ML UNITS SQ SCH (22:19)
[2018-04-24] MEDS: MONTELUKAST NA 10 MG TABLET PO SCH (22:20)
[2018-04-24] MEDS: ATORVASTATIN CA 10 MG TABLET (FP) PO SCH (22:20)
[2018-04-25] MEDS: HEPARIN NA (PORCINE) 5,000 UNITS/ML 1ML VIAL SQ SCH ×2 (06:01→14:48)
[2018-04-25] MEDS: INSULIN SLIDING SCALE (NOVOLOG) 1 VIAL SQ SCH ×3 (06:01→17:47)
[2018-04-25] MEDS ORDERED: INSULIN (LEVEMIR) 100 UNITS/ML UNITS SQ ONE (06:36)
[2018-04-25] MEDS: amLODIPine BESYLATE 10 MG TABLET (FP) PO SCH (09:37)
[2018-04-25] MEDS: LISINOPRIL 20 MG TABLET (FP) PO SCH (09:37)
[2018-04-25] MEDS ORDERED: REGADENOSON 0.4 MG/5 ML PRE-FILLED SYRINGE IVPUSH ONE ×2 (10:17→10:45)
--- NOTE | 2018-04-25 12:03 | PN ---
Physical Exam: SUBJECTIVE: Patient seen and examined OBJECTIVE: Vital Signs Period Temp Pulse Resp BP Sys/Min Pulse Ox Last 24 Hr 98.2 F-98.9 F 74-90 18-20 136-153/66-93 96-97 GENERAL: The patient is awake, alert, and fully oriented, in no acute distress. HEAD: Normal with no signs of trauma. EYES: PERRL, extraocular movements intact, sclera anicteric, conjunctiva clear. No ptosis. ENT: Ears normal, nares patent, oropharynx clear without exudates, moist mucous membranes. NECK: Trachea midline, full range of motion, supple. LUNGS: Breath sounds equal, clear to auscultation bilaterally, no wheezes, no crackles, no accessory muscle use. HEART: Regular rate and rhythm, S1, S2 without murmur, rub or gallop. ABDOMEN: Soft, nontender, nondistended, normoactive bowel sounds, no guarding, no rebound, no hepatosplenomegaly, no masses. EXTREMITIES: 2+ pulses, warm, well-perfused, no edema. NEUROLOGICAL: Cranial nerves II through XII grossly intact. Normal speech, gait not observed. PSYCH: Normal mood, normal affect. SKIN: Warm, dry, normal turgor, no rashes or lesions noted Laboratory Results - last 24 hr 04/24/18 04/24/18 04/24/18 11:52 16:53 22:18 POC Glucometer 155 247 223 04/25/18 04/25/18 03:57 06:00 POC Glucometer 141 117 Active Medications Generic Name Dose Route Start Last Admin Trade Name Freq PRN Reason Stop Dose Admin Amlodipine Besylate 10 mg 04/21/18 10:04/25/18 09:37 Norvasc - PO 10 mg DAILY [facility] Administration Aspirin 81 mg 04/21/18 10:04/24/18 10:36 Asa - PO 81 mg DAILY [facility] Administration Atorvastatin Calcium 10 mg 04/20/18 22:00 04/24/18 22:20 Lipitor - PO 10 mg HS [facility] Administration Budesonide/Formoterol Fumarate 2 puff 04/20/18 22:00 04/24/18 22:22 Symbicort 80/4.5mcg - IH 2 puff BID [facility] Administration Carvedilol 3.125 mg 04/20/18 22:00 04/24/18 22:20 Coreg - PO 3.125 mg BID [facility] Administration Dextrose 25 gm 04/20/18 20:18 D50w (Syringe) - IVPUSH PRN PRN HYPOGLYCEMIA (BG < 70) Doxepin HCl 10 mg 04/20/18 20:18 04/24/18 10:36 Sinequan - PO 10 mg HS PRN Administration INSOMNIA Duloxetine HCl 60 mg 04/21/18 10:00 04/24/18 10:42 Cymbalta - PO 60 mg DAILY [facility] Administration Heparin Sodium (Porcine) 5,000 unit 04/20/18 22:00 04/25/18 06:01 Heparin - SQ 5,000 unit TID [facility] Administration Insulin Aspart 1 vial 04/23/18 22:00 04/25/18 06:01 Novolog Vial Sliding Scale - SQ Not Given ACHS [facility] Protocol Insulin Detemir 5 units 04/23/18 22:00 04/24/18 22:19 Levemir Vial SQ 5 unit HS [facility] Administration Lisinopril 20 mg 04/20/18 08:14 04/25/18 09:37 Prinivil PO 20 mg DAILY [facility] Administration Magnesium Oxide 400 mg 04/23/18 10:00 04/24/18 10:42 Mag-Ox - PO 04/29/18 10:01 400 mg DAILY [facility] Administration Montelukast Sodium 10 mg 04/20/18 22:00 04/24/18 22:20 Singulair - PO 10 mg HS [facility] Administration Multivitamins/Minerals/Vitamin C 1 tab 04/21/18 10:00 04/24/18 10:43 Tab-A-Vit - PO 1 tab DAILY [facility] Administration Pantoprazole Sodium 40 mg 04/21/18 10:00 04/24/18 10:43 Protonix - PO 40 mg DAILY [facility] Administration Prednisone 40 mg 04/20/18 11:45 04/24/18 10:43 Deltasone - PO 40 mg DAILY [facility] Administration Thiamine HCl 100 mg 04/21/18 10:00 04/24/18 10:42 Vitamin B1 - PO 100 mg DAILY [facility] Administration Tiotropium [place] 2 puff 04/22/18 10:00 04/24/18 15:05 Spiriva Respimat IH 2 puff DAILY [facility] Administration ASSESSMENT/PLAN:
--- NOTE | 2018-04-25 12:09 | PN ---
Progress Note (short form) - Note Progress Note: PULMONARY Denies shortness of breath, cough or wheezing. Vital Signs Period Temp Pulse Resp BP Sys/Min Pulse Ox Last 24 Hr 98.2 F-98.9 F 74-90 18-20 136-153/66-93 96-97 Gen: NAD at rest Heart: RRR Lung: decreased breath sounds at the bases Abd: soft, nontender Ext: no edema CBC, BMP 04/24/18 07:00 04/24/18 07:00 Active Medications Amlodipine Besylate (Norvasc -) 10 mg PO DAILY [facility] Last Admin: 04/25/18 09:37 Dose: 10 mg Aspirin (Asa -) 81 mg PO DAILY [facility] Last Admin: 04/24/18 10:36 Dose: 81 mg Atorvastatin Calcium (Lipitor -) 10 mg PO HS [facility] Last Admin: 04/24/18 22:20 Dose: 10 mg Budesonide/Formoterol Fumarate (Symbicort 80/4.5mcg -) 2 puff IH BID [facility] Last Admin: 04/24/18 22:22 Dose: 2 puff Carvedilol (Coreg -) 3.125 mg PO BID [facility] Last Admin: 04/24/18 22:20 Dose: 3.125 mg Dextrose (D50w (Syringe) -) 25 gm IVPUSH PRN PRN PRN Reason: HYPOGLYCEMIA (BG < 70) Doxepin HCl (Sinequan -) 10 mg PO HS PRN PRN Reason: INSOMNIA Last Admin: 04/24/18 10:36 Dose: 10 mg Duloxetine HCl (Cymbalta -) 60 mg PO DAILY [facility] Last Admin: 04/24/18 10:42 Dose: 60 mg Heparin Sodium (Porcine) (Heparin -) 5,000 unit SQ TID [facility] Last Admin: 04/25/18 06:01 Dose: 5,000 unit Insulin Aspart (Novolog Vial Sliding Scale -) 1 vial SQ [facility]; Protocol Last Admin: 04/25/18 06:01 Dose: Not Given Insulin Detemir (Levemir Vial) 5 units SQ HS [facility] Last Admin: 04/24/18 22:19 Dose: 5 unit Lisinopril (Prinivil) 20 mg PO DAILY [facility] Last Admin: 04/25/18 09:37 Dose: 20 mg Magnesium Oxide (Mag-Ox -) 400 mg PO DAILY [facility] Stop: 04/29/18 10:01 Last Admin: 04/24/18 10:42 Dose: 400 mg Montelukast Sodium (Singulair -) 10 mg PO [facility] Last Admin: 04/24/18 22:20 Dose: 10 mg Multivitamins/Minerals/Vitamin C (Tab-A-Vit -) 1 tab PO DAILY [facility] Last Admin: 04/24/18 10:43 Dose: 1 tab Pantoprazole Sodium (Protonix -) 40 mg PO DAILY [facility] Last Admin: 04/24/18 10:43 Dose: 40 mg Prednisone (Deltasone -) 40 mg PO DAILY [facility] Last Admin: 04/24/18 10:43 Dose: 40 mg Thiamine HCl (Vitamin B1 -) 100 mg PO DAILY [facility] Last Admin: 04/24/18 10:42 Dose: 100 mg Tiotropium [place] (Spiriva Respimat) 2 puff IH DAILY [facility] Last Admin: 04/24/18 15:05 Dose: 2 puff A/P Acute on Likely Chronic Hypoxic and Hypercapneic Respiratory Failure improving Acute COPD Exacerbation Pneumonia LV Diastolic Dysfunction DM Hypercholesterolemia - continue antibiotics - prednisone taper - inhaled bronchodilators - O2 to keep Spo2 >90% - DVT prophylaxis - outpt PFTs - continued smoking cessation - will need home O2 - can discharge with home O2 from pulmonary standpoint
[2018-04-25] MEDS: ASPIRIN 81 MG CHEWABLE TABLETS PO SCH (12:55)
[2018-04-25] MEDS: PANTOPRAZOLE 40 MG TABLET (FP) PO SCH (13:15)
[2018-04-25] MEDS: DULoxetine HCL 30 MG CAPSULE.DR (FP) PO SCH (13:16)
[2018-04-25] MEDS: predniSONE 20 MG TABLET (UD) PO SCH (13:16)
[2018-04-25] MEDS: CARVEDILOL 3.125 MG TABLET (FP) PO SCH (13:22)
[2018-04-25] MEDS: MULTIVITAMINS (DAILY MVI) TABLET (FP) PO SCH (13:22)
[2018-04-25] MEDS: MAGNESIUM OXIDE 400 MG TABLET (FP) PO SCH (13:22)
[2018-04-25] MEDS: THIAMINE HCL 100 MG TABLET (FP) PO SCH (13:22)
[2018-04-25] MEDS: TIOTROPIUM BROMIDE 2.5 MCG (SPIRIVA) RESPIMAT INHALER IH SCH (13:24)
[2018-04-25] MEDS: BUDESONIDE/FORMETEROL FUMARATE 80/4.5 mcg INHALER IH SCH (13:25)
[2018-04-25 13:32] VITALS: BP 122/61; TEMP 98
--- NOTE | 2018-04-25 14:45 | PN ---
Progress Note, Physician History of Present Illness: This is a 67 y/o female patient with Hx of HTN, DL, active smoking (quit 4 days ago), COPD and ?CHF presented to the hospital with worsening SOB productive cough with greyish sputum, inability to lay on her. Patient stated that she had a cold recently, and she is recovering from that, patient didnt receive her influenza vaccination this year. stated she does not know why. - Current Medication List Current Medications: Active Medications Amlodipine Besylate (Norvasc -) 10 mg PO DAILY [facility] Last Admin: 04/25/18 09:37 Dose: 10 mg Aspirin (Asa -) 81 mg PO DAILY [facility] Last Admin: 04/25/18 12:55 Dose: 81 mg Atorvastatin Calcium (Lipitor -) 10 mg PO HS [facility] Last Admin: 04/24/18 22:20 Dose: 10 mg Budesonide/Formoterol Fumarate (Symbicort 80/4.5mcg -) 2 puff IH BID [facility] Last Admin: 04/25/18 13:25 Dose: 2 puff Carvedilol (Coreg -) 3.125 mg PO BID [facility] Last Admin: 04/25/18 13:22 Dose: 3.125 mg Dextrose (D50w (Syringe) -) 25 gm IVPUSH PRN PRN PRN Reason: HYPOGLYCEMIA (BG < 70) Doxepin HCl (Sinequan -) 10 mg PO HS PRN PRN Reason: INSOMNIA Last Admin: 04/24/18 10:36 Dose: 10 mg Duloxetine HCl (Cymbalta -) 60 mg PO DAILY [facility] Last Admin: 04/25/18 13:16 Dose: 60 mg Heparin Sodium (Porcine) (Heparin -) 5,000 unit SQ TID [facility] Last Admin: 04/25/18 06:01 Dose: 5,000 unit Insulin Aspart (Novolog Vial Sliding Scale -) 1 vial SQ [facility]; Protocol Last Admin: 04/25/18 13:22 Dose: 4 unit Insulin Detemir (Levemir Vial) 5 units SQ HS [facility] Last Admin: 04/24/18 22:19 Dose: 5 unit Lisinopril (Prinivil) 20 mg PO DAILY [facility] Last Admin: 04/25/18 09:37 Dose: 20 mg Magnesium Oxide (Mag-Ox -) 400 mg PO DAILY [facility] Stop: 04/29/18 10:01 Last Admin: 04/25/18 13:22 Dose: 400 mg Montelukast Sodium (Singulair -) 10 mg PO HS [facility] Last Admin: 04/24/18 22:20 Dose: 10 mg Multivitamins/Minerals/Vitamin C (Tab-A-Vit -) 1 tab PO DAILY [facility] Last Admin: 04/25/18 13:22 Dose: 1 tab Pantoprazole Sodium (Protonix -) 40 mg PO DAILY [facility] Last Admin: 04/25/18 13:15 Dose: 40 mg Prednisone (Deltasone -) 40 mg PO DAILY [facility] Last Admin: 04/25/18 13:16 Dose: 40 mg Thiamine HCl (Vitamin B1 -) 100 mg PO DAILY [facility] Last Admin: 04/25/18 13:22 Dose: 100 mg Tiotropium [place] (Spiriva Respimat) 2 puff IH DAILY [facility] Last Admin: 04/25/18 13:24 Dose: 2 puff - Objective Vital Signs: Vital Signs Temperature 98.0 F 04/25/18 13:30 Pulse Rate 86 04/25/18 13:30 Respiratory Rate 18 04/25/18 13:30 Blood Pressure 122/61 04/25/18 13:30 O2 Sat by Pulse Oximetry (%) 97 04/25/18 09:00 Eyes: Yes: WNL, Conjunctiva Clear, EOM Intact HENT: Yes: WNL, Atraumatic, Normocephalic Neck: Yes: WNL, Supple, Trachea Midline Cardiovascular: Yes: WNL, Regular Rate and Rhythm Respiratory: Yes: WNL, Regular, CTA Bilaterally Gastrointestinal: Yes: WNL, Normal Bowel Sounds Genitourinary: Yes: WNL Musculoskeletal: Yes: WNL Extremities: Yes: WNL Edema: No Integumentary: Yes: WNL Neurological: Yes: WNL, Alert, Oriented ...Motor Strength: WNL Psychiatric: Yes: WNL Labs: CBC, BMP 04/24/18 07:00 04/24/18 07:00 Problem List - Problems (1) CHF (congestive heart failure) Code(s): I50.9 - HEART FAILURE, UNSPECIFIED Qualifiers: Heart failure type: unspecified Heart failure chronicity: acute Qualified Code(s): I50.9 - Heart failure, unspecified (2) Hypokalemia due to loss of potassium Code(s): E87.6 - HYPOKALEMIA (3) Metabolic alkalosis with respiratory acidosis Code(s): E87.4 - MIXED DISORDER OF ACID-BASE BALANCE (4) NSTEMI (non-ST elevated myocardial infarction) Code(s): I21.4 - NON-ST ELEVATION (NSTEMI) MYOCARDIAL INFARCTION (5) Pneumonia Code(s): J18.9 - PNEUMONIA, UNSPECIFIED ORGANISM (6) COPD (chronic obstructive pulmonary disease) Code(s): J44.9 - CHRONIC OBSTRUCTIVE PULMONARY DISEASE, UNSPECIFIED Qualifiers: COPD type: unspecified COPD Qualified Code(s): J44.9 - Chronic obstructive pulmonary disease, unspecified (7) Abdominal pain Code(s): R10.9 - UNSPECIFIED ABDOMINAL PAIN (8) Alcohol dependence Code(s): F10.20 - ALCOHOL DEPENDENCE, UNCOMPLICATED Qualifiers: Substance use status: uncomplicated Qualified Code(s): F10.20 - Alcohol dependence, uncomplicated (9) Alcohol intoxication Code(s): F10.129 - ALCOHOL ABUSE WITH INTOXICATION, UNSPECIFIED Qualifiers: Complication of substance-induced condition: uncomplicated Qualified Code(s ): F10.920 - Alcohol use, unspecified with intoxication, uncomplicated (10) Closed head injury Code(s): S09.90XA - UNSPECIFIED INJURY OF HEAD, INITIAL ENCOUNTER Qualifiers: Encounter type: initial encounter Qualified Code(s): S09.90XA - Unspecified injury of head, initial encounter (11) Diabetes mellitus type 2 in nonobese Code(s): E11.9 - TYPE 2 DIABETES MELLITUS WITHOUT COMPLICATIONS (12) Diabetes mellitus type 2 in obese Code(s): E11.9 - TYPE 2 DIABETES MELLITUS WITHOUT COMPLICATIONS; E66.9 - OBESITY , UNSPECIFIED (13) Encounter for removal of sutures Code(s): Z48.02 - ENCOUNTER FOR REMOVAL OF SUTURES (14) Fall Code(s): W19.XXXA - UNSPECIFIED FALL, INITIAL ENCOUNTER Qualifiers: Encounter type: initial encounter Qualified Code(s): W19.XXXA - Unspecified fall, initial encounter (15) Head contusion Code(s): S00.93XA - CONTUSION OF UNSPECIFIED PART OF HEAD, INITIAL ENCOUNTER Qualifiers: Encounter type: initial encounter Contusion of head detail: scalp Qualified Code(s): S00.03XA - Contusion of scalp, initial encounter (16) Headache Code(s): R51 - HEADACHE (17) Intoxication Code(s): GNQ6372 - (18) Left against medical advice Code(s): Z53.20 - PROC/TRTMT NOT CRD OUT BEC PT DECISION FOR UNSP REASONS (19) Scalp laceration Code(s): S01.01XA - LACERATION WITHOUT FOREIGN BODY OF SCALP, INITIAL ENCOUNTER (20) Alcohol-induced mood disorder Code(s): F10.94 - ALCOHOL USE, UNSPECIFIED WITH ALCOHOL-INDUCED MOOD DISORDER (21) Asthma Code(s): J45.909 - UNSPECIFIED ASTHMA, UNCOMPLICATED Qualifiers: Asthma severity: mild intermittent Asthma complication type: with status asthmaticus (22) Borderline diabetes mellitus Code(s): R73.09 - OTHER ABNORMAL GLUCOSE (23) Depressive disorder Code(s): F32.9 - MAJOR DEPRESSIVE DISORDER, SINGLE EPISODE, UNSPECIFIED (24) Hypercholesteremia Code(s): E78.0 - PURE HYPERCHOLESTEROLEMIA * DO NOT USE * (25) Hypertension Code(s): I10 - ESSENTIAL (PRIMARY) HYPERTENSION Qualifiers: Hypertension type: essential hypertension Qualified Code(s): I10 - Essential (primary) hypertension (26) [place], post-stroke Code(s): I69.30 - UNSPECIFIED SEQUELAE OF CEREBRAL INFARCTION (27) Depression (emotion) Code(s): F32.9 - MAJOR DEPRESSIVE DISORDER, SINGLE EPISODE, UNSPECIFIED Qualifiers: Depression Type: dysthymia Qualified Code(s): F34.1 - Dysthymic disorder Assessment/Plan - Problems (1) Diastolic CHF Code(s): I50.30 - UNSPECIFIED DIASTOLIC (CONGESTIVE) HEART FAILURE (2) COPD (chronic obstructive pulmonary disease) Code(s): J44.9 - CHRONIC OBSTRUCTIVE PULMONARY DISEASE, UNSPECIFIED Qualifiers: COPD type: unspecified COPD Qualified Code(s): J44.9 - Chronic obstructive pulmonary disease, unspecified (3) Depressive disorder Code(s): F32.9 - MAJOR DEPRESSIVE DISORDER, SINGLE EPISODE, UNSPECIFIED (4) Hypercholesteremia Code(s): E78.0 - PURE HYPERCHOLESTEROLEMIA * DO NOT USE * (5) Hypertension Code(s): I10 - ESSENTIAL (PRIMARY) HYPERTENSION Qualifiers: Hypertension type: essential hypertension Qualified Code(s): I10 - Essential (primary) hypertension (6) Elevated troponin Assessment/Plan: Mildly elevated likely due to demand ischemia from respiratory condition, sepsis. Multiple CAD risks. Coronary artery evaluation (stress MIBI) when stable. Awaiting MIBI stress test results Code(s): R74.8 - ABNORMAL LEVELS OF OTHER SERUM ENZYMES
[2018-04-25 16:09] VITALS: PULSE 99
--- NOTE | 2018-04-25 17:07 | DS ---
Physical Exam: SUBJECTIVE: Patient seen and examined at the bedside. feels well, denies chest pain or shortness of breath. sitting up in chair, headphones on. reading books. Tells me she is ready to go home. Does not want rehab at a facility. wants to do itou OBJECTIVE: Vital Signs Period Temp Pulse Resp BP Sys/Min Pulse Ox Last 24 Hr 98.0 F-98.9 F 74-99 18-20 122-153/61-93 96-97 PHYSICAL EXAM GENERAL: The patient is awake, alert, and fully oriented, in no acute distress. HEAD: Normal with no signs of trauma. EYES: PERRL, extraocular movements intact, sclera anicteric, conjunctiva clear. No ptosis. ENT: Ears normal, nares patent, oropharynx clear without exudates, moist mucous membranes. NECK: Trachea midline, full range of motion, supple. LUNGS: Breath sounds equal, no wheezing, no crackles, tolerating episodes of room air HEART: Regular rate and rhythm, S1, S2 without murmur, rub or gallop. ABDOMEN: Soft, nontender, nondistended, normoactive bowel sounds, no guarding, no rebound, no hepatosplenomegaly, no masses. EXTREMITIES: 2+ pulses, warm, well-perfused NEUROLOGICAL: Normal speech, gait not observed. PSYCH: Normal mood, normal affect. SKIN: Warm, dry, normal turgor, no rashes or lesions noted LABS Laboratory Results - last 24 hr 04/24/18 04/24/18 04/25/18 16:53 22:18 03:57 POC Glucometer 247 223 141 04/25/18 04/25/18 06:00 12:04 POC Glucometer 117 189 HOSPITAL COURSE: Date of Admission:04/16/18 Date of Discharge: 04/25/18 Hospital Course by problem list: Patient is a 67 year old female with a significant past medical history of HTN, DM, active smoking, COPD and CHF. She presents to the ED with c/o of worsening SOB productive cough with greyish sputum, inability to lay flat. Pulmonary: COPD exacerbation 2/2 possible PNA. resolved. On duonebs, symbicort 2 puffs bid, singular 10mg hs and spiriva received 7 days of IV Levaquin. Will be sent home on a Prednisone taper. Initially qualified for home oxygen, but improved. Before discharge, a repeat of pre and post shows stable oxygen levels with ambulation. Card: hypertension, controlled Elevated troponins, flat trending. Negative MIBI stress test today. Cardiology follow up outpatient. Endocrine: diabetes, controlled Psyche: smoking, cessation discussed. Mrs Cutler refused transfer to an inpatient rehab placement and instead wants therapy as an outpatient. Prescription handed to patient for outpatient therapy at [facility], [address]. Patient to call for an appointment. full code Minutes to complete discharge: 60 Discharge Summary Reason For Visit: CHF,COPD, NSTEMI, HYPOKALEMIA Current Active Problems CHF (congestive heart failure) (Acute) COPD exacerbation (Acute) Diastolic CHF (Acute) Elevated troponin (Acute) Hypokalemia due to loss of potassium (Acute) Metabolic alkalosis with respiratory acidosis (Acute) NSTEMI (non-ST elevated myocardial infarction) (Acute) Pneumonia (Acute) COPD (chronic obstructive pulmonary disease) (Chronic) Condition: Improved - Instructions Diet, Activity, Other Instructions: Mrs Cutler: You were admitted to [facility] for shortness of breath. Here are our recommendations. Pulmonary: COPD exacerbation. You were treated with IV antibiotics and steriods. Please continue the Symbicort, Singular and Spriva You have completed the antibiotics and your oxygen is now stable. You dont require home oxygen therapy. It is important that you stop smoking. I have added some information on smoking cessation on your discharge packet. Please call [facility] Physical therapy outpatient to make an appointment for you to start physical therapy. In the meantime, please use the rolliing walker when you ambulate. Please call me with any questions that you may have. New medications: Continue the Prednisone as follows: Prednisone 30mg once at 8am on 04/26/2018 Prednisone 20mg once at 8am on 04/27/2018 Prednisone 10mg once at 8am on 04/28/2018 Then stop taking prednisone. Please call me with any questions that you may have. Call the below number and leave a message. I will call you back. [facility] @ [facility] [phone] Referrals: Blayne Ireland MD [Staff Physician] - ON STAFF,NOT [Non Staff, Medical] - Disposition: HOME - Home Medications Comprehensive Discharge Medication List: Ambulatory Orders Amlodipine Besylate [Norvasc -] 10 mg PO DAILY 03/20/15 Aspirin [ASA -] 81 mg PO DAILY 03/20/15 Doxepin HCl [Sinequan -] 10 mg PO HS PRN 03/20/15 Fluticasone/Salmeterol [Advair 250-50 Diskus] 1 each IH BID 03/20/15 Lisinopril [Prinivil] 10 mg PO DAILY 03/20/15 Montelukast Na [Singulair -] 10 mg PO HS 03/20/15 Simvastatin [Zocor -] 20 mg PO HS 03/20/15 Ipratropium/Albuterol Sulfate [Combivent Respimat 20-100 Mcg] 2 inh IH Q6H PRN 12/23/15 Naproxen [Naprosyn -] 500 mg PO BID PRN 12/23/15 Potassium Chloride [K-Dur -] 20 meq PO DAILY 12/23/15 Duloxetine HCl [Cymbalta] 60 mg PO DAILY #20 capsule. 12/26/15 Budesonide/Formeterol Fumarate [SYMBICORT 80/4.5mcg -] 1 inh PO DAILY #2 cannister 04/25/18 Carvedilol [Coreg -] 3.125 mg PO BID #60 tablet 04/25/18 Magnesium Oxide [Mag-Ox -] 400 mg PO DAILY #0 tablet 04/25/18 Miscellaneous Medical Supply [Outpatient Order] 1 each ASDIR #1 misc Prednisone 10 mg PO DAILY #10 tablet 04/25/18 Thiamine HCl [Vitamin B1 -] 100 mg PO DAILY #30 tablet 04/25/18 Tiotropium [place] [Spiriva Respimat] 2 puff IH DAILY #2 inhaler 04/25/18 This patient is new to me today: Yes Date on this admission: 04/25/18 Emergency Visit: No Critical Care patient: No - Discharge Referral Referred to [facility] No
== END 2018-04-25 19:20 | disposition home or self-care (01) | DRG 280 ==
LOC: JER 05:02 → JERBED 09:42 → JICU 17:11 → J7W 04-20 15:26
PROVIDERS: ADMIT Internal Medicine; ATTEND Nurse Practitioner Family
DX: I21.4 Non-ST elevation (NSTEMI) myocardial infarction (principal); J96.02 Acute respiratory failure with hypercapnia; J18.9 Pneumonia, unspecified organism; I69.351 Hemiplegia and hemiparesis following cerebral infarction affecting right dominant side; E87.4 Mixed disorder of acid-base balance; J44.1 Chronic obstructive pulmonary disease with (acute) exacerbation; R64 Cachexia; I42.8 Other cardiomyopathies; E46 Unspecified protein-calorie malnutrition; I50.32 Chronic diastolic (congestive) heart failure; E87.1 Hypo-osmolality and hyponatremia; E87.6 Hypokalemia; E83.42 Hypomagnesemia; E87.8 Other disorders of electrolyte and fluid balance, not elsewhere classified; F32.9 Major depressive disorder, single episode, unspecified; G89.29 Other chronic pain; E11.649 Type 2 diabetes mellitus with hypoglycemia without coma; I11.0 Hypertensive heart disease with heart failure; F10.20 Alcohol dependence, uncomplicated; G47.00 Insomnia, unspecified; I25.10 Atherosclerotic heart disease of native coronary artery without angina pectoris; Z79.4 Long term (current) use of insulin; F17.210 Nicotine dependence, cigarettes, uncomplicated; E78.5 Hyperlipidemia, unspecified
CPT/HCPCS: 36415; 36600; 71045-TC-FY; 71275-TC; 78452-TC; 80048; 80053; 81003; 82088; 82272; 82465; 82533; 82550; 82553; 82570; 82728; 82746; 82803; 82962; 83036; 83540; 83550; 83690; 83735; 83880; 83930; 83935; 84100; 84300; 84466; 84484; 85025; 87040; 87899; 90670; 90688; 93005; 93010; 93017; 93306-TC; 94640; 94660; 94761; 97116-GP; 97161-GP; 99284-25; A9502; G0008; G0009; J1644; J2785

== ENCOUNTER 2018-05-07 17:54 | Emergency (ER) | payer OTHER ==
[2018-05-07 18:19] VITALS: BMI 26.6
--- NOTE | 2018-05-07 18:31 | PDOC ---
History of Present Illness - General Chief Complaint: Injury Stated Complaint: FALL Time Seen by Provider: 05/07/18 18:30 - History of Present Illness Initial Comments: 05/07/18 19:29 The patient is a 67 year old female with a PMH of COPD (not on home O2), HTN, NIDDM, and recent hospitalization for PNA who was BIBEMS for a fall. Patient states she was drinking 1/2 pint of gin in bed when she got up to go to the bathroom and slipped on the tile floor hitting her buttocks. Denies any head trauma/LOC. Denies any pre-fall chest pain, lightheadeness, shortness of breath. Patient states she does not drink on a daily basis but binges drinks. Last binge drinking episode was 6 months previous. The patient denies abdominal pain, nausea/vomiting, diarrhea/constipation, dysuria/hematuria. As per EMR patient evaluated in our ED on 04/16/18 for shortnes of breath. Admitted for PNA and associated COPD exacerbation, s/p Levaquin x 7 days. Past History - Past Medical History Allergies/Adverse Reactions: Allergies Allergy/AdvReac Type Severity Reaction Status Date / Time Aminoglycosides Allergy Severe Rash Verified 04/16/18 05:47 potassium clavulanate Allergy Severe Rash Verified 04/16/18 05:47 [From Augmentin] amoxicillin trihydrate Allergy Rash Verified 04/16/18 05:47 [From Augmentin] erythromycin base Allergy Rash Verified 04/16/18 05:47 [Erythromycin Base] gentamicin [Gentamicin] Allergy Rash Verified 04/16/18 05:47 Home Medications: Ambulatory Orders Amlodipine Besylate [Norvasc -] 10 mg PO DAILY 03/20/15 Aspirin [ASA -] 81 mg PO DAILY 03/20/15 Doxepin HCl [Sinequan -] 10 mg PO HS PRN 03/20/15 Fluticasone/Salmeterol [Advair 250-50 Diskus] 1 each IH BID 03/20/15 Lisinopril [Prinivil] 10 mg PO DAILY 03/20/15 Montelukast Na [Singulair -] 10 mg PO HS 03/20/15 Simvastatin [Zocor -] 20 mg PO HS 03/20/15 Ipratropium/Albuterol Sulfate [Combivent Respimat 20-100 Mcg] 2 inh IH Q6H PRN 12/23/15 Naproxen [Naprosyn -] 500 mg PO BID PRN 12/23/15 Potassium Chloride [K-Dur -] 20 meq PO DAILY 12/23/15 Duloxetine HCl [Cymbalta] 60 mg PO DAILY #20 capsule. 12/26/15 Budesonide/Formeterol Fumarate [SYMBICORT 80/4.5mcg -] 1 inh PO DAILY #2 cannister 04/25/18 Carvedilol [Coreg -] 3.125 mg PO BID #60 tablet 04/25/18 Magnesium Oxide [Mag-Ox -] 400 mg PO DAILY #0 tablet 04/25/18 Miscellaneous Medical Supply [Outpatient Order] 1 each ASDIR #1 misc Prednisone 10 mg PO DAILY #10 tablet 04/25/18 Thiamine HCl [Vitamin B1 -] 100 mg PO DAILY #30 tablet 04/25/18 Tiotropium [place] [Spiriva Respimat] 2 puff IH DAILY #2 inhaler 04/25/18 Anemia: No Asthma: Yes Cancer: No Cardiac Disorders: No CVA: Yes COPD: Yes CHF: No Dementia: No Diabetes: Yes GI Disorders: No Disorders: No HTN: Yes Hypercholesterolemia: Yes Kidney Stones: No Liver Disease: No Seizures: No Thyroid Disease: No - Surgical History Abdominal Surgery: Yes Appendectomy: Yes Cardiac Surgery: No Cholecystectomy: No Lung Surgery: No Neurologic Surgery: No Orthopedic Surgery: No - Reproductive History PID: No - Immunization History Td Vaccination: Yes Immunization Up to Date: Yes - Suicide/Smoking/Psychosocial Hx Smoking Status: Yes Smoking History: Former smoker Years of Tobacco Use: 20 Have you smoked in the past 12 months: No Number of Cigarettes Smoked Daily: 20 Cigars Per Day: 0 Information on smoking cessation initiated: No 'Breaking Loose' booklet given: 12/23/15 Hx Alcohol Use: No Drug/Substance Use Hx: No Substance Use Type: Alcohol Hx Substance Use Treatment: Yes Review of Systems - Review of Systems Constitutional: No: Chills, Fever HEENTM: No: Recent change in vision Cardiac (ROS): No: Chest Pain, Lightheadedness, Palpitations, Syncope ABD/GI: No: Constipated, Diarrhea, Nausea, Vomiting : No: Burning, Dysuria *Physical Exam - Vital Signs Last Vital Signs Temp Pulse Resp BP Pulse Ox 97.6 F 87 18 122/65 95 05/07/18 18:10 05/07/18 18:10 05/07/18 18:10 05/07/18 18:10 05/07/18 18:10 - Physical Exam Comments: 05/07/18 19:57 VS stable Moves all 4 extremities No midline C-spine/L/T/S tenderness Head is normocephalic, atraumatic A&O x3 General Appearance: Yes: Other (alcohol on breath; disheveled) HEENT: positive: Normal Voice, Hearing Grossly Normal, Other (no periorbital/ mastoid ecchymosis). negative: TM Bulging, TM Dull, TM Erythema Neck: positive: Trachea midline, Supple Respiratory/Chest: positive: Lungs Clear, Normal Breath Sounds. negative: Crackles, Wheezing Vascular Pulses: Dorsalis-Pedis (R): 2+, Doralis-Pedis (L): 2+ Gastrointestinal/Abdominal: positive: Normal Bowel Sounds, Soft. negative: Distended, Guarding, Rebound, Tenderness Musculoskeletal: negative: CVA Tenderness (R), CVA Tenderness (L) Extremity: positive: Normal Capillary Refill, Normal Inspection, Pelvis Stable Integumentary: positive: Normal Color, Dry, Warm Neurologic: positive: Fully Oriented, Alert Moderate Sedation - Procedure Monitoring Vital Signs: Procedure Monitoring Vital Signs Temperature 97.6 F 05/07/18 18:10 Pulse Rate 87 05/07/18 18:10 Respiratory Rate 18 05/07/18 18:10 Blood Pressure 122/65 05/07/18 18:10 O2 Sat by Pulse Oximetry (%) 95 05/07/18 18:10 Medical Decision Making - Medical Decision Making 05/07/18 19:30 67 year old female s/p fall. Alcohol on breath at presentation. VS unremarkable. Pelvis stable, moves all 4 extremities, no midline C-spine/L/T/S TTP. Will observe while metabolizing ETOH. Reassess 05/07/18 19:47 Patient reassessed @ bedside. Improved, ambulatory, tolerating PO intake. At this time, patient has been observed for 1+ hour and is ambulatory around the ED, clinically sober, VS unremarkable, A&O x3 and has no active medical complaints. Will discharge home with return precautions. *DC/Admit/Observation/Transfer Diagnosis at time of Disposition: Alcohol intoxication - Discharge Dispostion Disposition: HOME Condition at time of disposition: Good Decision to Admit order: No - Referrals Referrals: Kayla Gracia MD [Primary Care Provider] - - Patient Instructions Printed Discharge Instructions: How to Prevent Falls, DI for Alcohol Abuse Additional Instructions: You were evaluated today following a fall out of bed. At this time you are safe for discharge home. We have provided information on alcohol cessation. Return to the Emergency Department for any new/worsening/concerning symptoms. - Post Discharge Activity
--- NOTE | 2018-05-07 19:30 | PDOC ---
Attending Attestation - Resident Resident Name: Abigail Covarrubias - ED Attending Attestation I have performed the following: I have examined & evaluated the patient, The case was reviewed & discussed with the resident, I agree w/resident's findings & plan, Exceptions are as noted - HPI HPI: 05/07/18 19:25 67 year old female patient with history of HTN, DM, HLD, COPD presents with mechanical fall. The patient reports having two drinks of alcohol tonight. She slipped because of her slippers and fell on her buttocks. The patient had difficulty getting up so hit her life alert. Pt was brought to the ED. She absolutely denies any pain. Denies hitting her head. No LOC. Pt reports feeling mildly intoxicated from alcohol but otherwise she is aware of what is going on and ambulatory with a steady gait. Denies neck pain. - Physicial Exam PE: 05/07/18 19:29 GENERAL: Awake, alert, and fully oriented, in no acute distress. Some mild alcohol on breath, but speaking in clear sentences. HEAD: No signs of trauma EYES: PERRLA, EOMI, sclera anicteric, conjunctiva clear ENT: Auricles normal inspection, hearing grossly normal, nares patent, Moist mucosa NECK: Normal ROM, supple. no c-spine tenderness. LUNGS: Breath sounds equal, clear to auscultation bilaterally. No wheezes, and no crackles HEART: Regular rate and rhythm, normal S1 and S2, no murmurs, rubs or gallops ABDOMEN: Soft, nontender, No guarding, no rebound. No masses EXTREMITIES: Normal range of motion, no edema. No clubbing or cyanosis. No cords, erythema, or tenderness NEUROLOGICAL: Cranial nerves II through XII grossly intact. Normal speech, normal gait SKIN: Warm, Dry, normal turgor, no rashes or lesions noted. - Medical Decision Making 05/07/18 19:30 Vital Signs Temp Pulse Resp BP Pulse Ox 97.6 F 87 18 122/65 95 05/07/18 18:10 05/07/18 18:10 05/07/18 18:10 05/07/18 18:10 05/07/18 18:10 The patient has no evidence of injury on her. The patient declines any further workup. The patient is mildly toxic but certainly alert and aware and can refuse any further workup. And I also believe the patient likely does not need any further workup at this time. Will observe her for some time and d/c her when she feels ready to go home.
[2018-05-07 19:54] VITALS: BP 149/75; PULSE 92
[2018-05-07 19:55] VITALS: TEMP 98.8
== END 2018-05-07 20:22 | disposition home or self-care (01) ==
LOC: JER 17:54
DX: F10.120 Alcohol abuse with intoxication, uncomplicated (principal); Y90.9 Presence of alcohol in blood, level not specified; W18.39XA Other fall on same level, initial encounter; Y93.89 Activity, other specified; Y92.032 Bedroom in apartment as the place of occurrence of the external cause; Y99.8 Other external cause status; I10 Essential (primary) hypertension; E11.9 Type 2 diabetes mellitus without complications; E78.00 Pure hypercholesterolemia, unspecified; J44.9 Chronic obstructive pulmonary disease, unspecified; J45.909 Unspecified asthma, uncomplicated; Z86.73 Personal history of transient ischemic attack (TIA), and cerebral infarction without residual deficits
CPT/HCPCS: 99282-25

== ENCOUNTER 2018-05-21 02:15 | Emergency (ER) | payer OTHER ==
[2018-05-21 02:27] VITALS: BP 149/81; PULSE 86; TEMP 97.6; BMI 24.7
--- NOTE | 2018-05-21 03:15 | PDOC ---
Attending Attestation - Resident Resident Name: JamshidpamelaaramByron - ED Attending Attestation I have performed the following: I have examined & evaluated the patient, The case was reviewed & discussed with the resident, I agree w/resident's findings & plan - HPI HPI: 05/21/18 04:55 Pt comes with cough and cold. - Physicial Exam PE: 05/21/18 04:55 Agree with resident exam - Medical Decision Making 05/21/18 04:56 CXR shows cardiac enlargement; CHF with effusion in the lungs. 05/21/18 04:56 Alcohol is 258; pt has a hx of alcoholism. 05/21/18 06:09 Pt has normal urine and she is flu negative. 05/21/18 06:30 Pt is refusing kayexalate and she wants to go home. 05/21/18 06:58 labs normal; pt is sobering and she feels better. She is eating a sandwich and a drink and she will be discharged home. Pt will take a cab home to her 2nd floor elevator [facility]. She is stable for discharge.
--- NOTE | 2018-05-21 03:18 | PDOC ---
History of Present Illness - General Chief Complaint: Cold Symptoms Stated Complaint: FLU LIKE SYMPTOM Time Seen by Provider: 05/21/18 02:26 History Source: Patient Exam Limitations: No Limitations - History of Present Illness Initial Comments: 05/21/18 03:11 The patient is a 67F with a PMH of HTN, DM, HLD, COPD who presents to the ER with multiple complaints. The patient states that she's had worsening cough and mucous production x 1 week. She denies CP, fever, chills, nausea, vomiting, SOB. She also admits to increasing falls due to "her legs giving away". She states she drinks "a little bit" but this "does not have to do with her falls". She also complains of diffuse weakness x 1 week. She states that she eats and drinks adequately. Past History - Past Medical History Allergies/Adverse Reactions: Allergies Allergy/AdvReac Type Severity Reaction Status Date / Time Aminoglycosides Allergy Severe Rash Verified 05/21/18 02:25 potassium clavulanate Allergy Severe Rash Verified 05/21/18 02:25 [From Augmentin] amoxicillin trihydrate Allergy Rash Verified 05/21/18 02:25 [From Augmentin] erythromycin base Allergy Rash Verified 05/21/18 02:25 [Erythromycin Base] gentamicin [Gentamicin] Allergy Rash Verified 05/21/18 02:25 Home Medications: Ambulatory Orders Amlodipine Besylate [Norvasc -] 10 mg PO DAILY 03/20/15 Aspirin [ASA -] 81 mg PO DAILY 03/20/15 Doxepin HCl [Sinequan -] 10 mg PO HS PRN 03/20/15 Fluticasone/Salmeterol [Advair 250-50 Diskus] 1 each IH BID 03/20/15 Lisinopril [Prinivil] 10 mg PO DAILY 03/20/15 Montelukast Na [Singulair -] 10 mg PO HS 03/20/15 Simvastatin [Zocor -] 20 mg PO HS 03/20/15 Ipratropium/Albuterol Sulfate [Combivent Respimat 20-100 Mcg] 2 inh IH Q6H PRN 12/23/15 Naproxen [Naprosyn -] 500 mg PO BID PRN 12/23/15 Potassium Chloride [K-Dur -] 20 meq PO DAILY 12/23/15 Duloxetine HCl [Cymbalta] 60 mg PO DAILY #20 capsule. 12/26/15 Budesonide/Formeterol Fumarate [SYMBICORT 80/4.5mcg -] 1 inh PO DAILY #2 cannister 04/25/18 Carvedilol [Coreg -] 3.125 mg PO BID #60 tablet 04/25/18 Magnesium Oxide [Mag-Ox -] 400 mg PO DAILY #0 tablet 04/25/18 Miscellaneous Medical Supply [Outpatient Order] 1 each ASDIR #1 misc Prednisone 10 mg PO DAILY #10 tablet 04/25/18 Thiamine HCl [Vitamin B1 -] 100 mg PO DAILY #30 tablet 04/25/18 Tiotropium [place] [Spiriva Respimat] 2 puff IH DAILY #2 inhaler 04/25/18 Anemia: No Asthma: Yes Cancer: No Cardiac Disorders: No CVA: Yes COPD: Yes CHF: No Dementia: No Diabetes: Yes GI Disorders: No Disorders: No HTN: Yes Hypercholesterolemia: Yes Kidney Stones: No Liver Disease: No Seizures: No Thyroid Disease: No - Surgical History Abdominal Surgery: Yes Appendectomy: Yes Cardiac Surgery: No Cholecystectomy: No Lung Surgery: No Neurologic Surgery: No Orthopedic Surgery: No - Reproductive History PID: No - Immunization History Td Vaccination: Yes Immunization Up to Date: Yes - Suicide/Smoking/Psychosocial Hx Smoking Status: Yes Smoking History: Never smoked Years of Tobacco Use: 20 Have you smoked in the past 12 months: No Number of Cigarettes Smoked Daily: 20 Cigars Per Day: 0 Information on smoking cessation initiated: No 'Breaking Loose' booklet given: 12/23/15 Hx Alcohol Use: No Drug/Substance Use Hx: No Substance Use Type: Alcohol Hx Substance Use Treatment: Yes Review of Systems - Review of Systems Able to Perform ROS?: Yes Comments:: 05/21/18 04:22 GENERAL/CONSTITUTIONAL: Positive for weakness. No fever or chills. HEAD, EYES, EARS, NOSE AND THROAT: No change in vision. No ear pain or discharge. No sore throat. CARDIOVASCULAR: No chest pain, palpitations, or lightheadedness. RESPIRATORY: Positive for cough with increased sputum. No wheezing, shortness of breath, or hemoptysis. GASTROINTESTINAL: No nausea, vomiting, diarrhea, constipation, or abdominal pain. GENITOURINARY: No dysuria, frequency, hematuria, or change in urination. MUSCULOSKELETAL: No joint or muscle swelling or pain. No neck or back pain. SKIN: No rash or lesions. NEUROLOGIC: No headache, numbness, tingling, focal weakness, loss of consciousness, or change in strength/sensation. Is the patient limited Egyptian proficient: No *Physical Exam - Vital Signs Last Vital Signs Temp Pulse Resp BP Pulse Ox 97.6 F 86 20 149/81 100 05/21/18 02:29 05/21/18 02:26 05/21/18 02:26 05/21/18 02:26 05/21/18 02:26 - Physical Exam Comments: 05/21/18 04:23 GENERAL: Well developed, well nourished. Awake and alert. No acute distress. HEENT: Normocephalic, atraumatic. Hearing grossly normal. Moist mucous membranes. PERRLA, EOMI. No conjunctival pallor. Sclera are non-icteric. NECK: Supple. Full ROM. No JVD. CARDIOVASCULAR: Regular rate and rhythm. No murmurs, rubs, or gallops. PULMONARY: No evidence of respiratory distress. Lungs clear to auscultation bilaterally. No wheezing, rales or rhonchi. ABDOMINAL: Soft. Non-tender. Non-distended. No rebound or guarding. GENITOURINARY: No CVA tenderness bilaterally. MUSCULOSKELETAL: Normal range of motion at all joints. No bony deformities or tenderness. EXTREMITIES: No cyanosis. No clubbing. No edema. No calf tenderness or swelling. SKIN: Warm and dry. Normal capillary refill. No rashes. No jaundice. NEUROLOGICAL: Alert, awake, appropriate. Cranial nerves 2-12 grossly intact. Normal speech. PSYCHIATRIC: Cooperative. Good eye contact. Appropriate mood and affect. Moderate Sedation - Procedure Monitoring Vital Signs: Procedure Monitoring Vital Signs Temperature 97.6 F 05/21/18 02:29 Pulse Rate 86 05/21/18 02:26 Respiratory Rate 20 05/21/18 02:26 Blood Pressure 149/81 05/21/18 02:26 O2 Sat by Pulse Oximetry (%) 100 05/21/18 02:26 ED Treatment Course - LABORATORY CBC & Chemistry Diagram: 05/21/18 03:13 05/21/18 04:36 - RADIOLOGY Radiology Studies Ordered: Category Date Time Status CHEST X-RAY PORTABLE* [RAD] Stat Radiology 05/21/18 02:44 Ordered Medical Decision Making - Medical Decision Making 05/21/18 04:24 The patient is a 67F with a PMH of HTN, DM, HLD, COPD who presents to the ER with complaints of weakness x 1 week, increased cough and sputum production x 3 days, and increased falling. Pt later revealed she abuses EtOH. EtOH in our facility is 258. PE unremarkable. CBC WNL for pt, no WBC. 05/21/18 05:54 K is 5.9. EKG shows mild peaked T waves in precordial leads. D/w attending. Will treat with kayexelate and albuterol. 05/21/18 06:23 Pt woke up from sleeping and is requesting to go home. Attending placed orders for BNP. CXR showing very mild cephalization, likely 2/2 underexposure. 05/21/18 06:37 BNP negative. Will d/c with PCP f/u. *DC/Admit/Observation/Transfer Diagnosis at time of Disposition: Cough Alcohol intoxication Qualifiers: Complication of substance-induced condition: uncomplicated Qualified Code(s): F10.920 - Alcohol use, unspecified with intoxication, uncomplicated - Discharge Dispostion Disposition: HOME Condition at time of disposition: Stable Decision to Admit order: No - Referrals Referrals: Kayla Gracia MD [Primary Care Provider] - - Patient Instructions Printed Discharge Instructions: DI for Acute Bronchitis Additional Instructions: Please follow up with your primary care physician in 2-3 days. Please return to the ER if you have any signs or symptoms of chest pain, shortness of breath, uncontrollable fever, chills, nausea, vomiting, numbness, tingling, or weakness in any part of your body, changes in vision, or slurred speech. Please take your medications as prescribed. Please return to the ER if symptoms persist, worsen, or new symptoms arise. - Post Discharge Activity
[2018-05-21 03:34] LABS: BASO % 2.7 % (0-2.0); HEMATOCRIT 31.5 % (32.4-45.2); HEMOGLOBIN 9.9 GM/dL (10.7-15.3); LYMPH % 58.3 % (8-40); MCH 20.2 pg (25.7-33.7); MCHC 31.4 g/dl (32.0-36.0); MEAN CELL VOLUME 64.2 fl (80-96); MEAN PLT VOLUME 8.7 fl (7.5-11.1); MONO % 9.8 % (3.8-10.2); NEUT % 28.2 % (42.8-82.8); PLATELET COUNT 583 K/MM3 (134-434); RBC 4.91 M/mm3 (3.60-5.2); RDW 25.2 % (11.6-15.6); WHITE BLOOD COUNT 8.1 K/mm3 (4.0-10.0)
[2018-05-21 03:37] LABS: URINE APPEARANCE CLEAR; URINE BILIRUBIN NEGATIVE (<2.0 mg/dL); URINE COLOR STRAW; URINE GLUCOSE (UA) NEGATIVE (NEGATIVE); URINE KETONE NEGATIVE (NEGATIVE); URINE LEUK ESTERASE NEGATIVE (NEGATIVE); URINE NITRITE NEGATIVE (NEGATIVE); URINE PROTEIN NEGATIVE (NEGATIVE); URINE UROBILINOGEN NEGATIVE mg/dL (0.2-1.0)
[2018-05-21 03:47] LABS: PROTHROMBIN TIME (PATIENT) 11.8 SEC (9.7-13.0)
[2018-05-21 05:29] LABS: ALBUMIN 3.3 g/dl (3.4-5.0); ALK PHOS 133 U/L (45-117); ANION GAP 6 MMOL/L (8-16); BILIRUBIN,TOTAL 0.1 mg/dL (0.2-1); BLOOD UREA NITROGEN 16 mg/dL (7-18); CALCIUM 9.2 mg/dL (8.5-10.1); CHLORIDE 108 mmol/L (98-107); CO2 23 mmol/L (21-32); GLUCOSE,RANDOM 91 mg/dL (74-106); POTASSIUM 5.9 mmol/L (3.5-5.1); SGOT/AST 16 U/L (15-37); SGPT/ALT 16 U/L (13-61); SODIUM 137 mmol/L (136-145); TOT PROT 7.7 g/dl (6.4-8.2)
[2018-05-21] MEDS ORDERED: SODIUM POLYSTYRENE SULFONATE 15 GM/60 ML BOTTLE PO ONE (05:53)
[2018-05-21] MEDS ORDERED: ALBUTEROL SO4 0.083% IH SOL 2.5 MG/3 ML VIAL.NEB. NEB ONE ×2 (05:53→05:59)
[2018-05-21 08:08] LABS: ANISOCYTOSIS 3+
--- NOTE | 2018-05-21 14:40 | EKG ---
Test Reason : Blood Pressure : / mmHG Vent. Rate : 086 BPM Atrial Rate : 086 BPM P-R Int : 172 ms QRS Dur : 072 ms QT Int : 376 ms P-R-T Axes : 065 -31 041 degrees QTc Int : 449 ms NORMAL SINUS RHYTHM LEFT AXIS DEVIATION SEPTAL INFARCT (CITED ON OR BEFORE 31-MAR-2012) ABNORMAL ECG Confirmed by Rohith Gage MD ([id number]) on 05/21/2018 2:39:58 PM Referred By: Confirmed By:Rohith Gage MD
== END 2018-05-21 07:10 | disposition home or self-care (01) ==
LOC: JER 02:15
PROC: 3E0F7GC Introduction of Other Therapeutic Substance into Respiratory Tract, Via Natural or Artificial Opening (ICD-10-PCS; principal; 2018-05-21)
DX: R05 Cough (principal); F10.120 Alcohol abuse with intoxication, uncomplicated; Y90.8 Blood alcohol level of 240 mg/100 ml or more; Z91.81 History of falling; I10 Essential (primary) hypertension; E11.9 Type 2 diabetes mellitus without complications; E78.00 Pure hypercholesterolemia, unspecified; J45.909 Unspecified asthma, uncomplicated; J44.9 Chronic obstructive pulmonary disease, unspecified; Z86.73 Personal history of transient ischemic attack (TIA), and cerebral infarction without residual deficits
CPT/HCPCS: 36415; 71045-TC-FY; 80053; 80307; 81003; 82550; 83880; 84484; 85025; 85610; 85651; 87804; 93005; 93010; 94640; 99282-25

== ENCOUNTER 2018-05-24 18:41 | Emergency (ER) | payer OTHER ==
[2018-05-24 19:11] VITALS: TEMP 97.6; BMI 25.4
--- NOTE | 2018-05-24 19:30 | PDOC ---
Attending Attestation - HPI HPI: This patient is a 67 year old female with PMHx of HTN, DL, COPD, who presents with gluteal laceration s/p unwitnessed fall. Patient states that she had been drinking some gin at home. She went to use the bedside commode, missed and fell on a glass bottle, which subsequently broke and she sustained lacerations to her buttocks. Denies hitting her head. No cp, sob, dizziness, headache, abdominal pain, no other complaints. PCP: Elyssa Gates Hx: quit EtOH 4 days ago. Allergies: aminoglycosides (rash) augmentin (rash) erythromycin base (rash) gentamicin(rash) - Physicial Exam PE: GENERAL: Awake and alert, intoxicated. No acute distress. HEENT: Normocephalic, atraumatic. PERRLA, EOMI. No conjunctival pallor. Sclera are non- icteric. Moist mucous membranes. Oropharynx is clear. NECK: Supple. Full ROM. No JVD. Carotid pulses 2+ and symmetric, without bruits. No thyromegaly. No lymphadenopathy. CARDIOVASCULAR: Regular rate and rhythm. No murmurs, rubs, or gallops. Distal pulses are 2+ and symmetric. PULMONARY: No evidence of respiratory distress. Lungs clear to auscultation bilaterally. No wheezing, rales or rhonchi. ABDOMINAL: Soft. Non-tender. Non-distended. No rebound or guarding. No organomegaly. Normoactive bowel sounds. MUSCULOSKELETAL Normal range of motion at all joints. No bony deformities or tenderness. No CVA tenderness. EXTREMITIES: No cyanosis. No clubbing. No edema. No calf tenderness. SKIN: Left gluteal: 3mm linear superficial laceration, 6x6 cm hematoma. Small 3 mm puncture wound. No rashes. No jaundice. NEUROLOGICAL: Alert, awake, appropriate. Cranial nerves 2-12 intact. No deficits to light touch and temperature in face, upper extremities and lower extremities. Residual right- sided weakness s/p CVA (chronic).Normal speech. Toes are down-going bilaterally. Gait not tested PSYCHIATRIC: Cooperative. Good eye contact. Appropriate mood and affect. <Eli Mckeon - Last Filed: 05/24/18 19:45> - Resident Resident Name: Guy Sotelo - ED Attending Attestation I have performed the following: I have examined & evaluated the patient, The case was reviewed & discussed with the resident, I agree w/resident's findings & plan, Exceptions are as noted - HPI HPI: 05/24/18 19:28 67 yo female had been drinking some gin and then went to go on the bedside commode ,missed the commode and fell onto glass that broke -she sustined several superficial laceration to her left buttocks -she os not on any anticoagulants 05/24/18 20:50 - Medical Decision Making 05/24/18 20:56 RADIOGRAPHS: cxr no ptx,no infiltrates PELVIC xray: no fracture 05/24/18 21:53 The lacerations were superficial and did not require ramiro or sutures for closure. Radiographs are negative for any acute fractures CAT scan of the head is negative for any acute intracranial pathology ct scan c spine no acute fractures 05/24/18 21:54 pt discharged home with family <Janeen Tovar - Last Filed: 05/24/18 21:54> Attestations - Attestations 05/24/18 19:48 Documentation prepared by Eli Mckeon, acting as medical delivery driver for Janeen Tovar MD. <Eli Mckeon - Last Filed: 05/24/18 19:45>
--- NOTE | 2018-05-24 19:32 | PDOC ---
History of Present Illness - General Chief Complaint: Injury Stated Complaint: FALL Time Seen by Provider: 05/24/18 19:08 History Source: Patient Exam Limitations: No Limitations - History of Present Illness Initial Comments: 05/24/18 19:26 Patient is a 67F with history of HTN, DM, HLD, COPD, stroke with R sided deficit and likely alcohol abuse here today complaining of a fall. Patient states that she was going from her bed to her commode when her right leg gave out. Patient drank a half pint of gin today. Patient states that she is concerned because she fell on a glass which had shattered and is concerned some shards are in her buttock. Denies hitting her head, takes aspirin. Denies neck pain, chest pain, abdominal pain, nausea, vomiting, LOC, fevers, chills. No blood thinners. Past History - Past Medical History Allergies/Adverse Reactions: Allergies Allergy/AdvReac Type Severity Reaction Status Date / Time Aminoglycosides Allergy Severe Rash Verified 05/24/18 19:00 potassium clavulanate Allergy Severe Rash Verified 05/24/18 19:00 [From Augmentin] amoxicillin trihydrate Allergy Rash Verified 05/24/18 19:00 [From Augmentin] erythromycin base Allergy Rash Verified 05/24/18 19:00 [Erythromycin Base] gentamicin [Gentamicin] Allergy Rash Verified 05/24/18 19:00 Home Medications: Ambulatory Orders Amlodipine Besylate [Norvasc -] 10 mg PO DAILY 03/20/15 Aspirin [ASA -] 81 mg PO DAILY 03/20/15 Doxepin HCl [Sinequan -] 10 mg PO HS PRN 03/20/15 Fluticasone/Salmeterol [Advair 250-50 Diskus] 1 each IH BID 03/20/15 Lisinopril [Prinivil] 10 mg PO DAILY 03/20/15 Montelukast Na [Singulair -] 10 mg PO HS 03/20/15 Simvastatin [Zocor -] 20 mg PO HS 03/20/15 Ipratropium/Albuterol Sulfate [Combivent Respimat 20-100 Mcg] 2 inh IH Q6H PRN 12/23/15 Naproxen [Naprosyn -] 500 mg PO BID PRN 12/23/15 Potassium Chloride [K-Dur -] 20 meq PO DAILY 12/23/15 Duloxetine HCl [Cymbalta] 60 mg PO DAILY #20 capsule. 12/26/15 Budesonide/Formeterol Fumarate [SYMBICORT 80/4.5mcg -] 1 inh PO DAILY #2 cannister 04/25/18 Carvedilol [Coreg -] 3.125 mg PO BID #60 tablet 04/25/18 Magnesium Oxide [Mag-Ox -] 400 mg PO DAILY #0 tablet 04/25/18 Prednisone 10 mg PO DAILY #10 tablet 04/25/18 Thiamine HCl [Vitamin B1 -] 100 mg PO DAILY #30 tablet 04/25/18 Tiotropium [place] [Spiriva Respimat] 2 puff IH DAILY #2 inhaler 04/25/18 Anemia: No Asthma: Yes Cancer: No Cardiac Disorders: No CVA: Yes COPD: Yes CHF: No Dementia: No Diabetes: Yes GI Disorders: No Disorders: No HTN: Yes Hypercholesterolemia: Yes Kidney Stones: No Liver Disease: No Seizures: No Thyroid Disease: No - Surgical History Abdominal Surgery: Yes Appendectomy: Yes Cardiac Surgery: No Cholecystectomy: No Lung Surgery: No Neurologic Surgery: No Orthopedic Surgery: No - Reproductive History PID: No - Immunization History Td Vaccination: Yes Immunization Up to Date: Yes - Suicide/Smoking/Psychosocial Hx Smoking Status: Yes Smoking History: Current every day smoker Years of Tobacco Use: 20 Have you smoked in the past 12 months: No Number of Cigarettes Smoked Daily: 20 Cigars Per Day: 0 Information on smoking cessation initiated: No 'Breaking Loose' booklet given: 12/23/15 Hx Alcohol Use: No Drug/Substance Use Hx: No Substance Use Type: Alcohol Hx Substance Use Treatment: Yes Review of Systems - Review of Systems Able to Perform ROS?: Yes Comments:: 05/24/18 19:33 GENERAL/CONSTITUTIONAL: No fever or chills. No weakness. HEAD, EYES, EARS, NOSE AND THROAT: No change in vision. No sore throat. CARDIOVASCULAR: No chest pain or shortness of breath RESPIRATORY: No cough, wheezing, or hemoptysis. GASTROINTESTINAL: No nausea, vomiting, diarrhea or constipation. GENITOURINARY: No dysuria, frequency, or change in urination. MUSCULOSKELETAL: +L hip/buttock pain. No neck or back pain. SKIN: No rash NEUROLOGIC: No headache, vertigo, loss of consciousness, or change in strength/ sensation. ENDOCRINE: No increased thirst. No abnormal weight change HEMATOLOGIC/LYMPHATIC: No anemia, easy bleeding, or history of blood clots. ALLERGIC/IMMUNOLOGIC: No hives or skin allergy. *Physical Exam - Vital Signs Last Vital Signs Temp Pulse Resp BP Pulse Ox 97.6 F 90 18 141/76 97 05/24/18 18:55 02 18:55 02 18:55 05/24/18 18:55 05/24/18 18:55 - Physical Exam Comments: 05/24/18 19:33 GENERAL: Awake, alert, and fully oriented, in no acute distress L BUTTOCK: 2 small shallow abrasions along L buttock, no foreign body appreciated. Neurovascularly intact distal to injury. HEAD: No signs of trauma, normocephalic, atraumatic EYES: PERRLA, EOMI, sclera anicteric, conjunctiva clear ENT: Auricles normal inspection, hearing grossly normal, nares patent, oropharynx clear without exudates. Moist mucosa NECK: Normal ROM, supple, no lymphadenopathy, JVD, or masses LUNGS: No distress, speaks full sentences, clear to auscultation bilaterally HEART: Regular rate and rhythm, normal S1 and S2, no murmurs, rubs or gallops, peripheral pulses normal and equal bilaterally. ABDOMEN: Soft, nontender, normoactive bowel sounds. No guarding, no rebound. No masses EXTREMITIES: Normal inspection, Normal range of motion, no edema. No clubbing or cyanosis. NEUROLOGICAL: Cranial nerves II through XII grossly intact. Slurred speech, no focal sensorimotor deficits SKIN: Warm, Dry, normal turgor, no rashes or lesions noted. Moderate Sedation - Procedure Monitoring Vital Signs: Procedure Monitoring Vital Signs Temperature 97.6 F 05/24/18 18:55 Pulse Rate 90 05/24/18 18:55 Respiratory Rate 18 05/24/18 18:55 Blood Pressure 141/76 05/24/18 18:55 O2 Sat by Pulse Oximetry (%) 97 05/24/18 18:55 ED Treatment Course - RADIOLOGY Radiology Studies Ordered: Category Date Time Status CERVICAL SPINE CT W/O CONTR [CT] Stat CT Scan 05/24/18 19:[address] WITHOUT CONTRAST [CT] Stat CT Scan 05/24/18 19:20 Ordered CHEST X-RAY PORTABLE* [RAD] Stat Radiology 05/24/18 19:20 Ordered HIP & PELVIS-LEFT [RAD] Stat Radiology 05/24/18 19:20 Ordered Medical Decision Making - Medical Decision Making 05/24/18 19:36 Patient is a 67F with history of HTN, DM, HLD, COPD, stroke with R sided deficit and likely alcohol abuse here today with fall and minor left leg wound. Clinically intoxicated. Cannot clinically r/o head bleed or neck trauma. Lacs will not require repair. Denying tylenol and motrin. Will evaluate with cxr, ekg , hip/pelvis x-ray, ct head and c-spine. EKG shows NSR with no st elevations/depressions. Normal intervals. Normal t waves. Q waves in V1/V2. Similar to prior EKG in 05/21/2018 05/24/18 20:55 CXR clear. Hip/pelvis normal, no foreign body. 05/24/18 21:28 CT head/neck clear. Patient advised to modify drinking habits, believe this is reason for fall. Clinically sober, gait at baseline. *DC/Admit/Observation/Transfer Diagnosis at time of Disposition: Fall - Discharge Dispostion Disposition: HOME Condition at time of disposition: Good Decision to Admit order: No - Referrals Referrals: Elyssa Gates MD [Primary Care Provider] - - Patient Instructions Printed Discharge Instructions: How to Prevent Falls Additional Instructions: Please change your drinking habits, as it is causing you to fall. Please return if you have any new, worsening or concerning symptoms, especially increasing pain, fever, or shortness of breath. - Post Discharge Activity
[2018-05-24 21:24] VITALS: BP 144/70; PULSE 102
--- NOTE | 2018-05-25 09:52 | EKG ---
Test Reason : Blood Pressure : / mmHG Vent. Rate : 081 BPM Atrial Rate : 081 BPM P-R Int : 184 ms QRS Dur : 080 ms QT Int : 388 ms P-R-T Axes : 079 -21 040 degrees QTc Int : 450 ms SINUS RHYTHM WITH BLOCKED PREMATURE ATRIAL COMPLEXES POSSIBLE LEFT ATRIAL ENLARGEMENT SEPTAL INFARCT (CITED ON OR BEFORE 31-MAR-2012) ABNORMAL ECG WHEN COMPARED WITH ECG OF 21-MAY-2018 03:21, PREMATURE ATRIAL COMPLEXES ARE NOW PRESENT Confirmed by MELISSA DASH, HOLLEY ([id number]) on 05/25/2018 9:52:13 AM Referred By: Confirmed By:HOLLEY TORRES MD
== END 2018-05-24 22:10 | disposition home or self-care (01) ==
LOC: JER 18:41
DX: S31.821A Laceration without foreign body of left buttock, initial encounter (principal); W01.110A Fall on same level from slipping, tripping and stumbling with subsequent striking against sharp glass, initial encounter; Y93.89 Activity, other specified; Y92.032 Bedroom in apartment as the place of occurrence of the external cause; Y99.8 Other external cause status; I10 Essential (primary) hypertension; E78.5 Hyperlipidemia, unspecified; E11.9 Type 2 diabetes mellitus without complications; J44.9 Chronic obstructive pulmonary disease, unspecified; F10.10 Alcohol abuse, uncomplicated; F17.210 Nicotine dependence, cigarettes, uncomplicated; Z88.1 Allergy status to other antibiotic agents; Z88.8 Allergy status to other drugs, medicaments and biological substances
CPT/HCPCS: 70450-TC; 71045-TC-FY; 72125-TC; 73523-TC-FY; 93005; 93010; 99282-25

== ENCOUNTER 2018-12-10 15:25 | Emergency (ER) | payer OTHER ==
[2018-12-10 15:37] VITALS: BP 135/76; PULSE 78; TEMP 98.6; BMI 55.3
--- NOTE | 2018-12-10 15:41 | PDOC ---
History of Present Illness - General Chief Complaint: Injury Stated Complaint: FALL Time Seen by Provider: 12/10/18 15:34 History Source: Patient Exam Limitations: No Limitations - History of Present Illness Initial Comments: 12/10/18 15:38 68 yo F h/o CHF COPD htn DM prior CVA with left sided weakness frequent falls, etoh abuse, here today s/p fall /pt reports she was drinking earlier today. tripped while walking to the door. someone was knocking at the door. states her right leg gave out. landed on her right shoulder. was unable to get up after fall and now c/o right shoulder pain. was on floor 15 minutes. has home health aid who comes every day for limited hours . was not there at the time of the fall. pt states she used her life alert button to call ambulance. no n/f no change to ms since fall. happened earlier today. no abd pain. no hip or leg pain. no new back pain. meds cymbalta asa simvastatin lisinopril prednisone amlodipine. inhalers Past History - Past Medical History Allergies/Adverse Reactions: Allergies Allergy/AdvReac Type Severity Reaction Status Date / Time Aminoglycosides Allergy Severe Rash Verified 05/24/18 19:00 potassium clavulanate Allergy Severe Rash Verified 05/24/18 19:00 [From Augmentin] amoxicillin trihydrate Allergy Rash Verified 05/24/18 19:00 [From Augmentin] erythromycin base Allergy Rash Verified 05/24/18 19:00 [Erythromycin Base] gentamicin [Gentamicin] Allergy Rash Verified 05/24/18 19:00 Home Medications: Ambulatory Orders Amlodipine Besylate [Norvasc -] 10 mg PO DAILY 03/20/15 Aspirin [ASA -] 81 mg PO DAILY 03/20/15 Doxepin HCl [Sinequan -] 10 mg PO HS PRN 03/20/15 Fluticasone/Salmeterol [Advair 250-50 Diskus] 1 each IH BID 03/20/15 Lisinopril [Prinivil] 10 mg PO DAILY 03/20/15 Montelukast Na [Singulair -] 10 mg PO HS 03/20/15 Simvastatin [Zocor -] 20 mg PO HS 03/20/15 Ipratropium/Albuterol Sulfate [Combivent Respimat 20-100 Mcg] 2 inh IH Q6H PRN 12/23/15 Naproxen [Naprosyn -] 500 mg PO BID PRN 12/23/15 Potassium Chloride [K-Dur -] 20 meq PO DAILY 12/23/15 Duloxetine HCl [Cymbalta] 60 mg PO DAILY #20 capsule. 12/26/15 Budesonide/Formeterol Fumarate [SYMBICORT 80/4.5mcg -] 1 inh PO DAILY #2 cannister 04/25/18 Carvedilol [Coreg -] 3.125 mg PO BID #60 tablet 04/25/18 Magnesium Oxide [Mag-Ox -] 400 mg PO DAILY #0 tablet 04/25/18 Prednisone 10 mg PO DAILY #10 tablet 04/25/18 Thiamine HCl [Vitamin B1 -] 100 mg PO DAILY #30 tablet 04/25/18 Tiotropium [place] [Spiriva Respimat] 2 puff IH DAILY #2 inhaler 04/25/18 Anemia: No Asthma: Yes Cancer: No Cardiac Disorders: No CVA: Yes COPD: Yes CHF: No Dementia: No Diabetes: Yes GI Disorders: No Disorders: No HTN: Yes Hypercholesterolemia: Yes Kidney Stones: No Liver Disease: No Psychiatric Problems: Yes (alcohol abuse) Seizures: No Thyroid Disease: No - Surgical History Abdominal Surgery: Yes Appendectomy: Yes Cardiac Surgery: No Cholecystectomy: No Lung Surgery: No Neurologic Surgery: No Orthopedic Surgery: No - Reproductive History PID: No - Immunization History Td Vaccination: Yes Immunization Up to Date: Yes - Suicide/Smoking/Psychosocial Hx Smoking Status: Yes Smoking History: Current every day smoker Years of Tobacco Use: 20 Have you smoked in the past 12 months: No Number of Cigarettes Smoked Daily: 10 Cigars Per Day: 0 Information on smoking cessation initiated: Yes 'Breaking Loose' booklet given: 12/23/15 Hx Alcohol Use: Yes Drug/Substance Use Hx: No Substance Use Type: Alcohol Hx Substance Use Treatment: Yes Review of Systems - Review of Systems Constitutional: No: Diaphoresis, Fever HEENTM: No: Eye Pain Respiratory: No: Cough Cardiac (ROS): No: Chest Pain Musculoskeletal: No: Back Pain, Joint Pain All Other Systems: Reviewed and Negative *Physical Exam - Vital Signs Last Vital Signs Temp Pulse Resp BP Pulse Ox 98.6 F 78 20 135/76 96 12/10/18 15:33 12/10/18 15:33 12/10/18 15:33 12/10/18 15:33 12/10/18 15:33 - Physical Exam Comments: 12/10/18 15:40 awake alert lung clear bilat heart rrr no mrg abd soft nt nd ext wwp no edema. no calf tenderness. ext atraumatic. right shoulder mild ttp, from. elbow/ wrist NT fROM. pelvis stable. from. speech clear. ED Treatment Course - RADIOLOGY Radiology Studies Ordered: Category Date Time Status CERVICAL SPINE CT W/O CONTR [CT] Stat CT Scan 12/10/18 15:[address] WITHOUT CONTRAST [CT] Stat CT Scan 12/10/18 15:35 Ordered CHEST - PA [RAD] Stat Radiology 12/10/18 15:35 Ordered SHOULDER-RIGHT [RAD] Stat Radiology 12/10/18 15:35 Ordered Medical Decision Making - Medical Decision Making 12/10/18 15:41 68 yo F with etoh intox here s/p fall . plan ct head, cervical spine xray chest and shoulder. pain control as needed. 12/10/18 16:28 pt refusing to wait for ct scan. would like to go home in a taxi. refusing to have xray. given sandwich. ambulating in ED. has home health aid who comes tomorrow. states she will be able to go inside when she gets there. *DC/Admit/Observation/Transfer Diagnosis at time of Disposition: Fall, Contusion, Shoulder injury - Discharge Dispostion Disposition: HOME Condition at time of disposition: Improved Decision to Admit order: No - Referrals - Patient Instructions Printed Discharge Instructions: How to Prevent Falls, Shoulder Sprain Additional Instructions: you should return for headache, vomiting, worseing pain or any concerns. you should avoid heavy alcohol intake as it may make your tendency to fall greater. you should use a cane when ambulating for support. return for any problems or concerns. - Post Discharge Activity
== END 2018-12-10 16:50 | disposition home or self-care (01) ==
LOC: JER 15:25
DX: S40.011A Contusion of right shoulder, initial encounter (principal); W01.0XXA Fall on same level from slipping, tripping and stumbling without subsequent striking against object, initial encounter; Z91.81 History of falling; Y93.89 Activity, other specified; Y92.038 Other place in apartment as the place of occurrence of the external cause; Y99.8 Other external cause status; F10.120 Alcohol abuse with intoxication, uncomplicated; I11.0 Hypertensive heart disease with heart failure; E11.9 Type 2 diabetes mellitus without complications; J44.9 Chronic obstructive pulmonary disease, unspecified; I69.852 Hemiplegia and hemiparesis following other cerebrovascular disease affecting left dominant side
CPT/HCPCS: 99281-25

== ENCOUNTER 2019-06-15 22:00 | Emergency (ER) | payer OTHER ==
--- NOTE | 2019-06-15 22:24 | PDOC ---
History of Present Illness - General Stated Complaint: FALL Time Seen by Provider: 06/15/19 22:08 Past History - Past Medical History Allergies/Adverse Reactions: Allergies Allergy/AdvReac Type Severity Reaction Status Date / Time Aminoglycosides Allergy Severe Rash Verified 06/15/19 23:36 potassium clavulanate Allergy Severe Rash Verified 06/15/19 23:36 [From Augmentin] amoxicillin trihydrate Allergy Rash Verified 06/15/19 23:36 [From Augmentin] erythromycin base Allergy Rash Verified 06/15/19 23:36 [Erythromycin Base] gentamicin [Gentamicin] Allergy Rash Verified 06/15/19 23:36 Home Medications: Ambulatory Orders Amlodipine Besylate [Norvasc -] 10 mg PO DAILY 03/20/15 Aspirin [ASA -] 81 mg PO DAILY 03/20/15 Doxepin HCl [Sinequan -] 10 mg PO HS PRN 03/20/15 Fluticasone/Salmeterol [Advair 250-50 Diskus] 1 each IH BID 03/20/15 Lisinopril [Prinivil] 10 mg PO DAILY 03/20/15 Montelukast Na [Singulair -] 10 mg PO HS 03/20/15 Simvastatin [Zocor -] 20 mg PO HS 03/20/15 Ipratropium/Albuterol Sulfate [Combivent Respimat 20-100 Mcg] 2 inh IH Q6H PRN 0 12/23/15 Naproxen [Naprosyn -] 500 mg PO BID PRN 12/23/15 Potassium Chloride [K-Dur -] 20 meq PO DAILY 12/23/15 Duloxetine HCl [Cymbalta] 60 mg PO DAILY #20 capsule. 12/26/15 Budesonide/Formeterol Fumarate [SYMBICORT 80/4.5mcg -] 1 inh PO DAILY #2 cannister 04/25/18 Carvedilol [Coreg -] 3.125 mg PO BID #60 tablet 04/25/18 Magnesium Oxide [Mag-Ox -] 400 mg PO DAILY #0 tablet 04/25/18 Prednisone 10 mg PO DAILY #10 tablet 04/25/18 Thiamine HCl [Vitamin B1 -] 100 mg PO DAILY #30 tablet 04/25/18 Tiotropium [place] [Spiriva Respimat] 2 puff IH DAILY #2 inhaler 04/25/18 Anemia: No Asthma: Yes Cancer: No Cardiac Disorders: No CVA: Yes COPD: Yes CHF: No Dementia: No Diabetes: Yes GI Disorders: No Disorders: No HTN: Yes Hypercholesterolemia: Yes Kidney Stones: No Liver Disease: No Psychiatric Problems: Yes (alcohol abuse) Seizures: No Thyroid Disease: No - Surgical History Abdominal Surgery: Yes Appendectomy: Yes Cardiac Surgery: No Cholecystectomy: No Lung Surgery: No Neurologic Surgery: No Orthopedic Surgery: No - Reproductive History PID: No - Immunization History Td Vaccination: Yes Immunization Up to Date: Yes - Psycho Social/Smoking Cessation Hx Smoking Status: Yes Smoking History: Current every day smoker Years of Tobacco Use: 20 Have you smoked in the past 12 months: No Number of Cigarettes Smoked Daily: 20 Cigars Per Day: 0 'Breaking Loose' booklet given: 12/23/15 Hx Alcohol Use: No Drug/Substance Use Hx: No Substance Use Type: Alcohol Hx Substance Use Treatment: Yes ED Treatment Course - LABORATORY CBC & Chemistry Diagram: 06/15/19 23:11 06/15/19 23:11 Medical Decision Making - Medical Decision Making 06/15/19 23:45 HPI: 69yo F hx CHF, COPD, HTN, DM, asthma, prior CVA (2002, residual left sided weakn ess and facial droop, short term memory loss), frequent falls, alcohol abuse, depression, smoking, arthritis, chronic LBP, not on anticoagulation BIBA from home for L shoulder, lower back, and head pain s/p fall/collapse this PM s/p alcohol abuse. Pt denies daily alcohol use or hx withdrawal. Per chart review, hx alcohol abuse. Endorses 3 shots of gin this PM. Denies drug use. Pt lives at home alone. Walks with walker and scooter at baseline. Pt endorses frequent falls and episodes of legs collapsing/folding underneath her since CVA. Tonight pt was standing and suddenly legs collapsed beneath her and she fell backwards hitting the back of her head on the ground. Denies syncope, LOC, prodromal CP or palpitations or lightheadedness or SOB, seizure-like movements, incontinence, tongue-biting. Pt couldn't get up so used life alert to call EMS. Pt has chronic L shoulder and lower back pain, worse since fall. Pt also c/o pounding back of head pain since fall, no pain meds tried. Endorses LUE numbness since 2018 fx L humerus and surgery, unchanged today. Endorses chronic L facial droop with drooling sometimes since CVA. On aspirin. Denies blood thinner use, recent travel, recent illness, sick contacts, hx gallstones, fever, chills, fatigue, dizziness, weakness, vision changes, shortness of breath, cough, chest pain, palpitations, leg swelling, abdominal pain, blood in stool, diarrhea, constipation, nausea, vomiting, dysuria, hematuria, confusion, incontinence, saddle anesthesia, IVDU. ROS: Constitutional: Negative for chills, fever, fatigue, diaphoresis. HENT: Negative for sore throat, rhinorrhea, congestion. Eyes: Negative for visual disturbance. Respiratory: Negative for shortness of breath, cough, and wheezing. Cardiovascular: Negative for chest pain, palpitations, and leg swelling. Gastrointestinal: Negative for abdominal pain, blood in stool, constipation, diarrhea, nausea, and vomiting. Genitourinary: Negative for dysuria, flank pain, and hematuria. Musculoskeletal: Positive for L shoulder and lower back pain. Negative for myalgias and neck pain. Skin: Negative for rash. Neurological: Positive for chronic L-sided weakness and L-sided facial droop, diminished sensation LUE, and back of head pain. Negative for light-headedness, dizziness, vertigo, syncope. Psychiatric/Behavioral: Positive for alcohol use. Negative for behavioral proble ms and confusion. PE: Gen: Alert, NAD, comfortable-appearing, alcohol smell on breath HEENT: PERRL, EOMI, MMM, NCAT. No conjunctival pallor. Sclera are non-icteric. Oropharynx is clear. CV: Regular rate and rhythm. No murmurs, rubs, or gallops. PULM: No resp distress. Good air movement, diffuse b/l insp/exp wheezing and rhonchi. No rales. Coughing. ABD: soft, protuberant, ND, +RUQ TTP, no rebound tenderness or guarding, no CVA tenderness. BACK: Midline l-spine TTP. No TTP of c/t-spine. No step-offs or deformities. MSK: TTP L shoulder with slightly limited ROM. No bony deformities. 2+ pulses in all extremities. NEURO: AAOx4. PERRL. No asterixis. CN 2-12 notable for L-sided facial droop (baseline per pt). 5/5 strength in all extremities. Sensation to light touch int act and equal in LEs. Sensation to light touch intact in UEs but diminished in LUE. No pronator drift. No dysmetria. +bidirectional horizontal nystagmus. EXTREMITIES: No cyanosis. No clubbing. No edema. No calf tenderness. PSYCH: Normal mood and thought pattern. SKIN: Warm and dry. Normal capillary refill. No rashes. No jaundice. MDM: 69yo F hx CHF, COPD, HTN, DM, asthma, prior CVA (2003, residual left sided weakness and facial droop, short term memory loss), frequent falls, alcohol abuse, depression, smoking, arthritis, chronic LBP, not on anticoagulation BIBA from home for L shoulder, lower back, and head pain s/p fall/collapse this PM s/p alcohol abuse. Hemodynamically stable, afebrile, diffuse b/l insp/exp wheezing and rhonchi, RUQ TTP, midline l-spine TTP, no neurologic deficits from baseline. Ddx: most likely mechanical fall 2/2 legs collapse; however, due to leg collapse, alcohol use, and deficits from prior CVA, also consider syncope vs seizure. Etiology of syncope or seizure ddx includes SAH/ICH, stroke (low concern due to lack of focal neuro deficits), ACS/ME, arrhythmia, thyroid pathology, CHF, infection (UTI, PNA), metabolic derangement, anemia, malignancy. Due to fall and pain to L shoulder and l-spine, also consider fractures or dislocations - obtain imaging. Due to RUQ TTP, consider GI pathology including cholelithiasis/cystitis, pancreatitis, gastritis - RUQ US and labs. Due to wheez ing and junky lungs, consider COPD exacerbation, asthma exacerbation, CHF, and PNA. -XR L-spine, chest, pelvis, L shoulder -CTH/c-spine -RUQ US -EKG -CBC,CMP,Coags,T&S,Mg,Phos,Lipase,TSH,Cardiac profile,BNP,Alcohol,UA/UC/UDS -IVF -Pain management: tylenol -Duonebs x3, Mg, Solumedrol -Dispo: pending w/u and reassessment, likely admit COPD exacerbation, fall 2/2 alcohol use 06/15/19 23:51 EKG reviewed: sinus tachycardia, 105bpm, normal axis, normal intervals, QTc 473ms, no TWIs, no ST elevations or depressions Labs reviewed. Notable for K 3.4, Mg 1.6, trop neg, BNP WNL, Lipase WNL, alcohol 255. -K-dur 20 CBC,CMP WBC 6.9 K/mm3 (4.0-10.0) 06/15/19 23:11 RBC 5.21 M/mm3 (3.60-5.2) H 06/15/19 23:11 Hgb 12.5 GM/dL (10.7-15.3) 06/15/19 23:11 Hct 38.9 % (32.4-45.2) D 06/15/19 23:11 MCV 74.7 fl (80-96) L 06/15/19 23:11 MCH 24.0 pg (25.7-33.7) L D 06/15/19 23:11 MCHC 32.1 g/dl (32.0-36.0) 06/15/19 23:11 RDW 21.1 % (11.6-15.6) H 06/15/19 23:11 Plt Count 350 K/MM3 (134-434) D 06/15/19 23:11 MPV 7.7 fl (7.5-11.1) D 06/15/19 23:11 Absolute Neuts (auto) 3.2 K/mm3 (1.5-8.0) 06/15/19 23:11 Neutrophils % 45.7 % (42.8-82.8) D 06/15/19 23:11 Lymphocytes % 37.2 % (8-40) D 06/15/19 23:11 Monocytes % 13.3 % (3.8-10.2) H 06/15/19 23:11 Eosinophils % 0.8 % (0-4.5) 06/15/19 23:11 Basophils % 3.0 % (0-2.0) H 06/15/19 23:11 Nucleated RBC % 0 % (0-0) 06/15/19 23:11 Anisocytosis 2+ 06/15/19 23:11 Microcytosis 2+ 06/15/19 23:11 Macrocytosis 2+ 06/15/19 23:11 Sodium 139 mmol/L (136-145) 06/15/19 23:11 Potassium 3.4 mmol/L (3.5-5.1) L 06/15/19 23:11 Chloride 104 mmol/L (98-107) 06/15/19 23:11 Carbon Dioxide 26 mmol/L (21-32) 06/15/19 23:11 Anion Gap 9 MMOL/L (8-16) 06/15/19 23:11 BUN 9.8 mg/dL (7-18) 06/15/19 23:11 Creatinine 1.0 mg/dL (0.55-1.3) 06/15/19 23:11 Est GFR (CKD-EPI)AfAm 67.51 06/15/19 23:11 Est GFR (CKD-EPI)NonAf 58.25 06/15/19 23:11 Random Glucose 91 mg/dL (74-106) 06/15/19 23:11 Calcium 8.7 mg/dL (8.5-10.1) 06/15/19 23:11 Phosphorus 2.9 mg/dL (2.5-4.9) 06/15/19 23:11 Magnesium 1.6 mg/dL (1.8-2.4) L 06/15/19 23:11 Total Bilirubin 0.1 mg/dL (0.2-1) L 06/15/19 23:11 AST 34 U/L (15-37) 06/15/19 23:11 ALT 22 U/L (13-61) 06/15/19 23:11 Alkaline Phosphatase 167 U/L (45-117) H 06/15/19 23:11 Creatine Kinase 141 U/L (26-192) 06/15/19 23:11 Troponin I < 0.02 ng/ml (0.00-0.05) 06/15/19 23:11 B-Natriuretic Peptide 57.5 pg/ml (5-125) 06/15/19 23:11 Total Protein 8.4 g/dl (6.4-8.2) H 06/15/19 23:11 Albumin 3.4 g/dl (3.4-5.0) 06/15/19 23:11 Lipase 181 U/L (73-393) 06/15/19 23:11 TSH 0.37 uIU/ml (0.358-3.74) 06/15/19 23:11 06/16/19 00:17 RUQ US reviewed with attending: consistent with acute cholecystitis -Daphnie Conde -IVF 06/16/19 00:27 Pt signed out to Dr Farris and night team. Pending US read, XRs, CTs, and urine, admit med surg. Consider GI consult for possible acute cholecystitis. Discharge - Discharge Information Problems reviewed: Yes Clinical Impression/Diagnosis: Alcohol dependence, COPD exacerbation, Alcohol intoxication, Fall, Acute cholecystitis due to biliary calculus Condition: Stable - Admission Yes - Follow up/Referral Referrals: Funmilayo Ruiz NP [Primary Care Provider] - - Patient Discharge Instructions - Post Discharge Activity
[2019-06-15] MEDS ORDERED: ACETAMINOPHEN 1000 MG/100 ML VIAL (NON FORMULARY) IVPB ONE (22:25)
--- NOTE | 2019-06-15 22:54 | PDOC ---
Documentation entered by Bertrand Young SCRIBE, acting as scribe for Bailey Brewster DO. Bailey Brewster DO: This documentation has been prepared by the Hector leon Daniel, SCRIBE, under my direction and personally reviewed by me in its entirety. I confirm that the documentation accurately reflects all work, treatment, procedures, and medical decision making performed by me. Attending Attestation - Resident Resident Name: AmiraamadorLeslee - ED Attending Attestation I have performed the following: I have examined & evaluated the patient, The case was reviewed & discussed with the resident, I agree w/resident's findings & plan, Exceptions are as noted - HPI HPI: 06/15/19 22:38 The patient is a 69 year old female with a past medical history of diabetes, HTN, CVA (2002 with residual short term memory loss, right greater than left extremity weakness, left facial droop), asthma, COPD, chronic lower back pain, depression, OA, and left shoulder surgery here today for evaluation s/p fall. The patient reports that she drank 3 shots of gin tonight and was walking without her walker when her legs gave out and she fell. Patient notes that her legs have been giving out since her CVA. She states that she hit the back of her head, denies any loss of consciousness, and states that she couldnt stand after the fall. She currently notes back of head pain, back pain, and left shoulder pain. Patient denies headache, lightheadedness. Denies fever, chills. Denies chest pain, shortness of breath. Denies nausea, vomiting, diarrhea, abdominal pain. Allergies: aminoglycosides, potassium clavulanate, amoxicillin trihydrate, erythromycin base, gentamicin - Physicial Exam PE: 06/15/19 22:48 Constitutional: +smell of alcohol on breath. Awake, alert, oriented. No acute distress. Head: Normocephalic. Atraumatic Eyes: +exophthalmos. PERRL. EOMI. Conjunctivae are not pale. ENT: Mucous membranes are moist and intact. Posterior pharynx without exudates or erythema. Uvula midline. Neck: Supple. Full ROM. No lymphadenopathy. Cardiovascular: Regular rate. Regular rhythm. S1, S2 regular. Distal pulses are 2+ and symmetric. Pulmonary/Chest: +coarse, rhonchorous, wheezes bilaterally. No evidence of respiratory distress. No rales. Abdominal: Soft and non-distended. There is no tenderness. No rebound, guarding or rigidity. No organomegaly. No palpable masses. Good bowel sounds. Back: +midline and paraspinal L spine tenderness. No CVA tenderness. Musculoskeletal: +left shoulder tenderness. Pelvis stable. No edema. No cyanosis. No clubbing. Full range of motion in all extremities. No calf tenderness. Radial/pedal pulses are intact and 2+ bilaterally Skin: Skin is warm and dry. No petechiae. No purpura. Neurological: +left sided facial droop. Alert and oriented to person, place, and time. Cranial nerves II-XII are grossly intact. Normal speech. Strength is grossly symmetric. No sensory deficits. Psychiatric: Good eye contact. Normal interaction, affect and behavior. - Medical Decision Making 06/15/19 22:51 I, Dr. Bailey Brewster, DO, attest that this document has been prepared under my direction and personally reviewed by me in its entirety. I further attest, that it accurately reflects all work, treatment, procedures and medical decision-making performed by me. a/p: 69yo female with a mechanical fall at home -pt states she was walking with her rolling walker when she had a mechanical fall at home -fell backwards and hit her head - denies loc -pt admits to etoh abuse tonight -pt with L shoulder pain and LBP - will send for xrays, ct head/c spine, will send labs -wheezing/coarse bs on exam -will give nebs -will monitor and reassess 06/15/19 23:37 no elevated wbc cbc reviewed 06/15/19 23:51 ekg is unchanged from prior 06/16/19 00:02 pt with copd exacerbation will add mag replacement will add steroids etoh 254 will replace k 06/16/19 00:16 pt with RUQ pain ultrasound ordered 06/16/19 01:04 Abdomen US: FINDINGS: Non-mobile gallstone in the gallbladder neck noted measuring 1.9 cm x 1.2 cm x 1.5 cm. There is also sludge in the gallbladder. The gallbladder wall is thickened up to 5.1 mm. Therefore, in the appropriate clinical setting, cholecystitis should be considered. Normal common bile duct measuring 5.6 mm in diameter. Liver upper limits of normal size. No right hydronephrosis. No right upper quadrant free fluid. 06/16/19 01:06 pt with acute scot on ultrasound, stone, gb wall thickening 06/16/19 01:10 CT C-spine: FINDINGS: Negative for cervical spine fracture or malalignment. Degenerative changes. CT head: FINDINGS: No acute intracranial abnormality. No hemorrhage. Osseous structures are intact 06/16/19 01:32 discussed ultrasound imaging- pt currently denies abd pain. no n/v/d. pt states she does not want surgery, does not want any "more cuts on my skin". pt is aaox3. pt ambulates in the er pt without slurred speech Pt declines xrays of her back or chest only wanted head ct and shoulder xray pt states she wants to go home and wants to sign out AMA states she understands all risks discussed copd, discussed electrolytes, discussed acute scot findings discussed risks of sepsis, pt states she doesnt want to stay, states she wants to sign out AMA states she wants to call a cab and go home Note: The patient insists on leaving the emergency dept and is signing out against medical advice. The patient understands the risks and complications that may result from the refusal of medical care and admission which includes and permanent disability. The patient has the mental capacity of understanding the risks of refusing care and is capable of making an informed decision. The patient was instructed to return to the emergency department should she change her mind regarding medical care or should her condition worsen. The patient signed the Against Medical Advice form. Heart Score/ECG Review - ECG Intrepretation Comment:: 06/15/19 23:49 sinus tach at 105, nl axis, nl interval, no acute st/t wave findings, q waves anteriorly which are age indeterminate
[2019-06-15] MEDS ORDERED: ACETAMINOPHEN INJECTION 100 ML IVPB ONE (22:57)
[2019-06-15] MEDS ORDERED: ALBUTEROL SO4 2.5/IPRATROPIUM 0.5 INH SOL 3 ML VIAL.NEB. NEB ONE (22:57)
[2019-06-15] MEDS: ALBUTEROL SO4 2.5/IPRATROPIUM 0.5 INH SOL 3 ML VIAL.NEB. NEB SCH (23:07)
[2019-06-15 23:18] LABS: EOS % 0.8 % (0-4.5); HEMATOCRIT 38.9 % (32.4-45.2); HEMOGLOBIN 12.5 GM/dL (10.7-15.3); LYMPH % 37.2 % (8-40); MCHC 32.1 g/dl (32.0-36.0); MEAN CELL VOLUME 74.7 fl (80-96); MEAN PLT VOLUME 7.7 fl (7.5-11.1); MONO % 13.3 % (3.8-10.2); NEUT % 45.7 % (42.8-82.8); PLATELET COUNT 350 K/MM3 (134-434); RBC 5.21 M/mm3 (3.60-5.2); RDW 21.1 % (11.6-15.6); WHITE BLOOD COUNT 6.9 K/mm3 (4.0-10.0)
[2019-06-15 23:20] LABS: ANISOCYTOSIS 2+; MACROCYTOSIS 2+
[2019-06-15 23:33] LABS: INR 0.89 (0.83-1.09); PROTHROMBIN TIME (PATIENT) 10.5 SEC (9.7-13.0)
[2019-06-15 23:34] VITALS: BP 147/82; PULSE 98; TEMP 99.4; BMI 24.0
[2019-06-15 23:35] LABS: ACTIVATED PTT 37.7 SECONDS (25.2-36.5)
[2019-06-15 23:54] LABS: ALBUMIN 3.4 g/dl (3.4-5.0); ALK PHOS 167 U/L (45-117); ANION GAP 9 MMOL/L (8-16); BILIRUBIN,TOTAL 0.1 mg/dL (0.2-1); BLOOD UREA NITROGEN 9.8 mg/dL (7-18); CALCIUM 8.7 mg/dL (8.5-10.1); CHLORIDE 104 mmol/L (98-107); CO2 26 mmol/L (21-32); GLUCOSE,RANDOM 91 mg/dL (74-106); LIPASE 181 U/L (73-393); MAGNESIUM 1.6 mg/dL (1.8-2.4); N-TERMINAL BNP 57.5 pg/ml (5-125); PHOSPHOROUS 2.9 mg/dL (2.5-4.9); POTASSIUM 3.4 mmol/L (3.5-5.1); SGOT/AST 34 U/L (15-37); SGPT/ALT 22 U/L (13-61); SODIUM 139 mmol/L (136-145); TOT PROT 8.4 g/dl (6.4-8.2)
[2019-06-16] MEDS ORDERED: POTASSIUM CHLORIDE TABS 20 MEQ TABLET.ER (FP) PO ONE ×2 (00:02→01:47)
[2019-06-16] MEDS ORDERED: MAGNESIUM SULF 50% (8.12 MEQ/2 ML-1 GM VIAL) IVPB ONE (00:02)
[2019-06-16] MEDS ORDERED: methylPREDNISolone NA SUCC 125 MG/2 ML VIAL IVPB ONE (00:02)
[2019-06-16] MEDS ORDERED: SODIUM CHLORIDE 0.9% 500 ML INFUS.BAG IV ONE (00:16)
[2019-06-16] MEDS ORDERED: CIPROFLOXACIN 400 MG/D5W 400 MG/200 ML IVPB IVPB ONE (00:17)
--- NOTE | 2019-06-16 00:52 | PDOC ---
*Physical Exam - Vital Signs Last Vital Signs Temp Pulse Resp BP Pulse Ox 99.4 F 98 H 18 147/82 100 06/15/19 23:24 06/15/19 23:24 06/15/19 23:24 06/15/19 23:24 06/15/19 23:24 ED Treatment Course - LABORATORY CBC & Chemistry Diagram: 06/15/19 23:11 06/15/19 23:11 - ADDITIONAL ORDERS Additional order review: Laboratory Results 06/15/19 06/15/19 06/15/19 23:11 23:11 23:11 PT with INR 10.50 INR 0.89 PTT (Actin FS) 37.7 H Sodium 139 Potassium 3.4 L Chloride 104 Carbon Dioxide 26 Anion Gap 9 BUN 9.8 Creatinine 1.0 Est GFR (CKD-EPI)AfAm 67.51 Est GFR (CKD-EPI)NonAf 58.25 Random Glucose 91 Calcium 8.7 Phosphorus 2.9 Magnesium 1.6 L Total Bilirubin 0.1 L AST 34 ALT 22 Alkaline Phosphatase 167 H Creatine Kinase 141 Troponin I < 0.02 B-Natriuretic Peptide 57.5 Total Protein 8.4 H Albumin 3.4 Lipase 181 TSH 0.37 Alcohol, Quantitative 254.8 H Blood Type O POSITIVE Antibody Screen Negative 06/15/19 23:11 RBC 5.21 H MCV 74.7 L MCHC 32.1 RDW 21.1 H MPV 7.7 D Neutrophils % 45.7 D Lymphocytes % 37.2 D Monocytes % 13.3 H Eosinophils % 0.8 Basophils % 3.0 H - RADIOLOGY Radiograph Interpretation: THIS IS A PRELIMINARY REPORT FROM [facility] DATE OF SERVICE: 2019-06-15 23:50:43 EXAM: ABDOMEN US -LIMITED FINDINGS: Non-mobile gallstone in the gallbladder neck noted measuring 1.9 cm x 1.2 cm x 1.5 cm. There is also sludge in the gallbladder. The gallbladder wall is thickened up to 5.1 mm. Therefore, in the appropriate clinical setting, cholecystitis should be considered. Normal common bile duct measuring 5.6 mm in diameter. Liver upper limits of normal size. No right hydronephrosis. No right upper quadrant free fluid. 06/16/19 01:07 THIS IS A PRELIMINARY REPORT FROM [facility] DATE OF SERVICE: 2019-06-16 00:27:18 EXAM: HEAD CT WITHOUT CONTRAST FINDINGS: No acute intracranial abnormality. No hemorrhage. Osseous structures are intact 06/16/19 01:08 THIS IS A PRELIMINARY REPORT FROM [facility] DATE OF SERVICE: 2019-06-16 00:23:32 IMAGES: [id number] EXAM: CERVICAL SPINE CT W/O CONTR HISTORY: Fall with head injury COMPARISON: None. FINDINGS: Negative for cervical spine fracture or malalignment. Degenerative changes. 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 06/16/19 00:52 Plan for admission for acute cholecysitis and COPD exacerbation The pt does not want to stay for further evaluation Pt is clinically sober at this time. She is oriented to person, place, and time She is ambulating in the ED The risk of leaving, including infection/sepsis, worsening of her condition, and were expressed to the pt who verbalized understanding. AMA form singed 06/16/19 01:34 Discharge - Discharge Information Problems reviewed: Yes Clinical Impression/Diagnosis: COPD exacerbation, Acute cholecystitis due to biliary calculus Alcohol dependence Qualifiers: Substance use status: unspecified alcohol-induced disorder Qualified Code(s): F10.29 - Alcohol dependence with unspecified alcohol-induced disorder Alcohol intoxication Qualifiers: Complication of substance-induced condition: with unspecified complication Qualified Code(s): F10.929 - Alcohol use, unspecified with intoxication, unspecified Fall Qualifiers: Encounter type: initial encounter Qualified Code(s): W19.XXXA - Unspecified fall, initial encounter Condition: Stable Disposition: AGAINST MEDICAL ADVICE - Admission No - Follow up/Referral Referrals: Funmilayo Ruiz NP [Primary Care Provider] - - Patient Discharge Instructions Patient Printed Discharge Instructions: DI for Cholecystitis, DI for Chronic Obstructive Pulmonary Disease Additional Instructions: You were seen in the Emergency Department for evaluation after a fall. Your were found to have evidence of a COPD exacerbation and acute cholecystitis. If you develop fevers, chills, abdominal pain, vomiting, trouble breathing, chest pain, inability to tolerate foods/drink, diarrhea, worsening symptoms, or any new/concerning symptoms return to the Emergency Department. Follow up with your primary care provider within the week. Continue to take your medications as prescribed. - Post Discharge Activity
[2019-06-16] MEDS: ALBUTEROL SO4 2.5/IPRATROPIUM 0.5 INH SOL 3 ML VIAL.NEB. NEB SCH ×2 (01:43)
[2019-06-16] MEDS ORDERED: methylPREDNISolone NA SUCC 125 MG/2 ML VIAL ONE ×2 (01:47→01:49)
--- NOTE | 2019-06-16 11:09 | EKG ---
Test Reason : Blood Pressure : / mmHG Vent. Rate : 105 BPM Atrial Rate : 105 BPM P-R Int : 168 ms QRS Dur : 076 ms QT Int : 358 ms P-R-T Axes : 069 -02 052 degrees QTc Int : 473 ms SINUS TACHYCARDIA POSSIBLE LEFT ATRIAL ENLARGEMENT ANTEROSEPTAL INFARCT (CITED ON OR BEFORE 31-MAR-2012) ABNORMAL ECG Confirmed by GUEVARA MCCLELLAN MD ([id number]) on 06/16/2019 11:09:05 AM Referred By: Confirmed By:GUEVARA MCCLELLAN MD
== END 2019-06-16 02:22 | disposition left against medical advice (07) ==
LOC: JER 22:00
PROC: 3E0F7GC Introduction of Other Therapeutic Substance into Respiratory Tract, Via Natural or Artificial Opening (ICD-10-PCS; principal; 2019-06-15)
PROC: 3E0333Z Introduction of Anti-inflammatory into Peripheral Vein, Percutaneous Approach (ICD-10-PCS; 2019-06-15)
PROC: 3E033NZ Introduction of Analgesics, Hypnotics, Sedatives into Peripheral Vein, Percutaneous Approach (ICD-10-PCS; 2019-06-15)
DX: S09.8XXA Other specified injuries of head, initial encounter (principal); J44.1 Chronic obstructive pulmonary disease with (acute) exacerbation; K80.00 Calculus of gallbladder with acute cholecystitis without obstruction; R11.10 Vomiting, unspecified; F10.920 Alcohol use, unspecified with intoxication, uncomplicated; I11.0 Hypertensive heart disease with heart failure; I50.9 Heart failure, unspecified; E11.9 Type 2 diabetes mellitus without complications; J45.998 Other asthma; E87.6 Hypokalemia; E78.00 Pure hypercholesterolemia, unspecified; M12.9 Arthropathy, unspecified; F32.9 Major depressive disorder, single episode, unspecified; F17.210 Nicotine dependence, cigarettes, uncomplicated; Z99.89 Dependence on other enabling machines and devices; I69.892 Facial weakness following other cerebrovascular disease; I69.811 Memory deficit following other cerebrovascular disease; I69.854 Hemiplegia and hemiparesis following other cerebrovascular disease affecting left non-dominant side; W19.XXXA Unspecified fall, initial encounter; Y93.89 Activity, other specified; Y92.89 Other specified places as the place of occurrence of the external cause; Y99.8 Other external cause status; Z88.1 Allergy status to other antibiotic agents; Z88.8 Allergy status to other drugs, medicaments and biological substances
CPT/HCPCS: 36415; 70450-TC; 71046-TC-FY; 72125-TC; 73030-TC-LT-FY; 76705-TC; 80053; 80307; 82550; 83690; 83735; 83880; 84100; 84443; 84484; 85025; 85610; 85730; 86850; 86900; 86901; 93005; 93010; 94640; 96365; 96375; 99285-25; J0131

== ENCOUNTER 2019-12-18 11:56 | Inpatient (IN) | payer OTHER ==
--- NOTE | 2019-12-18 12:18 | PDOC ---
History of Present Illness - General Chief Complaint: Weakness Stated Complaint: VOMITING/DIRRHEA Time Seen by Provider: 12/18/19 12:16 - History of Present Illness Initial Comments: 12/18/19 12:17 HPI: This is a 69 y/o female with a PMH of HTN, DM, COPD, and asthma presenting to the ED due to progressive weakness over the past few days as well as the development of a productive cough. She has had a few days of non-bloody diarrhea as well as nausea and episodes of NBNB emesis. The diarrhea and vomiting stopped as of today, but she is complaining of weakness, headache, and nausea. The patient lives at home and has help from an aid due to baseline weakness, however she reports it worsened and she can no longer ambulate with a walker. She has decreased appetite at baseline, but has not been able to keep food the past few days. Patient denies sick contacts or recent travel. She admits to new cough with sputum production. ADULT ROS Constitutional - Pt denies Fever, Chills. Admits to weakness HEENT: denies sore throat Respiratory: Admits to new cough with sputum production, Denies sob, hemoptysis Cardiac: denies chest pain, palpitations Abd/GI: denies abd pain, Admits to nausea, vomiting and diarrhea : denies dysuria, frequency Musculskelatal - Denies muscle aches skin - denies bruising, erythema, rash neurological: Admits to headache and global weakness. Denies numbness, focal weakness PMH: HTN, COPD, DM, Prior CVA, asthma PSx: Denied Social Hx: Former etoh and tobacco Meds: See nurse note Allergies: Denied any allergies to medications or food ADULT Physical ExaM GENERAL: The patient is awake, alert, and fully oriented, Nontoxic - in no acute distress. HEAD: Normocephalic, atraumatic. EYES: extraocular movements intact, conjunctiva clear. ENT: Normal voice, Moist mucous membranes. NECK: Normal range of motion, supple without lymphadenopathy, JVD, or masses. LUNGS: Breath sounds with diffuse inspiratory and expiratory wheezing throughout. Reduced air movement. Tachypneic. HEART: Tachycardic. Regular rhythm, normal S1 and S2 without murmur, rub or gallop. ABDOMEN: Soft, nontender, normoactive bowel sounds. No guarding, no rebound. No masses. EXTREMITIES: Normal range of motion, no edema. Calves non-tender to palpation. NEUROLOGICAL: No facial asymmetry, Normal speech PSYCH: Normal mood, normal affect. SKIN: Warm, Dry, normal turgor 12/18/19 13:00 MDM: This is a 69 y/o female with a PMH of HTN, DM, COPD, and asthma presenting to the ED due to progressive weakness over the past few days as well as the development of a productive cough. - weakness at baseline, however worsened over the past week. - Patient is non-toxic appearing. Diffuse bilateral inspiratory and expiratory wheezing with reduced air movement. - Patient is tachycardic at 116 ddx: COPD/Asthma exacerbation, PNA, Covid, sepsis, PE - CXR, EKG - CBC, CMP, Covid - Zofran for nausea, naproxen for headache - Fluids because tachycardic 12/18/19 13:38 CXR: Single view of the chest has been submitted. Since 07/18/2019 the patient has developed a right mid and lower lung infiltrate with fluid. There are increased right upper lobe markings as well. The left lung is clear. There is a prominent mediastinum. The bones and soft tissues are intact her Impression: Right infiltrate with fluid. Correlation recommended. 12/18/19 14:10 - Patient febrile at 101 on rectal - Leukocytosis at 25k - Will cover with azithromycin, ceftriaxone for presumed Community acquired PNA. Spoke with patient who denied allergies to any medications. - Added blood cultures, lactic, PT/PTT, ferritin, CRP - Pt likely needs admit for PNA vs Covid 12/18/19 14:53 Notable labs: - Ferritin 895.6 - CRP 34 - Alkphos 173, AST 105 - Na 131, Cl 93, Ca 7.6 - Dimer 4044 - Patient likely has COVID with possible concomitant infection - Will give prophylactic lovenox 12/18/19 15:11 - Patient admitted Past History - Medical History Allergies/Adverse Reactions: Allergies Allergy/AdvReac Type Severity Reaction Status Date / Time Aminoglycosides Allergy Severe Rash Verified 06/15/19 23:36 potassium clavulanate Allergy Severe Rash Verified 06/15/19 23:36 [From Augmentin] amoxicillin trihydrate Allergy Rash Verified 06/15/19 23:36 [From Augmentin] erythromycin base Allergy Rash Verified 03/05/20 23:36 [Erythromycin Base] gentamicin [Gentamicin] Allergy Rash Verified 06/15/19 23:36 Home Medications: Ambulatory Orders Acetaminophen [Tylenol .Regular Strength -] 650 mg PO Q6H PRN tablet 07/20/19 Albuterol Sulfate Inhaler - [Ventolin HFA Inhaler -] 2 puff IH Q4H PRN #1 inhaler 07/20/19 Amlodipine Besylate [Norvasc -] 10 mg PO DAILY tablet 07/20/19 Atorvastatin Ca [Lipitor] 10 mg PO HS tablet 07/20/19 Carvedilol [Coreg -] 3.125 mg PO BID tablet 07/20/19 Doxycycline Hyclate [Vibramycin -] 100 mg PO BID@1000,1800 #11 capsule 07/20/19 Duloxetine HCl [Cymbalta -] 60 mg PO DAILY capsule. 07/20/19 Lisinopril [Prinivil] 10 mg PO DAILY tablet 07/20/19 Magnesium Oxide 400 mg PO BID #6 tablet 07/20/19 Melatonin 5 mg PO HS tab 07/20/19 Montelukast Na [Singulair -] 10 mg PO HS tablet 07/20/19 Pantoprazole Sodium [Protonix -] 40 mg PO DAILY tablet.ec 07/20/19 Salmeterol/Fluticasone [Advair 100Mcg/50Mcg -] 1 puff IH BID inhaler 07/20/19 Anemia: No Asthma: Yes Cancer: No Cardiac Disorders: No CVA: Yes COPD: Yes CHF: No Dementia: No Diabetes: Yes GI Disorders: No Disorders: No HTN: Yes Hypercholesterolemia: Yes Kidney Stones: No Liver Disease: No Psychiatric Problems: Yes (alcohol abuse) Seizures: No Thyroid Disease: No - Surgical History Abdominal Surgery: Yes Appendectomy: Yes Cardiac Surgery: No Cholecystectomy: No Lung Surgery: No Neurologic Surgery: No Orthopedic Surgery: No - Reproductive History PID: No - Immunization History Td Vaccination: Yes Immunization Up to Date: Yes - Psycho-Social/Smoking History Smoking Status: Yes Smoking History: Former smoker Years of Tobacco Use: 20 Have you smoked in the past 12 months: No Number of Cigarettes Smoked Daily: 20 Cigars Per Day: 0 Information on smoking cessation initiated: No 'Breaking Loose' booklet given: 12/23/15 - Substance Abuse Hx (Audit-C & DAST Scrn) How often the patient has a drink containing alcohol: Never Score: In Men: 4 or > Positive; In Women: 3 or > Positive: 0 Screen Result (Pos requires Nsg. Audit-10AR): Negative *Physical Exam - Vital Signs Last Vital Signs Temp Pulse Resp BP Pulse Ox 99 F 116 H 22 H 123/72 96 12/18/19 12:00 12/18/19 12:00 12/18/19 12:00 12/18/19 12:00 12/18/19 12:00 ED Treatment Course - LABORATORY CBC & Chemistry Diagram: 12/18/19 13:37 12/18/19 13:37 Discharge - Discharge Information Problems reviewed: Yes Clinical Impression/Diagnosis: COPD (chronic obstructive pulmonary disease) Qualifiers: COPD type: unspecified COPD Qualified Code(s): J44.9 - Chronic obstructive pul monary disease, unspecified Pneumonia Qualifiers: Pneumonia type: due to unspecified organism Laterality: right Lung location: unspecified part of lung Qualified Code(s): J18.9 - Pneumonia, unspecified organism - Admission Yes - Follow up/Referral - Patient Discharge Instructions - Post Discharge Activity
[2019-12-18] MEDS ORDERED: NAPROXEN 250 MG TABLET PO ONE (12:24)
[2019-12-18] MEDS ORDERED: NAPROXEN 500 MG TABLET ONE (12:27)
[2019-12-18] MEDS ORDERED: ONDANSETRON 4 MG/2 ML VIAL IVPB ONE (12:53)
[2019-12-18] MEDS ORDERED: ALBUTEROL SO4 HFA INHALER IH ONE ×2 (12:53→13:07)
[2019-12-18] MEDS ORDERED: methylPREDNISolone NA SUCC 125 MG/2 ML VIAL IVPUSH ONE (12:53)
[2019-12-18] MEDS ORDERED: LACTATED RINGERS SOLUTION 1000 ML INFUS.BAG IV ONE (12:56)
[2019-12-18] MEDS ORDERED: ONDANSETRON *ODT* 4 MG TABLET ONE (13:07)
--- NOTE | 2019-12-18 13:41 | PDOC ---
Documentation entered by Ahsan Machado SCRIBE, acting as scribe for Leslee Grant MD. Leslee Grant MD: This documentation has been prepared by the scribe, Ahsan Machado SCRIBE, under my direction and personally reviewed by me in its entirety. I confirm that the documentation accurately reflects all work, treatment, procedures, and medical decision making performed by me. Attending Attestation - Resident Resident Name: Marily Whitman - ED Attending Attestation I have performed the following: I have examined & evaluated the patient, The case was reviewed & discussed with the resident, I agree w/resident's findings & plan, Exceptions are as noted - HPI HPI: The patient is a 69 year old female with a significant past medical history of CVA (2003 with residual short term memory loss, right greater than left extremity weakness, left facial droop), asthma, COPD, DM, HTN, chronic lower back pain, OA, and depression who presents to the emergency department, [facility], for evaluation of worsening weakness over the past few days compared to her baseline weakness. The patient reports nausea and resolved nonbloody diarrhea, NBNB vomiting over the past couple of days. Per patients aide at bedside the patient at baseline does not eat or drink much. The patients aide reports she helps the patient ambulate and take care of herself. The patient endorses using a walker to ambulate at baseline. Allergies: aminoglycosides, potassium clavulanate, amoxicillin trihydrate, erythromycin base, gentamicin Social Hx: Prior alcohol abuse Surgical Hx: left shoulder surgery PCP: Dr. Ruiz - Physicial Exam PE: GENERAL: Awake, alert, and fully oriented, in no acute distress HEAD: No signs of trauma EYES: PERRLA, EOMI, sclera anicteric, conjunctiva clear ENT: Auricles normal inspection, hearing grossly normal, nares patent, oropharynx clear without exudates. Moist mucosa NECK: Normal ROM, supple, no lymphadenopathy, JVD, or masses LUNGS: Dec air entry B/L, +diffuse wheezes B/L, +tachypnea HEART: Tachycardic with regular rhythm, normal S1 and S2, no murmurs, rubs or gallops ABDOMEN: Soft, nontender, normoactive bowel sounds. No guarding, no rebound. No masses EXTREMITIES: Normal range of motion, no edema. No clubbing or cyanosis. No cords, erythema, or tenderness NEUROLOGICAL: Cranial nerves II through XII grossly intact. Normal speech. Motor and sensation intact SKIN: Warm, Dry, normal turgor, no rashes or lesions noted. - Medical Decision Making Pt with asthma/COPD exacerbation, possible COVID based on symptoms- GI symptoms associated with SOB. Await labs, CXR. Anticipate admission as she is desatting below her baseline. Discharge - Discharge Information Problems reviewed: Yes Clinical Impression/Diagnosis: COPD (chronic obstructive pulmonary disease) Qualifiers: COPD type: unspecified COPD Qualified Code(s): J44.9 - Chronic obstructive pulmonary disease, unspecified - Follow up/Referral Referrals: Funmilayo Ruiz NP [Primary Care Provider] - - Patient Discharge Instructions - Post Discharge Activity
[2019-12-18 13:51] LABS: BASO % 0.2 % (0-2.0); HEMATOCRIT 38.1 % (32.4-45.2); HEMOGLOBIN 12.4 GM/dL (10.7-15.3); LYMPH % 3.3 % (8-40); MCH 25.5 pg (25.7-33.7); MCHC 32.6 g/dl (32.0-36.0); MEAN CELL VOLUME 78.2 fl (80-96); MONO % 3.9 % (3.8-10.2); NEUT % 92.6 % (42.8-82.8); PLATELET COUNT 317 K/MM3 (134-434); RBC 4.87 M/mm3 (3.60-5.2); RDW 20.9 % (11.6-15.6)
[2019-12-18] MEDS ORDERED: AZITHROMYCIN IVPB 500 MG in DEXTROSE 5%-WATER - 250 ML IVPB ONE (13:59)
[2019-12-18] MEDS ORDERED: ACETAMINOPHEN 1000 MG/100 ML VIAL (NON FORMULARY) IVPB ONE (14:03)
[2019-12-18] MEDS ORDERED: ACETAMINOPHEN INJECTION 100 ML IVPB ONE (14:13)
[2019-12-18] MEDS ORDERED: AZITHROMYCIN IVPB 500 MG/250 ML BAG IVPB ONE (14:13)
[2019-12-18 14:23] LABS: INR 1.02 (0.83-1.09)
[2019-12-18 14:26] LABS: ACTIVATED PTT 33.5 SECONDS (25.2-36.5)
[2019-12-18 14:27] LABS: ALBUMIN 1.9 g/dl (3.4-5.0); ALK PHOS 173 U/L (45-117); ANION GAP 14 MMOL/L (8-16); BILIRUBIN,TOTAL 0.4 mg/dL (0.2-1); BLOOD UREA NITROGEN 27.4 mg/dL (7-18); CALCIUM 7.6 mg/dL (8.5-10.1); CHLORIDE 93 mmol/L (98-107); CO2 24 mmol/L (21-32); CREATININE 1.1 mg/dL (0.55-1.3); GLUCOSE,RANDOM 81 mg/dL (74-106); SGOT/AST 105 U/L (15-37); SGPT/ALT 25 U/L (13-61); SODIUM 131 mmol/L (136-145); TOT PROT 6.3 g/dl (6.4-8.2)
[2019-12-18] MEDS ORDERED: ENOXAPARIN NA (PORCINE) 60 MG/0.6 ML DISP.SYRIN SQ SCH (15:00)
[2019-12-18] MEDS ORDERED: CEFTRIAXONE 1 GM/50 ML BAG ONE (15:29)
[2019-12-18] MEDS ORDERED: methylPREDNISolone NA SUCC 125 MG/2 ML VIAL ONE (15:29)
[2019-12-18] MEDS ORDERED: ENOXAPARIN NA (PORCINE) 80 MG/0.8 ML DISP.SYRIN SQ ONE (15:33)
[2019-12-18 15:34] LABS: ANISOCYTOSIS 2+; MACROCYTOSIS 1+; PLATELET ESTIMATE NORMAL
[2019-12-18 16:17] LABS: URINE APPEARANCE CLOUDY; URINE BILIRUBIN 1+ (NEGATIVE); URINE COLOR DK YELLOW; URINE GLUCOSE (UA) NEGATIVE (NEGATIVE); URINE KETONE TRACE (NEGATIVE); URINE LEUK ESTERASE NEGATIVE (NEGATIVE); URINE NITRITE NEGATIVE (NEGATIVE); URINE PROTEIN TRACE (NEGATIVE)
[2019-12-18] MEDS ORDERED: ACETAMINOPHEN 1000 MG/100 ML VIAL (NON FORMULARY) IVPB PRN (16:32)
--- NOTE | 2019-12-18 17:44 | HP ---
CHIEF COMPLAINT: SOB/cough/COVID symptoms HISTORY OF PRESENT ILLNESS:. 69 F h/o ALCOHOL ABUSE HX, HTN, T2DM, CVA, COPD/Asthma recently admitted for PNA, presents with worsening cough, SOB, fever and chills. Patient endorses her 28 year old "sister" is at home with her who's also sick w/ similar symptoms. In ED pt. hypoxic low 90s improved w/ NC O2 @3L to 96-97%. Cytokines markedly elevated, CXR shows R infiltration. COVID highly suspected. Swab pending. Recent Travel: denies PAST MEDICAL HISTORY: as above PAST SURGICAL HISTORY: denies Social History: former etoh/smoking Allergies Aminoglycosides Allergy (Severe, Verified 06/15/19 23:36) Rash potassium clavulanate [From Augmentin] Allergy (Severe, Verified 06/15/19 23:36) Rash amoxicillin trihydrate [From Augmentin] Allergy (Verified 06/15/19 23:36) Rash erythromycin base [Erythromycin Base] Allergy (Verified 06/15/19 23:36) Rash gentamicin [Gentamicin] Allergy (Verified 06/15/19 23:36) Rash HOME MEDICATIONS: Home Medications Medication Instructions Recorded Acetaminophen [Tylenol .Regular 650 mg PO Q6H PRN tablet 07/20/19 Strength -] Albuterol Sulfate Inhaler - 2 puff IH Q4H PRN #1 inhaler 07/20/19 [Ventolin HFA Inhaler -] Amlodipine Besylate [Norvasc -] 10 mg PO DAILY tablet 07/20/19 Atorvastatin Ca [Lipitor] 10 mg PO HS tablet 07/20/19 Carvedilol [Coreg -] 3.125 mg PO BID tablet 07/20/19 Doxycycline Hyclate [Vibramycin -] 100 mg PO BID@1000,1800 #11 capsule 07/20/19 Duloxetine HCl [Cymbalta -] 60 mg PO DAILY capsule. 07/20/19 Lisinopril [Prinivil] 10 mg PO DAILY tablet 07/20/19 Magnesium Oxide 400 mg PO BID #6 tablet 07/20/19 Melatonin 5 mg PO HS tab 07/20/19 Montelukast Na [Singulair -] 10 mg PO HS tablet 07/20/19 Pantoprazole Sodium [Protonix -] 40 mg PO DAILY tablet.ec 07/20/19 Salmeterol/Fluticasone [Advair 1 puff IH BID inhaler 07/20/19 100Mcg/50Mcg -] PHYSICAL EXAMINATION Vital Signs - 24 hr 12/18/19 12/18/19 12/18/19 12:00 12:33 13:46 Temperature 99 F 101 F H Pulse Rate 116 H Pulse Rate [ Apical] Respiratory 22 H Rate Blood Pressure 123/72 Blood Pressure [Right Arm] O2 Sat by Pulse 96 96 Oximetry (%) 12/18/19 12/18/19 16:00 17:02 Temperature 98.2 F Pulse Rate Pulse Rate [ 95 H 98 H Apical] Respiratory 22 H 22 H Rate Blood Pressure Blood Pressure 109/72 [Right Arm] O2 Sat by Pulse 88 L 99 Oximetry (%) Ga tired appearing, lethargic, aaox2 HEENT NC/AT, EOMI, dry MM neck supple Chest coarse b/l BS+, decreased entry R base CVS S1, S2+, RRR, soft Katie+ Abd Soft, NT, ND Ext no LE edema Laboratory Results - last 24 hr 12/18/19 12/18/19 12/18/19 13:37 13:37 14:00 WBC 25.0 H RBC 4.87 Hgb 12.4 Hct 38.1 MCV 78.2 L MCH 25.5 L MCHC 32.6 RDW 20.9 H Plt Count 317 MPV 9.0 Absolute Neuts (auto) 23.1 H Neutrophils % 92.6 H D Neutrophils % (Manual) 94.0 H Band Neutrophils % 0.0 Lymphocytes % 3.3 L D Lymphocytes % (Manual) 3.0 L D Monocytes % 3.9 Monocytes % (Manual) 2 L D Eosinophils % 0.0 Eosinophils % (Manual) 0.0 Basophils % 0.2 Basophils % (Manual) 1.0 D Myelocytes % (Man) 0 Promyelocytes % (Man) 0 Blast Cells % (Manual) 0 Nucleated RBC % 0 Metamyelocytes 0 Hypochromia 0 Platelet Estimate Normal Polychromasia 0 Poikilocytosis 0 Anisocytosis 2+ Microcytosis 1+ Macrocytosis 1+ PT with INR INR PTT (Actin FS) D-Dimer Sodium 131 L Potassium 4.0 Chloride 93 L Carbon Dioxide 24 Anion Gap 14 BUN 27.4 H Creatinine 1.1 Est GFR (CKD-EPI)AfAm 60.16 Est GFR (CKD-EPI)NonAf 51.91 Random Glucose 81 Lactic Acid Calcium 7.6 L Ferritin 895.6 H Total Bilirubin 0.4 AST 105 H ALT 25 Alkaline Phosphatase 173 H Creatine Kinase 177 Cancelled Creatine Kinase Index No Result Required. CK-MB (CK-2) < 1.0 Troponin I < 0.02 Cancelled C-Reactive Protein 34.0 H Cancelled Total Protein 6.3 L Albumin 1.9 L Urine Color Urine Appearance Urine pH Ur Specific [place] Urine Protein Urine Glucose (UA) Urine Ketones Urine Blood Urine Nitrite Urine Bilirubin Urine Urobilinogen Ur Leukocyte Esterase 12/18/19 12/18/19 12/18/19 14:00 14:00 15:42 WBC RBC Hgb Hct MCV MCH MCHC RDW Plt Count MPV Absolute Neuts (auto) Neutrophils % Neutrophils % (Manual) Band Neutrophils % Lymphocytes % Lymphocytes % (Manual) Monocytes % Monocytes % (Manual) Eosinophils % Eosinophils % (Manual) Basophils % Basophils % (Manual) Myelocytes % (Man) Promyelocytes % (Man) Blast Cells % (Manual) Nucleated RBC % Metamyelocytes Hypochromia Platelet Estimate Polychromasia Poikilocytosis Anisocytosis Microcytosis Macrocytosis PT with INR 12.00 INR 1.02 PTT (Actin FS) 33.5 D-Dimer 4044 H Sodium Potassium Chloride Carbon Dioxide Anion Gap BUN Creatinine Est GFR (CKD-EPI)AfAm Est GFR (CKD-EPI)NonAf Random Glucose Lactic Acid 1.4 Calcium Ferritin Total Bilirubin AST ALT Alkaline Phosphatase Creatine Kinase Creatine Kinase Index CK-MB (CK-2) Troponin I C-Reactive Protein Total Protein Albumin Urine Color Urine Appearance Urine pH Ur Specific [place] Urine Protein Urine Glucose (UA) Urine Ketones Urine Blood Urine Nitrite Urine Bilirubin Urine Urobilinogen Ur Leukocyte Esterase 12/18/19 15:54 WBC RBC Hgb Hct MCV MCH MCHC RDW Plt Count MPV Absolute Neuts (auto) Neutrophils % Neutrophils % (Manual) Band Neutrophils % Lymphocytes % Lymphocytes % (Manual) Monocytes % Monocytes % (Manual) Eosinophils % Eosinophils % (Manual) Basophils % Basophils % (Manual) Myelocytes % (Man) Promyelocytes % (Man) Blast Cells % (Manual) Nucleated RBC % Metamyelocytes Hypochromia Platelet Estimate Polychromasia Poikilocytosis Anisocytosis Microcytosis Macrocytosis PT with INR INR PTT (Actin FS) D-Dimer Sodium Potassium Chloride Carbon Dioxide Anion Gap BUN Creatinine Est GFR (CKD-EPI)AfAm Est GFR (CKD-EPI)NonAf Random Glucose Lactic Acid Calcium Ferritin Total Bilirubin AST ALT Alkaline Phosphatase Creatine Kinase Creatine Kinase Index CK-MB (CK-2) Troponin I C-Reactive Protein Total Protein Albumin Urine Color Dk yellow Urine Appearance Cloudy Urine pH 5.0 Ur Specific [place] 1.017 Urine Protein Trace Urine Glucose (UA) Negative Urine Ketones Trace H Urine Blood Negative Urine Nitrite Negative Urine Bilirubin 1+ H Urine Urobilinogen 2.0 H Ur Leukocyte Esterase Negative ASSESSMENT/PLAN: 69 F Suspected COVID pneumonitis v.s. PNA (?aspiration) HTN HLD T2Dm CAD CVA COPD Asthma ?Dementia Plan: IV abx w/ Ceftriaxone/Azithromycin IV steroids continue for cytokine storm HOB elevation/incentive spirometry/supportive O2 to keep >92% Will likely qualify for plasma if COVID ++ ID consult Pulmonary consult Monitor VS closely if signs of desat transfer to tele Med-surg for now DVT ppx: Therapeutic Lovenox (obtain FOBT) Family Medical History Family History: As Documented Visit type - Medication Review Med list reviewed for High Risk Meds patients 65 and older: Yes - Emergency Visit Emergency Visit: Yes ED Registration Date: 12/18/19 Care time: The patient presented to the Emergency Department on the above date and was hospitalized for further evaluation of their emergent condition. - New Patient This patient is new to me today: Yes Date on this admission: 12/18/19 - Critical Care Critical Care patient: No
[2019-12-18] MEDS ORDERED: PANTOPRAZOLE 40 MG TABLET ONE (18:27)
[2019-12-18] MEDS ORDERED: methylPREDNISolone NA SUCC 40 MG/1 ML VIAL ONE (18:28)
[2019-12-18] MEDS: methylPREDNISolone NA SUCC 40 MG/1 ML VIAL IVPUSH SCH (18:34)
[2019-12-18] MEDS: PANTOPRAZOLE 40 MG TABLET PO SCH (18:34)
[2019-12-18] MEDS: ENOXAPARIN NA (PORCINE) 80 MG/0.8 ML DISP.SYRIN SQ SCH (22:19)
[2019-12-18] MEDS: ASCORBIC ACID 500 MG TABLET (FP) PO SCH (22:20)
[2019-12-19] MEDS ORDERED: HYDROCORTISONE SOD SUCCINATE 100 MG/2 ML VIAL ONE (02:31)
[2019-12-19] MEDS: methylPREDNISolone NA SUCC 40 MG/1 ML VIAL IVPUSH SCH ×3 (02:36→18:36)
[2019-12-19 07:17] LABS: BASO % 0.1 % (0-2.0); EOS % 0.1 % (0-4.5); HEMATOCRIT 38.5 % (32.4-45.2); HEMOGLOBIN 12.1 GM/dL (10.7-15.3); LYMPH % 4.2 % (8-40); MCH 24.8 pg (25.7-33.7); MCHC 31.4 g/dl (32.0-36.0); MEAN PLT VOLUME 8.8 fl (7.5-11.1); MONO % 2.2 % (3.8-10.2); NEUT % 93.4 % (42.8-82.8); PLATELET COUNT 294 K/MM3 (134-434); RBC 4.87 M/mm3 (3.60-5.2); RDW 21.4 % (11.6-15.6); WHITE BLOOD COUNT 25.9 K/mm3 (4.0-10.0)
[2019-12-19 08:02] LABS: ALBUMIN 1.6 g/dl (3.4-5.0); BILIRUBIN,TOTAL 0.6 mg/dL (0.2-1); BLOOD UREA NITROGEN 36.2 mg/dL (7-18); CALCIUM 7.7 mg/dL (8.5-10.1); CREATININE 1.1 mg/dL (0.55-1.3); POTASSIUM 4.1 mmol/L (3.5-5.1); TOT PROT 6.1 g/dl (6.4-8.2)
[2019-12-19] MEDS ORDERED: CEFTRIAXONE 2 GM in DEXTROSE 5%-WATER 100 ML IVPB SCH (10:00)
[2019-12-19] MEDS ORDERED: ASCORBIC ACID 500 MG TABLET (FP) ONE (10:04)
[2019-12-19] MEDS ORDERED: PANTOPRAZOLE 40 MG TABLET ONE (10:04)
[2019-12-19] MEDS ORDERED: ZINC SULFATE 220 MG CAPSULE (FP) ONE (10:04)
[2019-12-19] MEDS ORDERED: CEFTRIAXONE 2 GM/100 ML BAG IVPB ONE (10:05)
[2019-12-19] MEDS ORDERED: methylPREDNISolone NA SUCC 40 MG/1 ML VIAL ONE (10:05)
[2019-12-19] MEDS ORDERED: ENOXAPARIN NA (PORCINE) 80 MG/0.8 ML DISP.SYRIN SQ ONE (10:05)
[2019-12-19] MEDS: ZINC SULFATE 220 MG CAPSULE (FP) PO SCH (10:29)
[2019-12-19] MEDS: ENOXAPARIN NA (PORCINE) 80 MG/0.8 ML DISP.SYRIN SQ SCH ×2 (10:29→23:30)
[2019-12-19] MEDS: ASCORBIC ACID 500 MG TABLET (FP) PO SCH ×2 (10:29→23:30)
[2019-12-19] MEDS: PANTOPRAZOLE 40 MG TABLET PO SCH (10:29)
--- NOTE | 2019-12-19 11:32 | CON.PULM ---
Consult Consult Specialty:: PULMONARY Referred by:: Dr Rodriguez Reason for Consultation:: hypoxia - History of Present Illness Chief Complaint: weakness History of Present Illness: 69yo female with h/o HTN, DM, asthma/COPD, smoker, alcohol abuse, h/o CVA who was admitted with nausea, vomiting, diarrhea for over a week. Denies fevers, chills but febrile to 101 in the ER. Reports some increased shortness of breath with nonproductive cough. Denies recent travel or sick contacts but does have a home health aide. She is a current smoker, does not have home O2 but reports compliance with her inhalers and nebulizer treatments. 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: CVA (10 years ago...with right hemiparesis) Cardio/Vascular: Yes: HTN ( x 15years), Hyperlipdemia Pulmonary: Yes: COPD Psych: Yes: Depression Musculoskeletal: Yes: Hemiparesis (right sided) Endocrine: Yes: Diabetes Mellitus (x 10 years) - Past Surgical History Past Surgical History: Yes: Appendectomy, , Hernia Repair (multiple incisional hernia repairs), Hysterectomy, Oopherectomy - Alcohol/Substance Use Hx Alcohol Use: No - Smoking History Smoking history: Former smoker Have you smoked in the past 12 months: No Aproximately how many cigarettes per day: 20 - Social History Usual Living Arrangement: Alone 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 Home Medications - Allergies Allergies/Adverse Reactions: Allergies Allergy/AdvReac Type Severity Reaction Status Date / Time Aminoglycosides Allergy Severe Rash Verified 06/15/19 23:36 potassium clavulanate Allergy Severe Rash Verified 06/15/19 23:36 [From Augmentin] amoxicillin trihydrate Allergy Rash Verified 06/15/19 23:36 [From Augmentin] erythromycin base Allergy Rash Verified 06/15/19 23:36 [Erythromycin Base] gentamicin [Gentamicin] Allergy Rash Verified 06/15/19 23:36 - Home Medications Home Medications: Ambulatory Orders Acetaminophen [Tylenol .Regular Strength -] 650 mg PO Q6H PRN tablet 07/20/19 Albuterol Sulfate Inhaler - [Ventolin HFA Inhaler -] 2 puff IH Q4H PRN #1 in haler 07/20/19 Amlodipine Besylate [Norvasc -] 10 mg PO DAILY tablet 07/20/19 Atorvastatin Ca [Lipitor] 10 mg PO HS tablet 07/20/19 Carvedilol [Coreg -] 3.125 mg PO BID tablet 07/20/19 Doxycycline Hyclate [Vibramycin -] 100 mg PO BID@1000,1800 #11 capsule 07/20/19 Duloxetine HCl [Cymbalta -] 60 mg PO DAILY capsule. 07/20/19 Lisinopril [Prinivil] 10 mg PO DAILY tablet 07/20/19 Magnesium Oxide 400 mg PO BID #6 tablet 07/20/19 Melatonin 5 mg PO HS tab 07/20/19 Montelukast Na [Singulair -] 10 mg PO HS tablet 07/20/19 Pantoprazole Sodium [Protonix -] 40 mg PO DAILY tablet.ec 07/20/19 Salmeterol/Fluticasone [Advair 100Mcg/50Mcg -] 1 puff IH BID inhaler 07/20/19 Review of Systems - Review of Systems Constitutional: reports: Weakness. denies: Fever Eyes: denies: Recent Change in Vision HENT: denies: Nasal Congestion, Throat Pain Neck: denies: Stiffness, Tenderness Cardiovascular: reports: Shortness of Breath. denies: Chest Pain, Edema, Palpitations Respiratory: reports: Cough, SOB. denies: Hemoptysis, Wheezing Gastrointestinal: reports: Diarrhea, Nausea, Vomiting. denies: Abdominal Pain Genitourinary: denies: Dysuria, Hematuria Neurological: denies: Dizziness, Headache Endocrine: denies: Unexplained Weight Loss Physical Exam Vital Sings: Vital Signs Temperature 97.5 F L 12/19/19 10:30 Pulse Rate 72 12/19/19 10:30 Respiratory Rate 22 H 12/19/19 10:30 Blood Pressure 126/74 12/19/19 10:30 O2 Sat by Pulse Oximetry (%) 97 12/19/19 10:30 Constitutional: Yes: Calm Eyes: Yes: Conjunctiva Clear, EOM Intact HENT: Yes: Atraumatic, Normocephalic Neck: Yes: Supple, Trachea Midline Cardiovascular: Yes: Regular Rate and Rhythm Respiratory: Yes: Diminished (decreased breath sounds at the bases) ...Clubbing: No Gastrointestinal: Yes: Normal Bowel Sounds, Soft. No: Tenderness Edema: No Neurological: Yes: Alert, Oriented Labs: CBC, BMP 12/19/19 06:41 12/19/19 06:41 Imaging - Results Chest X-ray: Report Reviewed, Image Reviewed (RLL infiltrate/consolidation) Assessment/Plan Pneumonia Hypoxia Acute COPD Exacerbation Hyponatremia HTN DM h/o CVA - IV antibiotics - f/u cultures - send legionella Ag - agree with medrol - inhaled bronchodilators - O2 to keep Spo2 >90% - smoking cessation - DVT prophylaxis Thank you for this consult Bud Bernal MD
[2019-12-19] MEDS ORDERED: AZITHROMYCIN IVPB 500 MG/250 ML BAG IVPB ONE (11:57)
[2019-12-19] MEDS: AZITHROMYCIN IVPB 500 MG/250 ML BAG IVPB SCH (12:06)
[2019-12-19 12:35] LABS: ANISOCYTOSIS 0; MACROCYTOSIS 0; PLATELET ESTIMATE NORMAL
--- NOTE | 2019-12-19 13:27 | PN ---
Teaching Attending Note Name of Resident: Jefry Street ATTENDING PHYSICIAN STATEMENT I saw and evaluated the patient. I reviewed the resident's note and discussed the case with the resident. I agree with the resident's findings and plan as documented. SUBJECTIVE: Reports some improvement in SOB and cough. No fever/chills. OBJECTIVE: Afebrile, Hemodynamically Stable. Last Vital Signs Temp Pulse Resp BP Pulse Ox 97.5 F L 72 22 H 126/74 99 12/19/19 10:30 12/19/19 10:30 12/19/19 10:30 12/19/19 10:12/19/19 12:37 HEENT - Atraumatic, Normocephalic. Heart - S1, S2, soft SM Lungs - decreased air entry bibasally Abdomen - Soft, non-tender. Bowel Sounds normal. Extremities - no edema, no calf tenderness. Neuro - AAO x 3. Tone/Power normal. Laboratory Results - last 24 hr 12/18/19 12/18/19 12/18/19 13:37 13:37 13:37 WBC 25.0 H RBC 4.87 Hgb 12.4 Hct 38.1 MCV 78.2 L MCH 25.5 L MCHC 32.6 RDW 20.9 H Plt Count 317 MPV 9.0 Absolute Neuts (auto) 23.1 H Neutrophils % 92.6 H D Neutrophils % (Manual) 94.0 H Band Neutrophils % 0.0 Lymphocytes % 3.3 L D Lymphocytes % (Manual) 3.0 L D Monocytes % 3.9 Monocytes % (Manual) 2 L D Eosinophils % 0.0 Eosinophils % (Manual) 0.0 Basophils % 0.2 Basophils % (Manual) 1.0 D Myelocytes % (Man) 0 Promyelocytes % (Man) 0 Blast Cells % (Manual) 0 Nucleated RBC % 0 Metamyelocytes 0 Hypochromia 0 Platelet Estimate Normal Polychromasia 0 Poikilocytosis 0 Anisocytosis 2+ Microcytosis 1+ Macrocytosis 1+ PT with INR INR PTT (Actin FS) D-Dimer Sodium 131 L Potassium 4.0 Chloride 93 L Carbon Dioxide 24 Anion Gap 14 BUN 27.4 H Creatinine 1.1 Est GFR (CKD-EPI)AfAm 60.16 Est GFR (CKD-EPI)NonAf 51.91 Random Glucose 81 Lactic Acid Calcium 7.6 L Ferritin Total Bilirubin 0.4 AST 105 H ALT 25 Alkaline Phosphatase 173 H LD Total Creatine Kinase 177 Creatine Kinase Index No Result Required. CK-MB (CK-2) < 1.0 Troponin I < 0.02 C-Reactive Protein 34.0 H Total Protein 6.3 L Albumin 1.9 L Urine Color Urine Appearance Urine pH Ur Specific [place] Urine Protein Urine Glucose (UA) Urine Ketones Urine Blood Urine Nitrite Urine Bilirubin Urine Urobilinogen Ur Leukocyte Esterase COVID-19 (VU) Not detected Influenza A (Rapid) Influenza B (Rapid) RSV Rapid 12/18/19 12/18/19 12/18/19 14:00 14:00 14:00 WBC RBC Hgb Hct MCV MCH MCHC RDW Plt Count MPV Absolute Neuts (auto) Neutrophils % Neutrophils % (Manual) Band Neutrophils % Lymphocytes % Lymphocytes % (Manual) Monocytes % Monocytes % (Manual) Eosinophils % Eosinophils % (Manual) Basophils % Basophils % (Manual) Myelocytes % (Man) Promyelocytes % (Man) Blast Cells % (Manual) Nucleated RBC % Metamyelocytes Hypochromia Platelet Estimate Polychromasia Poikilocytosis Anisocytosis Microcytosis Macrocytosis PT with INR 12.00 INR 1.02 PTT (Actin FS) 33.5 D-Dimer 4044 H Sodium Potassium Chloride Carbon Dioxide Anion Gap BUN Creatinine Est GFR (CKD-EPI)AfAm Est GFR (CKD-EPI)NonAf Random Glucose Lactic Acid Calcium Ferritin 895.6 H Total Bilirubin AST ALT Alkaline Phosphatase LD Total Creatine Kinase Cancelled Creatine Kinase Index CK-MB (CK-2) Troponin I Cancelled C-Reactive Protein Cancelled Total Protein Albumin Urine Color Urine Appearance Urine pH Ur Specific [place] Urine Protein Urine Glucose (UA) Urine Ketones Urine Blood Urine Nitrite Urine Bilirubin Urine Urobilinogen Ur Leukocyte Esterase COVID-19 (VU) Influenza A (Rapid) Influenza B (Rapid) RSV Rapid 12/18/19 12/18/19 12/18/19 15:42 15:54 18:25 WBC RBC Hgb Hct MCV MCH MCHC RDW Plt Count MPV Absolute Neuts (auto) Neutrophils % Neutrophils % (Manual) Band Neutrophils % Lymphocytes % Lymphocytes % (Manual) Monocytes % Monocytes % (Manual) Eosinophils % Eosinophils % (Manual) Basophils % Basophils % (Manual) Myelocytes % (Man) Promyelocytes % (Man) Blast Cells % (Manual) Nucleated RBC % Metamyelocytes Hypochromia Platelet Estimate Polychromasia Poikilocytosis Anisocytosis Microcytosis Macrocytosis PT with INR INR PTT (Actin FS) D-Dimer Sodium Potassium Chloride Carbon Dioxide Anion Gap BUN Creatinine Est GFR (CKD-EPI)AfAm Est GFR (CKD-EPI)NonAf Random Glucose Lactic Acid 1.4 Calcium Ferritin Total Bilirubin AST ALT Alkaline Phosphatase LD Total Creatine Kinase Creatine Kinase Index CK-MB (CK-2) Troponin I C-Reactive Protein Total Protein Albumin Urine Color Dk yellow Urine Appearance Cloudy Urine pH 5.0 Ur Specific [place] 1.017 Urine Protein Trace Urine Glucose (UA) Negative Urine Ketones Trace H Urine Blood Negative Urine Nitrite Negative Urine Bilirubin 1+ H Urine Urobilinogen 2.0 H Ur Leukocyte Esterase Negative COVID-19 (VU) Influenza A (Rapid) Cancelled Influenza B (Rapid) Cancelled RSV Rapid 12/18/19 12/18/19 12/19/19 18:25 18:25 06:41 WBC RBC Hgb Hct MCV MCH MCHC RDW Plt Count MPV Absolute Neuts (auto) Neutrophils % Neutrophils % (Manual) Band Neutrophils % Lymphocytes % Lymphocytes % (Manual) Monocytes % Monocytes % (Manual) Eosinophils % Eosinophils % (Manual) Basophils % Basophils % (Manual) Myelocytes % (Man) Promyelocytes % (Man) Blast Cells % (Manual) Nucleated RBC % Metamyelocytes Hypochromia Platelet Estimate Polychromasia Poikilocytosis Anisocytosis Microcytosis Macrocytosis PT with INR INR PTT (Actin FS) D-Dimer Sodium 132 L Potassium 4.1 Chloride 92 L Carbon Dioxide 24 Anion Gap 15 BUN 36.2 H Creatinine 1.1 Est GFR (CKD-EPI)AfAm 60.16 Est GFR (CKD-EPI)NonAf 51.91 Random Glucose 148 H Lactic Acid Calcium 7.7 L Ferritin 1347.2 H Total Bilirubin 0.6 AST 169 H ALT 40 Alkaline Phosphatase 158 H LD Total 435 H Creatine Kinase Creatine Kinase Index CK-MB (CK-2) Troponin I C-Reactive Protein 34.4 H Total Protein 6.1 L Albumin 1.6 L Urine Color Urine Appearance Urine pH Ur Specific [place] Urine Protein Urine Glucose (UA) Urine Ketones Urine Blood Urine Nitrite Urine Bilirubin Urine Urobilinogen Ur Leukocyte Esterase COVID-19 (VU) Influenza A (Rapid) Negative Influenza B (Rapid) Negative RSV Rapid Negative 12/19/19 12/19/19 06:41 06:41 WBC 25.9 H RBC 4.87 Hgb 12.1 Hct 38.5 MCV 79.0 L MCH 24.8 L MCHC 31.4 L RDW 21.4 H Plt Count 294 MPV 8.8 Absolute Neuts (auto) 24.2 H Neutrophils % 93.4 H Neutrophils % (Manual) 93.0 H Band Neutrophils % 3.0 Lymphocytes % 4.2 L D Lymphocytes % (Manual) 3.0 L Monocytes % 2.2 L Monocytes % (Manual) 1 L Eosinophils % 0.1 D Eosinophils % (Manual) 0.0 Basophils % 0.1 Basophils % (Manual) 0.0 Myelocytes % (Man) 0 Promyelocytes % (Man) 0 Blast Cells % (Manual) 0 Nucleated RBC % 0 Metamyelocytes 0 Hypochromia 0 Platelet Estimate Normal Polychromasia 0 Poikilocytosis 0 Anisocytosis 0 Microcytosis 0 Macrocytosis 0 PT with INR INR PTT (Actin FS) D-Dimer 2500 H Sodium Potassium Chloride Carbon Dioxide Anion Gap BUN Creatinine Est GFR (CKD-EPI)AfAm Est GFR (CKD-EPI)NonAf Random Glucose Lactic Acid Calcium Ferritin Total Bilirubin AST ALT Alkaline Phosphatase LD Total Creatine Kinase Creatine Kinase Index CK-MB (CK-2) Troponin I C-Reactive Protein Total Protein Albumin Urine Color Urine Appearance Urine pH Ur Specific [place] Urine Protein Urine Glucose (UA) Urine Ketones Urine Blood Urine Nitrite Urine Bilirubin Urine Urobilinogen Ur Leukocyte Esterase COVID-19 (VU) Influenza A (Rapid) Influenza B (Rapid) RSV Rapid Current Medications Generic Name Dose Route Start Last Admin Trade Name Santi PRN Reason Stop Dose Admin Acetaminophen 750 mg 12/18/19 16:32 Ofirmev Injection - IVPB 12/19/19 16:32 Q6H PRN FEVER Ascorbic Acid 500 mg 12/18/19 22:00 12/19/19 10:29 Vitamin C - PO 500 mg BID MAGDA Administration Enoxaparin Sodium 70 mg 12/18/19 22:00 12/19/19 10:29 Lovenox - SQ 70 mg Q12H MAGDA Administration Ceftriaxone Sodium 2 gm/ 100 mls @ 200 mls/hr 12/19/19 10:00 12/19/19 10:29 Dextrose IVPB 200 mls/hr DAILY MAGDA Administration Azithromycin 500 mg in 250 mls @ 250 mls/hr 12/19/19 11:45 12/19/19 12:06 Zithromax 500mg Ivpb (Pre-Docked) IVPB 12/22/19 10:59 250 mls/hr DAILY MAGDA Administration Methylprednisolone Sodium Succinate 60 mg 12/18/19 18:00 12/19/19 10:15 Solu-Medrol - IVPUSH 60 mg Q8H-IV MAGDA Administration Pantoprazole Sodium 40 mg 12/18/19 18:00 12/19/19 10:29 Protonix - PO 40 mg DAILY MAGDA Administration Zinc Sulfate 220 mg 12/19/19 10:00 12/19/19 10:29 Orazinc - PO 220 mg DAILY MAGDA Administration Home Medications Medication Instructions Recorded Acetaminophen [Tylenol .Regular 650 mg PO Q6H PRN tablet 07/20/19 Strength -] Albuterol Sulfate Inhaler - 2 puff IH Q4H PRN #1 inhaler 07/20/19 [Ventolin HFA Inhaler -] Amlodipine Besylate [Norvasc -] 10 mg PO DAILY tablet 07/20/19 Atorvastatin Ca [Lipitor] 10 mg PO HS tablet 07/20/19 Carvedilol [Coreg -] 3.125 mg PO BID tablet 07/20/19 Doxycycline Hyclate [Vibramycin -] 100 mg PO BID@1000,1800 #11 capsule 07/20/19 Duloxetine HCl [Cymbalta -] 60 mg PO DAILY capsule. 07/20/19 Lisinopril [Prinivil] 10 mg PO DAILY tablet 07/20/19 Magnesium Oxide 400 mg PO BID #6 tablet 07/20/19 Melatonin 5 mg PO HS tab 07/20/19 Montelukast Na [Singulair -] 10 mg PO HS tablet 07/20/19 Pantoprazole Sodium [Protonix -] 40 mg PO DAILY tablet.ec 07/20/19 Salmeterol/Fluticasone [Advair 1 puff IH BID inhaler 07/20/19 100Mcg/50Mcg -] ASSESSMENT AND PLAN: 69 year old female with history of Alcohol Abuse, HTN, HLD, DM 2, CVA, Asthma/COPD, presents with increasing shortness of breath, cough, fever, chills, found to be hypoxic in ED with Spo2 88%. 1. Acute Hypoxic Respiratory Failure secondary to Pneumonia CXR - R sided infiltrate. Leukocytosis + Supplemental O2, Ceftriaxone//Azithromycin All inflammatory markers elevated - DDIMER, Ferritin but COVID PCR negative. Will order CTA Chest and Duplex LEs given highly elevated DDIMER On Steroid and AC empirically pending CT Chest. ID, Pulmonary following. 2. HTN - reintroduce Norvasc, Coreg, Lisinopril as BP tolerates. 3. Asthma/COPD - no evidence of acute exacerbation. Continue Montelukast, Advair, Albuterol PRN 4. DM 2 - Maintain on Novolog sliding scale. Does not appear to be on home meds, will confirm. 5. Depression - continue Cymbalta. 6. Elevated AST, etiology unclear. DVT Px - on Lovenox
--- NOTE | 2019-12-19 14:35 | PN ---
Physical Exam: SUBJECTIVE: Patient seen and examined. Reports improvement in SOB and cough. Denies f/c. OBJECTIVE: Vital Signs Period Temp Pulse Resp BP Sys/Min Pulse Ox Last 24 Hr 97.5 F-98.2 F 72-98 18-22 109-126/71-78 88-100 HEENT - Atraumatic, Normocephalic. Heart - S1, S2, soft SM Lungs - decreased air entry bibasally Abdomen - Soft, non-tender. Bowel Sounds normal. Extremities - no edema, no calf tenderness. Neuro - AAO x 3. Tone/Power normal. Laboratory Results - last 24 hr 12/18/19 12/18/19 12/18/19 13:37 13:37 13:37 WBC 25.0 H RBC 4.87 Hgb 12.4 Hct 38.1 MCV 78.2 L MCH 25.5 L MCHC 32.6 RDW 20.9 H Plt Count 317 MPV 9.0 Absolute Neuts (auto) 23.1 H Neutrophils % 92.6 H D Neutrophils % (Manual) 94.0 H Band Neutrophils % 0.0 Lymphocytes % 3.3 L D Lymphocytes % (Manual) 3.0 L D Monocytes % 3.9 Monocytes % (Manual) 2 L D Eosinophils % 0.0 Eosinophils % (Manual) 0.0 Basophils % 0.2 Basophils % (Manual) 1.0 D Myelocytes % (Man) 0 Promyelocytes % (Man) 0 Blast Cells % (Manual) 0 Nucleated RBC % 0 Metamyelocytes 0 Hypochromia 0 Platelet Estimate Normal Polychromasia 0 Poikilocytosis 0 Anisocytosis 2+ Microcytosis 1+ Macrocytosis 1+ PT with INR INR PTT (Actin FS) D-Dimer Sodium 131 L Potassium 4.0 Chloride 93 L Carbon Dioxide 24 Anion Gap 14 BUN 27.4 H Creatinine 1.1 Est GFR (CKD-EPI)AfAm 60.16 Est GFR (CKD-EPI)NonAf 51.91 Random Glucose 81 Lactic Acid Calcium 7.6 L Ferritin Total Bilirubin 0.4 AST 105 H ALT 25 Alkaline Phosphatase 173 H LD Total Creatine Kinase 177 Creatine Kinase Index No Result Required. CK-MB (CK-2) < 1.0 Troponin I < 0.02 C-Reactive Protein 34.0 H Total Protein 6.3 L Albumin 1.9 L Urine Color Urine Appearance Urine pH Ur Specific [place] Urine Protein Urine Glucose (UA) Urine Ketones Urine Blood Urine Nitrite Urine Bilirubin Urine Urobilinogen Ur Leukocyte Esterase COVID-19 (VU) Not detected Influenza A (Rapid) Influenza B (Rapid) RSV Rapid 12/18/19 12/18/19 12/18/19 14:00 14:00 14:00 WBC RBC Hgb Hct MCV MCH MCHC RDW Plt Count MPV Absolute Neuts (auto) Neutrophils % Neutrophils % (Manual) Band Neutrophils % Lymphocytes % Lymphocytes % (Manual) Monocytes % Monocytes % (Manual) Eosinophils % Eosinophils % (Manual) Basophils % Basophils % (Manual) Myelocytes % (Man) Promyelocytes % (Man) Blast Cells % (Manual) Nucleated RBC % Metamyelocytes Hypochromia Platelet Estimate Polychromasia Poikilocytosis Anisocytosis Microcytosis Macrocytosis PT with INR 12.00 INR 1.02 PTT (Actin FS) 33.5 D-Dimer 4044 H Sodium Potassium Chloride Carbon Dioxide Anion Gap BUN Creatinine Est GFR (CKD-EPI)AfAm Est GFR (CKD-EPI)NonAf Random Glucose Lactic Acid Calcium Ferritin 895.6 H Total Bilirubin AST ALT Alkaline Phosphatase LD Total Creatine Kinase Cancelled Creatine Kinase Index CK-MB (CK-2) Troponin I Cancelled C-Reactive Protein Cancelled Total Protein Albumin Urine Color Urine Appearance Urine pH Ur Specific [place] Urine Protein Urine Glucose (UA) Urine Ketones Urine Blood Urine Nitrite Urine Bilirubin Urine Urobilinogen Ur Leukocyte Esterase COVID-19 (VU) Influenza A (Rapid) Influenza B (Rapid) RSV Rapid 12/18/19 12/18/19 12/18/19 15:42 15:54 18:25 WBC RBC Hgb Hct MCV MCH MCHC RDW Plt Count MPV Absolute Neuts (auto) Neutrophils % Neutrophils % (Manual) Band Neutrophils % Lymphocytes % Lymphocytes % (Manual) Monocytes % Monocytes % (Manual) Eosinophils % Eosinophils % (Manual) Basophils % Basophils % (Manual) Myelocytes % (Man) Promyelocytes % (Man) Blast Cells % (Manual) Nucleated RBC % Metamyelocytes Hypochromia Platelet Estimate Polychromasia Poikilocytosis Anisocytosis Microcytosis Macrocytosis PT with INR INR PTT (Actin FS) D-Dimer Sodium Potassium Chloride Carbon Dioxide Anion Gap BUN Creatinine Est GFR (CKD-EPI)AfAm Est GFR (CKD-EPI)NonAf Random Glucose Lactic Acid 1.4 Calcium Ferritin Total Bilirubin AST ALT Alkaline Phosphatase LD Total Creatine Kinase Creatine Kinase Index CK-MB (CK-2) Troponin I C-Reactive Protein Total Protein Albumin Urine Color Dk yellow Urine Appearance Cloudy Urine pH 5.0 Ur Specific [place] 1.017 Urine Protein Trace Urine Glucose (UA) Negative Urine Ketones Trace H Urine Blood Negative Urine Nitrite Negative Urine Bilirubin 1+ H Urine Urobilinogen 2.0 H Ur Leukocyte Esterase Negative COVID-19 (VU) Influenza A (Rapid) Cancelled Influenza B (Rapid) Cancelled RSV Rapid 12/18/19 12/18/19 12/19/19 18:25 18:25 06:41 WBC RBC Hgb Hct MCV MCH MCHC RDW Plt Count MPV Absolute Neuts (auto) Neutrophils % Neutrophils % (Manual) Band Neutrophils % Lymphocytes % Lymphocytes % (Manual) Monocytes % Monocytes % (Manual) Eosinophils % Eosinophils % (Manual) Basophils % Basophils % (Manual) Myelocytes % (Man) Promyelocytes % (Man) Blast Cells % (Manual) Nucleated RBC % Metamyelocytes Hypochromia Platelet Estimate Polychromasia Poikilocytosis Anisocytosis Microcytosis Macrocytosis PT with INR INR PTT (Actin FS) D-Dimer Sodium 132 L Potassium 4.1 Chloride 92 L Carbon Dioxide 24 Anion Gap 15 BUN 36.2 H Creatinine 1.1 Est GFR (CKD-EPI)AfAm 60.16 Est GFR (CKD-EPI)NonAf 51.91 Random Glucose 148 H Lactic Acid Calcium 7.7 L Ferritin 1347.2 H Total Bilirubin 0.6 AST 169 H ALT 40 Alkaline Phosphatase 158 H LD Total 435 H Creatine Kinase Creatine Kinase Index CK-MB (CK-2) Troponin I C-Reactive Protein 34.4 H Total Protein 6.1 L Albumin 1.6 L Urine Color Urine Appearance Urine pH Ur Specific [place] Urine Protein Urine Glucose (UA) Urine Ketones Urine Blood Urine Nitrite Urine Bilirubin Urine Urobilinogen Ur Leukocyte Esterase COVID-19 (VU) Influenza A (Rapid) Negative Influenza B (Rapid) Negative RSV Rapid Negative 12/19/19 12/19/19 06:41 06:41 WBC 25.9 H RBC 4.87 Hgb 12.1 Hct 38.5 MCV 79.0 L MCH 24.8 L MCHC 31.4 L RDW 21.4 H Plt Count 294 MPV 8.8 Absolute Neuts (auto) 24.2 H Neutrophils % 93.4 H Neutrophils % (Manual) 93.0 H Band Neutrophils % 3.0 Lymphocytes % 4.2 L D Lymphocytes % (Manual) 3.0 L Monocytes % 2.2 L Monocytes % (Manual) 1 L Eosinophils % 0.1 D Eosinophils % (Manual) 0.0 Basophils % 0.1 Basophils % (Manual) 0.0 Myelocytes % (Man) 0 Promyelocytes % (Man) 0 Blast Cells % (Manual) 0 Nucleated RBC % 0 Metamyelocytes 0 Hypochromia 0 Platelet Estimate Normal Polychromasia 0 Poikilocytosis 0 Anisocytosis 0 Microcytosis 0 Macrocytosis 0 PT with INR INR PTT (Actin FS) D-Dimer 2500 H Sodium Potassium Chloride Carbon Dioxide Anion Gap BUN Creatinine Est GFR (CKD-EPI)AfAm Est GFR (CKD-EPI)NonAf Random Glucose Lactic Acid Calcium Ferritin Total Bilirubin AST ALT Alkaline Phosphatase LD Total Creatine Kinase Creatine Kinase Index CK-MB (CK-2) Troponin I C-Reactive Protein Total Protein Albumin Urine Color Urine Appearance Urine pH Ur Specific [place] Urine Protein Urine Glucose (UA) Urine Ketones Urine Blood Urine Nitrite Urine Bilirubin Urine Urobilinogen Ur Leukocyte Esterase COVID-19 (VU) Influenza A (Rapid) Influenza B (Rapid) RSV Rapid Active Medications Generic Name Dose Route Start Last Admin Trade Name Freq PRN Reason Stop Dose Admin Acetaminophen 750 mg 12/18/19 16:32 Ofirmev Injection - IVPB 12/19/19 16:32 Q6H PRN FEVER Ascorbic Acid 500 mg 12/18/19 22:00 12/19/19 10:29 Vitamin C - PO 500 mg BID MAGDA Administration Enoxaparin Sodium 70 mg 12/18/19 22:00 12/19/19 10:29 Lovenox - SQ 70 mg Q12H MAGDA Administration Ceftriaxone Sodium 2 gm/ 100 mls @ 200 mls/hr 12/19/19 10:00 12/19/19 10:29 Dextrose IVPB 200 mls/hr DAILY MAGDA Administration Azithromycin 500 mg in 250 mls @ 250 mls/hr 12/19/19 11:45 12/19/19 12:06 Zithromax 500mg Ivpb (Pre-Docked) IVPB 12/22/19 10:59 250 mls/hr DAILY MAGDA Administration Methylprednisolone Sodium Succinate 60 mg 12/18/19 18:00 12/19/19 10:15 Solu-Medrol - IVPUSH 60 mg Q8H-IV MAGDA Administration Pantoprazole Sodium 40 mg 12/18/19 18:00 12/19/19 10:29 Protonix - PO 40 mg DAILY MAGDA Administration Zinc Sulfate 220 mg 12/19/19 10:00 12/19/19 10:29 Orazinc - PO 220 mg DAILY MAGDA Administration ASSESSMENT/PLAN: Pt is 69 year old female with PMHx of alcohol abuse, HTN, HLD, DM 2, CVA, Asthma/COPD, depression presenting with SOB and cough, fever, chills, hypoxic 88 % admitted for acute hypoxic respiratory failure. #Acute hypoxic respiratory failure -WBC 25 --> 25.9 -CXR showing R sided infiltrate; -On azithro + ceftriaxone -Requiring supplemental O2, on 2L NC -COVID negative -Duplex LE US and CTA chest ordered due to elevated D dimer -On steroids and empiric anticoagulation empirically -Consulted ID and pulm; follow recs #Hx of HTN -On home norvasc, coreg, lisinopril; not restarted -Restart if BP elevates #Hx of asthma/COPD -PRN albuterol, montelukast, advair #Hx of DM2 -SSI and bG monitoring #Hx of depression -Continue home cymbalta #Transaminitis -unclear cause -oossibly due to hx of alcohol abuse PPx -Lovenox FEN -Regular diet -Monitor electrolytes -No standing fluids Dispo Admitted to med surg for acute hypoxic respiratory failure. On rocephin, azithro. On 2L NC. Follow up CTA and duplex U/S. Visit type - Emergency Visit Emergency Visit: Yes ED Registration Date: 12/18/19 Care time: The patient presented to the Emergency Department on the above date and was hospitalized for further evaluation of their emergent condition. - New Patient This patient is new to me today: No - Critical Care Critical Care patient: No - Medication Review Med list reviewed for High Risk Meds patients 65 and older: Yes ATTENDING PHYSICIAN STATEMENT I saw and evaluated the patient. I reviewed the resident's note and discussed the case with the resident. I agree with the resident's findings and plan as documented. SUBJECTIVE: OBJECTIVE: ASSESSMENT AND PLAN:
--- NOTE | 2019-12-19 15:08 | CON.ID ---
Consult Consult Specialty:: infectious diseases Referred by:: Reason for Consultation:: weakness,sob,r/o pneumonia - History of Present Illness Chief Complaint: weakness,sob History of Present Illness: 69 F h/o ALCOHOL ABUSE HX, HTN, T2DM, CVA, COPD/Asthma recently admitted for PNA, presents with worsening cough, SOB, fever and chills. Patient endorses her 28 year old "sister" is at home with her who's also sick w/ similar symptoms. In ED pt. hypoxic low 90s improved w/ NC O2 @3L to 96-97%. , CXR shows R infiltration. 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: CVA (10 years ago...with right hemiparesis) Cardio/Vascular: Yes: HTN ( x 15years), Hyperlipdemia Pulmonary: Yes: COPD Psych: Yes: Depression Musculoskeletal: Yes: Hemiparesis (right sided) Endocrine: Yes: Diabetes Mellitus (x 10 years) - Past Surgical History Past Surgical History: Yes: Appendectomy, , Hernia Repair (multiple incisional hernia repairs), Hysterectomy, Oopherectomy - Alcohol/Substance Use Hx Alcohol Use: No - Smoking History Smoking history: Former smoker Have you smoked in the past 12 months: No Aproximately how many cigarettes per day: 20 - Social History Usual Living Arrangement: Alone 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 Home Medications - Allergies Allergies/Adverse Reactions: Allergies Allergy/AdvReac Type Severity Reaction Status Date / Time Aminoglycosides Allergy Severe Rash Verified 06/15/19 23:36 potassium clavulanate Allergy Severe Rash Verified 06/15/19 23:36 [From Augmentin] amoxicillin trihydrate Allergy Rash Verified 06/15/19 23:36 [From Augmentin] erythromycin base Allergy Rash Verified 06/15/19 23:36 [Erythromycin Base] gentamicin [Gentamicin] Allergy Rash Verified 06/15/19 23:36 - Home Medications Home Medications: Ambulatory Orders Amlodipine Besylate [Norvasc -] 10 mg PO DAILY tablet 07/20/19 Carvedilol [Coreg -] 3.125 mg PO BID tablet 07/20/19 Duloxetine HCl [Cymbalta -] 60 mg PO DAILY capsule. 07/20/19 Lisinopril [Prinivil] 10 mg PO DAILY tablet 07/20/19 Montelukast Na [Singulair -] 10 mg PO HS tablet 07/20/19 Albuterol 0.083% Nebulizer Cleopatra [Ventolin 0.083% Nebulizer Soln -] 1 vial IH Q8H PRN 12/19/19 Albuterol Sulfate Inhaler - [Ventolin HFA Inhaler -] 1 puff IH Q4H PRN 12/19/19 Aspirin [Adult Aspirin Regimen] 81 mg PO DAILY 12/19/19 Budesonide/Formeterol Fumarate [SYMBICORT 80/4.5mcg -] 2 puff IH BID 12/19/19 Simvastatin [Zocor -] 10 mg PO DAILY 12/19/19 Tiotropium [place] [Spiriva Respimat] 1.25 mcg IH DAILY 12/19/19 Review of Systems - Review of Systems Constitutional: reports: Weakness, Other Eyes: reports: No Symptoms HENT: reports: No Symptoms Neck: reports: No Symptoms Cardiovascular: reports: No Symptoms Respiratory: reports: Cough, SOB Gastrointestinal: reports: No Symptoms Genitourinary: reports: No Symptoms Musculoskeletal: reports: No Symptoms Integumentary: reports: No Symptoms Endocrine: reports: No Symptoms Hematology/Lymphatic: reports: No Symptoms Psychiatric: reports: No Symptoms Physical Exam Vital Signs: Vital Signs Temperature 97.5 F L 12/19/19 10:30 Pulse Rate 72 12/19/19 10:30 Respiratory Rate 22 H 12/19/19 10:30 Blood Pressure 126/74 12/19/19 10:30 O2 Sat by Pulse Oximetry (%) 99 12/19/19 12:37 Constitutional: Yes: Calm, Mild Distress, Other Eyes: Yes: Conjunctiva Clear HENT: Yes: Atraumatic, Normocephalic Neck: Yes: Supple, Trachea Midline Cardiovascular: Yes: Regular Rate and Rhythm Respiratory: Yes: Regular, On Nasal O2, Poor Air Entry Gastrointestinal: Yes: Normal Bowel Sounds, Soft Musculoskeletal: Yes: WNL Extremities: Yes: WNL Neurological: Yes: Alert, Oriented Psychiatric: Yes: Alert, Oriented Labs: CBC, BMP 12/19/19 06:41 12/19/19 06:41 Imaging - Results Chest X-ray: Report Reviewed, Image Reviewed Assessment/Plan this patient with multiple medical problems admitted with sob,fever,weakness and with leukocytosis and infiltrate i am worried because of her habits 1 is the patient prone for aspiration 2 monitor wbc if the wbc does not improve will change to zosyn close watch resp support hydration carefully rest as per the team
[2019-12-19 19:33] VITALS: BMI 23.4
[2019-12-20] MEDS: methylPREDNISolone NA SUCC 40 MG/1 ML VIAL IVPUSH SCH ×3 (01:42→17:15)
--- NOTE | 2019-12-20 07:56 | PN ---
Progress Note, Physician History of Present Illness: pulmonary alert,comfortable,sob improving - Current Medication List Current Medications: Active Medications Ascorbic Acid (Vitamin C -) 500 mg PO BID [facility] Last Admin: 12/19/19 23:30 Dose: 500 mg Documented by: Duloxetine HCl (Cymbalta -) 60 mg PO DAILY [facility] Enoxaparin Sodium (Lovenox -) 70 mg SQ Q12H [facility] Last Admin: 12/19/19 23:30 Dose: 70 mg Documented by: Ceftriaxone Sodium 2 gm/ (Dextrose) 100 mls @ 200 mls/hr IVPB DAILY [facility] Last Admin: 12/19/19 10:29 Dose: 200 mls/hr Documented by: Azithromycin (Zithromax 500mg Ivpb (Pre-Docked)) 500 mg in 250 mls @ 250 mls/hr IVPB DAILY [facility] Stop: 12/22/19 10:59 Last Admin: 12/19/19 12:06 Dose: 250 mls/hr Documented by: Methylprednisolone Sodium Succinate (Solu-Medrol -) 60 mg IVPUSH Q8H-IV [facility] Last Admin: 12/20/19 01:42 Dose: 60 mg Documented by: Pantoprazole Sodium (Protonix -) 40 mg PO DAILY [facility] Last Admin: 12/19/19 10:29 Dose: 40 mg Documented by: Zinc Sulfate (Orazinc -) 220 mg PO DAILY [facility] Last Admin: 12/19/19 10:29 Dose: 220 mg Documented by: - Objective Vital Signs: Vital Signs Temperature 97.5 F L 12/20/19 06:59 Pulse Rate 91 H 12/20/19 06:59 Respiratory Rate 20 12/20/19 06:59 Blood Pressure 151/84 12/20/19 06:59 O2 Sat by Pulse Oximetry (%) 98 12/20/19 06:59 Constitutional: Yes: Well Nourished, Calm Eyes: Yes: WNL HENT: Yes: WNL Neck: Yes: WNL Cardiovascular: Yes: Regular Rate and Rhythm, S1, S2 Respiratory: Yes: Wheezes (few scattered wheezes) Gastrointestinal: Yes: Normal Bowel Sounds, Soft Extremities: Yes: WNL Edema: No Labs: INR, PTT Problem List - Problems (1) Hyponatremia Code(s): E87.1 - HYPO-OSMOLALITY AND HYPONATREMIA (2) Pneumonia Code(s): J18.9 - PNEUMONIA, UNSPECIFIED ORGANISM Qualifiers: Pneumonia type: due to unspecified organism Laterality: right Lung location: unspecified part of lung Qualified Code(s): J18.9 - Pneumonia, unspecified organism (3) COPD (chronic obstructive pulmonary disease) Code(s): J44.9 - CHRONIC OBSTRUCTIVE PULMONARY DISEASE, UNSPECIFIED Qualifiers: COPD type: unspecified COPD Qualified Code(s): J44.9 - Chronic obstructive pulmonary disease, unspecified (4) COPD with exacerbation Code(s): J44.1 - CHRONIC OBSTRUCTIVE PULMONARY DISEASE W (ACUTE) EXACERBATION (5) Diastolic CHF Code(s): I50.30 - UNSPECIFIED DIASTOLIC (CONGESTIVE) HEART FAILURE Assessment/Plan Assessment/Plan Pneumonia Hypoxia Acute COPD Exacerbation Hyponatremia HTN DM h/o CVA - IV antibiotics - medrol taper - inhaled bronchodilators - O2 to keep Spo2 >90% - smoking cessation - DVT prophylaxis - F/U Chest ct 6wks to confirm resolution of consolidation DR HERNANDEZ
[2019-12-20 08:17] LABS: HEMATOCRIT 39.8 % (32.4-45.2); HEMOGLOBIN 12.4 GM/dL (10.7-15.3); LYMPH % 2.5 % (8-40); MCH 24.8 pg (25.7-33.7); MCHC 31.1 g/dl (32.0-36.0); MEAN CELL VOLUME 79.7 fl (80-96); MEAN PLT VOLUME 9.8 fl (7.5-11.1); MONO % 3.5 % (3.8-10.2); PLATELET COUNT 393 K/MM3 (134-434); RDW 21.7 % (11.6-15.6)
[2019-12-20 08:32] LABS: ALBUMIN 1.7 g/dl (3.4-5.0); BILIRUBIN,TOTAL 0.4 mg/dL (0.2-1); BLOOD UREA NITROGEN 45.6 mg/dL (7-18); CREATININE 1.4 mg/dL (0.55-1.3); PHOSPHOROUS 3.8 mg/dL (2.5-4.9); POTASSIUM 4.4 mmol/L (3.5-5.1); TOT PROT 6.5 g/dl (6.4-8.2)
[2019-12-20] MEDS ORDERED: SODIUM CHLORIDE 500 ML IV STA (09:00)
[2019-12-20 09:37] LABS: WHITE BLOOD COUNT 43.6 K/mm3 (4.0-10.0)
[2019-12-20] MEDS ORDERED: CEFEPIME 2 GM in DEXTROSE 5%-WATER 100 ML IVPB SCH ×2 (10:00→22:00)
[2019-12-20 10:06] LABS: ERYTHROCYTE SEDIMENTATION RATE 78 mm/hr (0-30)
[2019-12-20] MEDS ORDERED: CEFEPIME HCL 2 GM VIAL (RESTRICTED TO ID) ONE (10:30)
[2019-12-20] MEDS ORDERED: DEXTROSE 5%-WATER 100 ML IVPB ONE ×2 (10:30→16:56)
[2019-12-20] MEDS: DULoxetine HCL 30 MG CAPSULE.DR PO SCH (10:33)
[2019-12-20] MEDS: ZINC SULFATE 220 MG CAPSULE (FP) PO SCH (10:34)
[2019-12-20] MEDS: PANTOPRAZOLE 40 MG TABLET PO SCH (10:34)
[2019-12-20] MEDS: ENOXAPARIN NA (PORCINE) 80 MG/0.8 ML DISP.SYRIN SQ SCH (10:34)
[2019-12-20] MEDS: ASCORBIC ACID 500 MG TABLET (FP) PO SCH ×2 (10:34→22:12)
[2019-12-20] MEDS: AZITHROMYCIN IVPB 500 MG/250 ML BAG IVPB SCH (10:38)
[2019-12-20] MEDS: CEFEPIME HCL/D5W 2 GM/50 ML BAG IVPB SCH (10:39)
[2019-12-20 10:48] LABS: ANISOCYTOSIS 1+; MACROCYTOSIS 0; PLATELET ESTIMATE NORMAL; TARGET CELLS 1+
[2019-12-20] MEDS: SODIUM CHLORIDE 1,000 ML IV SCH ×2 (12:00→22:13)
--- NOTE | 2019-12-20 12:25 | PN ---
Progress Note, Physician History of Present Illness: clinically patient looks better wbc has jumped up had some nauseous feeling feels like she might throw up - Current Medication List Current Medications: Active Medications Ascorbic Acid (Vitamin C -) 500 mg PO BID [facility] Last Admin: 12/20/19 10:34 Dose: 500 mg Documented by: Duloxetine HCl (Cymbalta -) 60 mg PO DAILY [facility] Last Admin: 12/20/19 10:33 Dose: 60 mg Documented by: Enoxaparin Sodium (Lovenox -) 70 mg SQ Q12H [facility] Last Admin: 12/20/19 10:34 Dose: 70 mg Documented by: Azithromycin (Zithromax 500mg Ivpb (Pre-Docked)) 500 mg in 250 mls @ 250 mls/hr IVPB DAILY [facility] Stop: 12/22/19 10:59 Last Admin: 12/20/19 10:38 Dose: 250 mls/hr Documented by: Sodium Chloride (Normal Saline -) 1,000 mls @ 100 mls/hr IV ASDIR MAGDA Cefepime HCl 2 gm/ Dextrose 100 mls @ 200 mls/hr IVPB Q8H-IV MAGDA Stop: 12/20/19 15:00 Last Admin: 12/20/19 10:38 Dose: 200 mls/hr Documented by: Cefepime HCl 2 gm/ Dextrose 100 mls @ 100 mls/hr IVPB BID [facility]; Protocol Cefepime HCl 2 gm/ Dextrose 100 mls @ 200 mls/hr IVPB BID [facility] Stop: 12/21/19 10:29 Methylprednisolone Sodium Succinate (Solu-Medrol -) 40 mg IVPUSH Q8H-IV [facility] Last Admin: 12/20/19 10:34 Dose: 40 mg Documented by: Pantoprazole Sodium (Protonix -) 40 mg PO DAILY [facility] Last Admin: 12/20/19 10:34 Dose: 40 mg Documented by: Zinc Sulfate (Orazinc -) 220 mg PO DAILY [facility] Last Admin: 12/20/19 10:34 Dose: 220 mg Documented by: - Objective Vital Signs: Vital Signs Temperature 97.5 F L 12/20/19 06:59 Pulse Rate 91 H 12/20/19 06:59 Respiratory Rate 20 12/20/19 06:59 Blood Pressure 151/84 12/20/19 06:59 O2 Sat by Pulse Oximetry (%) 98 12/20/19 06:59 Constitutional: Yes: Calm, Mild Distress Cardiovascular: Yes: S1, S2 Respiratory: Yes: Regular, On Nasal O2, Poor Air Entry, Rhonchi Gastrointestinal: Yes: Normal Bowel Sounds, Soft Musculoskeletal: Yes: WNL Extremities: Yes: WNL Neurological: Yes: Alert, Oriented Psychiatric: Yes: Alert, Oriented Labs: CBC, BMP 12/20/19 06:30 12/20/19 06:30 INR, PTT INR 1.02 (0.83-1.09) 12/18/19 14:00 Assessment/Plan this patient with multiple medical problems admitted with sob,fever,weakness and with leukocytosis and infiltrate i am worried because of her habits 1 is the patient prone for aspiration 2 monitor wbc continue cefepime will see how wbc behaves rest as per the team
--- NOTE | 2019-12-20 14:46 | PN ---
Teaching Attending Note Name of Resident: Jefry Street ATTENDING PHYSICIAN STATEMENT I saw and evaluated the patient. I reviewed the resident's note and discussed the case with the resident. I agree with the resident's findings and plan as documented. SUBJECTIVE: Reports ongoing improvement in SOB and cough. No fever/chills. OBJECTIVE: Afebrile, Hemodynamically Stable. Alert, bright, interactive. SpO2 98% on 2L via NC Last Vital Signs Temp Pulse Resp BP Pulse Ox 97.5 F L 91 H 20 151/84 98 12/20/19 06:59 12/20/19 06:59 12/20/19 06:59 12/20/19 06:59 12/20/19 09:00 Heart - S1, S2, soft SM Lungs - decreased air entry bibasally Abdomen - Soft, non-tender. Bowel Sounds normal. Extremities - no edema, no calf tenderness. Neuro - AAO x 3. Tone/Power normal. Laboratory Results - last 24 hr 12/18/19 12/20/19 12/20/19 18:25 06:00 06:30 WBC RBC Hgb Hct MCV MCH MCHC RDW Plt Count MPV Absolute Neuts (auto) Neutrophils % Neutrophils % (Manual) Band Neutrophils % Lymphocytes % Lymphocytes % (Manual) Monocytes % Monocytes % (Manual) Eosinophils % Eosinophils % (Manual) Basophils % Basophils % (Manual) Myelocytes % (Man) Promyelocytes % (Man) Blast Cells % (Manual) Nucleated RBC % Metamyelocytes Hypochromia Platelet Estimate Polychromasia Poikilocytosis Anisocytosis Microcytosis Macrocytosis Target Cells ESR D-Dimer Sodium 134 L Potassium 4.4 Chloride 94 L Carbon Dioxide 30 Anion Gap 11 BUN 45.6 H Creatinine 1.4 H Est GFR (CKD-EPI)AfAm 44.95 Est GFR (CKD-EPI)NonAf 38.78 Random Glucose 216 H Hemoglobin A1c % 6.0 Calcium 8.0 L Phosphorus 3.8 Magnesium 2.0 Ferritin 1661.6 H Total Bilirubin 0.4 AST 71 H ALT 35 Alkaline Phosphatase 203 H C-Reactive Protein 16.0 H Total Protein 6.5 Albumin 1.7 L Influenza A (Rapid) Negative Influenza B (Rapid) Negative 12/20/19 12/20/19 06:30 06:30 WBC 43.6 H* RBC 5.00 Hgb 12.4 Hct 39.8 MCV 79.7 L MCH 24.8 L MCHC 31.1 L RDW 21.7 H Plt Count 393 D MPV 9.8 D Absolute Neuts (auto) 41.0 H Neutrophils % 94.0 H Neutrophils % (Manual) 94.0 H Band Neutrophils % 3.0 Lymphocytes % 2.5 L D Lymphocytes % (Manual) 3.0 L Monocytes % 3.5 L Monocytes % (Manual) 0 L D Eosinophils % 0.0 D Eosinophils % (Manual) 0.0 Basophils % 0.0 Basophils % (Manual) 0.0 Myelocytes % (Man) 0 Promyelocytes % (Man) 0 Blast Cells % (Manual) 0 Nucleated RBC % 0 Metamyelocytes 0 Hypochromia 0 Platelet Estimate Normal Polychromasia 1+ Poikilocytosis 1+ Anisocytosis 1+ Microcytosis 1+ Macrocytosis 0 Target Cells 1+ ESR 78 H D-Dimer 3373 H Sodium Potassium Chloride Carbon Dioxide Anion Gap BUN Creatinine Est GFR (CKD-EPI)AfAm Est GFR (CKD-EPI)NonAf Random Glucose Hemoglobin A1c % Calcium Phosphorus Magnesium Ferritin Total Bilirubin AST ALT Alkaline Phosphatase C-Reactive Protein Total Protein Albumin Influenza A (Rapid) Influenza B (Rapid) Current Medications Generic Name Dose Route Start Last Admin Trade Name Freq PRN Reason Stop Dose Admin Ascorbic Acid 500 mg 12/18/19 22:00 12/20/19 10:34 Vitamin C - PO 500 mg BID MAGDA Administration Duloxetine HCl 60 mg 12/20/19 10:00 12/20/19 10:33 Cymbalta - PO 60 mg DAILY MAGDA Administration Enoxaparin Sodium 70 mg 12/18/19 22:00 12/20/19 10:34 Lovenox - SQ 70 mg Q12H MAGDA Administration Azithromycin 500 mg in 250 mls @ 250 mls/hr 12/19/19 11:45 12/20/19 10:38 Zithromax 500mg Ivpb (Pre-Docked) IVPB 12/22/19 10:59 250 mls/hr DAILY MAGDA Administration Sodium Chloride 1,000 mls @ 100 mls/hr 12/20/19 09:00 Normal Saline - IV ASDIR MAGDA Cefepime HCl 1 gm/ Dextrose 100 mls @ 200 mls/hr 12/20/19 18:00 IVPB Q8H-IV MAGDA Protocol Methylprednisolone Sodium Succinate 40 mg 12/20/19 09:03 12/20/19 10:34 Solu-Medrol - IVPUSH 40 mg Q8H-IV MAGDA Administration Pantoprazole Sodium 40 mg 12/18/19 18:00 12/20/19 10:34 Protonix - PO 40 mg DAILY MAGDA Administration Zinc Sulfate 220 mg 12/19/19 10:00 12/20/19 10:34 Orazinc - PO 220 mg DAILY MAGDA Administration Home Medications Medication Instructions Recorded Amlodipine Besylate [Norvasc -] 10 mg PO DAILY tablet 07/20/19 Carvedilol [Coreg -] 3.125 mg PO BID tablet 07/20/19 Duloxetine HCl [Cymbalta -] 60 mg PO DAILY capsule. 07/20/19 Lisinopril [Prinivil] 10 mg PO DAILY tablet 07/20/19 Montelukast Na [Singulair -] 10 mg PO HS tablet 07/20/19 Albuterol 0.083% Nebulizer Cleopatra 1 vial IH Q8H PRN 12/19/19 [Ventolin 0.083% Nebulizer Soln -] Albuterol Sulfate Inhaler - 1 puff IH Q4H PRN 12/19/19 [Ventolin HFA Inhaler -] Aspirin [Adult Aspirin Regimen] 81 mg PO DAILY 12/19/19 Budesonide/Formeterol Fumarate 2 puff IH BID 12/19/19 [SYMBICORT 80/4.5mcg -] Simvastatin [Zocor -] 10 mg PO DAILY 12/19/19 Tiotropium [place] [Spiriva 1.25 mcg IH DAILY 12/19/19 Respimat] ASSESSMENT AND PLAN: 69 year old female with history of Alcohol Abuse, HTN, HLD, DM 2, CVA, Asthma/COPD, presents with increasing shortness of breath, cough, fever, chills, found to be hypoxic in ED with Spo2 88%. 1. Acute Hypoxic Respiratory Failure secondary to Pneumonia CXR - R sided infiltrate. Leukocytosis +++ Wean off Supplemental O2, continue Azithromycin, switch Ceftriaxone to Cefepime. All inflammatory markers elevated - DDIMER, Ferritin but COVID PCR negative. CTA Chest - no PE, RLL consolidation Duplex LEs - no DVT Was placed on steroid and AC empirically for possible COVID - given no evidence of COVID on CT and neg COVID PCR, will discontinue treatment dose Lovenox and titrate down steroid. ID, Pulmonary following. 2. HTN - reintroduce Norvasc, Coreg, Lisinopril as BP tolerates. 3. Asthma/COPD - no evidence of acute exacerbation. Continue Montelukast, Advair, Albuterol PRN 4. DM 2 - diet controlled at home. Maintain on Novolog sliding scale, hanna given steroid use. 5. Depression - continue Cymbalta. 6. Elevated AST, etiology unclear - improving. abdo US - fatty liver, gallstones, no evidence of cholecystitis. DVT Px - on Lovenox
[2019-12-20] MEDS ORDERED: CARVEDILOL 3.125 MG TABLET (FP) PO ONE (15:22)
[2019-12-20] MEDS ORDERED: amLODIPine BESYLATE 10 MG TABLET (FP) PO ONE (15:23)
--- NOTE | 2019-12-20 16:41 | PN ---
Physical Exam: SUBJECTIVE: Patient seen and examined. Reports improvement in SOB and cough. Denies fever/chills. OBJECTIVE: Vital Signs Period Temp Pulse Resp BP Sys/Min Pulse Ox Last 24 Hr 97.5 F-98.1 F 86-91 18-20 117-161/62-96 94-98 HEENT - Atraumatic, Normocephalic. Heart - S1, S2, soft SM Lungs - decreased air entry bibasally Abdomen - Soft, non-tender. Bowel Sounds normal. Extremities - no edema, no calf tenderness. Neuro - AAO x 3. Tone/Power normal. Laboratory Results - last 24 hr 12/18/19 12/20/19 12/20/19 18:25 06:00 06:30 WBC RBC Hgb Hct MCV MCH MCHC RDW Plt Count MPV Absolute Neuts (auto) Neutrophils % Neutrophils % (Manual) Band Neutrophils % Lymphocytes % Lymphocytes % (Manual) Monocytes % Monocytes % (Manual) Eosinophils % Eosinophils % (Manual) Basophils % Basophils % (Manual) Myelocytes % (Man) Promyelocytes % (Man) Blast Cells % (Manual) Nucleated RBC % Metamyelocytes Hypochromia Platelet Estimate Polychromasia Poikilocytosis Anisocytosis Microcytosis Macrocytosis Target Cells ESR D-Dimer Sodium 134 L Potassium 4.4 Chloride 94 L Carbon Dioxide 30 Anion Gap 11 BUN 45.6 H Creatinine 1.4 H Est GFR (CKD-EPI)AfAm 44.95 Est GFR (CKD-EPI)NonAf 38.78 Random Glucose 216 H Hemoglobin A1c % 6.0 Calcium 8.0 L Phosphorus 3.8 Magnesium 2.0 Ferritin 1661.6 H Total Bilirubin 0.4 AST 71 H ALT 35 Alkaline Phosphatase 203 H C-Reactive Protein 16.0 H Total Protein 6.5 Albumin 1.7 L Influenza A (Rapid) Negative Influenza B (Rapid) Negative 12/20/19 12/20/19 06:30 06:30 WBC 43.6 H* RBC 5.00 Hgb 12.4 Hct 39.8 MCV 79.7 L MCH 24.8 L MCHC 31.1 L RDW 21.7 H Plt Count 393 D MPV 9.8 D Absolute Neuts (auto) 41.0 H Neutrophils % 94.0 H Neutrophils % (Manual) 94.0 H Band Neutrophils % 3.0 Lymphocytes % 2.5 L D Lymphocytes % (Manual) 3.0 L Monocytes % 3.5 L Monocytes % (Manual) 0 L D Eosinophils % 0.0 D Eosinophils % (Manual) 0.0 Basophils % 0.0 Basophils % (Manual) 0.0 Myelocytes % (Man) 0 Promyelocytes % (Man) 0 Blast Cells % (Manual) 0 Nucleated RBC % 0 Metamyelocytes 0 Hypochromia 0 Platelet Estimate Normal Polychromasia 1+ Poikilocytosis 1+ Anisocytosis 1+ Microcytosis 1+ Macrocytosis 0 Target Cells 1+ ESR 78 H D-Dimer 3373 H Sodium Potassium Chloride Carbon Dioxide Anion Gap BUN Creatinine Est GFR (CKD-EPI)AfAm Est GFR (CKD-EPI)NonAf Random Glucose Hemoglobin A1c % Calcium Phosphorus Magnesium Ferritin Total Bilirubin AST ALT Alkaline Phosphatase C-Reactive Protein Total Protein Albumin Influenza A (Rapid) Influenza B (Rapid) Active Medications Generic Name Dose Route Start Last Admin Trade Name Freq PRN Reason Stop Dose Admin Amlodipine Besylate 10 mg 12/21/19 10:00 Norvasc - PO DAILY MAGDA Ascorbic Acid 500 mg 12/18/19 22:00 12/20/19 10:34 Vitamin C - PO 500 mg BID MAGDA Administration Carvedilol 3.125 mg 12/20/19 22:00 Coreg - PO BID MAGDA Duloxetine HCl 60 mg 12/20/19 10:00 12/20/19 10:33 Cymbalta - PO 60 mg DAILY MAGDA Administration Enoxaparin Sodium 40 mg 12/21/19 10:00 Lovenox - SQ DAILY MAGDA Azithromycin 500 mg in 250 mls @ 250 mls/hr 12/19/19 11:45 12/20/19 10:38 Zithromax 500mg Ivpb (Pre-Docked) IVPB 12/22/19 10:59 250 mls/hr DAILY MAGDA Administration Sodium Chloride 1,000 mls @ 100 mls/hr 12/20/19 09:00 12/20/19 12:00 Normal Saline - IV 100 mls/hr ASDIR MAGDA Administration Cefepime HCl 1 gm/ Dextrose 100 mls @ 200 mls/hr 12/20/19 18:00 IVPB Q8H-IV MAGDA Protocol Methylprednisolone Sodium Succinate 40 mg 12/20/19 09:03 12/20/19 10:34 Solu-Medrol - IVPUSH 40 mg Q8H-IV MAGDA Administration Pantoprazole Sodium 40 mg 12/18/19 18:00 12/20/19 10:34 Protonix - PO 40 mg DAILY MAGDA Administration Zinc Sulfate 220 mg 12/19/19 10:00 12/20/19 10:34 Orazinc - PO 220 mg DAILY MAGDA Administration ASSESSMENT/PLAN: Pt is 69 year old female with PMHx of alcohol abuse, HTN, HLD, DM 2, CVA, Asthma/COPD, depression presenting with SOB and cough, fever, chills, hypoxic 88% admitted for acute hypoxic respiratory failure. #Acute hypoxic respiratory failure -WBC 25 --> 25.9 -->43.6 -CXR showing R sided infiltrate; Switched ceftriaxone and azithro to cefepime -Requiring supplemental O2, on 2L NC -COVID negative (inflammatory markers all increased --- D dimer, ferritin) -Duplex LE US and CTA chest negative for DVT/PE -Consulted ID and pulm; follow recs #Hx of HTN -On home norvasc, coreg, lisinopril -restarted norvasc and coreg #ALISON -Cr 1.1 -->1.4 -rec'd 500cc bolus, and NS at 100cc/hr -monitor Cr in AM labs #Hx of asthma/COPD -PRN albuterol, montelukast, advair #Hx of DM2 -SSI and bG monitoring -diet controlled at home -A1c 6 #Hx of depression -Continue home cymbalta #Transaminitis -unclear cause -oossibly due to hx of alcohol abuse PPx -Lovenox FEN -Regular diet -Monitor electrolytes -No standing fluids Dispo Admitted to med surg for acute hypoxic respiratory failure. On 2L NC. On cef epime. Visit type - Emergency Visit Emergency Visit: Yes ED Registration Date: 12/18/19 Care time: The patient presented to the Emergency Department on the above date and was hospitalized for further evaluation of their emergent condition. - New Patient This patient is new to me today: No - Critical Care Critical Care patient: No - Medication Review Med list reviewed for High Risk Meds patients 65 and older: Yes ATTENDING PHYSICIAN STATEMENT I saw and evaluated the patient. I reviewed the resident's note and discussed the case with the resident. I agree with the resident's findings and plan as documented. SUBJECTIVE: OBJECTIVE: ASSESSMENT AND PLAN:
[2019-12-20] MEDS ORDERED: CEFEPIME HCL 1 GM VIAL (RESTRICTED TO ID) ONE (16:56)
[2019-12-20] MEDS: CEFEPIME 1 GM in DEXTROSE 5%-WATER 100 ML IVPB SCH (17:16)
[2019-12-20] MEDS ORDERED: guaiFENesin/CODEINE 10 ML UNIT-DOSE CUPS PO PRN (17:33)
[2019-12-20] MEDS: CARVEDILOL 3.125 MG TABLET (FP) PO SCH (22:12)
[2019-12-21] MEDS ORDERED: CEFEPIME HCL 1 GM VIAL (RESTRICTED TO ID) ONE ×3 (02:36→16:48)
[2019-12-21] MEDS ORDERED: DEXTROSE 5%-WATER 100 ML IVPB ONE ×3 (02:37→16:48)
[2019-12-21] MEDS: methylPREDNISolone NA SUCC 40 MG/1 ML VIAL IVPUSH SCH ×3 (02:58→17:26)
[2019-12-21] MEDS: CEFEPIME 1 GM in DEXTROSE 5%-WATER 100 ML IVPB SCH ×3 (02:58→17:27)
[2019-12-21] MEDS: SODIUM CHLORIDE 1,000 ML IV SCH (07:00)
[2019-12-21 08:08] LABS: BASO % 0.3 % (0-2.0); HEMATOCRIT 37.5 % (32.4-45.2); HEMOGLOBIN 11.6 GM/dL (10.7-15.3); LYMPH % 4.6 % (8-40); MCH 24.6 pg (25.7-33.7); MEAN CELL VOLUME 79.5 fl (80-96); MEAN PLT VOLUME 9.2 fl (7.5-11.1); MONO % 2.8 % (3.8-10.2); NEUT % 92.3 % (42.8-82.8); PLATELET COUNT 461 K/MM3 (134-434); RBC 4.72 M/mm3 (3.60-5.2); RDW 21.5 % (11.6-15.6); WHITE BLOOD COUNT 25.7 K/mm3 (4.0-10.0)
[2019-12-21 08:20] LABS: ALBUMIN 1.7 g/dl (3.4-5.0); BILIRUBIN,TOTAL 0.4 mg/dL (0.2-1); BLOOD UREA NITROGEN 28.8 mg/dL (7-18); CREATININE 0.9 mg/dL (0.55-1.3); MAGNESIUM 1.7 mg/dL (1.8-2.4); PHOSPHOROUS 2.4 mg/dL (2.5-4.9); POTASSIUM 3.8 mmol/L (3.5-5.1); TOT PROT 6.2 g/dl (6.4-8.2)
[2019-12-21] MEDS ORDERED: NAPH,MB-DB/K PH,MBDB POWDER PACKET PO ONE (09:02)
[2019-12-21] MEDS ORDERED: MAGNESIUM 2GM/50ML STERILE WATER IVPB IVPB ONE (09:02)
--- NOTE | 2019-12-21 09:09 | PN ---
Progress Note, Physician History of Present Illness: still weak no new issues - Current Medication List Current Medications: Active Medications Amlodipine Besylate (Norvasc -) 10 mg PO DAILY [facility] Ascorbic Acid (Vitamin C -) 500 mg PO BID [facility] Last Admin: 12/20/19 22:12 Dose: 500 mg Documented by: Carvedilol (Coreg -) 3.125 mg PO BID [facility] Last Admin: 12/20/19 22:12 Dose: 3.125 mg Documented by: Duloxetine HCl (Cymbalta -) 60 mg PO DAILY [facility] Last Admin: 12/20/19 10:33 Dose: 60 mg Documented by: Enoxaparin Sodium (Lovenox -) 40 mg SQ DAILY [facility] Guaifenesin/Codeine Phosphate (Robitussin Ac -) 10 ml PO Q4H PRN PRN Reason: COUGH Last Admin: 12/20/19 22:12 Dose: 10 ml Documented by: Azithromycin (Zithromax 500mg Ivpb (Pre-Docked)) 500 mg in 250 mls @ 250 mls/hr IVPB DAILY [facility] Stop: 12/22/19 10:59 Last Admin: 12/20/19 10:38 Dose: 250 mls/hr Documented by: Sodium Chloride (Normal Saline -) 1,000 mls @ 100 mls/hr IV ASDIR [facility] Last Admin: 12/20/19 22:13 Dose: 100 mls/hr Documented by: Cefepime HCl 1 gm/ Dextrose 100 mls @ 200 mls/hr IVPB Q8H-IV [facility]; Protocol Last Admin: 12/21/19 02:58 Dose: 200 mls/hr Documented by: Magnesium Sulfate (Magnesium Sulfate) 2 gm IVPB ONCE ONE Stop: 12/21/19 09:03 Methylprednisolone Sodium Succinate (Solu-Medrol -) 40 mg IVPUSH Q8H-IV [facility] Last Admin: 12/21/19 02:58 Dose: 40 mg Documented by: Pantoprazole Sodium (Protonix -) 40 mg PO DAILY [facility] Last Admin: 12/20/19 10:34 Dose: 40 mg Documented by: Potassium Phos/Sodium Phos (Phos-Nak Packet -) 1 packet PO ONCE ONE Stop: 12/21/19 09:03 Zinc Sulfate (Orazinc -) 220 mg PO DAILY [facility] Last Admin: 12/20/19 10:34 Dose: 220 mg Documented by: - Objective Vital Signs: Vital Signs Temperature 98.1 F 12/21/19 06:00 Pulse Rate 81 12/21/19 06:00 Respiratory Rate 20 12/21/19 06:00 Blood Pressure 175/89 H 12/21/19 06:00 O2 Sat by Pulse Oximetry (%) 100 12/21/19 06:00 Constitutional: Yes: No Distress, Calm Cardiovascular: Yes: S1, S2 Respiratory: Yes: On Nasal O2, Poor Air Entry, Rhonchi Gastrointestinal: Yes: Normal Bowel Sounds, Soft Musculoskeletal: Yes: WNL Extremities: Yes: WNL Neurological: Yes: Alert, Oriented Psychiatric: Yes: Alert, Oriented Labs: CBC, BMP 12/21/19 07:00 12/21/19 07:00 INR, PTT INR 1.02 (0.83-1.09) 12/18/19 14:00 Assessment/Plan this patient with multiple medical problems admitted with sob,fever,weakness and with leukocytosis and infiltrate i am worried because of her habits 1 is the patient prone for aspiration wbc trending down continue abx rest as per the team
[2019-12-21] MEDS ORDERED: POTASSIUM PHOSPHATE 15 MM in SODIUM CHLORIDE 250 ML IVPB ONE (09:24)
[2019-12-21] MEDS: AZITHROMYCIN IVPB 500 MG/250 ML BAG IVPB SCH (10:12)
--- NOTE | 2019-12-21 10:13 | PN ---
Progress Note (short form) - Note Progress Note: PULMONARY Feels better overall. +nonproductive cough. No fevers. Vital Signs Period Temp Pulse Resp BP Sys/Min Pulse Ox Last 24 Hr 98.1 F-98.5 F 81-88 20-20 144-175/81-96 94-100 Gen: NAD at rest Heart: RRR Lung: bilateral wheezes, decreased breath sounds right base Abd: soft, nontender Ext: no edema CBC, BMP 12/21/19 07:00 12/21/19 07:00 Active Medications Amlodipine Besylate (Norvasc -) 10 mg PO DAILY [facility] Ascorbic Acid (Vitamin C -) 500 mg PO BID [facility] Last Admin: 12/20/19 22:12 Dose: 500 mg Documented by: Carvedilol (Coreg -) 3.125 mg PO BID [facility] Last Admin: 12/20/19 22:12 Dose: 3.125 mg Documented by: Duloxetine HCl (Cymbalta -) 60 mg PO DAILY [facility] Last Admin: 12/20/19 10:33 Dose: 60 mg Documented by: Enoxaparin Sodium (Lovenox -) 40 mg SQ DAILY [facility] Guaifenesin/Codeine Phosphate (Robitussin Ac -) 10 ml PO Q4H PRN PRN Reason: COUGH Last Admin: 12/20/19 22:12 Dose: 10 ml Documented by: Azithromycin (Zithromax 500mg Ivpb (Pre-Docked)) 500 mg in 250 mls @ 250 mls/hr IVPB DAILY [facility] Stop: 12/22/19 10:59 Last Admin: 12/20/19 10:38 Dose: 250 mls/hr Documented by: Sodium Chloride (Normal Saline -) 1,000 mls @ 100 mls/hr IV ASDIR [facility] Last Admin: 12/20/19 22:13 Dose: 100 mls/hr Documented by: Cefepime HCl 1 gm/ Dextrose 100 mls @ 200 mls/hr IVPB Q8H-IV [facility]; Protocol Last Admin: 12/21/19 02:58 Dose: 200 mls/hr Documented by: Potassium Phosphate 15 mm/ (Sodium Chloride) 255 mls @ 62.5 mls/hr IVPB ONCE ONE Stop: 12/21/19 13:28 Methylprednisolone Sodium Succinate (Solu-Medrol -) 40 mg IVPUSH Q8H-IV [facility] Last Admin: 12/21/19 02:58 Dose: 40 mg Documented by: Pantoprazole Sodium (Protonix -) 40 mg PO DAILY [facility] Last Admin: 12/20/19 10:34 Dose: 40 mg Documented by: Zinc Sulfate (Orazinc -) 220 mg PO DAILY [facility] Last Admin: 12/20/19 10:34 Dose: 220 mg Documented by: A/P Pneumonia Hypoxia Acute COPD Exacerbation Hyponatremia HTN DM h/o CVA - continue antibiotics - medrol taper - inhaled bronchodilators - O2 to keep Spo2 >90% - smoking cessation - DVT prophylaxis - will need repeat CT chest in 6 weeks to confirm resolution of consolidation
[2019-12-21] MEDS ORDERED: ALBUTEROL SO4 0.083% IH SOL 2.5 MG/3 ML VIAL.NEB. NEB PRN (10:14)
[2019-12-21] MEDS: ENOXAPARIN NA (PORCINE) 40 MG/0.4 ML DISP.SYRIN SQ SCH (10:16)
[2019-12-21] MEDS: PANTOPRAZOLE 40 MG TABLET PO SCH (10:17)
[2019-12-21] MEDS: CARVEDILOL 3.125 MG TABLET (FP) PO SCH ×2 (10:17→21:25)
[2019-12-21] MEDS: ZINC SULFATE 220 MG CAPSULE (FP) PO SCH (10:17)
[2019-12-21] MEDS: DULoxetine HCL 30 MG CAPSULE.DR PO SCH (10:17)
[2019-12-21] MEDS: amLODIPine BESYLATE 10 MG TABLET (FP) PO SCH (10:17)
[2019-12-21] MEDS: ASCORBIC ACID 500 MG TABLET (FP) PO SCH ×2 (10:21→21:24)
[2019-12-21 10:24] LABS: ANISOCYTOSIS 2+; MACROCYTOSIS 1+; PLATELET ESTIMATE NORMAL; TARGET CELLS 1+
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
[2019-12-21] MEDS: ALBUTEROL SO4 2.5/IPRATROPIUM 0.5 INH SOL 3 ML VIAL.NEB. NEB SCH ×3 (12:18→20:47)
--- NOTE | 2019-12-21 15:22 | PN ---
Physical Exam: SUBJECTIVE: Patient seen and examined. Reports improvement in SOB. Admits to nonproductive cough. OBJECTIVE: Vital Signs Period Temp Pulse Resp BP Sys/Min Pulse Ox Last 24 Hr 98.1 F-98.5 F 81-88 20-20 136-175/76-89 94-100 HEENT - Atraumatic, Normocephalic. Heart - S1, S2, soft SM Lungs - decreased air entry bibasally Abdomen - Soft, non-tender. Bowel Sounds normal. Extremities - no edema, no calf tenderness. Neuro - AAO x 3. Tone/Power normal. Laboratory Results - last 24 hr 12/21/19 12/21/19 07:00 07:00 WBC 25.7 H RBC 4.72 Hgb 11.6 Hct 37.5 MCV 79.5 L MCH 24.6 L MCHC 31.0 L RDW 21.5 H Plt Count 461 H MPV 9.2 Absolute Neuts (auto) 23.8 H Neutrophils % 92.3 H Neutrophils % (Manual) 95.0 H Band Neutrophils % 0.0 Lymphocytes % 4.6 L D Lymphocytes % (Manual) 3.0 L Monocytes % 2.8 L Monocytes % (Manual) 1 L D Eosinophils % 0.0 Eosinophils % (Manual) 0.0 Basophils % 0.3 D Basophils % (Manual) 0.0 Myelocytes % (Man) 0 Promyelocytes % (Man) 0 Blast Cells % (Manual) 0 Nucleated RBC % 0 Metamyelocytes 0 Hypochromia 0 Platelet Estimate Normal Polychromasia 0 Poikilocytosis 0 Anisocytosis 2+ Microcytosis 1+ Macrocytosis 1+ Target Cells 1+ Sodium 139 Potassium 3.8 Chloride 102 Carbon Dioxide 29 Anion Gap 7 L BUN 28.8 H Creatinine 0.9 Est GFR (CKD-EPI)AfAm 76.68 Est GFR (CKD-EPI)NonAf 66.16 Random Glucose 191 H Calcium 8.0 L Phosphorus 2.4 L Magnesium 1.7 L Total Bilirubin 0.4 AST 76 H ALT 40 Alkaline Phosphatase 198 H Total Protein 6.2 L Albumin 1.7 L Active Medications Generic Name Dose Route Start Last Admin Trade Name Freq PRN Reason Stop Dose Admin Albuterol Sulfate 1 amp 12/21/19 10:14 Ventolin 0.083% Nebulizer Soln - NEB Q4H PRN SHORT OF BREATH/WHEEZING Albuterol/Ipratropium 1 amp 12/21/19 12:00 12/21/19 12:18 Duoneb - NEB 1 amp RQID [facility] Administration Amlodipine Besylate 10 mg 12/21/19 10:00 12/21/19 10:17 Norvasc - PO 10 mg DAILY [facility] Administration Ascorbic Acid 500 mg 12/18/19 22:00 12/21/19 10:21 Vitamin C - PO 500 mg BID [facility] Administration Carvedilol 3.125 mg 12/20/19 22:00 12/21/19 10:17 Coreg - PO 3.125 mg BID [facility] Administration Duloxetine HCl 60 mg 12/20/19 10:00 12/21/19 10:17 Cymbalta - PO 60 mg DAILY [facility] Administration Enoxaparin Sodium 40 mg 12/21/19 10:00 12/21/19 10:16 Lovenox - SQ 40 mg DAILY [facility] Administration Guaifenesin/Codeine Phosphate 10 ml 12/20/19 17:33 12/20/19 22:12 Robitussin Ac - PO 10 ml Q4H PRN Administration COUGH Azithromycin 500 mg in 250 mls @ 250 mls/hr 12/19/19 11:45 12/21/19 10:12 Zithromax 500mg Ivpb (Pre-Docked) IVPB 12/22/19 10:59 250 mls/hr DAILY [facility] Administration Sodium Chloride 1,000 mls @ 100 mls/hr 12/20/19 09:00 12/21/19 07:00 Normal Saline - IV 100 mls/hr ASDIR [facility] Administration Cefepime HCl 1 gm/ Dextrose 100 mls @ 200 mls/hr 12/20/19 18:00 12/21/19 10:17 IVPB 200 mls/hr Q8H-IV [facility] Administration Protocol Methylprednisolone Sodium Succinate 40 mg 12/20/19 09:03 12/21/19 10:17 Solu-Medrol - IVPUSH 40 mg Q8H-IV [facility] Administration Pantoprazole Sodium 40 mg 12/18/19 18:00 12/21/19 10:17 Protonix - PO 40 mg DAILY [facility] Administration Zinc Sulfate 220 mg 12/19/19 10:00 12/21/19 10:17 Orazinc - PO 220 mg DAILY [facility] Administration ASSESSMENT/PLAN: Pt is 69 year old female with PMHx of alcohol abuse, HTN, HLD, DM 2, CVA, Asthma/COPD, depression presenting with SOB and cough, fever, chills, hypoxic 88% admitted for acute hypoxic respiratory failure. #Acute hypoxic respiratory failure secondary to PNA -WBC 25 --> 25.9 -->43.6 -CXR showing R sided infiltrate; Switched ceftriaxone and azithro to cefepime -Was on 2L NC --> 94% on room air; supplemental O2 if SpO2 goes below 90% -COVID negative (inflammatory markers all increased --- D dimer, ferritin) -Duplex LE US and CTA chest negative for DVT/PE -Consulted ID and pulm; follow recs -Concern for aspiration, speech/swallow --> MBS completed with diet modifications : oral pharyngeal dysphagia with impaired mastication - Speech therapy recommends chopped diet with extra gravy and thin liquids. #Hx of HTN -On home norvasc, coreg, lisinopril -restarted norvasc and coreg #ALISON -resolved -rec'd 500cc bolus, and NS at 100cc/hr on 12/19 -monitor Cr in AM labs #Hx of asthma/COPD -PRN albuterol, montelukast, advair #Hx of DM2 -SSI and bG monitoring -diet controlled at home -A1c 6 #Hx of depression -Continue home cymbalta #Transaminitis -unclear cause -oossibly due to hx of alcohol abuse PPx -Lovenox FEN -Due to risk of aspiration chopped diet with extra gravy and thin liquids. -Monitor electrolytes -No standing fluids Dispo Admitted to med surg for acute hypoxic respiratory failure 2/2 to pneumonia. Weaned off oxygen. On cefepime. Visit type - Emergency Visit Emergency Visit: Yes ED Registration Date: 12/18/19 Care time: The patient presented to the Emergency Department on the above date and was hospitalized for further evaluation of their emergent condition. - New Patient This patient is new to me today: No - Critical Care Critical Care patient: No - Medication Review Med list reviewed for High Risk Meds patients 65 and older: Yes ATTENDING PHYSICIAN STATEMENT I saw and evaluated the patient. I reviewed the resident's note and discussed the case with the resident. I agree with the resident's findings and plan as documented. SUBJECTIVE: OBJECTIVE: ASSESSMENT AND PLAN:
--- NOTE | 2019-12-21 15:33 | PN ---
Teaching Attending Note Name of Resident: Jefry Street ATTENDING PHYSICIAN STATEMENT I saw and evaluated the patient. I reviewed the resident's note and discussed the case with the resident. I agree with the resident's findings and plan as documented. SUBJECTIVE: Reports ongoing improvement in SOB and cough. No fever/chills. OBJECTIVE: Afebrile, Hemodynamically Stable. Alert, bright, interactive. SpO2 92-94% on RA Last Vital Signs Temp Pulse Resp BP Pulse Ox 98.3 F 85 20 136/76 94 L 12/21/19 14:22 12/21/19 14:22 12/21/19 14:22 12/21/19 14:22 12/21/19 14:22 Heart - S1, S2, soft SM Lungs - decreased air entry bibasally Abdomen - Soft, non-tender. Bowel Sounds normal. Extremities - no edema, no calf tenderness. Neuro - AAO x 3. Tone/Power normal. Laboratory Results - last 24 hr 12/21/19 12/21/19 07:00 07:00 WBC 25.7 H RBC 4.72 Hgb 11.6 Hct 37.5 MCV 79.5 L MCH 24.6 L MCHC 31.0 L RDW 21.5 H Plt Count 461 H MPV 9.2 Absolute Neuts (auto) 23.8 H Neutrophils % 92.3 H Neutrophils % (Manual) 95.0 H Band Neutrophils % 0.0 Lymphocytes % 4.6 L D Lymphocytes % (Manual) 3.0 L Monocytes % 2.8 L Monocytes % (Manual) 1 L D Eosinophils % 0.0 Eosinophils % (Manual) 0.0 Basophils % 0.3 D Basophils % (Manual) 0.0 Myelocytes % (Man) 0 Promyelocytes % (Man) 0 Blast Cells % (Manual) 0 Nucleated RBC % 0 Metamyelocytes 0 Hypochromia 0 Platelet Estimate Normal Polychromasia 0 Poikilocytosis 0 Anisocytosis 2+ Microcytosis 1+ Macrocytosis 1+ Target Cells 1+ Sodium 139 Potassium 3.8 Chloride 102 Carbon Dioxide 29 Anion Gap 7 L BUN 28.8 H Creatinine 0.9 Est GFR (CKD-EPI)AfAm 76.68 Est GFR (CKD-EPI)NonAf 66.16 Random Glucose 191 H Calcium 8.0 L Phosphorus 2.4 L Magnesium 1.7 L Total Bilirubin 0.4 AST 76 H ALT 40 Alkaline Phosphatase 198 H Total Protein 6.2 L Albumin 1.7 L Current Medications Generic Name Dose Route Start Last Admin Trade Name Freq PRN Reason Stop Dose Admin Albuterol Sulfate 1 amp 12/21/19 10:14 Ventolin 0.083% Nebulizer Soln - NEB Q4H PRN SHORT OF BREATH/WHEEZING Albuterol/Ipratropium 1 amp 12/21/19 12:00 12/21/19 12:18 Duoneb - NEB 1 amp RQID [facility] Administration Amlodipine Besylate 10 mg 12/21/19 10:00 12/21/19 10:17 Norvasc - PO 10 mg DAILY [facility] Administration Ascorbic Acid 500 mg 12/18/19 22:00 12/21/19 10:21 Vitamin C - PO 500 mg BID [facility] Administration Carvedilol 3.125 mg 12/20/19 22:00 12/21/19 10:17 Coreg - PO 3.125 mg BID [facility] Administration Duloxetine HCl 60 mg 12/20/19 10:00 12/21/19 10:17 Cymbalta - PO 60 mg DAILY [facility] Administration Enoxaparin Sodium 40 mg 12/21/19 10:00 12/21/19 10:16 Lovenox - SQ 40 mg DAILY [facility] Administration Guaifenesin/Codeine Phosphate 10 ml 12/20/19 17:33 12/20/19 22:12 Robitussin Ac - PO 10 ml Q4H PRN Administration COUGH Azithromycin 500 mg in 250 mls @ 250 mls/hr 12/19/19 11:45 12/21/19 10:12 Zithromax 500mg Ivpb (Pre-Docked) IVPB 12/22/19 10:59 250 mls/hr DAILY [facility] Administration Sodium Chloride 1,000 mls @ 100 mls/hr 12/20/19 09:00 12/21/19 07:00 Normal Saline - IV 100 mls/hr ASDIR [facility] Administration Cefepime HCl 1 gm/ Dextrose 100 mls @ 200 mls/hr 12/20/19 18:00 12/21/19 10:17 IVPB 200 mls/hr Q8H-IV [facility] Administration Protocol Methylprednisolone Sodium Succinate 40 mg 12/20/19 09:03 12/21/19 10:17 Solu-Medrol - IVPUSH 40 mg Q8H-IV [facility] Administration Pantoprazole Sodium 40 mg 12/18/19 18:00 12/21/19 10:17 Protonix - PO 40 mg DAILY [facility] Administration Zinc Sulfate 220 mg 12/19/19 10:00 12/21/19 10:17 Orazinc - PO 220 mg DAILY [facility] Administration Home Medications Medication Instructions Recorded Amlodipine Besylate [Norvasc -] 10 mg PO DAILY tablet 07/20/19 Carvedilol [Coreg -] 3.125 mg PO BID tablet 07/20/19 Duloxetine HCl [Cymbalta -] 60 mg PO DAILY capsule. 07/20/19 Lisinopril [Prinivil] 10 mg PO DAILY tablet 07/20/19 Montelukast Na [Singulair -] 10 mg PO HS tablet 07/20/19 Albuterol 0.083% Nebulizer Cleopatra 1 vial IH Q8H PRN 12/19/19 [Ventolin 0.083% Nebulizer Soln -] Albuterol Sulfate Inhaler - 1 puff IH Q4H PRN 12/19/19 [Ventolin HFA Inhaler -] Aspirin [Adult Aspirin Regimen] 81 mg PO DAILY 12/19/19 Budesonide/Formeterol Fumarate 2 puff IH BID 12/19/19 [SYMBICORT 80/4.5mcg -] Simvastatin [Zocor -] 10 mg PO DAILY 12/19/19 Tiotropium Thicket [Spiriva 1.25 mcg IH DAILY 12/19/19 Respimat] ASSESSMENT AND PLAN: 69 year old female with history of Alcohol Abuse, HTN, HLD, DM 2, CVA, Asthma/COPD, presents with increasing shortness of breath, cough, fever, chills, found to be hypoxic in ED with Spo2 88%. 1. Acute Hypoxic Respiratory Failure secondary to Pneumonia possible aspiration CXR - R sided infiltrate. Leukocytosis +++ Wean off Supplemental O2, continue Azithromycin, Ceftriaxone switched to Cefepime. All inflammatory markers elevated - DDIMER, Ferritin but COVID PCR negative. CTA Chest - no PE, RLL consolidation Duplex LEs - no DVT Was placed on steroid and AC empirically for possible COVID - given no evidence of COVID on CT and neg COVID PCR, will discontinue treatment dose Lovenox and transition to oral Prednisone. MBS showed oral pharyngeal dysphagia with impaired mastication - Speech therapy recommends chopped diet with extra gravy and thin liquids. ID, Pulmonary following. 2. HTN - on Norvasc, Coreg. Reintroduce Lisinopril as BP tolerates. 3. Asthma/COPD - no evidence of acute exacerbation. Continue Montelukast, Advair, Albuterol PRN 4. DM 2 - diet controlled at home. Maintain on Novolog sliding scale, hanna given steroid use. 5. Depression - continue Cymbalta. 6. Elevated AST, etiology unclear - improving. Abdo US - fatty liver, gallstones, no evidence of cholecystitis. Ca resume Statin on discharge with repeat LFTs in 2 weeks. 7. ALISON - pre-renal secondary to dehydration, resolved with gentle IV hydration. 8. Hypomagnesemia/Hypophosphatemia - repleted. DVT Px - on Lovenox SQ
[2019-12-22] MEDS ORDERED: CEFEPIME HCL 1 GM VIAL (RESTRICTED TO ID) ONE ×4 (01:39→23:38)
[2019-12-22] MEDS ORDERED: DEXTROSE 5%-WATER 100 ML IVPB ONE ×4 (01:40→23:38)
[2019-12-22] MEDS: methylPREDNISolone NA SUCC 40 MG/1 ML VIAL IVPUSH SCH ×2 (01:54→09:13)
[2019-12-22] MEDS: CEFEPIME 1 GM in DEXTROSE 5%-WATER 100 ML IVPB SCH ×3 (01:54→17:02)
[2019-12-22] MEDS: ALBUTEROL SO4 2.5/IPRATROPIUM 0.5 INH SOL 3 ML VIAL.NEB. NEB SCH ×4 (07:33→20:35)
[2019-12-22 07:49] LABS: ALBUMIN 2.1 g/dl (3.4-5.0); BILIRUBIN,TOTAL 0.3 mg/dL (0.2-1); BLOOD UREA NITROGEN 18.6 mg/dL (7-18); CALCIUM 8.4 mg/dL (8.5-10.1); CREATININE 0.8 mg/dL (0.55-1.3); MAGNESIUM 1.9 mg/dL (1.8-2.4); PHOSPHOROUS 2.4 mg/dL (2.5-4.9); TOT PROT 7.2 g/dl (6.4-8.2)
[2019-12-22 07:51] LABS: BASO % 0.3 % (0-2.0); HEMATOCRIT 40.2 % (32.4-45.2); HEMOGLOBIN 12.7 GM/dL (10.7-15.3); LYMPH % 7.3 % (8-40); MCH 24.8 pg (25.7-33.7); MCHC 31.5 g/dl (32.0-36.0); MEAN CELL VOLUME 78.6 fl (80-96); MEAN PLT VOLUME 8.8 fl (7.5-11.1); MONO % 3.8 % (3.8-10.2); NEUT % 88.6 % (42.8-82.8); PLATELET COUNT 519 K/MM3 (134-434); RBC 5.12 M/mm3 (3.60-5.2); RDW 21.1 % (11.6-15.6); WHITE BLOOD COUNT 20.9 K/mm3 (4.0-10.0)
[2019-12-22] MEDS: ZINC SULFATE 220 MG CAPSULE (FP) PO SCH (09:13)
[2019-12-22] MEDS: PANTOPRAZOLE 40 MG TABLET PO SCH (09:13)
[2019-12-22] MEDS: ENOXAPARIN NA (PORCINE) 40 MG/0.4 ML DISP.SYRIN SQ SCH (09:13)
[2019-12-22] MEDS: amLODIPine BESYLATE 10 MG TABLET (FP) PO SCH (09:14)
[2019-12-22] MEDS: CARVEDILOL 3.125 MG TABLET (FP) PO SCH ×2 (09:14→21:24)
[2019-12-22] MEDS: DULoxetine HCL 30 MG CAPSULE.DR PO SCH (09:14)
[2019-12-22] MEDS: ASCORBIC ACID 500 MG TABLET (FP) PO SCH ×2 (09:14→21:24)
[2019-12-22] MEDS ORDERED: SODIUM PHOSPHATE - 15 MM in SODIUM CHLORIDE 250 ML IVPB ONE (10:00)
[2019-12-22] MEDS: AZITHROMYCIN IVPB 500 MG/250 ML BAG IVPB SCH (10:11)
[2019-12-22 10:21] LABS: ANISOCYTOSIS 1+; MACROCYTOSIS 0; PLATELET ESTIMATE INCREASED; TARGET CELLS 1+
--- NOTE | 2019-12-22 10:29 | PN ---
Progress Note, Physician History of Present Illness: patient says she is feeling better breathing better remaining afebrile - Current Medication List Current Medications: Active Medications Albuterol Sulfate (Ventolin 0.083% Nebulizer Soln -) 1 amp NEB Q4H PRN PRN Reason: SHORT OF BREATH/WHEEZING Albuterol/Ipratropium (Duoneb -) 1 amp NEB RQID [facility] Last Admin: 12/21/19 20:47 Dose: Not Given Documented by: Amlodipine Besylate (Norvasc -) 10 mg PO DAILY [facility] Last Admin: 12/22/19 09:14 Dose: 10 mg Documented by: Ascorbic Acid (Vitamin C -) 500 mg PO BID [facility] Last Admin: 12/22/19 09:14 Dose: 500 mg Documented by: Carvedilol (Coreg -) 3.125 mg PO BID [facility] Last Admin: 12/22/19 09:14 Dose: 3.125 mg Documented by: Duloxetine HCl (Cymbalta -) 60 mg PO DAILY [facility] Last Admin: 12/22/19 09:14 Dose: 60 mg Documented by: Enoxaparin Sodium (Lovenox -) 40 mg SQ DAILY [facility] Last Admin: 12/22/19 09:13 Dose: 40 mg Documented by: Guaifenesin/Codeine Phosphate (Robitussin Ac -) 10 ml PO Q4H PRN PRN Reason: COUGH Last Admin: 12/20/19 22:12 Dose: 10 ml Documented by: Azithromycin (Zithromax 500mg Ivpb (Pre-Docked)) 500 mg in 250 mls @ 250 mls/hr IVPB DAILY [facility] Stop: 12/22/19 10:59 Last Admin: 12/22/19 10:11 Dose: 250 mls/hr Documented by: Cefepime HCl 1 gm/ Dextrose 100 mls @ 200 mls/hr IVPB Q8H-IV [facility]; Protocol Last Admin: 12/22/19 09:12 Dose: 200 mls/hr Documented by: Sodium Phosphate 15 mm/ Sodium (Chloride) 255 mls @ 42.5 mls/hr IVPB ONCE ONE Stop: 12/22/19 15:59 Pantoprazole Sodium (Protonix -) 40 mg PO DAILY [facility] Last Admin: 12/22/19 09:13 Dose: 40 mg Documented by: Prednisone (Deltasone -) 40 mg PO ONCE ONE Stop: 12/22/19 10:28 Zinc Sulfate (Orazinc -) 220 mg PO DAILY [facility] Last Admin: 12/22/19 09:13 Dose: 220 mg Documented by: - Objective Vital Signs: Vital Signs Temperature 98.4 F 12/22/19 10:00 Pulse Rate 83 12/22/19 10:00 Respiratory Rate 18 12/22/19 10:00 Blood Pressure 147/79 12/22/19 10:00 O2 Sat by Pulse Oximetry (%) 95 12/22/19 10:00 Constitutional: Yes: No Distress, Calm Cardiovascular: Yes: S1, S2 Respiratory: Yes: On Nasal O2, Wheezes Gastrointestinal: Yes: Normal Bowel Sounds, Soft Musculoskeletal: Yes: WNL Extremities: Yes: WNL Neurological: Yes: Alert, Oriented Psychiatric: Yes: Alert, Oriented Labs: CBC, BMP 12/22/19 06:17 12/22/19 06:17 INR, PTT INR 1.02 (0.83-1.09) 12/18/19 14:00 Assessment/Plan Pneumonia Hypoxia Acute COPD Exacerbation Hyponatremia HTN DM h/o CVA plan aspiration precautions can be switched to oral levaquin 750 mg daily for 5 more days
--- NOTE | 2019-12-22 10:37 | PN ---
Progress Note, [employer]GER - Note Progress Note: Selected Entries 12/21/19 12/21/19 12/21/19 05:56 09:42 13:31 Breakfast 100% Diet Tolerated Fair Well Fair Lunch 50% Supper Temperature Pulse Rate Blood Pressure 12/21/19 12/21/19 12/22/19 17:10 18:46 05:45 Breakfast Diet Tolerated Fair Well Lunch Supper 75% 75% Temperature 98.5 F Pulse Rate 78 Blood Pressure 159/45 L 12/22/19 12/22/19 10:00 10:02 Breakfast 100% Diet Tolerated Well Lunch Supper Temperature 98.4 F Pulse Rate 83 Blood Pressure 147/79 Laboratory Tests 12/21/19 12/22/19 07:00 06:17 WBC 25.7 H 20.9 H MBS completed with difficulty noted with solids. Reg chopped recommended. Dysphagia chopped ordered which is safe, however, more finely minced. Observe for po intake and acceptance. Reg chopped can be ordered if pt requests. Monitor tolerance.
[2019-12-22] MEDS ORDERED: predniSONE 20 MG TABLET (UD) PO ONE (11:00)
--- NOTE | 2019-12-22 12:24 | PN ---
Progress Note (short form) - Note Progress Note: PULMONARY Feels improved vss/afebrile Gen: NAD at rest Heart: RRR Lung: bilateral wheezes, decreased breath sounds right base/crackles noted Abd: soft, nontender Ext: no edema labs/meds/notes/images reviewed wbc reducing/needs glycemic control A/P Pneumonia Hypoxia Acute COPD Exacerbation Hyponatremia HTN DM h/o CVA - continue antibiotics - medrol taper - inhaled bronchodilators - O2 to keep Spo2 >90% - smoking cessation - DVT prophylaxis - will need repeat CT chest in 6 weeks to confirm resolution of consolidation Sameera SAHU MD
--- NOTE | 2019-12-22 14:27 | DS ---
Physical Exam: SUBJECTIVE: Patient seen and examined OBJECTIVE: Vital Signs Period Temp Pulse Resp BP Sys/Min Pulse Ox Last 24 Hr 97.8 F-98.6 F 76-93 18-20 113-159/45-83 92-100 PHYSICAL EXAM GENERAL: The patient is awake, alert, and fully oriented, in no acute distress. HEAD: Normal with no signs of trauma. EYES: PERRL, extraocular movements intact, sclera anicteric, conjunctiva clear. ENT: Ears normal, nares patent, oropharynx clear without exudates, moist mucous membranes. NECK: Trachea midline, full range of motion, supple. LUNGS: Breath sounds equal, clear to auscultation bilaterally, no wheezes, no crackles, no accessory muscle use. HEART: Regular rate and rhythm, S1, S2 without murmur, rub or gallop. ABDOMEN: Soft, nontender, nondistended, normoactive bowel sounds, no guarding, no rebound, no hepatosplenomegaly, no masses. EXTREMITIES: 2+ pulses, warm, well-perfused, no edema. NEUROLOGICAL: Cranial nerves II through XII grossly intact. Normal speech, gait not observed. PSYCH: Normal mood, normal affect. SKIN: Warm, dry, normal turgor, no rashes or lesions noted. LABS Laboratory Results - last 24 hr 12/22/19 12/22/19 12/22/19 06:17 06:17 06:17 WBC 20.9 H RBC 5.12 Hgb 12.7 Hct 40.2 MCV 78.6 L MCH 24.8 L MCHC 31.5 L RDW 21.1 H Plt Count 519 H MPV 8.8 Absolute Neuts (auto) 18.5 H Neutrophils % 88.6 H Neutrophils % (Manual) 87.0 H Band Neutrophils % 0.0 Lymphocytes % 7.3 L D Lymphocytes % (Manual) 9.0 D Monocytes % 3.8 Monocytes % (Manual) 3 L D Eosinophils % 0.0 Eosinophils % (Manual) 0.0 Basophils % 0.3 Basophils % (Manual) 0.0 Myelocytes % (Man) 0 Promyelocytes % (Man) 0 Blast Cells % (Manual) 0 Nucleated RBC % 0 Metamyelocytes 0 Hypochromia 0 Platelet Estimate Increased Polychromasia 0 Poikilocytosis 1+ Anisocytosis 1+ Microcytosis 1+ Macrocytosis 0 Target Cells 1+ D-Dimer 3755 H Sodium 135 L Potassium 4.0 Chloride 96 L Carbon Dioxide 31 Anion Gap 8 BUN 18.6 H Creatinine 0.8 Est GFR (CKD-EPI)AfAm 88.42 Est GFR (CKD-EPI)NonAf 76.29 Random Glucose 249 H Calcium 8.4 L Phosphorus 2.4 L Magnesium 1.9 Total Bilirubin 0.3 AST 85 H ALT 60 Alkaline Phosphatase 247 H Total Protein 7.2 Albumin 2.1 L HOSPITAL COURSE: Date of Admission:12/18/19 Pt is 69 year old female with PMHx of alcohol abuse, HTN, HLD, DM 2, CVA, Asthma/COPD, depression presenting with SOB and cough, fever, chills, hypoxic 88% admitted for acute hypoxic respiratory failure. Pt had elevated white count, was initially on ceftriaxone and azithro, switched to cefepime and azithro, and steroids. Being discharged on cefepime. Required 2LNC, not required on discharge. Duplex LE US and CTA chest negative for DVT and PE. Pt had MBS due to concern for aspiration pneumonia, which showed oral pharyngeal dysphagia with impaired mastication. Recommended chopped diet with extra gravy, pt advised to continue this diet plan on discharge. Pt had ALISON on admission, resolved after fluid bolus and standing fluids. Transaminitis, likely 2/2 to alcohol abuse hx. Continued on home statin on discharge, to follow up LFTs in 2 weeks. Pt to follow up with pulmonary and PCP. Date of Discharge: 12/22/19 Minutes to complete discharge: 36 Discharge Summary Problems reviewed: Yes Reason For Visit: PNEUMONIA Current Active Problems Hyponatremia (Acute) Hypoxia (Acute) Pneumonia (Acute) COPD (chronic obstructive pulmonary disease) (Chronic) - Instructions Diet, Activity, Other Instructions: You came in to the hospital with cough, shortness of breath, fever and chills. You had an x-ray and chest CT which showed evidence of pneumonia. You were treated with antibiotics to help treat it. Please START your levaquin 750 mg once daily for 5 days until completed. Please continue to take all other home medications as prescribed. As advised in the hospital, please eat only chopped food as this will help prevent aspiration of your food and pneumonia from reoccurring. Please follow up with your primary care physician, Dr. Ruiz, in 1 week for your overall medical management. You will also need to repeat your blood work in 2 weeks to check your liver function as you restart your statin. Please follow up with your infectious disease doctor, Dr. Murphy, within 2 weeks. Please follow up with your credit card specialist, Dr. Ireland, within 2 weeks. You will also need a repeat CT scan of your chest in 6 weeks to see if your pneumonia has resolved. If you have any new, changing or worsening of symptoms please return to the ED or call 911. Referrals: Blayne Ireland MD [Staff Physician] - Funmilayo Ruiz NP [Primary Care Provider] - Disposition: HOME - Home Medications Comprehensive Discharge Medication List: Ambulatory Orders Amlodipine Besylate [Norvasc -] 10 mg PO DAILY tablet 07/20/19 Carvedilol [Coreg -] 3.125 mg PO BID tablet 07/20/19 Duloxetine HCl [Cymbalta -] 60 mg PO DAILY capsule. 07/20/19 Lisinopril [Prinivil] 10 mg PO DAILY tablet 07/20/19 Montelukast Na [Singulair -] 10 mg PO HS tablet 07/20/19 Albuterol 0.083% Nebulizer Cleopatra [Ventolin 0.083% Nebulizer Soln -] 1 vial IH Q8H PRN 12/19/19 Albuterol Sulfate Inhaler - [Ventolin HFA Inhaler -] 1 puff IH Q4H PRN 12/19/19 Aspirin [Adult Aspirin Regimen] 81 mg PO DAILY 12/19/19 Budesonide/Formeterol Fumarate [SYMBICORT 80/4.5mcg -] 2 puff IH BID 12/19/19 Simvastatin [Zocor -] 10 mg PO DAILY 12/19/19 Tiotropium [place] [Spiriva Respimat] 1.25 mcg IH DAILY 12/19/19 levoFLOXacin [Levaquin] 750 mg PO DAILY #5 tab 12/22/19 This patient is new to me today: Yes Date on this admission: 12/31/19 Emergency Visit: No Critical Care patient: No - Discharge Referral Referred to [facility] Med P.C.: No ATTENDING PHYSICIAN STATEMENT I saw and evaluated the patient. I reviewed the resident's note and discussed the case with the resident. I agree with the resident's findings and plan as documented. SUBJECTIVE: OBJECTIVE: ASSESSMENT AND PLAN:
--- NOTE | 2019-12-22 15:05 | PN ---
Teaching Attending Note Name of Resident: Jefry Street ATTENDING PHYSICIAN STATEMENT I saw and evaluated the patient. I reviewed the resident's note and discussed the case with the resident. I agree with the resident's findings and plan as documented. SUBJECTIVE: Reports resolution in SOB and cough. No fever/chills. OBJECTIVE: Afebrile, Hemodynamically Stable. AAO x 3. SpO2 94% on RA Last Vital Signs Temp Pulse Resp BP Pulse Ox 98.6 F 109 H 20 147/78 94 L 12/22/19 13:40 12/22/19 14:34 12/22/19 13:40 12/22/19 13:40 12/22/19 14:34 Heart - S1, S2, soft SM Lungs - decreased air entry bibasally Abdomen - Soft, non-tender. Bowel Sounds normal. Extremities - no edema, no calf tenderness. Neuro - AAO x 3. Tone/Power normal. Laboratory Results - last 24 hr 12/22/19 12/22/19 12/22/19 06:17 06:17 06:17 WBC 20.9 H RBC 5.12 Hgb 12.7 Hct 40.2 MCV 78.6 L MCH 24.8 L MCHC 31.5 L RDW 21.1 H Plt Count 519 H MPV 8.8 Absolute Neuts (auto) 18.5 H Neutrophils % 88.6 H Neutrophils % (Manual) 87.0 H Band Neutrophils % 0.0 Lymphocytes % 7.3 L D Lymphocytes % (Manual) 9.0 D Monocytes % 3.8 Monocytes % (Manual) 3 L D Eosinophils % 0.0 Eosinophils % (Manual) 0.0 Basophils % 0.3 Basophils % (Manual) 0.0 Myelocytes % (Man) 0 Promyelocytes % (Man) 0 Blast Cells % (Manual) 0 Nucleated RBC % 0 Metamyelocytes 0 Hypochromia 0 Platelet Estimate Increased Polychromasia 0 Poikilocytosis 1+ Anisocytosis 1+ Microcytosis 1+ Macrocytosis 0 Target Cells 1+ D-Dimer 3755 H Sodium 135 L Potassium 4.0 Chloride 96 L Carbon Dioxide 31 Anion Gap 8 BUN 18.6 H Creatinine 0.8 Est GFR (CKD-EPI)AfAm 88.42 Est GFR (CKD-EPI)NonAf 76.29 Random Glucose 249 H Calcium 8.4 L Phosphorus 2.4 L Magnesium 1.9 Total Bilirubin 0.3 AST 85 H ALT 60 Alkaline Phosphatase 247 H Total Protein 7.2 Albumin 2.1 L Discharge Medications Medication Instructions Recorded Amlodipine Besylate [Norvasc -] 10 mg PO DAILY tablet 07/20/19 Carvedilol [Coreg -] 3.125 mg PO BID tablet 07/20/19 Duloxetine HCl [Cymbalta -] 60 mg PO DAILY capsule. 07/20/19 Lisinopril [Prinivil] 10 mg PO DAILY tablet 07/20/19 Montelukast Na [Singulair -] 10 mg PO HS tablet 07/20/19 Albuterol 0.083% Nebulizer Cleopatra 1 vial IH Q8H PRN 12/19/19 [Ventolin 0.083% Nebulizer Soln -] Albuterol Sulfate Inhaler - 1 puff IH Q4H PRN 12/19/19 [Ventolin HFA Inhaler -] Aspirin [Adult Aspirin Regimen] 81 mg PO DAILY 12/19/19 Budesonide/Formeterol Fumarate 2 puff IH BID 12/19/19 [SYMBICORT 80/4.5mcg -] Simvastatin [Zocor -] 10 mg PO DAILY 12/19/19 [address]rop[address] [employer] [Spiriva 1.25 mcg IH DAILY 12/19/19 Respimat] levoFLOXacin [Levaquin] 750 mg PO DAILY #5 tab 12/22/19 ASSESSMENT AND PLAN: 69 year old female with history of Alcohol Abuse, HTN, HLD, DM 2, CVA, Asthma/COPD, presents with increasing shortness of breath, cough, fever, chills, found to be hypoxic in ED with Spo2 88%. 1. Acute Hypoxic Respiratory Failure secondary to Pneumonia possible aspiration CXR - R sided infiltrate. Leukocytosis resolving On cefepime/Azitho - Weaned off Supplemental O2, to continue Levofloxacin for 5 additional days on discharge. All inflammatory markers elevated - DDIMER, Ferritin but COVID PCR negative. CTA Chest - no PE, RLL consolidation Duplex LEs - no DVT Was placed on steroid and AC empirically for possible COVID - given no evidence of COVID on CT and neg COVID PCR, will discontinue treatment dose Lovenox. completed 5 days Solumedrol cpourse as in-patient. MBS showed oral pharyngeal dysphagia with impaired mastication - Speech therapy recommends chopped diet with extra gravy and thin liquids. For Pulm follow up on discharge - recommend repeat CT in 6 weeks. 2. HTN - for discharge on Norvasc, Coreg, Lisinopril. 3. Asthma/COPD - no evidence of acute exacerbation. Continue Montelukast, Advair, Albuterol PRN. Completed 5 days steroid. 4. DM 2 - diet controlled at home. 5. Depression - continue Cymbalta. 6. Elevated AST, etiology unclear - improving. Abdo US - fatty liver, gallstones, no evidence of cholecystitis. Ca resume Statin on discharge with repeat LFTs in 2 weeks. 7. ALISON - pre-renal secondary to dehydration, resolved with gentle IV hydration. 8. Hypomagnesemia/Hypophosphatemia - repleted. Medically and Hemodynamically stable for discharge on Levofloxacin with Pulm follow up.
[2019-12-23] MEDS: CEFEPIME 1 GM in DEXTROSE 5%-WATER 100 ML IVPB SCH ×2 (03:08→09:41)
[2019-12-23] MEDS: ALBUTEROL SO4 2.5/IPRATROPIUM 0.5 INH SOL 3 ML VIAL.NEB. NEB SCH ×3 (07:26→16:14)
[2019-12-23] MEDS ORDERED: CEFEPIME HCL 1 GM VIAL (RESTRICTED TO ID) ONE (08:57)
[2019-12-23] MEDS ORDERED: DEXTROSE 5%-WATER 100 ML IVPB ONE (08:57)
[2019-12-23] MEDS: DULoxetine HCL 30 MG CAPSULE.DR PO SCH (09:40)
[2019-12-23] MEDS: ZINC SULFATE 220 MG CAPSULE (FP) PO SCH (09:40)
[2019-12-23] MEDS: ASCORBIC ACID 500 MG TABLET (FP) PO SCH (09:40)
[2019-12-23] MEDS: amLODIPine BESYLATE 10 MG TABLET (FP) PO SCH (09:40)
[2019-12-23] MEDS: ENOXAPARIN NA (PORCINE) 40 MG/0.4 ML DISP.SYRIN SQ SCH (09:40)
[2019-12-23] MEDS: PANTOPRAZOLE 40 MG TABLET PO SCH (09:40)
[2019-12-23] MEDS: CARVEDILOL 3.125 MG TABLET (FP) PO SCH (09:40)
--- NOTE | 2019-12-23 11:50 | PN ---
Progress Note (short form) - Note Progress Note: Pt home via today with home oxygen. Pt O2 to 91% overnight, 2L NC O2 placed back on and saturation improved to 97% Pt informed that she requires home oxygen and needs to utilize it.
--- NOTE | 2019-12-23 13:57 | PN ---
Progress Note (short form) - Note Progress Note: Feels overall improved. Awaiting O2 to be delivered. Intake & Output 12/20/19 12/21/19 12/22/19 12/23/19 23:59 23:59 23:59 23:59 Intake Total 1550 2150 1310 350 Balance 1550 2150 1310 350 Last Vital Signs Temp Pulse Resp BP Pulse Ox 98.4 F 91 H 18 154/86 96 12/23/19 06:00 12/23/19 06:00 12/23/19 06:00 12/23/19 06:00 12/23/19 06:00 Active Medications Albuterol Sulfate (Ventolin 0.083% Nebulizer Soln -) 1 amp NEB Q4H PRN PRN Reason: SHORT OF BREATH/WHEEZING Albuterol/Ipratropium (Duoneb -) 1 amp NEB RQID [facility] Last Admin: 12/23/19 11:30 Dose: 1 amp Documented by: Amlodipine Besylate (Norvasc -) 10 mg PO DAILY [facility] Last Admin: 12/23/19 09:40 Dose: 10 mg Documented by: Ascorbic Acid (Vitamin C -) 500 mg PO BID [facility] Last Admin: 12/23/19 09:40 Dose: 500 mg Documented by: Carvedilol (Coreg -) 3.125 mg PO BID [facility] Last Admin: 12/23/19 09:40 Dose: 3.125 mg Documented by: Duloxetine HCl (Cymbalta -) 60 mg PO DAILY [facility] Last Admin: 12/23/19 09:40 Dose: 60 mg Documented by: Enoxaparin Sodium (Lovenox -) 40 mg SQ DAILY [facility] Last Admin: 12/23/19 09:40 Dose: 40 mg Documented by: Guaifenesin/Codeine Phosphate (Robitussin Ac -) 10 ml PO Q4H PRN PRN Reason: COUGH Last Admin: 12/20/19 22:12 Dose: 10 ml Documented by: Cefepime HCl 1 gm/ Dextrose 100 mls @ 200 mls/hr IVPB Q8H-IV [facility]; Protocol Last Admin: 12/23/19 09:41 Dose: 200 mls/hr Documented by: Pantoprazole Sodium (Protonix -) 40 mg PO DAILY [facility] Last Admin: 12/23/19 09:40 Dose: 40 mg Documented by: Zinc Sulfate (Orazinc -) 220 mg PO DAILY [facility] Last Admin: 12/23/19 09:40 Dose: 220 mg Documented by: Gen: NAD at rest Heart: RRR Lung: few scattered rhonchi Abd: soft, nontender Ext: no edema A/P Pneumonia Hypoxia Acute COPD Exacerbation Hyponatremia HTN DM h/o CVA - Home O2 arranged - smoking cessation - will need repeat CT chest in 6 weeks to confirm resolution of consolidation - DC home Dr Alanis
--- NOTE | 2019-12-23 15:00 | PN ---
Progress Note, Physician History of Present Illness: Pt is doing well. Denies SOB/less cough. For d/c home today. - Current Medication List Current Medications: Active Medications Albuterol Sulfate (Ventolin 0.083% Nebulizer Soln -) 1 amp NEB Q4H PRN PRN Reason: SHORT OF BREATH/WHEEZING Albuterol/Ipratropium (Duoneb -) 1 amp NEB RQID [facility] Last Admin: 12/23/19 11:30 Dose: 1 amp Documented by: Amlodipine Besylate (Norvasc -) 10 mg PO DAILY [facility] Last Admin: 12/23/19 09:40 Dose: 10 mg Documented by: Ascorbic Acid (Vitamin C -) 500 mg PO BID [facility] Last Admin: 12/23/19 09:40 Dose: 500 mg Documented by: Carvedilol (Coreg -) 3.125 mg PO BID [facility] Last Admin: 12/23/19 09:40 Dose: 3.125 mg Documented by: Duloxetine HCl (Cymbalta -) 60 mg PO DAILY [facility] Last Admin: 12/23/19 09:40 Dose: 60 mg Documented by: Enoxaparin Sodium (Lovenox -) 40 mg SQ DAILY [facility] Last Admin: 12/23/19 09:40 Dose: 40 mg Documented by: Guaifenesin/Codeine Phosphate (Robitussin Ac -) 10 ml PO Q4H PRN PRN Reason: COUGH Last Admin: 12/20/19 22:12 Dose: 10 ml Documented by: Cefepime HCl 1 gm/ Dextrose 100 mls @ 200 mls/hr IVPB Q8H-IV [facility]; Protocol Last Admin: 12/23/19 09:41 Dose: 200 mls/hr Documented by: Pantoprazole Sodium (Protonix -) 40 mg PO DAILY [facility] Last Admin: 12/23/19 09:40 Dose: 40 mg Documented by: Zinc Sulfate (Orazinc -) 220 mg PO DAILY [facility] Last Admin: 12/23/19 09:40 Dose: 220 mg Documented by: - Objective Vital Signs: Vital Signs Temperature 98.4 F 12/23/19 06:00 Pulse Rate 91 H 12/23/19 06:00 Respiratory Rate 18 12/23/19 06:00 Blood Pressure 154/86 12/23/19 06:00 O2 Sat by Pulse Oximetry (%) 96 12/23/19 06:00 Constitutional: Yes: No Distress, Calm Cardiovascular: Yes: Regular Rate and Rhythm Respiratory: Yes: Regular Gastrointestinal: Yes: Normal Bowel Sounds, Soft Genitourinary: Yes: WNL Integumentary: Yes: WNL Neurological: Yes: Alert, Oriented Labs: CBC, BMP 12/22/19 06:17 12/22/19 06:17 INR, PTT INR 1.02 (0.83-1.09) 12/18/19 14:00 Microbiology 12/18/19 15:54 Urine - Urine Clean Catch Urine Culture - Final NO GROWTH OBTAINED - ....Imaging Chest X-ray: Report Reviewed Problem List - Problems (1) Pneumonia Code(s): J18.9 - PNEUMONIA, UNSPECIFIED ORGANISM Qualifiers: Pneumonia type: due to unspecified organism Laterality: right Lung location: unspecified part of lung Qualified Code(s): J18.9 - Pneumonia, unspecified organism (2) COPD exacerbation Code(s): J44.1 - CHRONIC OBSTRUCTIVE PULMONARY DISEASE W (ACUTE) EXACERBATION (3) Diabetes mellitus type 2 in nonobese Code(s): E11.9 - TYPE 2 DIABETES MELLITUS WITHOUT COMPLICATIONS (4) Hypercholesteremia Code(s): E78.0 - PURE HYPERCHOLESTEROLEMIA * DO NOT USE * (5) Hypertension Code(s): I10 - ESSENTIAL (PRIMARY) HYPERTENSION Qualifiers: Hypertension type: essential hypertension Qualified Code(s): I10 - Essenti al (primary) hypertension Assessment/Plan - being discharged home today on Levaquin PO. Pt instructed to f/u with PMD, if develops SOB/diarrhea or acute distress to seek medical attention
--- NOTE | 2019-12-23 15:02 | PN ---
Teaching Attending Note Name of Resident: Jefry Street ATTENDING PHYSICIAN STATEMENT I saw and evaluated the patient. I reviewed the resident's note and discussed the case with the resident. I agree with the resident's findings and plan as documented. SUBJECTIVE: Feeling better, reports resolution in SOB and cough. No fever/chills. OBJECTIVE: Afebrile, Hemodynamically Stable. AAO x 3. SpO2 96% on 2 L via NC Last Vital Signs Temp Pulse Resp BP Pulse Ox 98.4 F 91 H 18 154/86 96 12/23/19 06:00 12/23/19 06:00 12/23/19 06:00 12/23/19 06:00 12/23/19 06:00 Heart - S1, S2, soft SM Lungs - decreased air entry bibasally Abdomen - Soft, non-tender. Bowel Sounds normal. Extremities - no edema, no calf tenderness. Neuro - AAO x 3. Tone/Power normal. Discharge Medications Medication Instructions Recorded Amlodipine Besylate [Norvasc -] 10 mg PO DAILY tablet 07/20/19 Carvedilol [Coreg -] 3.125 mg PO BID tablet 07/20/19 Duloxetine HCl [Cymbalta -] 60 mg PO DAILY capsule. 07/20/19 Lisinopril [Prinivil] 10 mg PO DAILY tablet 07/20/19 Montelukast Na [Singulair -] 10 mg PO HS tablet 07/20/19 Albuterol 0.083% Nebulizer Cleopatra 1 vial IH Q8H PRN 12/19/19 [Ventolin 0.083% Nebulizer Soln -] Albuterol Sulfate Inhaler - 1 puff IH Q4H PRN 12/19/19 [Ventolin HFA Inhaler -] Aspirin [Adult Aspirin Regimen] 81 mg PO DAILY 12/19/19 Budesonide/Formeterol Fumarate 2 puff IH BID 12/19/19 [SYMBICORT 80/4.5mcg -] Simvastatin [Zocor -] 10 mg PO DAILY 12/19/19 Tiotropium [place] [Spiriva 1.25 mcg IH DAILY 12/19/19 Respimat] levoFLOXacin [Levaquin] 750 mg PO DAILY #5 tab 12/22/19 ASSESSMENT AND PLAN: 69 year old female with history of Alcohol Abuse, HTN, HLD, DM 2, CVA, Asthma/COPD, presents with increasing shortness of breath, cough, fever, chills, found to be hypoxic in ED with Spo2 88%. 1. Acute Hypoxic Respiratory Failure secondary to Pneumonia, possible aspiration CXR - R sided infiltrate. Leukocytosis [id number] (on steroid) Received Cefepime/Azitho -to continue Levofloxacin for 4 additional days on disc harge as per ID. All inflammatory markers elevated - DDIMER, Ferritin but COVID PCR negative. CTA Chest - no PE, RLL consolidation Duplex LEs - no DVT Was placed on steroid and AC empirically for possible COVID - given no evidence of COVID on CT and neg COVID PCR, will discontinue treatment dose Lovenox. Completed 5 days Solumedrol course as in-patient. MBS showed oral pharyngeal dysphagia with impaired mastication - Speech therapy recommends chopped diet with extra gravy and thin liquids. For Pulm follow up on discharge - recommend repeat CT in 6 weeks. Supplemental O2 PRN on discharge - for slow weaning off O2. 2. HTN - for discharge on Norvasc, Coreg, Lisinopril. 3. Asthma/COPD - no evidence of acute exacerbation. Continue Montelukast, Advair, Albuterol PRN. Completed 5 days steroid. 4. DM 2 - diet controlled at home. 5. Depression - continue Cymbalta. 6. Elevated AST, etiology unclear - improving. Abdo US - fatty liver, gallstones, no evidence of cholecystitis. Can resume Statin on discharge with repeat LFTs in 2 weeks. 7. ALISON - pre-renal secondary to dehydration, resolved with gentle IV hydration. 8. Hypomagnesemia/Hypophosphatemia - repleted. Medically and Hemodynamically stable for discharge on Levofloxacin with Pulm follow up.
[2019-12-23 15:39] VITALS: BP 125/77; PULSE 97; TEMP 98.3
== END 2019-12-23 18:10 | disposition home or self-care (01) | DRG 177 ==
LOC: JER 11:56 → JERBED 14:07 → J7W 12-19 18:01
DX: J69.0 Pneumonitis due to inhalation of food and vomit (principal); J96.01 Acute respiratory failure with hypoxia; N17.9 Acute kidney failure, unspecified; E87.1 Hypo-osmolality and hyponatremia; J44.1 Chronic obstructive pulmonary disease with (acute) exacerbation; I69.351 Hemiplegia and hemiparesis following cerebral infarction affecting right dominant side; J45.909 Unspecified asthma, uncomplicated; J44.9 Chronic obstructive pulmonary disease, unspecified; E83.42 Hypomagnesemia; E83.39 Other disorders of phosphorus metabolism; E11.9 Type 2 diabetes mellitus without complications; E86.0 Dehydration; R74.0 Nonspecific elevation of levels of transaminase and lactic acid dehydrogenase [LDH]; F32.9 Major depressive disorder, single episode, unspecified; D72.829 Elevated white blood cell count, unspecified; K76.0 Fatty (change of) liver, not elsewhere classified
CPT/HCPCS: 36415; 71045-TC-FY; 71275-TC; 74230-TC-FY; 76705-TC; 80053; 81003; 82550; 82553; 82728; 83036; 83605; 83615; 83735; 84100; 84484; 85025; 85379; 85610; 85651; 85730; 86140; 87086; 87804; 87807; 87899; 92611-GN; 93970-TC; 94640; 94761; 97116-GP; 97162-GP; 99285-25; J0131; Q9967; U0003

== ENCOUNTER 2020-05-14 02:10 | Emergency (ER) | payer OTHER ==
[2020-05-14 02:28] VITALS: BMI 19.8
[2020-05-14] MEDS ORDERED: FOLIC ACID INJECTION - 1 MG, THIAMINE HCL 100 MG, MULTIVIT INJECTION ADULT 10 ML in SOD... IVPB ONE (02:48)
[2020-05-14 03:51] LABS: BASO % 1.3 % (0-2.0); EOS % 1.4 % (0-4.5); HEMATOCRIT 37.6 % (32.4-45.2); HEMOGLOBIN 12.1 GM/dL (10.7-15.3); LYMPH % 46.6 % (8-40); MCH 26.3 pg (25.7-33.7); MCHC 32.1 g/dl (32.0-36.0); MEAN PLT VOLUME 7.7 fl (7.5-11.1); MONO % 7.7 % (3.8-10.2); PLATELET COUNT 363 K/MM3 (134-434); RBC 4.59 M/mm3 (3.60-5.2); RDW 22.2 % (11.6-15.6); WHITE BLOOD COUNT 7.8 K/mm3 (4.0-10.0)
[2020-05-14 04:02] LABS: INR 0.95 (0.83-1.09); PROTHROMBIN TIME (PATIENT) 11.7 SEC (9.7-13.0)
[2020-05-14 04:05] LABS: ACTIVATED PTT 31.8 SECONDS (25.2-36.5)
[2020-05-14 04:07] LABS: CHLORIDE 105 mmol/L (98-107); POTASSIUM 4.3 mmol/L (3.5-5.1); SODIUM 140 mmol/L (136-145)
[2020-05-14 04:09] LABS: ALBUMIN 3.2 g/dl (3.4-5.0); ANION GAP 8 MMOL/L (8-16); BLOOD UREA NITROGEN 12.4 mg/dL (7-18); CALCIUM 8.9 mg/dL (8.5-10.1); CO2 27 mmol/L (21-32); GLUCOSE,RANDOM 87 mg/dL (74-106); MAGNESIUM 1.7 mg/dL (1.8-2.4)
[2020-05-14 04:11] LABS: CREATININE 0.9 mg/dL (0.55-1.3); SGOT/AST 24 U/L (15-37); SGPT/ALT 18 U/L (13-61)
[2020-05-14 04:14] LABS: BILIRUBIN,TOTAL 0.2 mg/dL (0.2-1); TOT PROT 7.2 g/dl (6.4-8.2)
[2020-05-14 04:15] LABS: ALK PHOS 125 U/L (45-117)
[2020-05-14] MEDS ORDERED: SODIUM CHLORIDE 0.9% 500 ML INFUS.BAG IV ONE (04:17)
[2020-05-14 09:05] LABS: URINE APPEARANCE CLEAR; URINE BILIRUBIN NEGATIVE (NEGATIVE); URINE COLOR YELLOW; URINE GLUCOSE (UA) NEGATIVE (NEGATIVE); URINE KETONE NEGATIVE (NEGATIVE); URINE LEUK ESTERASE NEGATIVE (NEGATIVE); URINE NITRITE NEGATIVE (NEGATIVE); URINE PROTEIN NEGATIVE (NEGATIVE); URINE UROBILINOGEN 0.2 mg/dL (0.2-1.0)
[2020-05-14 12:12] VITALS: TEMP 98
[2020-05-14 18:48] VITALS: BP 183/87; PULSE 108
== END 2020-05-14 19:45 | disposition home or self-care (01) ==
LOC: JER 02:10
PROC: 3E033GC Introduction of Other Therapeutic Substance into Peripheral Vein, Percutaneous Approach (ICD-10-PCS; principal; 2020-05-14)
DX: R55 Syncope and collapse (principal); F10.920 Alcohol use, unspecified with intoxication, uncomplicated
CPT/HCPCS: 36415; 70450-TC; 71260-TC; 72125-TC; 72129-TC; 72132-TC; 74177-TC; 76775-TC; 80053; 80307; 81003; 82550; 83605; 83735; 84443; 84484; 85025; 85610; 85730; 86850; 86900; 86901; 87040; 87086; 93005; 93010; 99285-25; C9803; Q9967; U0003

== ENCOUNTER 2020-05-28 19:41 | Emergency (ER) | payer OTHER ==
[2020-05-28 20:11] VITALS: BMI 21.2
[2020-05-29 03:10] VITALS: BP 148/80; PULSE 98; TEMP 98.9
== END 2020-05-29 06:51 | disposition home or self-care (01) ==
LOC: JER 19:41
DX: R29.6 Repeated falls (principal)
CPT/HCPCS: 70450-TC; 72125-TC; 99284-25

== ENCOUNTER 2020-06-05 21:36 | Inpatient (IN) | payer OTHER ==
[2020-06-05 21:51] VITALS: BMI 22.5
[2020-06-05] MEDS ORDERED: ONDANSETRON 4 MG TABLET PO ONE (22:25)
[2020-06-05 23:33] LABS: HEMATOCRIT 33.2 % (32.4-45.2); HEMOGLOBIN 10.6 GM/dL (10.7-15.3); MCH 25.5 pg (25.7-33.7); MCHC 32.1 g/dl (32.0-36.0); MEAN CELL VOLUME 79.6 fl (80-96); MEAN PLT VOLUME 7.5 fl (7.5-11.1); PLATELET COUNT 274 K/MM3 (134-434); RBC 4.17 M/mm3 (3.60-5.2); RDW 22.4 % (11.6-15.6); WHITE BLOOD COUNT 7.8 K/mm3 (4.0-10.0)
[2020-06-05 23:51] LABS: CHLORIDE 108 mmol/L (98-107); POTASSIUM 4.5 mmol/L (3.5-5.1); SODIUM 141 mmol/L (136-145)
[2020-06-05 23:53] LABS: CALCIUM 8.7 mg/dL (8.5-10.1)
[2020-06-05 23:54] LABS: ANION GAP 10 MMOL/L (8-16); CO2 22 mmol/L (21-32); GLUCOSE,RANDOM 74 mg/dL (74-106)
[2020-06-05 23:56] LABS: BILIRUBIN,DIRECT < 0.1 mg/dL (0.0-0.2)
[2020-06-05 23:57] LABS: CREATININE 0.8 mg/dL (0.55-1.3); SGOT/AST 22 U/L (15-37); SGPT/ALT 17 U/L (13-61)
[2020-06-05 23:58] LABS: BILIRUBIN,TOTAL 0.2 mg/dL (0.2-1); TOT PROT 6.6 g/dl (6.4-8.2)
[2020-06-06] LABS: ALK PHOS 109 U/L (45-117)
[2020-06-06] MEDS ORDERED: chlordiazePOXIDE HCL 25 MG CAPSULE PO ONE (00:10)
[2020-06-06] MEDS ORDERED: chlordiazePOXIDE HCL 25 MG CAPSULE ONE (00:26)
[2020-06-06] MEDS ORDERED: ONDANSETRON *ODT* 4 MG TABLET ONE (00:27)
[2020-06-06] MEDS: LACTATED RINGERS SOLUTION 1000 ML INFUS.BAG IV ONE ×2 (00:41→01:08)
[2020-06-06] MEDS: chlordiazePOXIDE HCL 25 MG CAPSULE PO ONE ×2 (00:41→01:08)
[2020-06-06] MEDS ORDERED: LACTATED RINGERS SOLUTION 1000 ML INFUS.BAG IV ONE (03:05)
[2020-06-06 06:02] VITALS: BP 137/65; PULSE 92
[2020-06-06 07:30] VITALS: TEMP 98.3
== END 2020-06-06 15:00 | disposition home or self-care (01) | DRG 897 ==
LOC: JER 21:36 → JERBED 06-06 00:23
PROVIDERS: ADMIT Hospitalist; ATTEND Hospitalist
PROC: HZ2ZZZZ Detoxification Services for Substance Abuse Treatment (ICD-10-PCS; principal; 2020-06-06)
DX: F10.129 Alcohol abuse with intoxication, unspecified (principal); E78.5 Hyperlipidemia, unspecified; E11.9 Type 2 diabetes mellitus without complications; Y90.6 Blood alcohol level of 120-199 mg/100 ml; R55 Syncope and collapse; Z86.73 Personal history of transient ischemic attack (TIA), and cerebral infarction without residual deficits; J44.9 Chronic obstructive pulmonary disease, unspecified; I11.0 Hypertensive heart disease with heart failure
CPT/HCPCS: 36415; 71045-TC-FY; 80053; 80307; 82248; 82550; 84443; 84484; 85027; 93005; 93010; 99285-25; C9803; U0003

== ENCOUNTER 2020-06-18 20:50 | Emergency (ER) | payer OTHER ==
[2020-06-18 21:39] VITALS: BMI 24.0
[2020-06-19] MEDS ORDERED: ACETAMINOPHEN 325 MG TABLET (FP) PO ONE (01:10)
[2020-06-19] MEDS ORDERED: ACETAMINOPHEN 325 MG TABLET (FP) ONE (01:24)
[2020-06-19 06:54] VITALS: BP 162/88; PULSE 105; TEMP 98.1
== END 2020-06-19 09:00 | disposition home or self-care (01) ==
LOC: JER 20:50
DX: F10.10 Alcohol abuse, uncomplicated (principal); M79.602 Pain in left arm
CPT/HCPCS: 70450-TC; 73060-TC-LT-FY; 73070-TC-LT-FY; 99285-25

== ENCOUNTER 2020-08-20 01:02 | Observation (INO) | payer OTHER ==
[2020-08-20 01:56] LABS: BASO % 1.4 % (0-2.0); EOS % 1.3 % (0-4.5); HEMATOCRIT 37.9 % (32.4-45.2); HEMOGLOBIN 12.2 GM/dL (10.7-15.3); LYMPH % 42.9 % (8-40); MCH 25.7 pg (25.7-33.7); MCHC 32.2 g/dl (32.0-36.0); MEAN CELL VOLUME 79.9 fl (80-96); MEAN PLT VOLUME 8.8 fl (7.5-11.1); MONO % 9.5 % (3.8-10.2); NEUT % 44.9 % (42.8-82.8); PLATELET COUNT 267 K/MM3 (134-434); RBC 4.75 M/mm3 (3.60-5.2); RDW 23.3 % (11.6-15.6); WHITE BLOOD COUNT 8.7 K/mm3 (4.0-10.0)
[2020-08-20 02:11] LABS: CHLORIDE 104 mmol/L (98-107); SODIUM 137 mmol/L (136-145)
[2020-08-20 02:13] LABS: ALBUMIN 3.3 g/dl (3.4-5.0); ANION GAP 8 MMOL/L (8-16); BLOOD UREA NITROGEN 9.4 mg/dL (7-18); CO2 25 mmol/L (21-32); MAGNESIUM 1.5 mg/dL (1.8-2.4)
[2020-08-20 02:16] LABS: SGOT/AST 47 U/L (15-37); SGPT/ALT 32 U/L (13-61)
[2020-08-20 02:18] LABS: BILIRUBIN,TOTAL 0.1 mg/dL (0.2-1); TOT PROT 7.3 g/dl (6.4-8.2)
[2020-08-20 02:19] LABS: ALK PHOS 120 U/L (45-117)
[2020-08-20 02:35] LABS: CALCIUM 8.3 mg/dL (8.5-10.1); GLUCOSE,RANDOM 87 mg/dL (74-106)
[2020-08-20] MEDS ORDERED: MAGNESIUM SULF 50% (8.12 MEQ/2 ML-1 GM VIAL) IVPB ONE (02:36)
[2020-08-20] MEDS ORDERED: MAGNESIUM SULFATE IN WATER 2 GM/50 ML IVPB IVPB ONE (02:41)
[2020-08-20 05:42] LABS: ANISOCYTOSIS 2+; MACROCYTOSIS 1+; PLATELET ESTIMATE NORMAL
[2020-08-20 06:41] LABS: EPI CELLS 13 /uL (0-25.1); HYALINE CASTS 1 /uL (0-3.1); PH,URINE 6.5 (5.0-8.0); URINE APPEARANCE CLEAR; URINE BACTERIA 118 /uL (0-1359); URINE BILIRUBIN NEGATIVE (NEGATIVE); URINE COLOR YELLOW; URINE GLUCOSE (UA) NEGATIVE (NEGATIVE); URINE KETONE NEGATIVE (NEGATIVE); URINE LEUK ESTERASE TRACE (NEGATIVE); URINE NITRITE NEGATIVE (NEGATIVE); URINE PROTEIN 1+ (NEGATIVE); URINE RBC 10 /uL (0-23.9); URINE UROBILINOGEN 0.2 mg/dL (0.2-1.0); URINE WBC 23 /uL (0-25.8)
[2020-08-20] MEDS ORDERED: ALBUTEROL SO4 HFA INHALER IH PRN (08:08)
[2020-08-20] MEDS ORDERED: FOLIC ACID INJECTION - 1 MG, THIAMINE HCL 100 MG, MULTIVIT INJECTION ADULT 10 ML in SOD... IVPB ONE (09:00)
[2020-08-20] MEDS ORDERED: POTASSIUM CHLORIDE TABS 20 MEQ TABLET.ER (FP) PO ONE (09:59)
[2020-08-20] MEDS ORDERED: DULoxetine HCL 30 MG CAPSULE.DR PO ONE (10:00)
[2020-08-20] MEDS ORDERED: TIOTROPIUM BROMIDE 2.5 MCG (SPIRIVA) RESPIMAT INHALER IH SCH (10:00)
[2020-08-20] MEDS ORDERED: CARVEDILOL 3.125 MG TABLET (FP) ONE (10:00)
[2020-08-20] MEDS ORDERED: BUDESONIDE/FORMETEROL FUMARATE 80/4.5 mcg INHALER IH SCH (10:00)
[2020-08-20] MEDS: POTASSIUM CHLORIDE TABS 20 MEQ TABLET.ER (FP) PO SCH (10:12)
[2020-08-20] MEDS: CARVEDILOL 3.125 MG TABLET (FP) PO SCH ×2 (10:12→22:00)
[2020-08-20] MEDS: DULoxetine HCL 30 MG CAPSULE.DR PO SCH (10:12)
[2020-08-20] MEDS: INSULIN SLIDING SCALE (NOVOLOG) 1 VIAL SQ SCH ×3 (11:45→22:00)
[2020-08-20] MEDS: TIOTROPIUM BROMIDE 2.5 MCG (SPIRIVA) RESPIMAT INHALER IH SCH (14:21)
[2020-08-20 15:04] VITALS: BMI 25.7
[2020-08-20] MEDS: amLODIPine BESYLATE 10 MG TABLET (FP) PO SCH (17:03)
[2020-08-20] MEDS: MONTELUKAST NA 10 MG TABLET PO SCH (21:59)
[2020-08-20] MEDS: ATORVASTATIN CA 10 MG TABLET (FP) PO SCH (21:59)
[2020-08-20] MEDS: BUDESONIDE/FORMETEROL FUMARATE 160/4.5 mcg INHALER IH SCH (22:00)
[2020-08-21] MEDS: INSULIN SLIDING SCALE (NOVOLOG) 1 VIAL SQ SCH ×4 (06:01→21:18)
[2020-08-21 08:08] LABS: BASO % 1.1 % (0-2.0); EOS % 1.4 % (0-4.5); HEMATOCRIT 38.1 % (32.4-45.2); HEMOGLOBIN 12.4 GM/dL (10.7-15.3); LYMPH % 32.9 % (8-40); MCHC 32.6 g/dl (32.0-36.0); MEAN CELL VOLUME 79.9 fl (80-96); MEAN PLT VOLUME 8.9 fl (7.5-11.1); MONO % 12.9 % (3.8-10.2); NEUT % 51.7 % (42.8-82.8); PLATELET COUNT 243 K/MM3 (134-434); RBC 4.77 M/mm3 (3.60-5.2); RDW 23.6 % (11.6-15.6); WHITE BLOOD COUNT 6.4 K/mm3 (4.0-10.0)
[2020-08-21 08:55] LABS: ALBUMIN 3.2 g/dl (3.4-5.0); BLOOD UREA NITROGEN 8.5 mg/dL (7-18); CALCIUM 9.1 mg/dL (8.5-10.1); MAGNESIUM 1.6 mg/dL (1.8-2.4)
[2020-08-21 08:58] LABS: CREATININE 0.9 mg/dL (0.55-1.3); PHOSPHOROUS 3.8 mg/dL (2.5-4.9)
[2020-08-21 09:00] LABS: BILIRUBIN,TOTAL 0.6 mg/dL (0.2-1); TOT PROT 7.4 g/dl (6.4-8.2)
[2020-08-21] MEDS ORDERED: MAGNESIUM 1GM/D5W 100ML - 100 ML IVPB IVPB ONE (09:45)
[2020-08-21] MEDS: ASPIRIN COATED 81 MG TABLET.EC PO SCH (10:03)
[2020-08-21] MEDS: MULTIVITAMINS (DAILY MVI) TABLET (FP) PO SCH (10:03)
[2020-08-21] MEDS: DULoxetine HCL 30 MG CAPSULE.DR PO SCH (10:03)
[2020-08-21] MEDS: CARVEDILOL 3.125 MG TABLET (FP) PO SCH ×2 (10:03→21:19)
[2020-08-21] MEDS: BUDESONIDE/FORMETEROL FUMARATE 160/4.5 mcg INHALER IH SCH ×2 (10:03→21:20)
[2020-08-21] MEDS: POTASSIUM CHLORIDE TABS 20 MEQ TABLET.ER (FP) PO SCH (10:03)
[2020-08-21] MEDS: amLODIPine BESYLATE 10 MG TABLET (FP) PO SCH (10:03)
[2020-08-21] MEDS: FOLIC ACID 1 MG TABLET (FP) PO SCH (10:03)
[2020-08-21] MEDS: TIOTROPIUM BROMIDE 2.5 MCG (SPIRIVA) RESPIMAT INHALER IH SCH (10:04)
[2020-08-21] MEDS: THIAMINE HCL 200 MG/2 ML VIAL IVPB SCH (11:00)
[2020-08-21] MEDS ORDERED: MAGNESIUM 2GM/50ML STERILE WATER IVPB IVPB ONE (13:00)
[2020-08-21] MEDS: LISINOPRIL 10 MG TABLET PO SCH (13:24)
[2020-08-21] MEDS: ATORVASTATIN CA 10 MG TABLET (FP) PO SCH (21:19)
[2020-08-21] MEDS: MONTELUKAST NA 10 MG TABLET PO SCH (21:20)
[2020-08-22] MEDS: INSULIN SLIDING SCALE (NOVOLOG) 1 VIAL SQ SCH ×3 (06:29→17:42)
[2020-08-22 08:58] LABS: ALBUMIN 3.4 g/dl (3.4-5.0); BLOOD UREA NITROGEN 12.3 mg/dL (7-18); CALCIUM 9.8 mg/dL (8.5-10.1)
[2020-08-22 09:02] LABS: CREATININE 0.9 mg/dL (0.55-1.3)
[2020-08-22 09:03] LABS: BILIRUBIN,TOTAL 0.4 mg/dL (0.2-1); TOT PROT 7.5 g/dl (6.4-8.2)
[2020-08-22] MEDS: amLODIPine BESYLATE 10 MG TABLET (FP) PO SCH (11:12)
[2020-08-22] MEDS: FOLIC ACID 1 MG TABLET (FP) PO SCH (11:12)
[2020-08-22] MEDS: CARVEDILOL 3.125 MG TABLET (FP) PO SCH (11:12)
[2020-08-22] MEDS: DULoxetine HCL 30 MG CAPSULE.DR PO SCH (11:12)
[2020-08-22] MEDS: ASPIRIN COATED 81 MG TABLET.EC PO SCH (11:12)
[2020-08-22] MEDS: LISINOPRIL 10 MG TABLET PO SCH (11:12)
[2020-08-22] MEDS: POTASSIUM CHLORIDE TABS 20 MEQ TABLET.ER (FP) PO SCH (11:13)
[2020-08-22] MEDS: THIAMINE HCL 200 MG/2 ML VIAL IVPB SCH (11:14)
[2020-08-22] MEDS: MULTIVITAMINS (DAILY MVI) TABLET (FP) PO SCH (11:14)
[2020-08-22] MEDS: BUDESONIDE/FORMETEROL FUMARATE 160/4.5 mcg INHALER IH SCH (11:22)
[2020-08-22] MEDS: TIOTROPIUM BROMIDE 2.5 MCG (SPIRIVA) RESPIMAT INHALER IH SCH (11:23)
[2020-08-22 13:57] VITALS: BP 147/79; PULSE 86; TEMP 99.4
== END 2020-08-22 19:47 | disposition home or self-care (01) ==
LOC: JER 01:02 → JERBED 06:20 → INTOOBSV 06:20 → J6S 10:35
PROVIDERS: ADMIT Internal Medicine; ATTEND Internal Medicine
PROC: 3E033GC Introduction of Other Therapeutic Substance into Peripheral Vein, Percutaneous Approach (ICD-10-PCS; principal; 2020-08-20)
DX: I11.0 Hypertensive heart disease with heart failure (principal); G89.29 Other chronic pain; M62.81 Muscle weakness (generalized); E78.5 Hyperlipidemia, unspecified; J44.9 Chronic obstructive pulmonary disease, unspecified; F10.980 Alcohol use, unspecified with alcohol-induced anxiety disorder; E11.9 Type 2 diabetes mellitus without complications; Z99.89 Dependence on other enabling machines and devices; I50.9 Heart failure, unspecified; E83.42 Hypomagnesemia; Z88.8 Allergy status to other drugs, medicaments and biological substances; F17.210 Nicotine dependence, cigarettes, uncomplicated; Z86.73 Personal history of transient ischemic attack (TIA), and cerebral infarction without residual deficits
CPT/HCPCS: 36415; 70450-TC; 71045-TC-FY; 72125-TC; 72170-TC-FY; 80053; 80307; 81003; 82140; 82607; 82746; 82962; 83735; 84100; 84443; 84484; 85025; 87086; 93005; 93010; 96365; 96374; 96375; 96376; 97116-GP; 97162-GP; 99285-25; C9803; G0378; U0003; U0005

== ENCOUNTER 2020-08-25 23:04 | Inpatient (IN) | payer OTHER ==
[2020-08-25 23:12] VITALS: BMI 22.5
[2020-08-25] MEDS ORDERED: SODIUM CHLORIDE 500 ML IV STA (23:26)
[2020-08-25] MEDS ORDERED: ONDANSETRON 4 MG/2 ML VIAL IVPUSH ONE (23:26)
[2020-08-25] MEDS ORDERED: ONDANSETRON 4 MG/2 ML VIAL ONE (23:30)
[2020-08-25 23:39] LABS: EOS % 0.3 % (0-4.5); LYMPH % 40.2 % (8-40); MCH 25.4 pg (25.7-33.7); MCHC 32.6 g/dl (32.0-36.0); MEAN PLT VOLUME 8.4 fl (7.5-11.1); MONO % 12.8 % (3.8-10.2); NEUT % 45.7 % (42.8-82.8); PLATELET COUNT 274 K/MM3 (134-434); RBC 4.74 M/mm3 (3.60-5.2); RDW 23.9 % (11.6-15.6); WHITE BLOOD COUNT 7.8 K/mm3 (4.0-10.0)
[2020-08-25 23:50] LABS: CHLORIDE 108 mmol/L (98-107); SODIUM 143 mmol/L (136-145)
[2020-08-25 23:51] LABS: ALBUMIN 3.7 g/dl (3.4-5.0); ANION GAP 9 MMOL/L (8-16); CALCIUM 9.3 mg/dL (8.5-10.1); CO2 26 mmol/L (21-32); LIPASE 100 U/L (73-393)
[2020-08-25 23:52] LABS: BLOOD UREA NITROGEN 22.3 mg/dL (7-18); GLUCOSE,RANDOM 119 mg/dL (74-106)
[2020-08-25 23:54] LABS: BILIRUBIN,DIRECT 0.1 mg/dL (0.0-0.2); CREATININE 2.2 mg/dL (0.55-1.3); SGOT/AST 42 U/L (15-37); SGPT/ALT 38 U/L (13-61)
[2020-08-25 23:57] LABS: BILIRUBIN,TOTAL 0.3 mg/dL (0.2-1); TOT PROT 7.9 g/dl (6.4-8.2)
[2020-08-25 23:58] LABS: ALK PHOS 122 U/L (45-117)
[2020-08-26] MEDS ORDERED: chlordiazePOXIDE HCL 25 MG CAPSULE PO ONE (00:39)
[2020-08-26] MEDS ORDERED: PANTOPRAZOLE SODIUM 40 MG VIAL IVPUSH ONE (01:20)
[2020-08-26] MEDS ORDERED: chlordiazePOXIDE HCL 25 MG CAPSULE ONE (01:30)
[2020-08-26] MEDS ORDERED: PANTOPRAZOLE SODIUM 40 MG VIAL ONE (02:22)
[2020-08-26 02:52] LABS: ANISOCYTOSIS 2+
[2020-08-26] MEDS ORDERED: SODIUM CHLORIDE 500 ML IV STA (03:05)
[2020-08-26] MEDS ORDERED: FOLIC ACID INJECTION - 1 MG, THIAMINE HCL 100 MG, MULTIVIT INJECTION ADULT 10 ML in SOD... IVPB ONE (03:10)
[2020-08-26] MEDS ORDERED: ONDANSETRON 4 MG/2 ML VIAL IVPUSH PRN (04:00)
[2020-08-26 04:32] LABS: MAGNESIUM 1.7 mg/dL (1.8-2.4)
[2020-08-26] MEDS ORDERED: MAGNESIUM SULF 50% (8.12 MEQ/2 ML-1 GM VIAL) IVPB ONE (04:36)
[2020-08-26 05:25] LABS: PH,URINE 5.5 (5.0-8.0); URINE APPEARANCE CLEAR; URINE BILIRUBIN NEGATIVE (NEGATIVE); URINE COLOR YELLOW; URINE GLUCOSE (UA) NEGATIVE (NEGATIVE); URINE KETONE NEGATIVE (NEGATIVE); URINE LEUK ESTERASE NEGATIVE (NEGATIVE); URINE NITRITE NEGATIVE (NEGATIVE); URINE PROTEIN NEGATIVE (NEGATIVE)
[2020-08-26 05:34] LABS: COCAINE, UR NEGATIVE ng/ml (CUTOFF=300); METHADONE, UR NEGATIVE ng/ml (CUTOFF=300); OPIATES, URI NEGATIVE ng/ml (CUTOFF=300); PHENCYCLIDINE,URINE NEGATIVE ng/ml (CUTOFF=25); URINE BENZODIAZEPINES NEGATIVE ng/ml (CUTOFF=200)
[2020-08-26 05:36] LABS: URINE AMPHETAMINES NEGATIVE ng/ml (CUTOFF=500); URINE BARBITURATES NEGATIVE ng/ml (CUTOFF=200)
[2020-08-26] MEDS ORDERED: MAG HYDROX/AL HYDROX/SIMETH 30 ML UNIT-DOSE CUP PO PRN (06:18)
[2020-08-26] MEDS: INSULIN SLIDING SCALE (NOVOLOG) 1 VIAL SQ SCH ×4 (06:30→21:33)
[2020-08-26] MEDS: HEPARIN NA (PORCINE) 5,000 UNITS/ML 1ML VIAL SQ SCH ×3 (06:42→21:23)
[2020-08-26 07:03] LABS: HEMOGLOBIN 10.8 GM/dL (10.7-15.3); MCH 25.7 pg (25.7-33.7); MCHC 32.6 g/dl (32.0-36.0); MEAN CELL VOLUME 78.7 fl (80-96); PLATELET COUNT 251 K/MM3 (134-434); RBC 4.19 M/mm3 (3.60-5.2); RDW 24.4 % (11.6-15.6); WHITE BLOOD COUNT 7.6 K/mm3 (4.0-10.0)
[2020-08-26 07:22] LABS: ALBUMIN 3.3 g/dl (3.4-5.0); BLOOD UREA NITROGEN 18.8 mg/dL (7-18); CALCIUM 8.6 mg/dL (8.5-10.1); MAGNESIUM 1.7 mg/dL (1.8-2.4)
[2020-08-26 07:25] LABS: PHOSPHOROUS 3.6 mg/dL (2.5-4.9)
[2020-08-26 07:27] LABS: BILIRUBIN,TOTAL 0.3 mg/dL (0.2-1); TOT PROT 6.8 g/dl (6.4-8.2)
[2020-08-26] MEDS ORDERED: MAGNESIUM 2GM/50ML STERILE WATER IVPB IVPB ONE (10:00)
[2020-08-26] MEDS: THIAMINE HCL 100 MG TABLET (FP) PO SCH (10:36)
[2020-08-26] MEDS: FOLIC ACID 1 MG TABLET (FP) PO SCH (10:36)
[2020-08-26] MEDS: MULTIVITAMINS (DAILY MVI) TABLET (FP) PO SCH (10:36)
[2020-08-26] MEDS: FAMOTIDINE 10 MG TABLET PO SCH (10:36)
[2020-08-26] MEDS ORDERED: INSULIN (NOVOLOG) ASPART 100 UNITS/ML 10ML VIAL ONE ×2 (11:47→21:24)
[2020-08-26] MEDS ORDERED: ALBUTEROL SO4 HFA INHALER IH PRN (14:22)
[2020-08-26] MEDS ORDERED: BUDESONIDE 0.25 MG/2ML INH SUSP VIAL NEB PRN (14:22)
[2020-08-26] MEDS: LACTATED RINGERS SOLUTION 1,000 ML/1,000 ML INFUS.BAG IV SCH (18:14)
[2020-08-26] MEDS: MONTELUKAST NA 10 MG TABLET PO SCH (21:22)
[2020-08-26] MEDS: CARVEDILOL 3.125 MG TABLET (FP) PO SCH (21:22)
[2020-08-26] MEDS: ATORVASTATIN CA 10 MG TABLET (FP) PO SCH (21:22)
[2020-08-26] MEDS ORDERED: MELATONIN 5 MG TABLETS PO ONE (22:47)
[2020-08-27] MEDS: HEPARIN NA (PORCINE) 5,000 UNITS/ML 1ML VIAL SQ SCH ×3 (06:29→21:22)
[2020-08-27] MEDS: INSULIN SLIDING SCALE (NOVOLOG) 1 VIAL SQ SCH ×4 (06:30→21:29)
[2020-08-27 08:15] LABS: HEMATOCRIT 33.7 % (32.4-45.2); HEMOGLOBIN 10.9 GM/dL (10.7-15.3); MCH 25.5 pg (25.7-33.7); MCHC 32.3 g/dl (32.0-36.0); MEAN CELL VOLUME 79.1 fl (80-96); PLATELET COUNT 251 K/MM3 (134-434); RBC 4.26 M/mm3 (3.60-5.2); RDW 24.2 % (11.6-15.6); WHITE BLOOD COUNT 6.5 K/mm3 (4.0-10.0)
[2020-08-27 08:58] LABS: BLOOD UREA NITROGEN 9.8 mg/dL (7-18); MAGNESIUM 1.8 mg/dL (1.8-2.4)
[2020-08-27 08:59] LABS: CALCIUM 9.1 mg/dL (8.5-10.1)
[2020-08-27 09:00] LABS: CREATININE 1.5 mg/dL (0.55-1.3)
[2020-08-27] MEDS: LACTATED RINGERS SOLUTION 1,000 ML/1,000 ML INFUS.BAG IV SCH ×2 (10:21→13:22)
[2020-08-27] MEDS: FOLIC ACID 1 MG TABLET (FP) PO SCH (10:25)
[2020-08-27] MEDS: DULoxetine HCL 30 MG CAPSULE.DR PO SCH (10:25)
[2020-08-27] MEDS: CARVEDILOL 3.125 MG TABLET (FP) PO SCH ×2 (10:25→21:21)
[2020-08-27] MEDS: FAMOTIDINE 10 MG TABLET PO SCH (10:25)
[2020-08-27] MEDS: MULTIVITAMINS (DAILY MVI) TABLET (FP) PO SCH (10:25)
[2020-08-27] MEDS: amLODIPine BESYLATE 10 MG TABLET (FP) PO SCH (10:25)
[2020-08-27] MEDS: LISINOPRIL 10 MG TABLET PO SCH (10:25)
[2020-08-27] MEDS: THIAMINE HCL 100 MG TABLET (FP) PO SCH (10:25)
[2020-08-27] MEDS: TIOTROPIUM BROMIDE 2.5 MCG (SPIRIVA) RESPIMAT INHALER IH SCH (10:26)
[2020-08-27] MEDS ORDERED: INSULIN (NOVOLOG) ASPART 100 UNITS/ML 10ML VIAL ONE (11:35)
[2020-08-27] MEDS: MONTELUKAST NA 10 MG TABLET PO SCH (21:21)
[2020-08-27] MEDS: ATORVASTATIN CA 10 MG TABLET (FP) PO SCH (21:22)
[2020-08-28] MEDS: HEPARIN NA (PORCINE) 5,000 UNITS/ML 1ML VIAL SQ SCH ×3 (06:01→21:45)
[2020-08-28] MEDS: LACTATED RINGERS SOLUTION 1,000 ML/1,000 ML INFUS.BAG IV SCH ×2 (06:03→10:17)
[2020-08-28] MEDS: INSULIN SLIDING SCALE (NOVOLOG) 1 VIAL SQ SCH ×4 (06:54→22:06)
[2020-08-28 09:04] LABS: HEMATOCRIT 35.2 % (32.4-45.2); HEMOGLOBIN 11.5 GM/dL (10.7-15.3); MCH 25.7 pg (25.7-33.7); MCHC 32.6 g/dl (32.0-36.0); MEAN CELL VOLUME 78.7 fl (80-96); MEAN PLT VOLUME 8.7 fl (7.5-11.1); PLATELET COUNT 282 K/MM3 (134-434); RBC 4.48 M/mm3 (3.60-5.2); RDW 23.7 % (11.6-15.6); WHITE BLOOD COUNT 8.4 K/mm3 (4.0-10.0)
[2020-08-28] MEDS ORDERED: PT OWN MED DRAWER 7, Y5N ONE (09:08)
[2020-08-28 10:03] LABS: BLOOD UREA NITROGEN 7.8 mg/dL (7-18)
[2020-08-28 10:06] LABS: CALCIUM 9.2 mg/dL (8.5-10.1); MAGNESIUM 1.4 mg/dL (1.8-2.4)
[2020-08-28] MEDS ORDERED: MAGNESIUM SULF 50% (8.12 MEQ/2 ML-1 GM VIAL) IVPB ONE (10:18)
[2020-08-28] MEDS: LISINOPRIL 10 MG TABLET PO SCH (10:25)
[2020-08-28] MEDS: DULoxetine HCL 30 MG CAPSULE.DR PO SCH (10:26)
[2020-08-28] MEDS: amLODIPine BESYLATE 10 MG TABLET (FP) PO SCH (10:26)
[2020-08-28] MEDS: THIAMINE HCL 100 MG TABLET (FP) PO SCH (10:26)
[2020-08-28] MEDS: MULTIVITAMINS (DAILY MVI) TABLET (FP) PO SCH (10:26)
[2020-08-28] MEDS: CARVEDILOL 3.125 MG TABLET (FP) PO SCH ×2 (10:26→21:45)
[2020-08-28] MEDS: FOLIC ACID 1 MG TABLET (FP) PO SCH (10:26)
[2020-08-28] MEDS: FAMOTIDINE 10 MG TABLET PO SCH (10:26)
[2020-08-28 10:28] LABS: CREATININE 1.1 mg/dL (0.55-1.3)
[2020-08-28] MEDS: TIOTROPIUM BROMIDE 2.5 MCG (SPIRIVA) RESPIMAT INHALER IH SCH (10:31)
[2020-08-28] MEDS: MAGNESIUM OXIDE 400 MG TABLET (FP) PO SCH ×2 (13:34→21:45)
[2020-08-28] MEDS: ATORVASTATIN CA 10 MG TABLET (FP) PO SCH (21:45)
[2020-08-28] MEDS: MONTELUKAST NA 10 MG TABLET PO SCH (21:45)
[2020-08-29] MEDS: INSULIN SLIDING SCALE (NOVOLOG) 1 VIAL SQ SCH ×4 (06:01→21:23)
[2020-08-29] MEDS: HEPARIN NA (PORCINE) 5,000 UNITS/ML 1ML VIAL SQ SCH ×3 (06:01→21:12)
[2020-08-29 08:02] LABS: CALCIUM 9.3 mg/dL (8.5-10.1)
[2020-08-29 08:03] LABS: BLOOD UREA NITROGEN 7.7 mg/dL (7-18)
[2020-08-29 08:04] LABS: MAGNESIUM 1.6 mg/dL (1.8-2.4)
[2020-08-29] MEDS: MAGNESIUM OXIDE 400 MG TABLET (FP) PO SCH ×2 (10:05→21:12)
[2020-08-29] MEDS: THIAMINE HCL 100 MG TABLET (FP) PO SCH (10:05)
[2020-08-29] MEDS: amLODIPine BESYLATE 10 MG TABLET (FP) PO SCH (10:05)
[2020-08-29] MEDS: LISINOPRIL 10 MG TABLET PO SCH (10:05)
[2020-08-29] MEDS: FOLIC ACID 1 MG TABLET (FP) PO SCH (10:05)
[2020-08-29] MEDS: MULTIVITAMINS (DAILY MVI) TABLET (FP) PO SCH (10:06)
[2020-08-29] MEDS: ACETAMINOPHEN 325 MG TABLET (FP) PO PRN ×2 (10:06→21:30)
[2020-08-29] MEDS: DULoxetine HCL 30 MG CAPSULE.DR PO SCH (10:06)
[2020-08-29] MEDS: CARVEDILOL 3.125 MG TABLET (FP) PO SCH ×2 (10:14→21:12)
[2020-08-29] MEDS: TIOTROPIUM BROMIDE 2.5 MCG (SPIRIVA) RESPIMAT INHALER IH SCH (10:15)
[2020-08-29] MEDS: SODIUM CHLORIDE 1,000 ML IV SCH (10:31)
[2020-08-29] MEDS: PANTOPRAZOLE SODIUM 40 MG VIAL IVPUSH SCH (10:32)
[2020-08-29] MEDS ORDERED: MAGNESIUM 2GM/50ML STERILE WATER IVPB IVPB ONE (11:53)
[2020-08-29] MEDS ORDERED: MAGNESIUM 1GM/D5W 100ML - 100 ML IVPB IVPB ONE (12:15)
[2020-08-29 12:51] LABS: BASO % 0.9 % (0-2.0); EOS % 0.2 % (0-4.5); HEMATOCRIT 36.9 % (32.4-45.2); HEMOGLOBIN 11.9 GM/dL (10.7-15.3); LYMPH % 14.3 % (8-40); MCH 25.3 pg (25.7-33.7); MCHC 32.2 g/dl (32.0-36.0); MEAN CELL VOLUME 78.7 fl (80-96); MEAN PLT VOLUME 8.8 fl (7.5-11.1); MONO % 13.3 % (3.8-10.2); NEUT % 71.3 % (42.8-82.8); PLATELET COUNT 308 K/MM3 (134-434); RBC 4.69 M/mm3 (3.60-5.2); RDW 24.2 % (11.6-15.6); WHITE BLOOD COUNT 14.7 K/mm3 (4.0-10.0)
[2020-08-29 13:54] LABS: ANISOCYTOSIS 2+; MACROCYTOSIS 0; PLATELET ESTIMATE NORMAL
[2020-08-29] MEDS: ATORVASTATIN CA 10 MG TABLET (FP) PO SCH (21:12)
[2020-08-29] MEDS: MONTELUKAST NA 10 MG TABLET PO SCH (21:13)
[2020-08-29] MEDS ORDERED: INSULIN (NOVOLOG) ASPART 100 UNITS/ML 10ML VIAL ONE (21:21)
[2020-08-30] MEDS: HEPARIN NA (PORCINE) 5,000 UNITS/ML 1ML VIAL SQ SCH ×3 (06:00→21:12)
[2020-08-30] MEDS: INSULIN SLIDING SCALE (NOVOLOG) 1 VIAL SQ SCH ×4 (06:20→21:21)
[2020-08-30] MEDS: SODIUM CHLORIDE 1,000 ML IV SCH (08:53)
[2020-08-30 09:14] LABS: BASO % 0.9 % (0-2.0); EOS % 0.5 % (0-4.5); HEMATOCRIT 34.5 % (32.4-45.2); HEMOGLOBIN 11.2 GM/dL (10.7-15.3); LYMPH % 10.5 % (8-40); MCH 25.5 pg (25.7-33.7); MCHC 32.6 g/dl (32.0-36.0); MEAN CELL VOLUME 78.4 fl (80-96); MEAN PLT VOLUME 8.8 fl (7.5-11.1); MONO % 11.3 % (3.8-10.2); NEUT % 76.8 % (42.8-82.8); PLATELET COUNT 311 K/MM3 (134-434); RDW 24.5 % (11.6-15.6); WHITE BLOOD COUNT 16.4 K/mm3 (4.0-10.0)
[2020-08-30 09:35] LABS: ALBUMIN 3.1 g/dl (3.4-5.0)
[2020-08-30 09:36] LABS: BLOOD UREA NITROGEN 11.7 mg/dL (7-18); MAGNESIUM 2.2 mg/dL (1.8-2.4)
[2020-08-30 09:39] LABS: CREATININE 0.9 mg/dL (0.55-1.3)
[2020-08-30 09:40] LABS: BILIRUBIN,TOTAL 0.3 mg/dL (0.2-1); TOT PROT 7.1 g/dl (6.4-8.2)
[2020-08-30] MEDS: THIAMINE HCL 100 MG TABLET (FP) PO SCH (10:17)
[2020-08-30] MEDS: MAGNESIUM OXIDE 400 MG TABLET (FP) PO SCH ×2 (10:18→21:12)
[2020-08-30] MEDS: FOLIC ACID 1 MG TABLET (FP) PO SCH (10:18)
[2020-08-30] MEDS: PANTOPRAZOLE SODIUM 40 MG VIAL IVPUSH SCH (10:18)
[2020-08-30] MEDS: LISINOPRIL 10 MG TABLET PO SCH (10:18)
[2020-08-30] MEDS: amLODIPine BESYLATE 10 MG TABLET (FP) PO SCH (10:18)
[2020-08-30] MEDS: DULoxetine HCL 30 MG CAPSULE.DR PO SCH (10:18)
[2020-08-30] MEDS: MULTIVITAMINS (DAILY MVI) TABLET (FP) PO SCH (10:18)
[2020-08-30] MEDS: CARVEDILOL 3.125 MG TABLET (FP) PO SCH ×2 (10:18→21:12)
[2020-08-30] MEDS: TIOTROPIUM BROMIDE 2.5 MCG (SPIRIVA) RESPIMAT INHALER IH SCH (10:25)
[2020-08-30 13:23] LABS: EPI CELLS 22 /uL (0-25.1); HYALINE CASTS 0 /uL (0-3.1); PH,URINE 7.5 (5.0-8.0); URINE APPEARANCE CLEAR; URINE BACTERIA 1958 /uL (0-1359); URINE BILIRUBIN NEGATIVE (NEGATIVE); URINE COLOR YELLOW; URINE GLUCOSE (UA) NEGATIVE (NEGATIVE); URINE KETONE NEGATIVE (NEGATIVE); URINE LEUK ESTERASE 1+ (NEGATIVE); URINE NITRITE NEGATIVE (NEGATIVE); URINE PROTEIN TRACE (NEGATIVE); URINE RBC 19 /uL (0-23.9); URINE UROBILINOGEN 0.2 mg/dL (0.2-1.0); URINE WBC 47 /uL (0-25.8)
[2020-08-30] MEDS ORDERED: cefTRIAXone SODIUM 1 GM VIAL ONE (14:18)
[2020-08-30] MEDS ORDERED: DEXTROSE 5%-WATER - 50 ML IVPB ONE (14:22)
[2020-08-30] MEDS: CEFTRIAXONE 1 GM in DEXTROSE 5%-WATER - 50 ML IVPB SCH (14:30)
[2020-08-30] MEDS: ACETAMINOPHEN 325 MG TABLET (FP) PO PRN ×2 (16:16→21:11)
[2020-08-30] MEDS: ATORVASTATIN CA 10 MG TABLET (FP) PO SCH (21:12)
[2020-08-30] MEDS: MONTELUKAST NA 10 MG TABLET PO SCH (21:12)
[2020-08-31] MEDS: HEPARIN NA (PORCINE) 5,000 UNITS/ML 1ML VIAL SQ SCH ×3 (05:59→22:19)
[2020-08-31] MEDS: INSULIN SLIDING SCALE (NOVOLOG) 1 VIAL SQ SCH ×4 (06:10→22:32)
[2020-08-31 09:26] LABS: HEMATOCRIT 35.1 % (32.4-45.2); HEMOGLOBIN 11.3 GM/dL (10.7-15.3); MCH 25.3 pg (25.7-33.7); MEAN CELL VOLUME 79.2 fl (80-96); MEAN PLT VOLUME 8.6 fl (7.5-11.1); PLATELET COUNT 305 K/MM3 (134-434); RBC 4.44 M/mm3 (3.60-5.2); RDW 23.5 % (11.6-15.6); WHITE BLOOD COUNT 14.1 K/mm3 (4.0-10.0)
[2020-08-31] MEDS ORDERED: cefTRIAXone SODIUM 1 GM VIAL ONE (10:09)
[2020-08-31] MEDS ORDERED: PT OWN MED DRAWER 7, Y5N ONE (10:09)
[2020-08-31] MEDS ORDERED: DEXTROSE 5%-WATER - 50 ML IVPB ONE (10:10)
[2020-08-31 10:17] LABS: CALCIUM 9.4 mg/dL (8.5-10.1)
[2020-08-31 10:18] LABS: BLOOD UREA NITROGEN 12.4 mg/dL (7-18); MAGNESIUM 1.9 mg/dL (1.8-2.4)
[2020-08-31 10:21] LABS: CREATININE 0.9 mg/dL (0.55-1.3)
[2020-08-31 10:22] LABS: BILIRUBIN,TOTAL 0.3 mg/dL (0.2-1); TOT PROT 6.9 g/dl (6.4-8.2)
[2020-08-31] MEDS: FOLIC ACID 1 MG TABLET (FP) PO SCH (10:22)
[2020-08-31] MEDS: LISINOPRIL 10 MG TABLET PO SCH (10:22)
[2020-08-31] MEDS: DULoxetine HCL 30 MG CAPSULE.DR PO SCH (10:22)
[2020-08-31] MEDS: CARVEDILOL 3.125 MG TABLET (FP) PO SCH ×2 (10:22→22:19)
[2020-08-31] MEDS: CEFTRIAXONE 1 GM in DEXTROSE 5%-WATER - 50 ML IVPB SCH (10:22)
[2020-08-31] MEDS: amLODIPine BESYLATE 10 MG TABLET (FP) PO SCH (10:22)
[2020-08-31] MEDS: THIAMINE HCL 100 MG TABLET (FP) PO SCH (10:22)
[2020-08-31] MEDS: MULTIVITAMINS (DAILY MVI) TABLET (FP) PO SCH (10:22)
[2020-08-31] MEDS: MAGNESIUM OXIDE 400 MG TABLET (FP) PO SCH ×2 (10:22→22:18)
[2020-08-31] MEDS: PANTOPRAZOLE SODIUM 40 MG VIAL IVPUSH SCH (10:22)
[2020-08-31] MEDS: TIOTROPIUM BROMIDE 2.5 MCG (SPIRIVA) RESPIMAT INHALER IH SCH (10:25)
[2020-08-31] MEDS: ACETAMINOPHEN 325 MG TABLET (FP) PO PRN ×2 (14:28→22:17)
[2020-08-31] MEDS: MONTELUKAST NA 10 MG TABLET PO SCH (22:19)
[2020-08-31] MEDS: ATORVASTATIN CA 10 MG TABLET (FP) PO SCH (22:19)
[2020-09-01] MEDS: INSULIN SLIDING SCALE (NOVOLOG) 1 VIAL SQ SCH ×4 (06:23→22:33)
[2020-09-01] MEDS: HEPARIN NA (PORCINE) 5,000 UNITS/ML 1ML VIAL SQ SCH ×3 (06:23→22:25)
[2020-09-01] MEDS ORDERED: PT OWN MED DRAWER 7, Y5N ONE ×3 (07:08→16:56)
[2020-09-01 09:55] LABS: BASO % 1.3 % (0-2.0); EOS % 1.5 % (0-4.5); HEMATOCRIT 35.7 % (32.4-45.2); HEMOGLOBIN 11.7 GM/dL (10.7-15.3); MCH 25.7 pg (25.7-33.7); MCHC 32.7 g/dl (32.0-36.0); MEAN CELL VOLUME 78.7 fl (80-96); MEAN PLT VOLUME 8.9 fl (7.5-11.1); MONO % 11.8 % (3.8-10.2); NEUT % 65.4 % (42.8-82.8); PLATELET COUNT 369 K/MM3 (134-434); RBC 4.54 M/mm3 (3.60-5.2); RDW 24.2 % (11.6-15.6); WHITE BLOOD COUNT 11.3 K/mm3 (4.0-10.0)
[2020-09-01] MEDS ORDERED: cefTRIAXone SODIUM 1 GM VIAL ONE (10:02)
[2020-09-01] MEDS ORDERED: DEXTROSE 5%-WATER - 50 ML IVPB ONE (10:02)
[2020-09-01] MEDS: CEFTRIAXONE 1 GM in DEXTROSE 5%-WATER - 50 ML IVPB SCH (10:10)
[2020-09-01] MEDS: ACETAMINOPHEN 325 MG TABLET (FP) PO PRN ×2 (10:11→18:36)
[2020-09-01] MEDS: FOLIC ACID 1 MG TABLET (FP) PO SCH (10:12)
[2020-09-01] MEDS: DULoxetine HCL 30 MG CAPSULE.DR PO SCH (10:12)
[2020-09-01] MEDS: CARVEDILOL 3.125 MG TABLET (FP) PO SCH ×2 (10:12→22:24)
[2020-09-01] MEDS: MAGNESIUM OXIDE 400 MG TABLET (FP) PO SCH (10:12)
[2020-09-01] MEDS: LISINOPRIL 10 MG TABLET PO SCH (10:13)
[2020-09-01] MEDS: PANTOPRAZOLE SODIUM 40 MG VIAL IVPUSH SCH (10:13)
[2020-09-01] MEDS: amLODIPine BESYLATE 10 MG TABLET (FP) PO SCH (10:13)
[2020-09-01] MEDS: TIOTROPIUM BROMIDE 2.5 MCG (SPIRIVA) RESPIMAT INHALER IH SCH (10:13)
[2020-09-01] MEDS: THIAMINE HCL 100 MG TABLET (FP) PO SCH (10:14)
[2020-09-01] MEDS: MULTIVITAMINS (DAILY MVI) TABLET (FP) PO SCH (10:14)
[2020-09-01 10:18] LABS: CALCIUM 9.3 mg/dL (8.5-10.1)
[2020-09-01] MEDS: guaiFENesin/D-M SUGAR-FREE/ACLHOL-FREE 118 ML BOTTLE PO PRN ×2 (10:18→17:01)
[2020-09-01 10:19] LABS: ALBUMIN 3.1 g/dl (3.4-5.0); MAGNESIUM 1.8 mg/dL (1.8-2.4)
[2020-09-01 10:22] LABS: CREATININE 0.9 mg/dL (0.55-1.3); PHOSPHOROUS 3.9 mg/dL (2.5-4.9)
[2020-09-01 10:23] LABS: TOT PROT 7.2 g/dl (6.4-8.2)
[2020-09-01 10:26] LABS: BILIRUBIN,TOTAL 0.3 mg/dL (0.2-1)
[2020-09-01 11:36] LABS: ANISOCYTOSIS 1+; MACROCYTOSIS 0; PLATELET ESTIMATE NORMAL
[2020-09-01] MEDS: ATORVASTATIN CA 10 MG TABLET (FP) PO SCH (22:24)
[2020-09-01] MEDS: MONTELUKAST NA 10 MG TABLET PO SCH (22:24)
[2020-09-02] MEDS: INSULIN SLIDING SCALE (NOVOLOG) 1 VIAL SQ SCH ×2 (06:02→12:13)
[2020-09-02 09:48] LABS: BASO % 1.1 % (0-2.0); EOS % 1.4 % (0-4.5); HEMATOCRIT 34.6 % (32.4-45.2); HEMOGLOBIN 11.3 GM/dL (10.7-15.3); LYMPH % 22.9 % (8-40); MCHC 32.8 g/dl (32.0-36.0); MEAN CELL VOLUME 79.2 fl (80-96); MEAN PLT VOLUME 8.2 fl (7.5-11.1); MONO % 12.3 % (3.8-10.2); NEUT % 62.3 % (42.8-82.8); PLATELET COUNT 388 K/MM3 (134-434); RBC 4.37 M/mm3 (3.60-5.2); RDW 23.7 % (11.6-15.6); WHITE BLOOD COUNT 10.9 K/mm3 (4.0-10.0)
[2020-09-02] MEDS ORDERED: cefTRIAXone SODIUM 1 GM VIAL ONE (10:33)
[2020-09-02] MEDS ORDERED: DEXTROSE 5%-WATER - 50 ML IVPB ONE (10:34)
[2020-09-02] MEDS: PANTOPRAZOLE SODIUM 40 MG VIAL IVPUSH SCH (10:44)
[2020-09-02] MEDS: THIAMINE HCL 100 MG TABLET (FP) PO SCH (10:44)
[2020-09-02] MEDS: DULoxetine HCL 30 MG CAPSULE.DR PO SCH (10:44)
[2020-09-02] MEDS: MULTIVITAMINS (DAILY MVI) TABLET (FP) PO SCH (10:44)
[2020-09-02] MEDS: CEFTRIAXONE 1 GM in DEXTROSE 5%-WATER - 50 ML IVPB SCH (10:44)
[2020-09-02] MEDS: CARVEDILOL 3.125 MG TABLET (FP) PO SCH (10:44)
[2020-09-02] MEDS: LISINOPRIL 10 MG TABLET PO SCH (10:44)
[2020-09-02] MEDS: amLODIPine BESYLATE 10 MG TABLET (FP) PO SCH (10:44)
[2020-09-02] MEDS: FOLIC ACID 1 MG TABLET (FP) PO SCH (10:44)
[2020-09-02] MEDS: TIOTROPIUM BROMIDE 2.5 MCG (SPIRIVA) RESPIMAT INHALER IH SCH (10:48)
[2020-09-02 12:18] LABS: ANISOCYTOSIS 2+; MACROCYTOSIS 1+; PLATELET ESTIMATE NORMAL
[2020-09-02 14:29] VITALS: BP 136/76; PULSE 87; TEMP 98.4
== END 2020-09-02 16:33 | disposition home or self-care (01) | DRG 683 ==
LOC: JER 23:04 → JERBED 08-26 01:42 → J6S 08-26 07:41
PROVIDERS: ADMIT Hospitalist; ATTEND Internal Medicine
DX: N17.9 Acute kidney failure, unspecified (principal); I69.351 Hemiplegia and hemiparesis following cerebral infarction affecting right dominant side; F10.230 Alcohol dependence with withdrawal, uncomplicated; J44.9 Chronic obstructive pulmonary disease, unspecified; I25.2 Old myocardial infarction; E11.9 Type 2 diabetes mellitus without complications; E78.5 Hyperlipidemia, unspecified; I11.0 Hypertensive heart disease with heart failure; I50.9 Heart failure, unspecified; E86.0 Dehydration; E83.42 Hypomagnesemia; I25.10 Atherosclerotic heart disease of native coronary artery without angina pectoris; N28.1 Cyst of kidney, acquired; K44.9 Diaphragmatic hernia without obstruction or gangrene
CPT/HCPCS: 36415; 71045-TC-FY; 76775-TC; 80048; 80053; 80307; 81003; 82248; 82550; 82553; 82570; 82962; 83690; 83735; 84100; 84300; 84484; 85025; 85027; 87040; 87086; 93005; 93010; 97116-GP; 97162-GP; 99285-25; C9803; J1644; U0003; U0005

== ENCOUNTER 2020-09-30 18:25 | Observation (INO) | payer OTHER ==
[2020-09-30] MEDS ORDERED: FOLIC ACID INJECTION - 1 MG, THIAMINE HCL 100 MG, MULTIVIT INJECTION ADULT 10 ML in SOD... IVPB ONE (19:55)
[2020-09-30] MEDS ORDERED: MAG HYDROX/AL HYDROX/SIMETH 30 ML UNIT-DOSE CUP PO ONE (19:55)
[2020-09-30] MEDS ORDERED: FAMOTIDINE 20 MG/50 ML IVPB 20 MG/50 ML MG IVPB ONE ×2 (19:55→20:17)
[2020-09-30] MEDS ORDERED: ONDANSETRON 4 MG/2 ML VIAL IVPUSH ONE (19:57)
[2020-09-30] MEDS ORDERED: MAG HYDROX/AL HYDROX/SIMETH 30 ML UNIT-DOSE CUP ONE (20:16)
[2020-09-30] MEDS ORDERED: ONDANSETRON 4 MG/2 ML VIAL ONE (20:17)
[2020-09-30 21:17] LABS: BASO % 1.1 % (0-2.0); HEMATOCRIT 34.2 % (32.4-45.2); HEMOGLOBIN 11.2 GM/dL (10.7-15.3); LYMPH % 49.3 % (8-40); MCH 25.9 pg (25.7-33.7); MCHC 32.7 g/dl (32.0-36.0); MEAN CELL VOLUME 79.4 fl (80-96); MEAN PLT VOLUME 8.4 fl (7.5-11.1); MONO % 9.6 % (3.8-10.2); PLATELET COUNT 212 10^3/uL (134-434); RBC 4.31 M/mm3 (3.60-5.2); RDW 24.1 % (11.6-15.6); WHITE BLOOD COUNT 9.3 K/mm3 (4.0-10.0)
[2020-09-30 21:33] LABS: CHLORIDE 104 mmol/L (98-107); SODIUM 140 mmol/L (136-145)
[2020-09-30 21:35] LABS: VENOUS BASE EXCESS 1.9 mmol/L (-2-2); VENOUS PCO2 50.5 mmHg (38-52); VENOUS PH 7.363 (7.310-7.410)
[2020-09-30 21:36] LABS: ALBUMIN 3.2 g/dl (3.4-5.0); ANION GAP 9 MMOL/L (8-16); BLOOD UREA NITROGEN 16.2 mg/dL (7-18); CO2 27 mmol/L (21-32); GLUCOSE,RANDOM 80 mg/dL (74-106); MAGNESIUM 1.8 mg/dL (1.8-2.4)
[2020-09-30 21:37] LABS: LIPASE 166 U/L (73-393)
[2020-09-30 21:39] LABS: CREATININE 1.1 mg/dL (0.55-1.3); PHOSPHOROUS 3.9 mg/dL (2.5-4.9); SGOT/AST 39 U/L (15-37); SGPT/ALT 28 U/L (13-61)
[2020-09-30 21:40] LABS: BILIRUBIN,TOTAL 0.2 mg/dL (0.2-1); LACTIC ACID 2.8 mmol/L (0.4-2.0); TOT PROT 7.3 g/dl (6.4-8.2)
[2020-09-30 21:41] LABS: ALK PHOS 99 U/L (45-117)
[2020-09-30 22:31] LABS: ANISOCYTOSIS 2+; MACROCYTOSIS 0; PLATELET ESTIMATE NORMAL
[2020-09-30 22:37] LABS: EPI CELLS 12 /uL (0-25.1); HYALINE CASTS 1 /uL (0-3.1); PH,URINE 6.5 (5.0-8.0); URINE APPEARANCE CLEAR; URINE BACTERIA 227 /uL (0-1359); URINE BILIRUBIN NEGATIVE (NEGATIVE); URINE COLOR YELLOW; URINE GLUCOSE (UA) NEGATIVE (NEGATIVE); URINE KETONE NEGATIVE (NEGATIVE); URINE LEUK ESTERASE 1+ (NEGATIVE); URINE NITRITE NEGATIVE (NEGATIVE); URINE PROTEIN NEGATIVE (NEGATIVE); URINE RBC 13 /uL (0-23.9); URINE WBC 35 /uL (0-25.8)
[2020-09-30] MEDS ORDERED: CEFTRIAXONE 1 GM in DEXTROSE 5%-WATER - 100 ML IVPB ONE (22:45)
[2020-09-30] MEDS ORDERED: CEFTRIAXONE 1 GM/50 ML BAG ONE (23:13)
[2020-10-01 00:21] LABS: LACTIC ACID 2.4 mmol/L (0.4-2.0)
[2020-10-01] MEDS ORDERED: ACETAMINOPHEN 325 MG TABLET (FP) PO PRN (01:46)
[2020-10-01] MEDS ORDERED: ALBUTEROL SO4 0.083% IH SOL 2.5 MG/3 ML VIAL.NEB. NEB PRN (01:56)
[2020-10-01] MEDS ORDERED: ALBUTEROL SO4 2.5/IPRATROPIUM 0.5 INH SOL 3 ML VIAL.NEB. NEB PRN (01:56)
[2020-10-01] MEDS ORDERED: BUDESONIDE 0.25 MG/2ML INH SUSP VIAL NEB PRN (02:07)
[2020-10-01] MEDS ORDERED: LORazepam 2 MG/ML SDV VIAL IVPUSH PRN (02:41)
[2020-10-01] MEDS: SODIUM CHLORIDE 1,000 ML IV SCH ×2 (02:54→22:05)
[2020-10-01 03:44] LABS: LACTIC ACID 2.1 mmol/L (0.4-2.0)
[2020-10-01 06:30] LABS: BASO % 0.6 % (0-2.0); EOS % 1.2 % (0-4.5); HEMATOCRIT 35.6 % (32.4-45.2); HEMOGLOBIN 11.2 GM/dL (10.7-15.3); LYMPH % 38.4 % (8-40); MCH 25.4 pg (25.7-33.7); MCHC 31.5 g/dl (32.0-36.0); MEAN CELL VOLUME 80.6 fl (80-96); MEAN PLT VOLUME 9.3 fl (7.5-11.1); MONO % 12.1 % (3.8-10.2); NEUT % 47.7 % (42.8-82.8); PLATELET COUNT 202 10^3/uL (134-434); RBC 4.42 M/mm3 (3.60-5.2); RDW 23.2 % (11.6-15.6); WHITE BLOOD COUNT 7.8 K/mm3 (4.0-10.0)
[2020-10-01 06:42] LABS: CHLORIDE 106 mmol/L (98-107); SODIUM 141 mmol/L (136-145)
[2020-10-01 06:47] LABS: BLOOD UREA NITROGEN 13.4 mg/dL (7-18); CALCIUM 8.6 mg/dL (8.5-10.1)
[2020-10-01 06:48] LABS: ALBUMIN 3.3 g/dl (3.4-5.0); ANION GAP 9 MMOL/L (8-16); CO2 26 mmol/L (21-32); GLUCOSE,RANDOM 81 mg/dL (74-106); MAGNESIUM 1.6 mg/dL (1.8-2.4)
[2020-10-01 06:51] LABS: CREATININE 0.9 mg/dL (0.55-1.3); SGPT/ALT 23 U/L (13-61)
[2020-10-01 06:53] LABS: BILIRUBIN,TOTAL 0.3 mg/dL (0.2-1)
[2020-10-01 06:54] LABS: ALK PHOS 92 U/L (45-117); SGOT/AST 31 U/L (15-37)
[2020-10-01 06:55] LABS: PHOSPHOROUS 3.7 mg/dL (2.5-4.9)
[2020-10-01] MEDS: INSULIN SLIDING SCALE (NOVOLOG) 1 VIAL SQ SCH ×3 (07:02→18:15)
[2020-10-01] MEDS ORDERED: ALBUTEROL SO4 HFA INHALER IH PRN (09:09)
[2020-10-01] MEDS ORDERED: chlordiazePOXIDE HCL 25 MG CAPSULE PO PRN (09:20)
[2020-10-01] MEDS ORDERED: MAGNESIUM SULF 50% (8.12 MEQ/2 ML-1 GM VIAL) IVPB ONE ×2 (09:23→14:30)
[2020-10-01] MEDS ORDERED: THIAMINE HCL 200 MG/2 ML VIAL IVPB SCH (10:00)
[2020-10-01] MEDS ORDERED: cefTRIAXone 2 GM/100 ML BAG (PRE-DOCKED) IVPB SCH (10:00)
[2020-10-01] MEDS ORDERED: PT OWN MED DRAWER 7, Y5N ONE ×3 (11:55→16:11)
[2020-10-01] MEDS: CARVEDILOL 3.125 MG TABLET (FP) PO SCH ×2 (12:11→22:07)
[2020-10-01] MEDS: amLODIPine BESYLATE 10 MG TABLET (FP) PO SCH (12:11)
[2020-10-01] MEDS: PANTOPRAZOLE SODIUM 40 MG VIAL IVPUSH SCH (12:11)
[2020-10-01] MEDS: LISINOPRIL 10 MG TABLET PO SCH (12:11)
[2020-10-01] MEDS: FOLIC ACID 1 MG TABLET (FP) PO SCH (12:11)
[2020-10-01] MEDS: ASPIRIN 81 MG CHEWABLE TABLETS PO SCH (12:14)
[2020-10-01] MEDS: ENOXAPARIN NA (PORCINE) 40 MG/0.4 ML DISP.SYRIN SQ SCH (12:15)
[2020-10-01] MEDS: chlordiazePOXIDE HCL 25 MG CAPSULE PO SCH ×3 (12:17→22:07)
[2020-10-01] MEDS ORDERED: CEFTRIAXONE 2 GM in DEXTROSE 5%-WATER 100 ML IVPB SCH (12:45)
[2020-10-01] MEDS ORDERED: DEXTROSE 5%-WATER 100 ML IVPB ONE (13:40)
[2020-10-01] MEDS: TIOTROPIUM BROMIDE 2.5 MCG (SPIRIVA) RESPIMAT INHALER IH SCH (13:50)
[2020-10-01] MEDS: DULoxetine HCL 30 MG CAPSULE.DR PO SCH (18:05)
[2020-10-01] MEDS: NICOTINE 7 MG/24 HOURS TOPICAL PATCH TD SCH (18:05)
[2020-10-01] MEDS: MONTELUKAST NA 10 MG TABLET PO SCH (22:07)
[2020-10-01] MEDS: ATORVASTATIN CA 10 MG TABLET (FP) PO SCH (22:07)
[2020-10-02] MEDS: SODIUM CHLORIDE 1,000 ML IV SCH (02:27)
[2020-10-02] MEDS: chlordiazePOXIDE HCL 25 MG CAPSULE PO SCH ×4 (06:12→22:37)
[2020-10-02] MEDS ORDERED: INSULIN SLIDING SCALE (NOVOLOG) 1 VIAL SQ SCH (07:00)
[2020-10-02 09:03] LABS: HEMATOCRIT 37.2 % (32.4-45.2); HEMOGLOBIN 11.7 GM/dL (10.7-15.3); MCH 25.5 pg (25.7-33.7); MCHC 31.4 g/dl (32.0-36.0); MEAN CELL VOLUME 81.1 fl (80-96); MEAN PLT VOLUME 8.8 fl (7.5-11.1); PLATELET COUNT 203 10^3/uL (134-434); RBC 4.59 M/mm3 (3.60-5.2); RDW 23.1 % (11.6-15.6)
[2020-10-02 09:25] LABS: CALCIUM 8.6 mg/dL (8.5-10.1)
[2020-10-02 09:26] LABS: ALBUMIN 3.1 g/dl (3.4-5.0); BLOOD UREA NITROGEN 9.6 mg/dL (7-18)
[2020-10-02 09:27] LABS: MAGNESIUM 1.7 mg/dL (1.8-2.4)
[2020-10-02 09:29] LABS: CREATININE 0.8 mg/dL (0.55-1.3); PHOSPHOROUS 3.4 mg/dL (2.5-4.9); TOT PROT 6.7 g/dl (6.4-8.2)
[2020-10-02] MEDS ORDERED: PT OWN MED DRAWER 7, Y5N ONE (09:39)
[2020-10-02] MEDS ORDERED: cefTRIAXone SODIUM 1 GM VIAL ONE (09:39)
[2020-10-02] MEDS ORDERED: DEXTROSE 5%-WATER - 50 ML IVPB ONE (09:40)
[2020-10-02 09:41] LABS: BILIRUBIN,TOTAL 0.5 mg/dL (0.2-1)
[2020-10-02] MEDS: ENOXAPARIN NA (PORCINE) 40 MG/0.4 ML DISP.SYRIN SQ SCH (09:51)
[2020-10-02] MEDS: CEFTRIAXONE 1 GM in DEXTROSE 5%-WATER - 50 ML IVPB SCH (09:51)
[2020-10-02] MEDS: amLODIPine BESYLATE 10 MG TABLET (FP) PO SCH (09:52)
[2020-10-02] MEDS: CARVEDILOL 3.125 MG TABLET (FP) PO SCH ×2 (09:52→22:38)
[2020-10-02] MEDS: DULoxetine HCL 30 MG CAPSULE.DR PO SCH (09:52)
[2020-10-02] MEDS: LISINOPRIL 10 MG TABLET PO SCH (09:52)
[2020-10-02] MEDS: THIAMINE HCL 100 MG TABLET (FP) PO SCH (09:52)
[2020-10-02] MEDS: TIOTROPIUM BROMIDE 2.5 MCG (SPIRIVA) RESPIMAT INHALER IH SCH (09:53)
[2020-10-02] MEDS: ASPIRIN 81 MG CHEWABLE TABLETS PO SCH (09:53)
[2020-10-02] MEDS: FOLIC ACID 1 MG TABLET (FP) PO SCH (09:53)
[2020-10-02] MEDS: PANTOPRAZOLE SODIUM 40 MG VIAL IVPUSH SCH (09:53)
[2020-10-02] MEDS: NICOTINE 7 MG/24 HOURS TOPICAL PATCH TD SCH (09:53)
[2020-10-02] MEDS ORDERED: CEFTRIAXONE 2 GM in DEXTROSE 5%-WATER 100 ML IVPB SCH (10:00)
[2020-10-02] MEDS: MAGNESIUM OXIDE 400 MG TABLET (FP) PO SCH ×2 (12:19→22:38)
[2020-10-02] MEDS: MONTELUKAST NA 10 MG TABLET PO SCH (22:38)
[2020-10-02] MEDS: ATORVASTATIN CA 10 MG TABLET (FP) PO SCH (22:39)
[2020-10-03] MEDS: chlordiazePOXIDE HCL 25 MG CAPSULE PO SCH ×4 (05:33→22:04)
[2020-10-03 09:03] LABS: HEMATOCRIT 33.9 % (32.4-45.2); MCH 26.1 pg (25.7-33.7); MCHC 32.5 g/dl (32.0-36.0); MEAN CELL VOLUME 80.2 fl (80-96); MEAN PLT VOLUME 8.2 fl (7.5-11.1); PLATELET COUNT 197 10^3/uL (134-434); RBC 4.22 M/mm3 (3.60-5.2); RDW 22.5 % (11.6-15.6); WHITE BLOOD COUNT 5.4 K/mm3 (4.0-10.0)
[2020-10-03 09:30] LABS: CALCIUM 8.2 mg/dL (8.5-10.1)
[2020-10-03 09:31] LABS: ALBUMIN 2.9 g/dl (3.4-5.0); MAGNESIUM 1.6 mg/dL (1.8-2.4)
[2020-10-03 09:34] LABS: BILIRUBIN,TOTAL 0.4 mg/dL (0.2-1); CREATININE 0.8 mg/dL (0.55-1.3); PHOSPHOROUS 2.8 mg/dL (2.5-4.9); TOT PROT 6.1 g/dl (6.4-8.2)
[2020-10-03] MEDS: PANTOPRAZOLE SODIUM 40 MG VIAL IVPUSH SCH (10:19)
[2020-10-03] MEDS: MAGNESIUM OXIDE 400 MG TABLET (FP) PO SCH ×2 (10:20→22:04)
[2020-10-03] MEDS: CARVEDILOL 3.125 MG TABLET (FP) PO SCH ×2 (10:20→22:04)
[2020-10-03] MEDS: THIAMINE HCL 100 MG TABLET (FP) PO SCH (10:20)
[2020-10-03] MEDS: ENOXAPARIN NA (PORCINE) 40 MG/0.4 ML DISP.SYRIN SQ SCH (10:21)
[2020-10-03] MEDS: ASPIRIN 81 MG CHEWABLE TABLETS PO SCH (10:21)
[2020-10-03] MEDS: LISINOPRIL 10 MG TABLET PO SCH (10:21)
[2020-10-03] MEDS: amLODIPine BESYLATE 10 MG TABLET (FP) PO SCH (10:21)
[2020-10-03] MEDS: FOLIC ACID 1 MG TABLET (FP) PO SCH (10:21)
[2020-10-03] MEDS: DULoxetine HCL 30 MG CAPSULE.DR PO SCH (10:23)
[2020-10-03] MEDS: NICOTINE 7 MG/24 HOURS TOPICAL PATCH TD SCH (10:31)
[2020-10-03] MEDS ORDERED: cefTRIAXone SODIUM 1 GM VIAL ONE (12:07)
[2020-10-03] MEDS ORDERED: DEXTROSE 5%-WATER - 50 ML IVPB ONE (12:07)
[2020-10-03] MEDS: CEFTRIAXONE 1 GM in DEXTROSE 5%-WATER - 50 ML IVPB SCH (12:08)
[2020-10-03] MEDS: TIOTROPIUM BROMIDE 2.5 MCG (SPIRIVA) RESPIMAT INHALER IH SCH (12:09)
[2020-10-03] MEDS ORDERED: PCA PUMP NR ONE (16:35)
[2020-10-03] MEDS: ATORVASTATIN CA 10 MG TABLET (FP) PO SCH (22:04)
[2020-10-03] MEDS: MONTELUKAST NA 10 MG TABLET PO SCH (22:04)
[2020-10-04] MEDS ORDERED: chlordiazePOXIDE HCL 10 MG CAPSULE PO PRN
[2020-10-04] MEDS: chlordiazePOXIDE HCL 10 MG CAPSULE PO SCH ×4 (04:59→22:05)
[2020-10-04 09:16] LABS: HEMATOCRIT 34.7 % (32.4-45.2); HEMOGLOBIN 10.9 GM/dL (10.7-15.3); MCH 25.5 pg (25.7-33.7); MCHC 31.5 g/dl (32.0-36.0); MEAN CELL VOLUME 80.9 fl (80-96); MEAN PLT VOLUME 8.5 fl (7.5-11.1); PLATELET COUNT 234 10^3/uL (134-434); RBC 4.29 M/mm3 (3.60-5.2); RDW 22.9 % (11.6-15.6); WHITE BLOOD COUNT 5.6 K/mm3 (4.0-10.0)
[2020-10-04] MEDS ORDERED: cefTRIAXone SODIUM 1 GM VIAL ONE (09:35)
[2020-10-04] MEDS ORDERED: DEXTROSE 5%-WATER - 50 ML IVPB ONE (09:36)
[2020-10-04 09:49] LABS: CALCIUM 8.8 mg/dL (8.5-10.1)
[2020-10-04 09:50] LABS: ALBUMIN 2.9 g/dl (3.4-5.0); BLOOD UREA NITROGEN 7.3 mg/dL (7-18); MAGNESIUM 1.6 mg/dL (1.8-2.4)
[2020-10-04 09:53] LABS: CREATININE 0.8 mg/dL (0.55-1.3); PHOSPHOROUS 3.4 mg/dL (2.5-4.9)
[2020-10-04 09:54] LABS: BILIRUBIN,TOTAL 0.2 mg/dL (0.2-1); TOT PROT 6.1 g/dl (6.4-8.2)
[2020-10-04] MEDS: CEFTRIAXONE 1 GM in DEXTROSE 5%-WATER - 50 ML IVPB SCH (10:08)
[2020-10-04] MEDS: ENOXAPARIN NA (PORCINE) 40 MG/0.4 ML DISP.SYRIN SQ SCH (10:09)
[2020-10-04] MEDS: amLODIPine BESYLATE 10 MG TABLET (FP) PO SCH (10:15)
[2020-10-04] MEDS: PANTOPRAZOLE SODIUM 40 MG VIAL IVPUSH SCH (10:15)
[2020-10-04] MEDS: CARVEDILOL 3.125 MG TABLET (FP) PO SCH ×2 (10:15→21:48)
[2020-10-04] MEDS: ASPIRIN 81 MG CHEWABLE TABLETS PO SCH (10:15)
[2020-10-04] MEDS: MAGNESIUM OXIDE 400 MG TABLET (FP) PO SCH ×2 (10:15→21:48)
[2020-10-04] MEDS: THIAMINE HCL 100 MG TABLET (FP) PO SCH (10:15)
[2020-10-04] MEDS: FOLIC ACID 1 MG TABLET (FP) PO SCH (10:15)
[2020-10-04] MEDS: LISINOPRIL 10 MG TABLET PO SCH (10:15)
[2020-10-04] MEDS: DULoxetine HCL 30 MG CAPSULE.DR PO SCH (10:15)
[2020-10-04] MEDS: TIOTROPIUM BROMIDE 2.5 MCG (SPIRIVA) RESPIMAT INHALER IH SCH (10:18)
[2020-10-04] MEDS: NICOTINE 7 MG/24 HOURS TOPICAL PATCH TD SCH (11:18)
[2020-10-04] MEDS: MONTELUKAST NA 10 MG TABLET PO SCH (21:48)
[2020-10-04] MEDS: ATORVASTATIN CA 10 MG TABLET (FP) PO SCH (21:48)
[2020-10-05] MEDS: chlordiazePOXIDE HCL 10 MG CAPSULE PO SCH ×2 (05:18→17:06)
[2020-10-05] MEDS ORDERED: DEXTROSE 5%-WATER - 50 ML IVPB ONE (09:17)
[2020-10-05] MEDS ORDERED: cefTRIAXone SODIUM 1 GM VIAL ONE (09:17)
[2020-10-05] MEDS ORDERED: PT OWN MED DRAWER 7, Y5N ONE (09:17)
[2020-10-05] MEDS: DULoxetine HCL 30 MG CAPSULE.DR PO SCH (09:24)
[2020-10-05] MEDS: FOLIC ACID 1 MG TABLET (FP) PO SCH (09:24)
[2020-10-05] MEDS: CARVEDILOL 3.125 MG TABLET (FP) PO SCH ×2 (09:25→21:03)
[2020-10-05] MEDS: LISINOPRIL 10 MG TABLET PO SCH (09:25)
[2020-10-05] MEDS: ASPIRIN 81 MG CHEWABLE TABLETS PO SCH (09:25)
[2020-10-05] MEDS: ENOXAPARIN NA (PORCINE) 40 MG/0.4 ML DISP.SYRIN SQ SCH (09:25)
[2020-10-05] MEDS: MAGNESIUM OXIDE 400 MG TABLET (FP) PO SCH ×2 (09:25→21:03)
[2020-10-05] MEDS: THIAMINE HCL 100 MG TABLET (FP) PO SCH (09:25)
[2020-10-05] MEDS: NICOTINE 7 MG/24 HOURS TOPICAL PATCH TD SCH ×2 (09:26→09:59)
[2020-10-05] MEDS: amLODIPine BESYLATE 10 MG TABLET (FP) PO SCH (09:27)
[2020-10-05] MEDS: PANTOPRAZOLE SODIUM 40 MG VIAL IVPUSH SCH (09:29)
[2020-10-05] MEDS: TIOTROPIUM BROMIDE 2.5 MCG (SPIRIVA) RESPIMAT INHALER IH SCH (09:30)
[2020-10-05] MEDS: CEFTRIAXONE 1 GM in DEXTROSE 5%-WATER - 50 ML IVPB SCH (11:15)
[2020-10-05 11:56] LABS: HEMOGLOBIN 10.6 GM/dL (10.7-15.3); MCH 25.5 pg (25.7-33.7); MCHC 31.2 g/dl (32.0-36.0); MEAN CELL VOLUME 81.9 fl (80-96); MEAN PLT VOLUME 8.3 fl (7.5-11.1); PLATELET COUNT 240 10^3/uL (134-434); RBC 4.15 M/mm3 (3.60-5.2); RDW 23.8 % (11.6-15.6); WHITE BLOOD COUNT 6.1 K/mm3 (4.0-10.0)
[2020-10-05 12:25] LABS: CALCIUM 8.7 mg/dL (8.5-10.1)
[2020-10-05 12:26] LABS: ALBUMIN 2.9 g/dl (3.4-5.0); MAGNESIUM 1.8 mg/dL (1.8-2.4)
[2020-10-05 12:30] LABS: BILIRUBIN,TOTAL 0.4 mg/dL (0.2-1); PHOSPHOROUS 2.9 mg/dL (2.5-4.9); TOT PROT 6.1 g/dl (6.4-8.2)
[2020-10-05] MEDS: MONTELUKAST NA 10 MG TABLET PO SCH (21:03)
[2020-10-05] MEDS: ATORVASTATIN CA 10 MG TABLET (FP) PO SCH (21:03)
[2020-10-06] MEDS ORDERED: chlordiazePOXIDE HCL 10 MG CAPSULE PO ONE (05:00)
[2020-10-06] MEDS ORDERED: PT OWN MED DRAWER 7, Y5N ONE (09:08)
[2020-10-06] MEDS: LISINOPRIL 10 MG TABLET PO SCH (09:10)
[2020-10-06] MEDS: CARVEDILOL 3.125 MG TABLET (FP) PO SCH (09:11)
[2020-10-06] MEDS: FOLIC ACID 1 MG TABLET (FP) PO SCH (09:11)
[2020-10-06] MEDS: NICOTINE 7 MG/24 HOURS TOPICAL PATCH TD SCH ×2 (09:11→09:21)
[2020-10-06] MEDS: amLODIPine BESYLATE 10 MG TABLET (FP) PO SCH (09:11)
[2020-10-06] MEDS: DULoxetine HCL 30 MG CAPSULE.DR PO SCH (09:11)
[2020-10-06] MEDS: ASPIRIN 81 MG CHEWABLE TABLETS PO SCH (09:11)
[2020-10-06] MEDS: ENOXAPARIN NA (PORCINE) 40 MG/0.4 ML DISP.SYRIN SQ SCH (09:11)
[2020-10-06] MEDS: THIAMINE HCL 100 MG TABLET (FP) PO SCH (09:11)
[2020-10-06] MEDS: MAGNESIUM OXIDE 400 MG TABLET (FP) PO SCH (09:11)
[2020-10-06] MEDS: TIOTROPIUM BROMIDE 2.5 MCG (SPIRIVA) RESPIMAT INHALER IH SCH (09:12)
[2020-10-06 12:30] VITALS: BMI 22.9
[2020-10-06 14:38] VITALS: BP 136/75; PULSE 86; TEMP 98.2
== END 2020-10-06 16:30 | disposition home or self-care (01) ==
LOC: JER 18:25 → INTOOBSV 10-01 00:02 → JERBED 10-01 00:02 → UNDOADMOB 10-01 00:02 → JERBED 10-01 09:58 → J5S 10-01 09:58 → JERBED 10-01 14:50 → UNDOADMOB 10-01 14:51 → J5S 10-01 14:51 → JERBED 10-01 14:51 → OBSVTOIN 10-04 12:41 → INTOOBSV 10-04 12:41
PROVIDERS: ADMIT Internal Medicine; ATTEND Internal Medicine
PROC: 3E03329 Introduction of Other Anti-infective into Peripheral Vein, Percutaneous Approach (ICD-10-PCS; principal; 2020-10-01)
PROC: 3E033GC Introduction of Other Therapeutic Substance into Peripheral Vein, Percutaneous Approach (ICD-10-PCS; 2020-10-01)
PROC: 3E013GC Introduction of Other Therapeutic Substance into Subcutaneous Tissue, Percutaneous Approach (ICD-10-PCS; 2020-10-01)
PROC: 3E033GC Introduction of Other Therapeutic Substance into Peripheral Vein, Percutaneous Approach (ICD-10-PCS; 2020-10-01)
PROC: 3E033GC Introduction of Other Therapeutic Substance into Peripheral Vein, Percutaneous Approach (ICD-10-PCS; 2020-10-01)
PROC: 3E0F7SF Introduction of Other Gas into Respiratory Tract, Via Natural or Artificial Opening (ICD-10-PCS; 2020-10-01)
DX: N10 Acute pyelonephritis (principal); K57.92 Diverticulitis of intestine, part unspecified, without perforation or abscess without bleeding; K20.80 Other esophagitis without bleeding; F10.920 Alcohol use, unspecified with intoxication, uncomplicated; R10.31 Right lower quadrant pain; I10 Essential (primary) hypertension; E78.5 Hyperlipidemia, unspecified; J44.1 Chronic obstructive pulmonary disease with (acute) exacerbation; E11.9 Type 2 diabetes mellitus without complications; Z86.73 Personal history of transient ischemic attack (TIA), and cerebral infarction without residual deficits; Z88.8 Allergy status to other drugs, medicaments and biological substances; F17.210 Nicotine dependence, cigarettes, uncomplicated; Z99.81 Dependence on supplemental oxygen; R53.1 Weakness; E07.9 Disorder of thyroid, unspecified; R82.71 Bacteriuria; D49.512 Neoplasm of unspecified behavior of left kidney; Z91.19 Patient's noncompliance with other medical treatment and regimen; E87.2 Acidosis; R94.6 Abnormal results of thyroid function studies; R63.4 Abnormal weight loss; E83.42 Hypomagnesemia
CPT/HCPCS: 36415; 70450-TC; 71045-TC-FY; 71260-TC; 72125-TC; 74177-TC; 80053; 80307; 81003; 82550; 82553; 82803; 82962; 83605; 83690; 83735; 84100; 84436; 84439; 84443; 84481; 84484; 85025; 85027; 86140; 87077; 87086; 87186; 93005; 93010; 94640; 96365; 96366; 96367; 96368; 96372; 96375; 97116-GP; 97161-GP; 99291; C9803; G0378; Q9967; U0003; U0005

== ENCOUNTER 2020-10-06 22:52 | Emergency (ER) | payer OTHER ==
[~2020-10-06 22:52] MED LIST: LIDOCAINE PATCH REMOVAL MC SCH
[2020-10-06 23:30] VITALS: BMI 22.8
[2020-10-06] MEDS ORDERED: LIDOCAINE 5% TOPICAL PATCH TP ONE (23:49)
[2020-10-06] MEDS ORDERED: ACETAMINOPHEN 325 MG TABLET (FP) PO ONE (23:49)
[2020-10-07] MEDS ORDERED: LIDOCAINE 5% TOPICAL PATCH ONE (00:12)
[2020-10-07] MEDS ORDERED: ACETAMINOPHEN 325 MG TABLET (FP) ONE (00:12)
[2020-10-07 01:41] VITALS: TEMP 98.2
[2020-10-07 03:54] VITALS: BP 149/85; PULSE 85
== END 2020-10-07 03:56 | disposition home or self-care (01) ==
LOC: JER 22:52
DX: M25.552 Pain in left hip (principal)
CPT/HCPCS: 73523-TC-FY; 99283-25

== ENCOUNTER 2020-10-13 18:02 | Emergency (ER) | payer OTHER ==
[2020-10-13] MEDS: ALBUTEROL SO4 2.5/IPRATROPIUM 0.5 INH SOL 3 ML VIAL.NEB. NEB SCH ×3 (18:55→20:42)
[2020-10-13] MEDS ORDERED: ALBUTEROL SO4 2.5/IPRATROPIUM 0.5 INH SOL 3 ML VIAL.NEB. NEB ONE (18:56)
[2020-10-13 19:12] VITALS: BMI 21.2
[2020-10-13 20:43] VITALS: BP 119/81; PULSE 82; TEMP 98.6
== END 2020-10-13 23:47 | disposition home or self-care (01) ==
LOC: JER 18:02
PROC: 3E0F7GC Introduction of Other Therapeutic Substance into Respiratory Tract, Via Natural or Artificial Opening (ICD-10-PCS; principal; 2020-10-13)
DX: R06.2 Wheezing (principal); S99.912A Unspecified injury of left ankle, initial encounter
CPT/HCPCS: 73590-TC-LT-FY; 73630-TC-LT; 99284-25

== ENCOUNTER 2020-10-17 18:11 | Emergency (ER) | payer OTHER ==
[2020-10-17 19:10] VITALS: BMI 21.2
[2020-10-17] MEDS ORDERED: SODIUM CHLORIDE 0.9% 500 ML INFUS.BAG IV ONE (19:48)
[2020-10-17] MEDS ORDERED: LACTATED RINGERS SOLUTION 1000 ML INFUS.BAG IV ONE (19:55)
[2020-10-17 20:53] LABS: BASO % 1.2 % (0-2.0); HEMOGLOBIN 12.5 GM/dL (10.7-15.3); LYMPH % 40.5 % (8-40); MCH 26.1 pg (25.7-33.7); MCHC 32.9 g/dl (32.0-36.0); MEAN CELL VOLUME 79.3 fl (80-96); MEAN PLT VOLUME 7.8 fl (7.5-11.1); MONO % 6.9 % (3.8-10.2); NEUT % 50.4 % (42.8-82.8); PLATELET COUNT 597 10^3/uL (134-434); RBC 4.79 M/mm3 (3.60-5.2); RDW 21.8 % (11.6-15.6); WHITE BLOOD COUNT 10.3 K/mm3 (4.0-10.0)
[2020-10-17 21:17] LABS: CHLORIDE 105 mmol/L (98-107); SODIUM 142 mmol/L (136-145)
[2020-10-17 21:19] LABS: CALCIUM 9.4 mg/dL (8.5-10.1)
[2020-10-17 21:20] LABS: ALBUMIN 3.4 g/dl (3.4-5.0); ANION GAP 12 MMOL/L (8-16); BLOOD UREA NITROGEN 11.1 mg/dL (7-18); CO2 25 mmol/L (21-32); GLUCOSE,RANDOM 87 mg/dL (74-106)
[2020-10-17 21:23] LABS: CREATININE 1.1 mg/dL (0.55-1.3); SGOT/AST 34 U/L (15-37); SGPT/ALT 25 U/L (13-61)
[2020-10-17 21:24] LABS: BILIRUBIN,TOTAL 0.1 mg/dL (0.2-1)
[2020-10-17 21:40] LABS: ANISOCYTOSIS 2+; MACROCYTOSIS 0; OVALOCYTE 1+; PLATELET ESTIMATE INCREASED
[2020-10-17 21:50] LABS: ALK PHOS 123 U/L (45-117); TOT PROT 8.2 g/dl (6.4-8.2)
[2020-10-18 01:26] VITALS: BP 164/92; PULSE 107; TEMP 97.9
== END 2020-10-18 05:05 | disposition home or self-care (01) ==
LOC: JER 18:11
DX: E86.0 Dehydration (principal)
CPT/HCPCS: 36415; 80053; 82962; 84484; 85025; 93005; 93010; 99284-25

== ENCOUNTER 2020-10-21 16:25 | Emergency (ER) | payer OTHER ==
[2020-10-21 16:43] VITALS: BMI 21.2
[2020-10-21 20:54] LABS: BASO % 1.3 % (0-2.0); EOS % 1.1 % (0-4.5); HEMOGLOBIN 10.8 GM/dL (10.7-15.3); LYMPH % 35.5 % (8-40); MCH 25.8 pg (25.7-33.7); MCHC 32.7 g/dl (32.0-36.0); MEAN CELL VOLUME 79.1 fl (80-96); MEAN PLT VOLUME 7.8 fl (7.5-11.1); MONO % 9.8 % (3.8-10.2); NEUT % 52.3 % (42.8-82.8); PLATELET COUNT 374 10^3/uL (134-434); RBC 4.17 M/mm3 (3.60-5.2); RDW 20.7 % (11.6-15.6); WHITE BLOOD COUNT 9.6 K/mm3 (4.0-10.0)
[2020-10-21 21:18] LABS: CHLORIDE 106 mmol/L (98-107); SODIUM 141 mmol/L (136-145)
[2020-10-21 21:21] LABS: ANION GAP 12 MMOL/L (8-16); CALCIUM 8.4 mg/dL (8.5-10.1); CO2 23 mmol/L (21-32); GLUCOSE,RANDOM 105 mg/dL (74-106)
[2020-10-21 21:22] LABS: BLOOD UREA NITROGEN 14.4 mg/dL (7-18)
[2020-10-21 21:24] LABS: CREATININE 1.3 mg/dL (0.55-1.3)
[2020-10-21 21:25] LABS: SGOT/AST 28 U/L (15-37); SGPT/ALT 16 U/L (13-61)
[2020-10-21 21:26] LABS: TOT PROT 6.6 g/dl (6.4-8.2)
[2020-10-21 21:27] LABS: ALK PHOS 116 U/L (45-117)
[2020-10-21 21:31] LABS: BILIRUBIN,TOTAL 0.2 mg/dL (0.2-1)
[2020-10-21 21:55] LABS: ALBUMIN 2.7 g/dl (3.4-5.0)
[2020-10-21 23:07] LABS: ANISOCYTOSIS 1+; MACROCYTOSIS 0
[2020-10-22 08:43] VITALS: BP 139/76; PULSE 96; TEMP 98.8
== END 2020-10-22 08:49 | disposition home or self-care (01) ==
LOC: JER 16:25
DX: J44.0 Chronic obstructive pulmonary disease with (acute) lower respiratory infection (principal); F10.920 Alcohol use, unspecified with intoxication, uncomplicated; I10 Essential (primary) hypertension
CPT/HCPCS: 36415; 80053; 82550; 82553; 84484; 85025; 93005; 93010; 99284-25

== ENCOUNTER 2020-10-24 17:45 | Emergency (ER) | payer OTHER ==
[2020-10-24 18:19] VITALS: BMI 22.5
[2020-10-24] MEDS ORDERED: ACETAMINOPHEN 1000 MG/100 ML VIAL (NON FORMULARY) IVPB ONE (18:30)
[2020-10-24 19:13] LABS: BASO % 1.9 % (0-2.0); EOS % 0.5 % (0-4.5); HEMATOCRIT 34.1 % (32.4-45.2); LYMPH % 31.9 % (8-40); MCH 25.3 pg (25.7-33.7); MCHC 32.1 g/dl (32.0-36.0); MEAN CELL VOLUME 78.7 fl (80-96); MEAN PLT VOLUME 7.7 fl (7.5-11.1); MONO % 6.5 % (3.8-10.2); NEUT % 59.2 % (42.8-82.8); PLATELET COUNT 428 10^3/uL (134-434); RBC 4.34 M/mm3 (3.60-5.2); RDW 20.9 % (11.6-15.6); WHITE BLOOD COUNT 11.1 K/mm3 (4.0-10.0)
[2020-10-24 19:22] LABS: INR 0.98 (0.83-1.09); PROTHROMBIN TIME (PATIENT) 12.1 SEC (9.7-13.0)
[2020-10-24] MEDS ORDERED: ACETAMINOPHEN INJECTION 100 ML IVPB ONE (19:23)
[2020-10-24 19:25] LABS: ACTIVATED PTT 29.7 SECONDS (25.2-36.5)
[2020-10-24 19:27] LABS: CALCIUM 9.1 mg/dL (8.5-10.1)
[2020-10-24 19:28] LABS: ALBUMIN 3.1 g/dl (3.4-5.0); MAGNESIUM 1.6 mg/dL (1.8-2.4)
[2020-10-24 19:30] LABS: CREATININE 0.9 mg/dL (0.55-1.3)
[2020-10-24 19:32] LABS: BILIRUBIN,TOTAL 0.2 mg/dL (0.2-1); TOT PROT 7.5 g/dl (6.4-8.2)
[2020-10-24 20:47] LABS: LACTIC ACID 2.5 mmol/L (0.4-2.0)
[2020-10-24] MEDS ORDERED: MAGNESIUM SULF 50% (8.12 MEQ/2 ML-1 GM VIAL) IVPB ONE (20:58)
[2020-10-24] MEDS ORDERED: MAGNESIUM 1GM/D5W - 1 GM/100 ML IVPB IVPB ONE (21:29)
[2020-10-24 21:52] LABS: PH,URINE 6.5 (5.0-8.0); URINE APPEARANCE CLEAR; URINE BILIRUBIN NEGATIVE (NEGATIVE); URINE COLOR YELLOW; URINE GLUCOSE (UA) NEGATIVE (NEGATIVE); URINE KETONE NEGATIVE (NEGATIVE); URINE LEUK ESTERASE NEGATIVE (NEGATIVE); URINE NITRITE NEGATIVE (NEGATIVE); URINE PROTEIN NEGATIVE (NEGATIVE); URINE UROBILINOGEN 0.2 mg/dL (0.2-1.0)
[2020-10-24] MEDS ORDERED: SODIUM PHOSPHATE/NA BIPHOS 133 ML ENEMA PR ONE (23:49)
[2020-10-25 04:54] VITALS: BP 161/92; PULSE 94; TEMP 98.4
== END 2020-10-25 05:02 | disposition home or self-care (01) ==
LOC: JER 17:45
PROC: 3E0333Z Introduction of Anti-inflammatory into Peripheral Vein, Percutaneous Approach (ICD-10-PCS; principal; 2020-10-24)
PROC: 3E033GC Introduction of Other Therapeutic Substance into Peripheral Vein, Percutaneous Approach (ICD-10-PCS; 2020-10-24)
DX: K56.41 Fecal impaction (principal); R10.9 Unspecified abdominal pain
CPT/HCPCS: 36415; 71045-TC-FY; 74177-TC; 80053; 81003; 83605; 83690; 83735; 85025; 85610; 85730; 87077; 87086; 87186; 93005; 93010; 99285-25; J0131; Q9967

== ENCOUNTER 2020-10-25 17:54 | Emergency (ER) | payer OTHER ==
[2020-10-25 18:21] VITALS: BMI 22.4
[2020-10-25] MEDS ORDERED: FAMOTIDINE 20 MG TABLET PO ONE (20:00)
[2020-10-25] MEDS ORDERED: MAG HYDROX/AL HYDROX/SIMETH 30 ML UNIT-DOSE CUP PO ONE (20:00)
[2020-10-25] MEDS ORDERED: FAMOTIDINE 20 MG TABLET ONE (20:06)
[2020-10-25] MEDS ORDERED: MAG HYDROX/AL HYDROX/SIMETH 30 ML UNIT-DOSE CUP ONE (20:06)
[2020-10-25 20:36] LABS: BASO % 1.3 % (0-2.0); EOS % 1.5 % (0-4.5); HEMATOCRIT 34.6 % (32.4-45.2); HEMOGLOBIN 11.2 GM/dL (10.7-15.3); LYMPH % 43.9 % (8-40); MCH 25.5 pg (25.7-33.7); MCHC 32.3 g/dl (32.0-36.0); MEAN CELL VOLUME 78.9 fl (80-96); MEAN PLT VOLUME 7.4 fl (7.5-11.1); MONO % 11.3 % (3.8-10.2); PLATELET COUNT 423 10^3/uL (134-434); RBC 4.38 M/mm3 (3.60-5.2); RDW 20.9 % (11.6-15.6); WHITE BLOOD COUNT 8.1 K/mm3 (4.0-10.0)
[2020-10-25 20:53] LABS: CHLORIDE 103 mmol/L (98-107); SODIUM 141 mmol/L (136-145)
[2020-10-25 20:57] LABS: ALBUMIN 3.1 g/dl (3.4-5.0); ANION GAP 13 MMOL/L (8-16); BLOOD UREA NITROGEN 7.1 mg/dL (7-18); CALCIUM 9.2 mg/dL (8.5-10.1); CO2 25 mmol/L (21-32); GLUCOSE,RANDOM 80 mg/dL (74-106); LIPASE 121 U/L (73-393)
[2020-10-25 21:00] LABS: CREATININE 1.1 mg/dL (0.55-1.3); SGOT/AST 26 U/L (15-37); SGPT/ALT 17 U/L (13-61)
[2020-10-25 21:01] LABS: BILIRUBIN,TOTAL 0.5 mg/dL (0.2-1)
[2020-10-25 21:02] LABS: TOT PROT 7.4 g/dl (6.4-8.2)
[2020-10-25 21:03] LABS: ALK PHOS 118 U/L (45-117)
[2020-10-25 21:47] LABS: ANISOCYTOSIS 1+; MACROCYTOSIS 0; OVALOCYTE 1+; PLATELET ESTIMATE NORMAL
[2020-10-26 14:49] VITALS: TEMP 98.6
[2020-10-26 16:51] VITALS: BP 162/87; PULSE 95
== END 2020-10-26 17:04 | disposition home or self-care (01) ==
LOC: JER 17:54
DX: R10.9 Unspecified abdominal pain (principal); F10.920 Alcohol use, unspecified with intoxication, uncomplicated
CPT/HCPCS: 36415; 80053; 83690; 84484; 85025; 93005; 93010; 99284-25

== ENCOUNTER 2021-02-24 13:35 | Emergency (ER) | payer OTHER ==
[2021-02-24 13:57] VITALS: BMI 22.3
[2021-02-24] MEDS ORDERED: SODIUM CHLORIDE 0.9% 500 ML INFUS.BAG IV ONE (15:15)
[2021-02-24] MEDS ORDERED: FAMOTIDINE 10 MG TABLET PO ONE (15:15)
[2021-02-24] MEDS ORDERED: MAG HYDROX/AL HYDROX/SIMETH 30 ML UNIT-DOSE CUP PO ONE (15:15)
[2021-02-24] MEDS ORDERED: MAGNESIUM HYDROX 2400MG/30ML ORAL SUSPENSION 30 ML CUP ONE (15:39)
[2021-02-24] MEDS ORDERED: FAMOTIDINE 20 MG TABLET ONE (15:39)
[2021-02-24 17:33] LABS: EOS % 0.9 % (0-4.5); HEMATOCRIT 34.9 % (32.4-45.2); HEMOGLOBIN 11.3 GM/dL (10.7-15.3); LYMPH % 43.7 % (8-40); MCH 25.6 pg (25.7-33.7); MCHC 32.3 g/dl (32.0-36.0); MEAN CELL VOLUME 79.5 fl (80-96); MEAN PLT VOLUME 7.7 fl (7.5-11.1); MONO % 7.2 % (3.8-10.2); NEUT % 46.2 % (42.8-82.8); PLATELET COUNT 402 10^3/uL (134-434); RDW 21.3 % (11.6-15.6); WHITE BLOOD COUNT 9.6 K/mm3 (4.0-10.0)
[2021-02-24] MEDS ORDERED: MAG HYDROX/AL HYDROX/SIMETH 30 ML UNIT-DOSE CUP ONE (17:49)
[2021-02-24 17:53] LABS: CHLORIDE 108 mmol/L (98-107); SODIUM 141 mmol/L (136-145)
[2021-02-24 17:54] LABS: ANISOCYTOSIS 2+; MACROCYTOSIS 0; OVALOCYTE 1+; PLATELET ESTIMATE NORMAL
[2021-02-24 17:56] LABS: ALBUMIN 3.5 g/dl (3.4-5.0); ANION GAP 9 MMOL/L (8-16); BLOOD UREA NITROGEN 13.2 mg/dL (7-18); CO2 25 mmol/L (21-32); GLUCOSE,RANDOM 89 mg/dL (74-106); LIPASE 145 U/L (73-393); MAGNESIUM 1.6 mg/dL (1.8-2.4)
[2021-02-24 17:59] LABS: CREATININE 1.3 mg/dL (0.55-1.3); SGOT/AST 16 U/L (15-37); SGPT/ALT 16 U/L (13-61)
[2021-02-24 18:00] LABS: BILIRUBIN,TOTAL 0.2 mg/dL (0.2-1)
[2021-02-24 18:02] LABS: ALK PHOS 132 U/L (45-117)
[2021-02-25 15:30] VITALS: PULSE 80; TEMP 99.9
[2021-02-25 17:10] VITALS: BP 166/80
== END 2021-02-25 17:10 | disposition home or self-care (01) ==
LOC: JER 13:35
DX: R11.0 Nausea (principal); R10.13 Epigastric pain
CPT/HCPCS: 36415; 71045-TC-FY; 80053; 80307; 83690; 83735; 84484; 85025; 93005; 93010; 99284-25

== ENCOUNTER 2021-03-30 05:37 | Observation (INO) | payer OTHER ==
[2021-03-30] MEDS ORDERED: ACETAMINOPHEN 325 MG TABLET (FP) PO ONE (07:56)
[2021-03-30] MEDS ORDERED: ACETAMINOPHEN 325 MG TABLET (FP) ONE (09:04)
[2021-03-30 09:33] LABS: BASO % 1.1 % (0-2.0); EOS % 1.3 % (0-4.5); HEMATOCRIT 33.6 % (32.4-45.2); LYMPH % 40.2 % (8-40); MCH 25.6 pg (25.7-33.7); MCHC 32.8 g/dl (32.0-36.0); MEAN CELL VOLUME 78.1 fl (80-96); MEAN PLT VOLUME 7.7 fl (7.5-11.1); MONO % 10.5 % (3.8-10.2); NEUT % 46.9 % (42.8-82.8); PLATELET COUNT 388 10^3/uL (134-434); RDW 18.4 % (11.6-15.6); WHITE BLOOD COUNT 7.8 K/mm3 (4.0-10.0)
[2021-03-30 09:46] LABS: ALBUMIN 2.8 g/dl (3.4-5.0)
[2021-03-30 09:51] LABS: BILIRUBIN,TOTAL 0.1 mg/dL (0.2-1); TOT PROT 7.4 g/dl (6.4-8.2)
[2021-03-30 10:42] LABS: EPI CELLS 16 /uL (0-25.1); HYALINE CASTS 7 /uL (0-3.1); URINE APPEARANCE CLEAR; URINE BILIRUBIN NEGATIVE (NEGATIVE); URINE COLOR YELLOW; URINE GLUCOSE (UA) NEGATIVE (NEGATIVE); URINE KETONE NEGATIVE (NEGATIVE); URINE LEUK ESTERASE TRACE (NEGATIVE); URINE NITRITE NEGATIVE (NEGATIVE); URINE PROTEIN 2+ (NEGATIVE); URINE RBC 167 /uL (0-23.9); URINE UROBILINOGEN 0.2 mg/dL (0.2-1.0); URINE WBC 378 /uL (0-25.8)
[2021-03-30 11:27] LABS: URINE BACTERIA 14980 /uL (0-1359)
[2021-03-30] MEDS ORDERED: cefTRIAXone SODIUM 1 GM VIAL ONE (12:08)
[2021-03-30] MEDS ORDERED: CEFTRIAXONE 1 GM/50 ML BAG ONE (12:11)
[2021-03-30] MEDS: LISINOPRIL 10 MG TABLET PO SCH (16:04)
[2021-03-30] MEDS ORDERED: LISINOPRIL 5 MG TABLET ONE (16:06)
[2021-03-30] MEDS ORDERED: INSULIN SLIDING SCALE (NOVOLOG) 1 VIAL SQ SCH (16:30)
[2021-03-30] MEDS: INSULIN SLIDING SCALE (NOVOLOG) 1 VIAL SQ SCH (18:05)
[2021-03-30 18:31] VITALS: BMI 22.8
[2021-03-30] MEDS: HEPARIN NA (PORCINE) 5,000 UNITS/ML 1ML VIAL SQ SCH (18:49)
[2021-03-30] MEDS ORDERED: ACETAMINOPHEN 1000 MG/100 ML VIAL IVPB ONE (19:18)
[2021-03-30] MEDS ORDERED: amLODIPine BESYLATE 2.5 MG TABLET (FP) PO ONE (19:23)
[2021-03-30] MEDS: ALBUTEROL SO4 0.083% IH SOL 2.5 MG/3 ML VIAL.NEB. NEB SCH (20:51)
[2021-03-30] MEDS: BUDESONIDE/FORMETEROL FUMARATE 80/4.5 mcg INHALER IH SCH ×2 (22:56→23:02)
[2021-03-30] MEDS: CARVEDILOL 3.125 MG TABLET (FP) PO SCH (22:57)
[2021-03-30] MEDS: MONTELUKAST NA 10 MG TABLET PO SCH (22:57)
[2021-03-31] MEDS: HEPARIN NA (PORCINE) 5,000 UNITS/ML 1ML VIAL SQ SCH ×3 (02:00→18:20)
[2021-03-31] MEDS: INSULIN SLIDING SCALE (NOVOLOG) 1 VIAL SQ SCH ×3 (06:06→17:39)
[2021-03-31] MEDS: ALBUTEROL SO4 0.083% IH SOL 2.5 MG/3 ML VIAL.NEB. NEB SCH ×4 (08:18→20:36)
[2021-03-31] MEDS ORDERED: DEXTROSE 5%-WATER - 50 ML IVPB ONE (09:05)
[2021-03-31] MEDS ORDERED: cefTRIAXone SODIUM 1 GM VIAL ONE (09:05)
[2021-03-31] MEDS: CARVEDILOL 3.125 MG TABLET (FP) PO SCH ×2 (09:18→21:08)
[2021-03-31] MEDS: ASPIRIN COATED 81 MG TABLET.EC PO SCH (09:18)
[2021-03-31] MEDS: LISINOPRIL 10 MG TABLET PO SCH (09:18)
[2021-03-31] MEDS: CEFTRIAXONE 1 GM in DEXTROSE 5%-WATER - 50 ML IVPB SCH (09:19)
[2021-03-31] MEDS: BUDESONIDE/FORMETEROL FUMARATE 80/4.5 mcg INHALER IH SCH ×2 (09:26→21:09)
[2021-03-31 09:42] LABS: BASO % 1.4 % (0-2.0); EOS % 1.1 % (0-4.5); HEMATOCRIT 34.9 % (32.4-45.2); HEMOGLOBIN 11.1 GM/dL (10.7-15.3); LYMPH % 27.2 % (8-40); MCH 24.9 pg (25.7-33.7); MCHC 31.9 g/dl (32.0-36.0); MEAN PLT VOLUME 8.3 fl (7.5-11.1); MONO % 12.1 % (3.8-10.2); NEUT % 58.2 % (42.8-82.8); PLATELET COUNT 417 10^3/uL (134-434); RBC 4.48 M/mm3 (3.60-5.2); RDW 18.6 % (11.6-15.6); WHITE BLOOD COUNT 8.4 K/mm3 (4.0-10.0)
[2021-03-31 09:54] LABS: BLOOD UREA NITROGEN 15.1 mg/dL (7-18)
[2021-03-31 09:57] LABS: CREATININE 0.9 mg/dL (0.55-1.3)
[2021-03-31] MEDS ORDERED: DULoxetine HCL 60 MG CAPSULE.DR PO SCH (10:00)
[2021-03-31] MEDS: TIOTROPIUM BROMIDE 2.5 MCG (SPIRIVA) RESPIMAT INHALER IH SCH (12:14)
[2021-03-31] MEDS ORDERED: DEXTROSE 5% IVPB SCH (16:15)
[2021-03-31] MEDS ORDERED: WATER IVPB SCH (16:15)
[2021-03-31] MEDS ORDERED: CEFTRIAXONE IVPB SCH (16:15)
[2021-03-31] MEDS: ACETAMINOPHEN 325 MG TABLET (FP) PO PRN (16:51)
[2021-03-31] MEDS: MONTELUKAST NA 10 MG TABLET PO SCH (21:08)
[2021-03-31] MEDS: CYCLOBENZAPRINE HCL 5 MG TABLET PO PRN (21:08)
[2021-04-01] MEDS: HEPARIN NA (PORCINE) 5,000 UNITS/ML 1ML VIAL SQ SCH ×3 (01:39→18:19)
[2021-04-01] MEDS: INSULIN SLIDING SCALE (NOVOLOG) 1 VIAL SQ SCH ×3 (06:28→18:19)
[2021-04-01] MEDS: CYCLOBENZAPRINE HCL 5 MG TABLET PO PRN ×2 (06:28→21:44)
[2021-04-01] MEDS: ALBUTEROL SO4 0.083% IH SOL 2.5 MG/3 ML VIAL.NEB. NEB SCH ×4 (08:21→20:32)
[2021-04-01] MEDS ORDERED: cefTRIAXone SODIUM 1 GM VIAL ONE (09:44)
[2021-04-01] MEDS ORDERED: DEXTROSE 5%-WATER - 50 ML IVPB ONE (09:45)
[2021-04-01 10:02] LABS: CREATININE 1.1 mg/dL (0.55-1.3)
[2021-04-01] MEDS: CARVEDILOL 3.125 MG TABLET (FP) PO SCH ×2 (10:03→21:44)
[2021-04-01] MEDS: LISINOPRIL 10 MG TABLET PO SCH (10:03)
[2021-04-01] MEDS: DULoxetine HCL 30 MG CAPSULE.DR PO SCH (10:03)
[2021-04-01] MEDS: CEFTRIAXONE 1 GM in DEXTROSE 5%-WATER - 50 ML IVPB SCH (10:04)
[2021-04-01] MEDS: ASPIRIN COATED 81 MG TABLET.EC PO SCH (10:04)
[2021-04-01] MEDS: BUDESONIDE/FORMETEROL FUMARATE 80/4.5 mcg INHALER IH SCH ×2 (10:06→21:44)
[2021-04-01 10:25] LABS: BASO % 1.2 % (0-2.0); EOS % 1.4 % (0-4.5); HEMATOCRIT 33.3 % (32.4-45.2); HEMOGLOBIN 10.5 GM/dL (10.7-15.3); LYMPH % 34.4 % (8-40); MCH 24.6 pg (25.7-33.7); MCHC 31.4 g/dl (32.0-36.0); MEAN CELL VOLUME 78.4 fl (80-96); MEAN PLT VOLUME 8.1 fl (7.5-11.1); MONO % 13.8 % (3.8-10.2); NEUT % 49.2 % (42.8-82.8); PLATELET COUNT 384 10^3/uL (134-434); RBC 4.25 M/mm3 (3.60-5.2); RDW 18.5 % (11.6-15.6); WHITE BLOOD COUNT 7.2 K/mm3 (4.0-10.0)
[2021-04-01] MEDS: TIOTROPIUM BROMIDE 2.5 MCG (SPIRIVA) RESPIMAT INHALER IH SCH (11:36)
[2021-04-01] MEDS: MONTELUKAST NA 10 MG TABLET PO SCH (21:44)
[2021-04-02] MEDS: HEPARIN NA (PORCINE) 5,000 UNITS/ML 1ML VIAL SQ SCH ×3 (01:47→18:21)
[2021-04-02] MEDS: INSULIN SLIDING SCALE (NOVOLOG) 1 VIAL SQ SCH ×3 (06:07→16:23)
[2021-04-02] MEDS: ALBUTEROL SO4 0.083% IH SOL 2.5 MG/3 ML VIAL.NEB. NEB SCH ×4 (07:55→19:40)
[2021-04-02] MEDS ORDERED: cefTRIAXone SODIUM 1 GM VIAL ONE (09:30)
[2021-04-02] MEDS ORDERED: PT OWN MED DRAWER 7, Y5N ONE (09:30)
[2021-04-02] MEDS ORDERED: DEXTROSE 5%-WATER - 50 ML IVPB ONE (09:31)
[2021-04-02] MEDS: CEFTRIAXONE 1 GM in DEXTROSE 5%-WATER - 50 ML IVPB SCH (09:36)
[2021-04-02] MEDS: LISINOPRIL 10 MG TABLET PO SCH (09:37)
[2021-04-02] MEDS: CARVEDILOL 3.125 MG TABLET (FP) PO SCH ×2 (09:37→21:41)
[2021-04-02] MEDS: DULoxetine HCL 30 MG CAPSULE.DR PO SCH (09:37)
[2021-04-02] MEDS: ASPIRIN COATED 81 MG TABLET.EC PO SCH (09:37)
[2021-04-02] MEDS: ACETAMINOPHEN 325 MG TABLET (FP) PO PRN (09:38)
[2021-04-02] MEDS: TIOTROPIUM BROMIDE 2.5 MCG (SPIRIVA) RESPIMAT INHALER IH SCH (09:40)
[2021-04-02] MEDS: BUDESONIDE/FORMETEROL FUMARATE 80/4.5 mcg INHALER IH SCH ×2 (09:40→21:43)
[2021-04-02] MEDS: MONTELUKAST NA 10 MG TABLET PO SCH (21:41)
[2021-04-03] MEDS: HEPARIN NA (PORCINE) 5,000 UNITS/ML 1ML VIAL SQ SCH ×3 (01:21→17:50)
[2021-04-03] MEDS: INSULIN SLIDING SCALE (NOVOLOG) 1 VIAL SQ SCH ×3 (06:06→16:24)
[2021-04-03] MEDS: ALBUTEROL SO4 0.083% IH SOL 2.5 MG/3 ML VIAL.NEB. NEB SCH ×4 (08:00→20:31)
[2021-04-03] MEDS ORDERED: PT OWN MED DRAWER 7, Y5N ONE (09:16)
[2021-04-03] MEDS ORDERED: DEXTROSE 5%-WATER - 50 ML IVPB ONE (09:17)
[2021-04-03] MEDS ORDERED: cefTRIAXone SODIUM 1 GM VIAL ONE (09:17)
[2021-04-03] MEDS: CARVEDILOL 3.125 MG TABLET (FP) PO SCH ×2 (09:20→22:02)
[2021-04-03] MEDS: LISINOPRIL 10 MG TABLET PO SCH (09:20)
[2021-04-03] MEDS: DULoxetine HCL 30 MG CAPSULE.DR PO SCH (09:20)
[2021-04-03] MEDS: TIOTROPIUM BROMIDE 2.5 MCG (SPIRIVA) RESPIMAT INHALER IH SCH (09:20)
[2021-04-03] MEDS: BUDESONIDE/FORMETEROL FUMARATE 80/4.5 mcg INHALER IH SCH ×2 (09:20→22:02)
[2021-04-03] MEDS: ASPIRIN COATED 81 MG TABLET.EC PO SCH (09:20)
[2021-04-03] MEDS: MONTELUKAST NA 10 MG TABLET PO SCH (22:01)
[2021-04-03] MEDS: CYCLOBENZAPRINE HCL 5 MG TABLET PO PRN (22:18)
[2021-04-04] MEDS: HEPARIN NA (PORCINE) 5,000 UNITS/ML 1ML VIAL SQ SCH ×2 (01:52→10:43)
[2021-04-04] MEDS: INSULIN SLIDING SCALE (NOVOLOG) 1 VIAL SQ SCH ×2 (06:24→12:12)
[2021-04-04] MEDS: ALBUTEROL SO4 0.083% IH SOL 2.5 MG/3 ML VIAL.NEB. NEB SCH ×2 (08:41→11:55)
[2021-04-04] MEDS ORDERED: PT OWN MED DRAWER 7, Y5N ONE (10:14)
[2021-04-04] MEDS: ASPIRIN COATED 81 MG TABLET.EC PO SCH (10:42)
[2021-04-04] MEDS: DULoxetine HCL 30 MG CAPSULE.DR PO SCH (10:42)
[2021-04-04] MEDS: CARVEDILOL 3.125 MG TABLET (FP) PO SCH (10:42)
[2021-04-04] MEDS: LISINOPRIL 10 MG TABLET PO SCH (10:42)
[2021-04-04] MEDS: TIOTROPIUM BROMIDE 2.5 MCG (SPIRIVA) RESPIMAT INHALER IH SCH (10:43)
[2021-04-04] MEDS: BUDESONIDE/FORMETEROL FUMARATE 80/4.5 mcg INHALER IH SCH (10:43)
[2021-04-04 10:50] VITALS: TEMP 98
[2021-04-04 12:17] VITALS: BP 156/81; PULSE 73
== END 2021-04-04 14:15 ==
LOC: JER 05:37 → INTOOBSV 10:53 → UNDOADMOB 10:53 → JERBED 10:53 → J5S 17:49 → JERBED 03-31 13:49 → J5S 03-31 13:49
PROVIDERS: ATTEND Internal Medicine
PROC: 3E03329 Introduction of Other Anti-infective into Peripheral Vein, Percutaneous Approach (ICD-10-PCS; principal; 2021-03-31)
PROC: 3E013GC Introduction of Other Therapeutic Substance into Subcutaneous Tissue, Percutaneous Approach (ICD-10-PCS; 2021-03-31)
PROC: 3E0F7SF Introduction of Other Gas into Respiratory Tract, Via Natural or Artificial Opening (ICD-10-PCS; 2021-03-31)
DX: Z04.3 Encounter for examination and observation following other accident (principal); N39.0 Urinary tract infection, site not specified; I10 Essential (primary) hypertension; E11.9 Type 2 diabetes mellitus without complications; I69.351 Hemiplegia and hemiparesis following cerebral infarction affecting right dominant side; I69.352 Hemiplegia and hemiparesis following cerebral infarction affecting left dominant side; J44.9 Chronic obstructive pulmonary disease, unspecified; E78.5 Hyperlipidemia, unspecified; E04.1 Nontoxic single thyroid nodule; M48.02 Spinal stenosis, cervical region; R71.8 Other abnormality of red blood cells; Z88.1 Allergy status to other antibiotic agents; Z88.8 Allergy status to other drugs, medicaments and biological substances; Z79.82 Long term (current) use of aspirin
CPT/HCPCS: 36415; 70450-TC; 72125-TC; 80048; 80053; 81003; 82728; 82962; 83540; 83550; 84443; 85025; 87086; 93005; 93010; 94640; 96372; 96374; 96375; 97116-GP; 97161-GP; 99285-25; C9803; G0378; J0131; J1644; U0003; U0005

== ENCOUNTER 2021-06-01 18:46 | Emergency (ER) | payer OTHER ==
[2021-06-01 20:40] VITALS: BP 117/78; PULSE 89; TEMP 98.3; BMI 25.8
== END 2021-06-02 09:00 | disposition home or self-care (01) ==
LOC: JER 18:46
DX: I10 Essential (primary) hypertension (principal)
CPT/HCPCS: 99281-25

== ENCOUNTER 2022-01-08 23:03 | Emergency (ER) | payer OTHER ==
[2022-01-08] MEDS ORDERED: THIAMINE HCL 200 MG/2 ML VIAL IVPB ONE (23:59)
[2022-01-08] MEDS ORDERED: FOLIC ACID 1 MG TABLET (FP) PO ONE (23:59)
[2022-01-08] MEDS ORDERED: MULTIVITAMINS (DAILY MVI) TABLET (FP) PO ONE (23:59)
[2022-01-08] MEDS ORDERED: SODIUM CHLORIDE 0.9% 500 ML INFUS.BAG IV ONE (23:59)
[2022-01-09] VITALS: BMI 25.4
[2022-01-09] MEDS ORDERED: FOLIC ACID INJECTION - 1 MG, THIAMINE HCL 100 MG, MULTIVIT INJECTION ADULT 10 ML in SOD... IVPB ONE (00:20)
[2022-01-09 01:14] LABS: BASO % 0.8 % (0-2.0); EOS % 0.2 % (0-4.5); HEMATOCRIT 38.9 % (32.4-45.2); HEMOGLOBIN 12.1 GM/dL (10.7-15.3); LYMPH % 20.1 % (8-40); MCH 24.5 pg (25.7-33.7); MCHC 31.1 g/dl (32.0-36.0); MEAN CELL VOLUME 78.8 fl (80-96); MEAN PLT VOLUME 8.2 fl (7.5-11.1); MONO % 4.1 % (3.8-10.2); NEUT % 74.8 % (42.8-82.8); PLATELET COUNT 323 10^3/uL (134-434); RBC 4.94 M/mm3 (3.60-5.2); RDW 16.2 % (11.6-15.6); WHITE BLOOD COUNT 10.9 K/mm3 (4.0-10.0)
[2022-01-09 01:20] LABS: INR 1.03 (0.83-1.09); PROTHROMBIN TIME (PATIENT) 11.8 SEC (9.7-13.0)
[2022-01-09 01:35] LABS: CALCIUM 9.4 mg/dL (8.5-10.1)
[2022-01-09 01:36] LABS: ALBUMIN 3.6 g/dl (3.4-5.0); MAGNESIUM 2.2 mg/dL (1.8-2.4)
[2022-01-09 01:39] LABS: CREATININE 1.6 mg/dL (0.55-1.3)
[2022-01-09 01:41] LABS: BILIRUBIN,TOTAL 0.2 mg/dL (0.2-1); TOT PROT 8.1 g/dl (6.4-8.2)
[2022-01-09 05:43] VITALS: BP 141/84; PULSE 93; RESP 17; TEMP 97.7
== END 2022-01-09 11:13 | disposition home or self-care (01) ==
LOC: JER 23:03
PROC: 3E033GC Introduction of Other Therapeutic Substance into Peripheral Vein, Percutaneous Approach (ICD-10-PCS; principal; 2022-01-08)
DX: R10.33 Periumbilical pain (principal)
CPT/HCPCS: 36415; 74176-TC; 80053; 80307; 83605; 83690; 83735; 85025; 85610; 85730; 93005; 93010; 99285-25

== ENCOUNTER 2022-03-29 19:32 | Emergency (ER) | payer OTHER ==
[2022-03-29 19:44] VITALS: BP 110/78; PULSE 92; RESP 22; TEMP 98.1; BMI 25.4
[2022-03-29] MEDS ORDERED: SODIUM CHLORIDE 0.9% 500 ML INFUS.BAG IV ONE (20:10)
[2022-03-29] MEDS ORDERED: ALBUTEROL SO4 2.5/IPRATROPIUM 0.5 INH SOL 3 ML VIAL.NEB. NEB ONE ×2 (20:32→20:43)
[2022-03-29 21:35] LABS: VENOUS BASE EXCESS 4.2 mmol/L (-2-2); VENOUS O2 SATURATION 61.7 % (70-80); VENOUS PCO2 50.5 mmHg (38-52); VENOUS PH 7.398 (7.310-7.410)
[2022-03-29 21:36] LABS: BASO % 0.7 % (0-2.0); EOS % 0.9 % (0-4.5); HEMATOCRIT 36.4 % (32.4-45.2); HEMOGLOBIN 11.7 GM/dL (10.7-15.3); LYMPH % 42.5 % (8-40); MEAN CELL VOLUME 77.9 fl (80-96); MEAN PLT VOLUME 7.3 fl (7.5-11.1); MONO % 8.8 % (3.8-10.2); NEUT % 47.1 % (42.8-82.8); PLATELET COUNT 305 10^3/uL (134-434); RBC 4.68 M/mm3 (3.60-5.2); RDW 19.1 % (11.6-15.6); WHITE BLOOD COUNT 9.7 K/mm3 (4.0-10.0)
[2022-03-29 21:42] LABS: INR 0.97 (0.83-1.09); PROTHROMBIN TIME (PATIENT) 11.1 SEC (9.7-13.0)
[2022-03-29 21:45] LABS: ACTIVATED PTT 29.6 SECONDS (25.2-36.5)
[2022-03-29 21:53] LABS: CHLORIDE 97 mmol/L (98-107); SODIUM 141 mmol/L (136-145)
[2022-03-29 21:55] LABS: BLOOD UREA NITROGEN 11.3 mg/dL (7-18); CALCIUM 8.2 mg/dL (8.5-10.1); CO2 29 mmol/L (21-32); GLUCOSE,RANDOM 106 mg/dL (74-106)
[2022-03-29 21:56] LABS: MAGNESIUM 1.4 mg/dL (1.8-2.4)
[2022-03-29 21:58] LABS: CREATININE 1.2 mg/dL (0.55-1.3); SGOT/AST 21 U/L (15-37); SGPT/ALT 16 U/L (13-61)
[2022-03-29 22:00] LABS: BILIRUBIN,TOTAL 0.2 mg/dL (0.2-1); TOT PROT 7.3 g/dl (6.4-8.2)
[2022-03-29 22:01] LABS: ALK PHOS 121 U/L (45-117)
[2022-03-29 22:05] LABS: ANION GAP 15 MMOL/L (8-16)
[2022-03-29] MEDS ORDERED: MAGNESIUM SULF 50% (8.12 MEQ/2 ML-1 GM VIAL) IVPB ONE (22:11)
[2022-03-29] MEDS ORDERED: LACTATED RINGERS SOLUTION 1000 ML INFUS.BAG IV ONE (22:26)
[2022-03-29] MEDS ORDERED: MAGNESIUM SULFATE IN WATER 2 GM/50 ML IVPB IVPB ONE (22:27)
[2022-03-29 22:35] LABS: LACTIC ACID 3.8 mmol/L (0.4-2.0)
[2022-03-29] MEDS ORDERED: KCL 10 MEQ IVPB 10 MEQ/100 ML INFUS.BAG IVPB ONE (23:11)
[2022-03-29] MEDS ORDERED: MULTIVITAMINS (DAILY MVI) TABLET (FP) PO ONE (23:15)
[2022-03-29] MEDS ORDERED: THIAMINE HCL 200 MG/2 ML VIAL IM ONE (23:15)
[2022-03-29] MEDS ORDERED: POTASSIUM CHLORIDE ORAL LIQUID 20 MEQ/15 ML PO ONE (23:16)
[2022-03-29] MEDS: KCL 10 MEQ IVPB 10 MEQ/100 ML INFUS.BAG IVPB SCH (23:44)
[2022-03-29] MEDS ORDERED: POTASSIUM CHLORIDE ORAL LIQUID 20 MEQ/15 ML ONE (23:46)
[2022-03-29] MEDS ORDERED: THIAMINE HCL 200 MG/2 ML VIAL ONE (23:46)
[2022-03-29] MEDS ORDERED: KCL 10 MEQ IVPB 20 MEQ/200 ML INFUS.BAG IVPB ONE (23:46)
[2022-03-29] MEDS ORDERED: MULTIVITAMINS (DAILY MVI) TABLET (FP) ONE (23:46)
[2022-03-29 23:59] LABS: LACTIC ACID 3.7 mmol/L (0.4-2.0)
[2022-03-30] MEDS ORDERED: POTASSIUM CHLORIDE ORAL LIQUID 20 MEQ/15 ML PO ONE (00:22)
[2022-03-30] MEDS ORDERED: POTASSIUM CHLORIDE ORAL LIQUID 20 MEQ/15 ML ONE (00:23)
[2022-03-30] MEDS: KCL 10 MEQ IVPB 10 MEQ/100 ML INFUS.BAG IVPB SCH (00:30)
== END 2022-03-30 00:38 | disposition home or self-care (01) ==
LOC: JER 19:32
PROC: 3E0F7GC Introduction of Other Therapeutic Substance into Respiratory Tract, Via Natural or Artificial Opening (ICD-10-PCS; principal; 2022-03-29)
PROC: 3E033GC Introduction of Other Therapeutic Substance into Peripheral Vein, Percutaneous Approach (ICD-10-PCS; 2022-03-29)
PROC: 3E033GC Introduction of Other Therapeutic Substance into Peripheral Vein, Percutaneous Approach (ICD-10-PCS; 2022-03-29)
DX: E87.6 Hypokalemia (principal); E16.2 Hypoglycemia, unspecified; F10.920 Alcohol use, unspecified with intoxication, uncomplicated; R74.02 Elevation of levels of lactic acid dehydrogenase [LDH]
CPT/HCPCS: 0241U-QW; 36415; 71045-TC-FY; 80053; 82803; 83036; 83605; 83735; 84484; 85025; 85610; 85730; 86850; 86900; 86901; 93005; 93010; 99285-25

== ENCOUNTER 2022-03-31 03:51 | Emergency (ER) | payer OTHER ==
[2022-03-31 03:58] VITALS: BP 142/76; PULSE 84; RESP 18; BMI 29.1
== END 2022-03-31 11:14 | disposition home or self-care (01) ==
LOC: JER 03:51
DX: Z00.00 Encounter for general adult medical examination without abnormal findings (principal)
CPT/HCPCS: 99281-25

== ENCOUNTER 2022-05-18 01:23 | Emergency (ER) | payer OTHER ==
[2022-05-18 01:43] VITALS: TEMP 97.9; BMI 25.4
[2022-05-18] MEDS ORDERED: LACTATED RINGERS SOLUTION 1000 ML INFUS.BAG IV ONE (02:30)
[2022-05-18] MEDS ORDERED: ACETAMINOPHEN 1000 MG/100 ML BAG IVPB ONE (02:30)
[2022-05-18] MEDS ORDERED: ONDANSETRON 4 MG/2 ML VIAL IVPUSH ONE (02:31)
[2022-05-18] MEDS ORDERED: FAMOTIDINE 20 MG/50 ML IVPB 20 MG/50 ML MG IVPB ONE ×2 (02:32→03:10)
[2022-05-18] MEDS ORDERED: MAG HYDROX/AL HYDROX/SIMETH 30 ML UNIT-DOSE CUP PO ONE (02:32)
[2022-05-18] MEDS ORDERED: ACETAMINOPHEN INJECTION 100 ML IVPB ONE (03:10)
[2022-05-18] MEDS ORDERED: MAG HYDROX/AL HYDROX/SIMETH 30 ML UNIT-DOSE CUP ONE (03:10)
[2022-05-18] MEDS ORDERED: ONDANSETRON 4 MG/2 ML VIAL ONE (03:10)
[2022-05-18 03:24] LABS: INR 0.98 (0.83-1.09); PROTHROMBIN TIME (PATIENT) 11.4 SEC (9.7-13.0)
[2022-05-18 03:27] LABS: ACTIVATED PTT 32.1 SECONDS (25.2-36.5)
[2022-05-18 03:30] LABS: BASO % 0.8 % (0-2.0); EOS % 0.8 % (0-4.5); HEMATOCRIT 38.1 % (32.4-45.2); HEMOGLOBIN 12.6 GM/dL (10.7-15.3); MCH 25.3 pg (25.7-33.7); MCHC 33.1 g/dl (32.0-36.0); MEAN CELL VOLUME 76.6 fl (80-96); MEAN PLT VOLUME 6.9 fl (7.5-11.1); MONO % 9.8 % (3.8-10.2); NEUT % 63.6 % (42.8-82.8); PLATELET COUNT 335 10^3/uL (134-434); RBC 4.97 M/mm3 (3.60-5.2); RDW 22.8 % (11.6-15.6); WHITE BLOOD COUNT 9.8 K/mm3 (4.0-10.0)
[2022-05-18 03:39] LABS: ALBUMIN 3.2 g/dl (3.4-5.0); CALCIUM 9.4 mg/dL (8.5-10.1)
[2022-05-18 03:42] LABS: CREATININE 0.9 mg/dL (0.55-1.3)
[2022-05-18 03:44] LABS: BILIRUBIN,TOTAL 0.3 mg/dL (0.2-1); TOT PROT 7.7 g/dl (6.4-8.2)
[2022-05-18] MEDS ORDERED: chlordiazePOXIDE HCL 25 MG CAPSULE PO ONE (06:30)
[2022-05-18 06:54] LABS: ANISOCYTOSIS 2+; MACROCYTOSIS 0; OVALOCYTE 2+; TARGET CELLS 2+; TEAR DROP CELLS 1+
[2022-05-18] MEDS ORDERED: chlordiazePOXIDE HCL 25 MG CAPSULE ONE (07:00)
[2022-05-18 16:36] VITALS: BP 159/93; PULSE 103; RESP 115
== END 2022-05-18 23:05 | disposition home or self-care (01) ==
LOC: JER 01:23
PROC: 3E0333Z Introduction of Anti-inflammatory into Peripheral Vein, Percutaneous Approach (ICD-10-PCS; principal; 2022-05-18)
PROC: 3E033GC Introduction of Other Therapeutic Substance into Peripheral Vein, Percutaneous Approach (ICD-10-PCS; 2022-05-18)
DX: R10.11 Right upper quadrant pain (principal)
CPT/HCPCS: 36415; 71045-TC-FY; 74177-TC; 76705-TC; 80053; 82962; 83690; 84484; 85025; 85610; 85730; 86850; 86900; 86901; 93005; 93010; 99285-25; Q9967

== ENCOUNTER 2022-10-08 19:07 | Inpatient (IN) | payer OTHER ==
[2022-10-08] MEDS ORDERED: ONDANSETRON 4 MG/2 ML VIAL IVPUSH ONE (20:23)
[2022-10-08] MEDS ORDERED: ACETAMINOPHEN 1000 MG/100 ML BAG IVPB ONE (20:23)
[2022-10-08] MEDS ORDERED: ACETAMINOPHEN INJECTION 100 ML IVPB ONE (20:36)
[2022-10-08] MEDS ORDERED: ONDANSETRON 4 MG/2 ML VIAL ONE (20:37)
[2022-10-08 21:20] LABS: BASO % 0.9 % (0-2.0); EOS % 1.1 % (0-4.5); HEMATOCRIT 37.9 % (32.4-45.2); HEMOGLOBIN 12.3 GM/dL (10.7-15.3); LYMPH % 47.7 % (8-40); MCH 25.6 pg (25.7-33.7); MCHC 32.5 g/dl (32.0-36.0); MEAN CELL VOLUME 78.9 fl (80-96); MEAN PLT VOLUME 7.3 fl (7.5-11.1); MONO % 7.2 % (3.8-10.2); NEUT % 43.1 % (42.8-82.8); PLATELET COUNT 380 10^3/uL (134-434); RDW 15.7 % (11.6-15.6); WHITE BLOOD COUNT 11.4 K/mm3 (4.0-10.0)
[2022-10-08 21:40] LABS: POTASSIUM 4.4 mmol/L (3.5-5.1)
[2022-10-08 21:44] LABS: ALBUMIN 3.6 g/dl (3.4-5.0); BLOOD UREA NITROGEN 39.6 mg/dL (7-18); CALCIUM 9.6 mg/dL (8.5-10.1)
[2022-10-08 21:47] LABS: CREATININE 1.9 mg/dL (0.55-1.3)
[2022-10-08 21:48] LABS: TOT PROT 8.4 g/dl (6.4-8.2)
[2022-10-08 21:50] LABS: BILIRUBIN,TOTAL 0.1 mg/dL (0.2-1)
[2022-10-08] MEDS ORDERED: SODIUM CHLORIDE 1,000 ML IV STA (22:59)
[2022-10-09 02:27] VITALS: BMI 25.3
[2022-10-09] MEDS: HEPARIN NA (PORCINE) 5,000 UNITS/ML 1ML VIAL SQ SCH ×3 (05:37→22:06)
[2022-10-09 08:35] LABS: HEMATOCRIT 34.3 % (32.4-45.2); HEMOGLOBIN 11.3 GM/dL (10.7-15.3); MCHC 33.1 g/dl (32.0-36.0); MEAN CELL VOLUME 78.5 fl (80-96); MEAN PLT VOLUME 7.3 fl (7.5-11.1); PLATELET COUNT 353 10^3/uL (134-434); RBC 4.36 M/mm3 (3.60-5.2); RDW 15.6 % (11.6-15.6); WHITE BLOOD COUNT 7.9 K/mm3 (4.0-10.0)
[2022-10-09 08:51] LABS: POTASSIUM 4.6 mmol/L (3.5-5.1)
[2022-10-09 08:54] LABS: BLOOD UREA NITROGEN 34.4 mg/dL (7-18); CALCIUM 9.4 mg/dL (8.5-10.1)
[2022-10-09 08:56] LABS: CREATININE 1.5 mg/dL (0.55-1.3)
[2022-10-09 08:58] LABS: BILIRUBIN,TOTAL 0.5 mg/dL (0.2-1); TOT PROT 7.2 g/dl (6.4-8.2)
[2022-10-09] MEDS: CARVEDILOL 3.125 MG TABLET (FP) PO SCH ×2 (10:28→22:06)
[2022-10-09] MEDS: NICOTINE 21 MG/24 HOURS TOPICAL PATCH TD SCH ×2 (10:28)
[2022-10-09] MEDS: DULoxetine HCL 30 MG CAPSULE.DR PO SCH (10:28)
[2022-10-09] MEDS: amLODIPine BESYLATE 10 MG TABLET (FP) PO SCH (10:28)
[2022-10-09] MEDS: ATORVASTATIN CA 10 MG TABLET (FP) PO SCH (22:06)
[2022-10-10] MEDS: HEPARIN NA (PORCINE) 5,000 UNITS/ML 1ML VIAL SQ SCH ×3 (06:12→21:41)
[2022-10-10 08:17] LABS: BASO % 0.7 % (0-2.0); EOS % 1.9 % (0-4.5); HEMATOCRIT 36.1 % (32.4-45.2); HEMOGLOBIN 11.3 GM/dL (10.7-15.3); LYMPH % 34.3 % (8-40); MCH 25.3 pg (25.7-33.7); MCHC 31.4 g/dl (32.0-36.0); MEAN CELL VOLUME 80.7 fl (80-96); MEAN PLT VOLUME 7.8 fl (7.5-11.1); MONO % 9.3 % (3.8-10.2); NEUT % 53.8 % (42.8-82.8); PLATELET COUNT 342 10^3/uL (134-434); RBC 4.47 M/mm3 (3.60-5.2); RDW 15.6 % (11.6-15.6); WHITE BLOOD COUNT 6.9 K/mm3 (4.0-10.0)
[2022-10-10 08:24] LABS: POTASSIUM 4.8 mmol/L (3.5-5.1)
[2022-10-10 08:25] LABS: CALCIUM 9.7 mg/dL (8.5-10.1)
[2022-10-10 08:26] LABS: BLOOD UREA NITROGEN 26.9 mg/dL (7-18)
[2022-10-10 08:29] LABS: CREATININE 1.4 mg/dL (0.55-1.3)
[2022-10-10 08:30] LABS: BILIRUBIN,TOTAL 0.3 mg/dL (0.2-1); TOT PROT 7.2 g/dl (6.4-8.2)
[2022-10-10] MEDS: amLODIPine BESYLATE 10 MG TABLET (FP) PO SCH (10:06)
[2022-10-10] MEDS: DULoxetine HCL 30 MG CAPSULE.DR PO SCH (10:06)
[2022-10-10] MEDS: NICOTINE 21 MG/24 HOURS TOPICAL PATCH TD SCH (10:07)
[2022-10-10] MEDS: CARVEDILOL 3.125 MG TABLET (FP) PO SCH ×2 (10:08→21:41)
[2022-10-10 11:53] LABS: PH,URINE 5.5 (5.0-8.0); URINE APPEARANCE CLEAR; URINE BILIRUBIN NEGATIVE (NEGATIVE); URINE COLOR YELLOW; URINE GLUCOSE (UA) NEGATIVE (NEGATIVE); URINE KETONE TRACE (NEGATIVE); URINE LEUK ESTERASE NEGATIVE (NEGATIVE); URINE NITRITE NEGATIVE (NEGATIVE); URINE PROTEIN TRACE (NEGATIVE); URINE UROBILINOGEN 0.2 mg/dL (0.2-1.0)
[2022-10-10] MEDS: ATORVASTATIN CA 10 MG TABLET (FP) PO SCH (21:41)
[2022-10-11] MEDS: HEPARIN NA (PORCINE) 5,000 UNITS/ML 1ML VIAL SQ SCH ×3 (05:36→21:12)
[2022-10-11 08:55] LABS: ALBUMIN 3.1 g/dl (3.4-5.0); BILIRUBIN,TOTAL 0.3 mg/dL (0.2-1); BLOOD UREA NITROGEN 22.4 mg/dL (7-18); CALCIUM 9.6 mg/dL (8.5-10.1); CREATININE 1.3 mg/dL (0.55-1.3); POTASSIUM 4.4 mmol/L (3.5-5.1); TOT PROT 7.3 g/dl (6.4-8.2)
[2022-10-11] MEDS ORDERED: CEFTRIAXONE 1 GM in DEXTROSE 5%-WATER - 50 ML IVPB ONE (09:36)
[2022-10-11] MEDS: amLODIPine BESYLATE 10 MG TABLET (FP) PO SCH (09:42)
[2022-10-11] MEDS: CARVEDILOL 3.125 MG TABLET (FP) PO SCH ×2 (09:43→21:12)
[2022-10-11] MEDS: DULoxetine HCL 30 MG CAPSULE.DR PO SCH (09:43)
[2022-10-11] MEDS: NICOTINE 21 MG/24 HOURS TOPICAL PATCH TD SCH (09:43)
[2022-10-11] MEDS: THIAMINE HCL 100 MG TABLET (FP) PO SCH (14:27)
[2022-10-11] MEDS: FOLIC ACID 1 MG TABLET (FP) PO SCH (14:27)
[2022-10-11] MEDS: MULTIVITAMINS THER W-MINERALS COMBO TABLET (FP) PO SCH (14:27)
[2022-10-11] MEDS: ATORVASTATIN CA 10 MG TABLET (FP) PO SCH (21:12)
[2022-10-12] MEDS: HEPARIN NA (PORCINE) 5,000 UNITS/ML 1ML VIAL SQ SCH (06:16)
[2022-10-12] MEDS: amLODIPine BESYLATE 10 MG TABLET (FP) PO SCH (09:34)
[2022-10-12] MEDS: THIAMINE HCL 100 MG TABLET (FP) PO SCH (09:34)
[2022-10-12] MEDS: CARVEDILOL 3.125 MG TABLET (FP) PO SCH (09:34)
[2022-10-12] MEDS: NICOTINE 21 MG/24 HOURS TOPICAL PATCH TD SCH (09:34)
[2022-10-12] MEDS: MULTIVITAMINS THER W-MINERALS COMBO TABLET (FP) PO SCH (09:34)
[2022-10-12] MEDS: FOLIC ACID 1 MG TABLET (FP) PO SCH (09:34)
[2022-10-12] MEDS: DULoxetine HCL 30 MG CAPSULE.DR PO SCH (09:34)
[2022-10-12 12:38] VITALS: BP 126/65; PULSE 81; RESP 18; TEMP 98.6
== END 2022-10-12 14:30 | disposition home or self-care (01) | DRG 683 ==
LOC: JER 19:07 → JERBED 22:58 → J7W 10-09 02:07
PROVIDERS: ADMIT Internal Medicine; ATTEND Internal Medicine
DX: N17.9 Acute kidney failure, unspecified (principal); I50.32 Chronic diastolic (congestive) heart failure; Q61.02 Congenital multiple renal cysts; I69.354 Hemiplegia and hemiparesis following cerebral infarction affecting left non-dominant side; E78.5 Hyperlipidemia, unspecified; D72.829 Elevated white blood cell count, unspecified; F17.210 Nicotine dependence, cigarettes, uncomplicated; I11.0 Hypertensive heart disease with heart failure; E11.9 Type 2 diabetes mellitus without complications; J44.9 Chronic obstructive pulmonary disease, unspecified; F10.10 Alcohol abuse, uncomplicated
CPT/HCPCS: 36415; 76775-TC; 80053; 80307; 81003; 82962; 83690; 84484; 85025; 85027; 87086; 87186; 93005; 93010; 97116-GP; 99285-25; J1644

== ENCOUNTER 2022-10-19 14:41 | Emergency (ER) | payer OTHER ==
[2022-10-19 14:58] VITALS: BP 110/68; PULSE 98; RESP 18; TEMP 97.8; BMI 25.0
[2022-10-19] MEDS ORDERED: LIDOCAINE 5% TOPICAL PATCH TP ONE (15:59)
[2022-10-19] MEDS ORDERED: LIDOCAINE 5% TOPICAL PATCH ONE (16:17)
[2022-10-19] MEDS ORDERED: LIDOCAINE PATCH REMOVAL MC ONE (22:00)
== END 2022-10-19 18:55 | disposition home or self-care (01) ==
LOC: JER 14:41
DX: R53.1 Weakness (principal); M54.9 Dorsalgia, unspecified; T73.0XXA Starvation, initial encounter; R32 Unspecified urinary incontinence
CPT/HCPCS: 99283-25

== ENCOUNTER 2023-01-13 19:39 | Emergency (ER) | payer OTHER ==
[2023-01-13 20:12] VITALS: BMI 25.0
[2023-01-14 00:38] LABS: BASO % 1.3 % (0-2.0); EOS % 0.8 % (0-4.5); HEMATOCRIT 40.8 % (32.4-45.2); HEMOGLOBIN 12.8 GM/dL (10.7-15.3); MCH 25.5 pg (25.7-33.7); MCHC 31.4 g/dl (32.0-36.0); MEAN CELL VOLUME 81.5 fl (80-96); MONO % 9.3 % (3.8-10.2); NEUT % 46.6 % (42.8-82.8); RBC 5.01 M/mm3 (3.60-5.2); RDW 17.8 % (11.6-15.6)
[2023-01-14 00:39] LABS: INR 0.94 (0.83-1.09); PROTHROMBIN TIME (PATIENT) 10.9 SEC (9.7-13.0)
[2023-01-14 00:42] LABS: ACTIVATED PTT 22.8 SECONDS (25.2-36.5)
[2023-01-14 01:45] LABS: BLOOD UREA NITROGEN 12.5 mg/dL (7-18); CREATININE 1.3 mg/dL (0.55-1.3); POTASSIUM 4.7 mmol/L (3.5-5.1)
[2023-01-14 01:46] LABS: ALBUMIN 2.8 g/dl (3.4-5.0); BILIRUBIN,TOTAL 0.3 mg/dL (0.2-1); CALCIUM 8.3 mg/dL (8.5-10.1); TOT PROT 7.3 g/dl (6.4-8.2)
[2023-01-14 05:51] LABS: PLATELET COUNT 371 10^3/uL (134-434)
[2023-01-14 08:48] VITALS: BP 145/82; PULSE 95; RESP 20; TEMP 98.1
== END 2023-01-14 11:24 | disposition home or self-care (01) ==
LOC: JER 19:39
DX: F10.10 Alcohol abuse, uncomplicated (principal); R05.9 Cough, unspecified; J18.9 Pneumonia, unspecified organism
CPT/HCPCS: 36415; 70450-TC; 71045-TC-FY; 71046-TC-FY; 72125-TC; 72192-TC; 73502-TC-LT-FY; 80053; 80307; 84484; 85025; 85610; 85730; 93005; 93010; 99285-25

== ENCOUNTER 2023-06-01 22:31 | Observation (INO) | payer OTHER ==
[2023-06-01] MEDS: ALBUTEROL SO4 2.5/IPRATROPIUM 0.5 INH SOL 3 ML VIAL.NEB. NEB SCH (23:12)
[2023-06-01] MEDS: methylPREDNISolone NA SUCC 125 MG/2 ML VIAL IVPUSH ONE (23:46)
[2023-06-01] MEDS ORDERED: methylPREDNISolone NA SUCC 125 MG/2 ML VIAL ONE (23:46)
[2023-06-02 01:12] LABS: HEMATOCRIT 36.6 % (32.4-45.2); HEMOGLOBIN 12.1 GM/dL (10.7-15.3); MCH 25.6 pg (25.7-33.7); MCHC 33.1 g/dl (32.0-36.0); MEAN CELL VOLUME 77.3 fl (80-96); PLATELET COUNT 416 10^3/uL (134-434); RBC 4.74 M/mm3 (3.60-5.2); RDW 18.3 % (11.6-15.6); WHITE BLOOD COUNT 9.4 K/mm3 (4.0-10.0)
[2023-06-02 01:19] LABS: INR 1.03 (0.83-1.09); PROTHROMBIN TIME (PATIENT) 11.9 SEC (9.7-13.0)
[2023-06-02 01:31] LABS: CHLORIDE 105 mmol/L (98-107); SODIUM 136 mmol/L (136-145)
[2023-06-02 01:33] LABS: ALBUMIN 3.8 g/dl (3.4-5.0); BLOOD UREA NITROGEN 31.5 mg/dL (7-18); CALCIUM 9.3 mg/dL (8.5-10.1); CO2 23 mmol/L (21-32); GLUCOSE,RANDOM 142 mg/dL (74-106); MAGNESIUM 2.1 mg/dL (1.8-2.4)
[2023-06-02 01:36] LABS: CREATININE 1.5 mg/dL (0.55-1.3); SGOT/AST 47 U/L (15-37); SGPT/ALT 56 U/L (13-61)
[2023-06-02 01:38] LABS: BILIRUBIN,TOTAL 0.2 mg/dL (0.2-1); TOT PROT 9.1 g/dl (6.4-8.2)
[2023-06-02 01:39] LABS: ALK PHOS 211 U/L (45-117)
[2023-06-02 01:41] LABS: N-TERMINAL BNP 112.2 pg/ml (5-125)
[2023-06-02 01:47] LABS: ANION GAP 8 mmol/L (4-13); POTASSIUM 6.4 mmol/L (3.5-5.1)
[2023-06-02] MEDS ORDERED: SODIUM ZIRCONIUM CYCLOSILICATE (LOKELMA) 10 GM PACKET ONE ×2 (02:10→08:46)
[2023-06-02] MEDS ORDERED: DEXTROSE 50%-WATER 25 GM/50 ML DISP.SYRIN ONE ×2 (02:10→06:42)
[2023-06-02] MEDS ORDERED: INSULIN REGULAR HUMAN 100 UNITS/ML *VIAL ONE (02:16)
[2023-06-02] MEDS: DEXTROSE 50%-WATER - 25 GM/50 ML VIAL IVPUSH ONE (02:20)
[2023-06-02] MEDS: SODIUM CHLORIDE 0.9% 500 ML INFUS.BAG IV ONE (02:20)
[2023-06-02] MEDS: INSULIN REGULAR HUMAN 100 UNITS/ML *VIAL IVPUSH ONE ×2 (02:20→06:51)
[2023-06-02 04:42] LABS: BLOOD UREA NITROGEN 31.4 mg/dL (7-18); CALCIUM 8.8 mg/dL (8.5-10.1)
[2023-06-02 04:45] LABS: CREATININE 1.4 mg/dL (0.55-1.3)
[2023-06-02] MEDS ORDERED: SODIUM ZIRCONIUM CYCLOSILICATE (LOKELMA) 5 GM PACKET PO SCH ×2 (05:05→10:00)
[2023-06-02 05:17] LABS: ANISOCYTOSIS 3+; MACROCYTOSIS 0; OVALOCYTE 1+
[2023-06-02] MEDS ORDERED: HEPARIN NA (PORCINE) 5,000 UNITS/ML 1ML VIAL ONE (05:47)
[2023-06-02] MEDS ORDERED: methylPREDNISolone NA SUCC 40 MG/1 ML VIAL ONE ×2 (05:48→09:58)
[2023-06-02] MEDS: HEPARIN NA (PORCINE) 5,000 UNITS/ML 1ML VIAL SQ SCH (05:59)
[2023-06-02] MEDS: methylPREDNISolone NA SUCC 40 MG/1 ML VIAL IVPUSH SCH (05:59)
[2023-06-02] MEDS: SODIUM CHLORIDE 1,000 ML IV SCH (06:35)
[2023-06-02] MEDS: DEXTROSE 50%-WATER 25 GM/50 ML DISP.SYRIN IVPUSH ONE (06:51)
[2023-06-02] MEDS ORDERED: ALBUTEROL SO4 2.5/IPRATROPIUM 0.5 INH SOL 3 ML VIAL.NEB. NEB ONE (08:46)
[2023-06-02] MEDS ORDERED: THIAMINE HCL 100 MG TABLET (FP) ONE (08:46)
[2023-06-02] MEDS ORDERED: amLODIPine BESYLATE 10 MG TABLET (FP) ONE (08:46)
[2023-06-02] MEDS ORDERED: NICOTINE 21 MG/24 HOURS TOPICAL PATCH ONE (08:46)
[2023-06-02] MEDS ORDERED: CARVEDILOL 12.5 MG TABLET (FP) ONE (08:46)
[2023-06-02] MEDS ORDERED: FOLIC ACID 1 MG TABLET (FP) ONE (08:46)
[2023-06-02] MEDS: NICOTINE 21 MG/24 HOURS TOPICAL PATCH TD SCH (09:15)
[2023-06-02] MEDS: CARVEDILOL 12.5 MG TABLET (FP) PO SCH (09:15)
[2023-06-02] MEDS: SODIUM ZIRCONIUM CYCLOSILICATE (LOKELMA) 10 GM PACKET PO SCH (09:15)
[2023-06-02] MEDS: FOLIC ACID 1 MG TABLET (FP) PO SCH (09:15)
[2023-06-02] MEDS: amLODIPine BESYLATE 10 MG TABLET (FP) PO SCH (09:16)
[2023-06-02] MEDS: ALBUTEROL SO4 2.5/IPRATROPIUM 0.5 INH SOL 3 ML VIAL.NEB. NEB SCH (09:16)
[2023-06-02] MEDS: THIAMINE HCL 100 MG TABLET (FP) PO SCH ×2 (09:16→22:08)
[2023-06-02] MEDS ORDERED: SODIUM ZIRCONIUM CYCLOSILICATE (LOKELMA) 10 GM PACKET PO SCH (10:00)
[2023-06-02 10:49] LABS: POTASSIUM 5.2 mmol/L (3.5-5.1)
[2023-06-02 10:50] LABS: CALCIUM 8.3 mg/dL (8.5-10.1)
[2023-06-02 10:51] LABS: BLOOD UREA NITROGEN 31.1 mg/dL (7-18)
[2023-06-02 10:54] LABS: CREATININE 1.5 mg/dL (0.55-1.3)
[2023-06-02] MEDS: SODIUM CHLORIDE 0.45% 1,000 ML IV SCH (14:24)
[2023-06-02 16:18] VITALS: BMI 26.4
[2023-06-02] MEDS: INSULIN ASPART SLIDING SCALE (NOVOLOG) 1 VIAL SQ SCH (17:47)
[2023-06-02] MEDS: MONTELUKAST NA 10 MG TABLET PO SCH (22:08)
[2023-06-02] MEDS: ATORVASTATIN CA 10 MG TABLET (FP) PO SCH (22:08)
[2023-06-02 23:31] LABS: EPI CELLS 14 /uL (0-25.1); HYALINE CASTS 1 /uL (0-3.1); URINE APPEARANCE TURBID; URINE BACTERIA 4320 /uL (0-1359); URINE BILIRUBIN NEGATIVE (NEGATIVE); URINE COLOR YELLOW; URINE GLUCOSE (UA) NEGATIVE (NEGATIVE); URINE KETONE NEGATIVE (NEGATIVE); URINE LEUK ESTERASE 1+ (NEGATIVE); URINE NITRITE NEGATIVE (NEGATIVE); URINE PROTEIN 1+ (NEGATIVE); URINE UROBILINOGEN 0.2 mg/dL (0.2-1.0); URINE WBC 22 /uL (0-25.8)
[2023-06-03 00:36] LABS: URINE RBC 1772.3 /uL (0-23.9)
[2023-06-03 06:48] LABS: BASO % 0.1 % (0-2.0); HEMATOCRIT 30.4 % (32.4-45.2); HEMOGLOBIN 9.7 GM/dL (10.7-15.3); LYMPH % 13.4 % (8-40); MCH 24.4 pg (25.7-33.7); MCHC 31.7 g/dl (32.0-36.0); MEAN PLT VOLUME 7.6 fl (7.5-11.1); MONO % 7.5 % (3.8-10.2); PLATELET COUNT 361 10^3/uL (134-434); RBC 3.95 M/mm3 (3.60-5.2); RDW 18.3 % (11.6-15.6); WHITE BLOOD COUNT 18.3 K/mm3 (4.0-10.0)
[2023-06-03 07:05] LABS: POTASSIUM 4.9 mmol/L (3.5-5.1)
[2023-06-03 07:12] LABS: ALBUMIN 3.2 g/dl (3.4-5.0)
[2023-06-03 07:13] LABS: BLOOD UREA NITROGEN 36.4 mg/dL (7-18); CREATININE 1.4 mg/dL (0.55-1.3)
[2023-06-03 07:14] LABS: BILIRUBIN,TOTAL 0.3 mg/dL (0.2-1); CALCIUM 8.7 mg/dL (8.5-10.1); TOT PROT 7.8 g/dl (6.4-8.2)
[2023-06-03] MEDS: methylPREDNISolone NA SUCC 40 MG/1 ML VIAL IVPUSH SCH (09:58)
[2023-06-03] MEDS ORDERED: INSULIN (NOVOLOG) ASPART 100 UNITS/ML 10ML VIAL ONE (11:34)
[2023-06-03 21:14] VITALS: BP 148/82; PULSE 101; RESP 17; TEMP 98.4
== END 2023-06-03 21:18 | disposition home health service (06) ==
LOC: JER 22:31 → JERBED 06-02 02:12 → J4W 06-02 14:30
PROVIDERS: ADMIT Internal Medicine; ATTEND Nurse Practitioner
PROC: 3E033VG Introduction of Insulin into Peripheral Vein, Percutaneous Approach (ICD-10-PCS; principal; 2023-06-02)
PROC: 3E033GC Introduction of Other Therapeutic Substance into Peripheral Vein, Percutaneous Approach (ICD-10-PCS; 2023-06-02)
PROC: 3E0337Z Introduction of Electrolytic and Water Balance Substance into Peripheral Vein, Percutaneous Approach (ICD-10-PCS; 2023-06-02)
PROC: 3E013GC Introduction of Other Therapeutic Substance into Subcutaneous Tissue, Percutaneous Approach (ICD-10-PCS; 2023-06-02)
PROC: 3E0F7SF Introduction of Other Gas into Respiratory Tract, Via Natural or Artificial Opening (ICD-10-PCS; 2023-06-02)
PROC: 3E0F7SF Introduction of Other Gas into Respiratory Tract, Via Natural or Artificial Opening (ICD-10-PCS; 2023-06-02)
DX: N17.9 Acute kidney failure, unspecified (principal); J44.1 Chronic obstructive pulmonary disease with (acute) exacerbation; J45.998 Other asthma; E87.5 Hyperkalemia; I10 Essential (primary) hypertension; E78.5 Hyperlipidemia, unspecified; I69.354 Hemiplegia and hemiparesis following cerebral infarction affecting left non-dominant side; D72.829 Elevated white blood cell count, unspecified; E11.9 Type 2 diabetes mellitus without complications; F17.210 Nicotine dependence, cigarettes, uncomplicated; R26.2 Difficulty in walking, not elsewhere classified; Z99.89 Dependence on other enabling machines and devices; Z88.1 Allergy status to other antibiotic agents; Z88.8 Allergy status to other drugs, medicaments and biological substances
CPT/HCPCS: 0241U-QW; 36415; 70450-TC; 71045-TC-FY; 72125-TC; 76775-TC; 80048; 80053; 80307; 81003; 82140; 82570; 82962; 83735; 83880; 84300; 84484; 85025; 85610; 85730; 93005; 93010; 94640; 96372; 96374; 96375; 96376; 97116-GP; 97162-GP; 99285-25; G0378; J1644

== ENCOUNTER 2023-07-23 15:23 | Emergency (ER) | payer OTHER ==
[2023-07-23 15:54] VITALS: BMI 22.8
[2023-07-23] MEDS: SODIUM CHLORIDE 0.9% 500 ML INFUS.BAG IV ONE (16:58)
[2023-07-23 17:00] LABS: BASO % 0.9 % (0-2.0); EOS % 0.6 % (0-4.5); HEMATOCRIT 37.9 % (32.4-45.2); HEMOGLOBIN 11.9 GM/dL (10.7-15.3); MCH 24.9 pg (25.7-33.7); MCHC 31.4 g/dl (32.0-36.0); MEAN CELL VOLUME 79.1 fl (80-96); MEAN PLT VOLUME 7.3 fl (7.5-11.1); MONO % 7.6 % (3.8-10.2); NEUT % 63.9 % (42.8-82.8); PLATELET COUNT 374 10^3/uL (134-434); RBC 4.79 M/mm3 (3.60-5.2); RDW 17.9 % (11.6-15.6); WHITE BLOOD COUNT 12.2 K/mm3 (4.0-10.0)
[2023-07-23 17:54] LABS: ALBUMIN 3.2 g/dl (3.4-5.0); CALCIUM 8.7 mg/dL (8.5-10.1)
[2023-07-23 17:55] LABS: BLOOD UREA NITROGEN 18.5 mg/dL (7-18); MAGNESIUM 1.8 mg/dL (1.8-2.4)
[2023-07-23 17:58] LABS: CREATININE 1.1 mg/dL (0.55-1.3); PHOSPHOROUS 3.5 mg/dL (2.5-4.9)
[2023-07-23 17:59] LABS: BILIRUBIN,TOTAL 0.4 mg/dL (0.2-1); TOT PROT 7.6 g/dl (6.4-8.2)
[2023-07-23 22:20] VITALS: TEMP 98.7
[2023-07-23 23:59] VITALS: BP 147/74; PULSE 92; RESP 16
== END 2023-07-23 23:59 | disposition home or self-care (01) ==
LOC: JER 15:23
DX: R19.7 Diarrhea, unspecified (principal); E13.649 Other specified diabetes mellitus with hypoglycemia without coma; R51.9 Headache, unspecified; G89.29 Other chronic pain; Z20.822 Contact with and (suspected) exposure to COVID-19
CPT/HCPCS: 0241U-QW; 36415; 80053; 82962; 83735; 84100; 85025; 99284-25

== ENCOUNTER 2023-08-29 17:36 | Emergency (ER) | payer OTHER ==
[2023-08-29 18:03] VITALS: RESP 18; BMI 22.8
[2023-08-29] MEDS ORDERED: ACETAMINOPHEN 325 MG TABLET (FP) ONE (18:41)
[2023-08-29] MEDS ORDERED: LIDOCAINE 4% PATCH TP ONE (18:42)
[2023-08-29] MEDS: ACETAMINOPHEN 500 MG TABLET (FP) PO ONE (18:57)
[2023-08-29] MEDS: LIDOCAINE 4% PATCH TP ONE (18:57)
[2023-08-29 20:06] VITALS: BP 104/59; PULSE 90; TEMP 98.2
[2023-08-30] MEDS ORDERED: LIDOCAINE PATCH REMOVAL MC SCH (07:00)
== END 2023-08-29 20:06 | disposition home or self-care (01) ==
LOC: JER 17:36
DX: R11.0 Nausea (principal); R05.9 Cough, unspecified; M54.50 Low back pain, unspecified; G89.29 Other chronic pain; Z20.822 Contact with and (suspected) exposure to COVID-19
CPT/HCPCS: 0241U-QW; 71045-TC-FY; 93005; 93010; 99285-25

== ENCOUNTER 2023-09-05 16:56 | Inpatient (IN) | payer OTHER ==
[2023-09-05] MEDS ORDERED: FAMOTIDINE 20 MG TABLET ONE (17:56)
[2023-09-05] MEDS ORDERED: ACETAMINOPHEN 325 MG TABLET (FP) ONE (17:57)
[2023-09-05] MEDS ORDERED: ONDANSETRON *ODT* 4 MG TABLET ONE (17:57)
[2023-09-05] MEDS: ONDANSETRON *ODT* 4 MG TABLET SL ONE (18:09)
[2023-09-05] MEDS: FAMOTIDINE 20 MG TABLET PO ONE (18:09)
[2023-09-05] MEDS: ACETAMINOPHEN 325 MG TABLET (FP) PO ONE (18:11)
[2023-09-05 18:54] LABS: BASO % 1.3 % (0-2.0); EOS % 0.5 % (0-4.5); HEMATOCRIT 36.8 % (32.4-45.2); HEMOGLOBIN 11.9 GM/dL (10.7-15.3); LYMPH % 37.2 % (8-40); MCH 23.6 pg (25.7-33.7); MCHC 32.2 g/dl (32.0-36.0); MEAN CELL VOLUME 73.3 fl (80-96); MEAN PLT VOLUME 7.3 fl (7.5-11.1); MONO % 10.5 % (3.8-10.2); NEUT % 50.5 % (42.8-82.8); PLATELET COUNT 397 10^3/uL (134-434); RBC 5.02 M/mm3 (3.60-5.2)
[2023-09-05 19:25] LABS: CHLORIDE 95 mmol/L (98-107); SODIUM 136 mmol/L (136-145)
[2023-09-05 19:27] LABS: CALCIUM 7.9 mg/dL (8.5-10.1)
[2023-09-05 19:28] LABS: ALBUMIN 2.5 g/dl (3.4-5.0); BLOOD UREA NITROGEN 12.2 mg/dL (7-18); CO2 33 mmol/L (21-32); GLUCOSE,RANDOM 85 mg/dL (74-106); MAGNESIUM 1.3 mg/dL (1.8-2.4)
[2023-09-05 19:31] LABS: CREATININE 1.1 mg/dL (0.55-1.3); SGOT/AST 17 U/L (15-37); SGPT/ALT 11 U/L (13-61)
[2023-09-05 19:32] LABS: BILIRUBIN,TOTAL 0.2 mg/dL (0.2-1); TOT PROT 6.8 g/dl (6.4-8.2)
[2023-09-05 19:34] LABS: ALK PHOS 119 U/L (45-117)
[2023-09-05 19:42] LABS: ANION GAP 8 mmol/L (4-13); POTASSIUM 2.5 mmol/L (3.5-5.1)
[2023-09-05] MEDS ORDERED: ONDANSETRON 4 MG/2 ML VIAL IVPUSH PRN (21:22)
[2023-09-05] MEDS ORDERED: MAGNESIUM SULFATE IN WATER 2 GM/50 ML IVPB IVPB ONE (21:48)
[2023-09-05] MEDS ORDERED: POTASSIUM CHLORIDE ORAL LIQUID 20 MEQ/15 ML ONE ×2 (21:48→22:05)
[2023-09-05] MEDS ORDERED: KCL 10 MEQ IVPB 10 MEQ/100 ML INFUS.BAG IVPB ONE (21:48)
[2023-09-05] MEDS ORDERED: INSULIN ASPART SLIDING SCALE (NOVOLOG) 1 VIAL SQ SCH (22:00)
[2023-09-05] MEDS: KCL 10 MEQ IVPB 10 MEQ/100 ML INFUS.BAG IVPB SCH (22:02)
[2023-09-05] MEDS: POTASSIUM CHLORIDE ORAL LIQUID 20 MEQ/15 ML PO ONE ×2 (22:02)
[2023-09-05] MEDS ORDERED: INSULIN (NOVOLOG) ASPART 100 UNITS/ML 10ML VIAL ONE (22:07)
[2023-09-05] MEDS: INSULIN ASPART SLIDING SCALE (NOVOLOG) 1 VIAL SQ SCH (22:15)
[2023-09-05] MEDS: MAGNESIUM SULFATE IN WATER 2 GM/50 ML IVPB IVPB ONE (23:05)
[2023-09-05] MEDS ORDERED: TRIMETHOBENZAMIDE HCL 200MG/2ML INJ IM PRN (23:56)
[2023-09-06] MEDS ORDERED: THIAMINE 100 MG TABLET ONE (00:21)
[2023-09-06] MEDS ORDERED: KCL 10 MEQ IVPB 20 MEQ/200 ML INFUS.BAG IVPB ONE (00:21)
[2023-09-06] MEDS: SODIUM CHLORIDE 1,000 ML with POTASSIUM CHLORIDE 40 MEQ IV SCH (00:37)
[2023-09-06] MEDS: THIAMINE 100 MG TABLET PO SCH (00:39)
[2023-09-06] MEDS: CARVEDILOL 3.125 MG TABLET (FP) PO SCH (00:53)
[2023-09-06 03:45] LABS: CALCIUM 8.2 mg/dL (8.5-10.1); POTASSIUM 3.7 mmol/L (3.5-5.1)
[2023-09-06 03:46] LABS: BLOOD UREA NITROGEN 12.5 mg/dL (7-18)
[2023-09-06 03:49] LABS: CREATININE 1.1 mg/dL (0.55-1.3)
[2023-09-06] MEDS ORDERED: amLODIPine BESYLATE 5 MG TABLET (FP) ONE (05:35)
[2023-09-06] MEDS: amLODIPine BESYLATE 5 MG TABLET (FP) PO ONE (05:37)
[2023-09-06] MEDS: ACAMPROSATE CALCIUM 333 MG TABLET.DR PO SCH (06:31)
[2023-09-06 07:13] LABS: COCAINE, UR NEGATIVE (NEGATIVE); OPIATES, URI NEGATIVE (NEGATIVE); PHENCYCLIDINE,URINE NEGATIVE (NEGATIVE); URINE AMPHETAMINES NEGATIVE (NEGATIVE); URINE BARBITURATES NEGATIVE (NEGATIVE)
[2023-09-06 07:14] LABS: METHADONE, UR NEGATIVE (NEGATIVE); URINE BENZODIAZEPINES NEGATIVE (NEGATIVE)
[2023-09-06 07:18] LABS: HEMATOCRIT 36.2 % (32.4-45.2); HEMOGLOBIN 11.3 GM/dL (10.7-15.3); MCH 23.2 pg (25.7-33.7); MCHC 31.3 g/dl (32.0-36.0); MEAN CELL VOLUME 74.4 fl (80-96); MEAN PLT VOLUME 7.3 fl (7.5-11.1); PLATELET COUNT 380 10^3/uL (134-434); RBC 4.87 M/mm3 (3.60-5.2); RDW 18.8 % (11.6-15.6); WHITE BLOOD COUNT 8.9 K/mm3 (4.0-10.0)
[2023-09-06 07:39] LABS: POTASSIUM 3.8 mmol/L (3.5-5.1)
[2023-09-06 07:44] LABS: EPI CELLS 15 /uL (0-25.1); HYALINE CASTS 0 /uL (0-3.1); URINE APPEARANCE CLOUDY; URINE BACTERIA 4061 /uL (0-1359); URINE BILIRUBIN NEGATIVE (NEGATIVE); URINE COLOR YELLOW; URINE GLUCOSE (UA) NEGATIVE (NEGATIVE); URINE KETONE NEGATIVE (NEGATIVE); URINE LEUK ESTERASE TRACE (NEGATIVE); URINE NITRITE POSITIVE (NEGATIVE); URINE PROTEIN 1+ (NEGATIVE); URINE RBC 23 /uL (0-23.9); URINE WBC 66 /uL (0-25.8)
[2023-09-06 07:48] LABS: ALBUMIN 2.3 g/dl (3.4-5.0)
[2023-09-06 07:49] LABS: CALCIUM 8.1 mg/dL (8.5-10.1)
[2023-09-06 07:50] LABS: BLOOD UREA NITROGEN 10.5 mg/dL (7-18)
[2023-09-06 07:51] LABS: CREATININE 0.9 mg/dL (0.55-1.3)
[2023-09-06 07:52] LABS: PHOSPHOROUS 2.8 mg/dL (2.5-4.9)
[2023-09-06 07:53] LABS: TOT PROT 6.4 g/dl (6.4-8.2)
[2023-09-06 07:54] LABS: BILIRUBIN,TOTAL 0.3 mg/dL (0.2-1)
[2023-09-06] MEDS: TIOTROPIUM BROMIDE 2.5 MCG (SPIRIVA) RESPIMAT INHALER IH SCH (09:29)
[2023-09-06] MEDS: BUDESONIDE/FORMETEROL FUMARATE 160/4.5 mcg INHALER IH SCH (09:29)
[2023-09-06] MEDS: NICOTINE 21 MG/24 HOURS TOPICAL PATCH TD SCH (09:30)
[2023-09-06] MEDS: FOLIC ACID 1 MG TABLET (FP) PO SCH (09:30)
[2023-09-06] MEDS: ENOXAPARIN NA (PORCINE) 40 MG/0.4 ML DISP.SYRIN SQ SCH (09:30)
[2023-09-06] MEDS: CARVEDILOL 6.25 MG TABLET (FP) PO SCH (09:31)
[2023-09-06] MEDS: DULoxetine HCL 30 MG CAPSULE.DR PO SCH (09:31)
[2023-09-06] MEDS: amLODIPine BESYLATE 10 MG TABLET (FP) PO SCH (09:32)
[2023-09-06] MEDS: FAMOTIDINE 20 MG TABLET PO SCH (09:32)
[2023-09-06] MEDS ORDERED: BUDESONIDE/FORMETEROL FUMARATE 160/4.5 mcg INHALER IH SCH (10:00)
[2023-09-06] MEDS ORDERED: LORazepam 1 MG TABLET PO PRN (10:40)
[2023-09-07 00:31] VITALS: BMI 23.3
[2023-09-07 07:44] LABS: BASO % 0.7 % (0-2.0); EOS % 1.4 % (0-4.5); HEMATOCRIT 35.5 % (32.4-45.2); HEMOGLOBIN 11.2 GM/dL (10.7-15.3); LYMPH % 26.3 % (8-40); MCH 23.4 pg (25.7-33.7); MCHC 31.6 g/dl (32.0-36.0); MEAN PLT VOLUME 7.5 fl (7.5-11.1); MONO % 8.7 % (3.8-10.2); NEUT % 62.9 % (42.8-82.8); PLATELET COUNT 390 10^3/uL (134-434); RDW 18.7 % (11.6-15.6); WHITE BLOOD COUNT 9.7 K/mm3 (4.0-10.0)
[2023-09-07 08:00] LABS: POTASSIUM 3.2 mmol/L (3.5-5.1)
[2023-09-07 08:02] LABS: CALCIUM 8.6 mg/dL (8.5-10.1); MAGNESIUM 1.4 mg/dL (1.8-2.4)
[2023-09-07 08:03] LABS: ALBUMIN 2.2 g/dl (3.4-5.0); BLOOD UREA NITROGEN 8.7 mg/dL (7-18)
[2023-09-07 08:05] LABS: CREATININE 0.8 mg/dL (0.55-1.3)
[2023-09-07 08:06] LABS: PHOSPHOROUS 2.9 mg/dL (2.5-4.9)
[2023-09-07 08:08] LABS: BILIRUBIN,TOTAL 0.3 mg/dL (0.2-1); TOT PROT 6.3 g/dl (6.4-8.2)
[2023-09-07] MEDS: POTASSIUM CHLORIDE ORAL LIQUID 20 MEQ/15 ML PO SCH (09:15)
[2023-09-07] MEDS: MAGNESIUM SULF 50% (8.12 MEQ/2 ML-1 GM VIAL) IVPB SCH (09:19)
[2023-09-07] MEDS: DULoxetine HCL 30 MG CAPSULE.DR PO SCH (11:01)
[2023-09-07] MEDS: CARVEDILOL 12.5 MG TABLET (FP) PO SCH (11:19)
[2023-09-07] MEDS: ACETAMINOPHEN 1000 MG/100 ML BAG IVPB ONE (14:40)
[2023-09-08 07:41] LABS: CALCIUM 8.7 mg/dL (8.5-10.1)
[2023-09-08 07:42] LABS: BLOOD UREA NITROGEN 7.9 mg/dL (7-18); MAGNESIUM 1.9 mg/dL (1.8-2.4)
[2023-09-08 07:45] LABS: CREATININE 0.7 mg/dL (0.55-1.3)
[2023-09-08] MEDS: ACETAMINOPHEN 1000 MG/100 ML BAG IVPB ONE (09:01)
[2023-09-08 10:37] VITALS: BP 175/102; PULSE 85; RESP 18; TEMP 98.7
[2023-09-09] MEDS ORDERED: LORazepam 0.5 MG TABLET PO PRN
== END 2023-09-08 11:30 | disposition home or self-care (01) | DRG 897 ==
LOC: JER 16:56 → JERBED 19:53 → OBSVTOIN 21:20 → J4W 09-06 23:13
PROVIDERS: ADMIT Internal Medicine; ATTEND Internal Medicine
PROC: HZ2ZZZZ Detoxification Services for Substance Abuse Treatment (ICD-10-PCS; principal; 2023-09-05)
DX: F10.229 Alcohol dependence with intoxication, unspecified (principal); I69.354 Hemiplegia and hemiparesis following cerebral infarction affecting left non-dominant side; F33.9 Major depressive disorder, recurrent, unspecified; I11.0 Hypertensive heart disease with heart failure; I50.9 Heart failure, unspecified; E87.6 Hypokalemia; D50.9 Iron deficiency anemia, unspecified; J45.20 Mild intermittent asthma, uncomplicated; J44.9 Chronic obstructive pulmonary disease, unspecified; K76.9 Liver disease, unspecified; E78.5 Hyperlipidemia, unspecified; K21.9 Gastro-esophageal reflux disease without esophagitis; E83.42 Hypomagnesemia; F17.210 Nicotine dependence, cigarettes, uncomplicated; R11.0 Nausea
CPT/HCPCS: 36415; 71045-TC-FY; 80048; 80053; 80061; 80307; 81003; 82962; 83036; 83540; 83550; 83735; 84100; 84484; 85025; 85027; 87086; 93005; 93010; 97116-GP; 97162-GP; 99285-25; G0378; J0131; Q0162

== ENCOUNTER 2023-09-14 01:01 | Emergency (ER) | payer OTHER ==
[2023-09-14 01:16] VITALS: PULSE 103; RESP 18; BMI 22.0
[2023-09-14] MEDS: SODIUM CHLORIDE 1,000 ML IV STA (02:25)
[2023-09-14 02:28] LABS: BASO % 1.5 % (0-2.0); HEMATOCRIT 36.5 % (32.4-45.2); HEMOGLOBIN 11.8 GM/dL (10.7-15.3); LYMPH % 53.4 % (8-40); MCH 23.7 pg (25.7-33.7); MCHC 32.5 g/dl (32.0-36.0); MEAN PLT VOLUME 7.5 fl (7.5-11.1); MONO % 12.1 % (3.8-10.2); PLATELET COUNT 471 10^3/uL (134-434); RDW 20.1 % (11.6-15.6); WHITE BLOOD COUNT 8.1 K/mm3 (4.0-10.0)
[2023-09-14] MEDS ORDERED: ONDANSETRON 4 MG/2 ML VIAL ONE (02:50)
[2023-09-14] MEDS ORDERED: ACETAMINOPHEN INJECTION 100 ML IVPB ONE (02:50)
[2023-09-14] MEDS ORDERED: FAMOTIDINE 20 MG/50 ML IVPB 20 MG/50 ML MG IVPB ONE (02:50)
[2023-09-14 02:55] LABS: POTASSIUM 4.3 mmol/L (3.5-5.1)
[2023-09-14 02:57] LABS: ALBUMIN 2.7 g/dl (3.4-5.0); BLOOD UREA NITROGEN 10.8 mg/dL (7-18); CALCIUM 8.9 mg/dL (8.5-10.1); MAGNESIUM 1.9 mg/dL (1.8-2.4)
[2023-09-14 03:00] LABS: CREATININE 1.1 mg/dL (0.55-1.3)
[2023-09-14] MEDS: ONDANSETRON 4 MG/2 ML VIAL IVPUSH ONE (03:00)
[2023-09-14 03:02] LABS: BILIRUBIN,TOTAL 0.2 mg/dL (0.2-1); TOT PROT 7.2 g/dl (6.4-8.2)
[2023-09-14] MEDS: ACETAMINOPHEN 1000 MG/100 ML BAG IVPB ONE (03:04)
[2023-09-14] MEDS: FAMOTIDINE 20 MG/50 ML IVPB 20 MG/50 ML MG IVPB ONE (03:22)
[2023-09-14 05:07] LABS: POTASSIUM 3.6 mmol/L (3.5-5.1)
[2023-09-14 05:08] LABS: CALCIUM 8.1 mg/dL (8.5-10.1)
[2023-09-14 05:09] LABS: BLOOD UREA NITROGEN 9.4 mg/dL (7-18)
[2023-09-14 08:48] VITALS: BP 149/81; TEMP 99
== END 2023-09-14 10:12 | disposition home or self-care (01) ==
LOC: JER 01:01
PROC: 3E033GC Introduction of Other Therapeutic Substance into Peripheral Vein, Percutaneous Approach (ICD-10-PCS; principal; 2023-09-14)
PROC: 3E033NZ Introduction of Analgesics, Hypnotics, Sedatives into Peripheral Vein, Percutaneous Approach (ICD-10-PCS; 2023-09-14)
PROC: 3E033GC Introduction of Other Therapeutic Substance into Peripheral Vein, Percutaneous Approach (ICD-10-PCS; 2023-09-14)
DX: R11.0 Nausea (principal); R10.9 Unspecified abdominal pain
CPT/HCPCS: 36415; 80048; 80053; 83735; 85025; 99284-25; J0131

== ENCOUNTER 2023-09-24 19:52 | Emergency (ER) | payer OTHER ==
[2023-09-24] MEDS ORDERED: LIDOCAINE 4% PATCH TP ONE (20:32)
[2023-09-24 20:36] VITALS: BMI 22.8
[2023-09-24] MEDS: LIDOCAINE 4% PATCH TP ONE (20:36)
[2023-09-24] MEDS ORDERED: METHOCARBAMOL 500 MG TABLET ONE (21:17)
[2023-09-24] MEDS ORDERED: KETOROLAC TROMETHAMINE 30 MG/1 ML VIAL ONE (21:18)
[2023-09-24] MEDS: KETOROLAC TROMETHAMINE 30 MG/1 ML VIAL IM ONE (21:45)
[2023-09-24] MEDS: METHOCARBAMOL 750 MG TAB PO ONE (21:47)
[2023-09-25] MEDS ORDERED: ACETAMINOPHEN 500 MG TABLET (FP) ONE (00:20)
[2023-09-25] MEDS: ACETAMINOPHEN 325 MG TABLET (FP) PO ONE (00:31)
[2023-09-25 05:25] VITALS: RESP 16
[2023-09-25] MEDS ORDERED: LIDOCAINE PATCH REMOVAL MC SCH (08:30)
[2023-09-25 08:55] VITALS: BP 187/91; PULSE 95; TEMP 98.8
== END 2023-09-25 09:25 | disposition home or self-care (01) ==
LOC: JER 19:52
PROC: 3E0133Z Introduction of Anti-inflammatory into Subcutaneous Tissue, Percutaneous Approach (ICD-10-PCS; principal; 2023-09-24)
DX: M54.50 Low back pain, unspecified (principal); M25.522 Pain in left elbow; G89.29 Other chronic pain; M53.3 Sacrococcygeal disorders, not elsewhere classified
CPT/HCPCS: 72100-TC-FY; 99284-25

== ENCOUNTER 2023-10-10 14:17 | Observation (INO) | payer OTHER ==
[2023-10-10 15:50] LABS: BASO % 0.9 % (0-2.0); EOS % 0.7 % (0-4.5); HEMATOCRIT 37.1 % (32.4-45.2); HEMOGLOBIN 11.6 GM/dL (10.7-15.3); LYMPH % 34.3 % (8-40); MCHC 31.2 g/dl (32.0-36.0); MEAN CELL VOLUME 73.9 fl (80-96); MEAN PLT VOLUME 7.5 fl (7.5-11.1); MONO % 9.2 % (3.8-10.2); NEUT % 54.9 % (42.8-82.8); PLATELET COUNT 438 10^3/uL (134-434); RBC 5.02 M/mm3 (3.60-5.2); RDW 22.9 % (11.6-15.6); WHITE BLOOD COUNT 9.5 K/mm3 (4.0-10.0)
[2023-10-10 15:55] LABS: POTASSIUM 3.6 mmol/L (3.5-5.1)
[2023-10-10 15:57] LABS: CALCIUM 9.1 mg/dL (8.5-10.1)
[2023-10-10 15:58] LABS: ALBUMIN 2.8 g/dl (3.4-5.0); BLOOD UREA NITROGEN 11.6 mg/dL (7-18)
[2023-10-10 15:59] LABS: MAGNESIUM 1.8 mg/dL (1.8-2.4)
[2023-10-10 16:01] LABS: CREATININE 0.9 mg/dL (0.55-1.3); PHOSPHOROUS 3.3 mg/dL (2.5-4.9)
[2023-10-10 16:02] LABS: BILIRUBIN,TOTAL 0.2 mg/dL (0.2-1); TOT PROT 7.1 g/dl (6.4-8.2)
[2023-10-10] MEDS ORDERED: ACETAMINOPHEN 325 MG TABLET (FP) PO PRN (16:55)
[2023-10-10 18:40] LABS: ANISOCYTOSIS 2+; MACROCYTOSIS 0
[2023-10-10] MEDS: METHOCARBAMOL 500 MG TABLET PO SCH (22:39)
[2023-10-10] MEDS: MIRTAZAPINE 15 MG TABLET (FP) PO SCH (22:39)
[2023-10-10] MEDS: THIAMINE 100 MG TABLET PO SCH (22:39)
[2023-10-10] MEDS: MONTELUKAST NA 10 MG TABLET PO SCH (22:39)
[2023-10-10] MEDS: CARVEDILOL 12.5 MG TABLET (FP) PO SCH (22:39)
[2023-10-10] MEDS: HEPARIN NA (PORCINE) 5,000 UNITS/ML 1ML VIAL SQ SCH (22:39)
[2023-10-10] MEDS: BUDESONIDE/FORMETEROL FUMARATE 160/4.5 mcg INHALER IH SCH (22:46)
[2023-10-11 00:15] VITALS: BMI 24.7
[2023-10-11] MEDS: hydrALAZINE HCL 20 MG/ML VIAL IVPB ONE (01:15)
[2023-10-11] MEDS: INSULIN ASPART SLIDING SCALE (NOVOLOG) 1 VIAL SQ SCH (06:34)
[2023-10-11] MEDS: LISINOPRIL 10 MG TABLET PO ONE (06:36)
[2023-10-11] MEDS: amLODIPine BESYLATE 10 MG TABLET (FP) PO SCH (09:20)
[2023-10-11] MEDS: DULoxetine HCL 30 MG CAPSULE.DR PO SCH (09:20)
[2023-10-11] MEDS: FOLIC ACID 1 MG TABLET (FP) PO SCH (09:20)
[2023-10-11] MEDS: hydrALAZINE HCL 50 MG TABLET (FP) PO ONE (09:22)
[2023-10-11 11:30] VITALS: RESP 18
[2023-10-11] MEDS: TIOTROPIUM BROMIDE 2.5 MCG (SPIRIVA) RESPIMAT INHALER IH SCH (12:30)
[2023-10-12 06:43] VITALS: BP 117/69; PULSE 69; TEMP 97.7
[2023-10-12] MEDS: LISINOPRIL 10 MG TABLET PO SCH (09:45)
== END 2023-10-12 11:40 | disposition home health service (06) ==
LOC: JER 14:17 → JERBED 16:33 → J7W 21:01
PROVIDERS: ADMIT Internal Medicine; ATTEND Internal Medicine
PROC: 3E023GC Introduction of Other Therapeutic Substance into Muscle, Percutaneous Approach (ICD-10-PCS; principal; 2023-10-10)
PROC: 3E033GC Introduction of Other Therapeutic Substance into Peripheral Vein, Percutaneous Approach (ICD-10-PCS; 2023-10-10)
DX: E78.5 Hyperlipidemia, unspecified (principal); I50.9 Heart failure, unspecified; I11.0 Hypertensive heart disease with heart failure; F32.A Depression, unspecified; F10.10 Alcohol abuse, uncomplicated; I69.854 Hemiplegia and hemiparesis following other cerebrovascular disease affecting left non-dominant side; Z60.9 Problem related to social environment, unspecified; J44.9 Chronic obstructive pulmonary disease, unspecified; E11.9 Type 2 diabetes mellitus without complications; K44.9 Diaphragmatic hernia without obstruction or gangrene; K43.9 Ventral hernia without obstruction or gangrene; Z99.81 Dependence on supplemental oxygen; Z88.0 Allergy status to penicillin; Z88.8 Allergy status to other drugs, medicaments and biological substances
CPT/HCPCS: 36415; 71045-TC-FY; 80053; 82962; 83735; 84100; 85025; 93005; 93010; 96372; 96374; 97116-GP; 97161-GP; 99285-25; G0378; J1644

== ENCOUNTER 2023-10-18 00:07 | Inpatient (IN) | payer OTHER ==
[2023-10-18 00:21] VITALS: BMI 23.6
[2023-10-18] MEDS ORDERED: KETOROLAC TROMETHAMINE 30 MG/1 ML VIAL ONE (01:12)
[2023-10-18] MEDS: KETOROLAC TROMETHAMINE 30 MG/1 ML VIAL IM ONE (01:16)
[2023-10-18] MEDS: NICOTINE 7 MG/24 HOURS TOPICAL PATCH TD SCH (11:05)
[2023-10-18] MEDS: DULoxetine HCL 30 MG CAPSULE.DR PO SCH (11:05)
[2023-10-18] MEDS: amLODIPine BESYLATE 10 MG TABLET (FP) PO SCH (11:05)
[2023-10-18] MEDS: TIOTROPIUM BROMIDE 2.5 MCG (SPIRIVA) RESPIMAT INHALER IH SCH (11:06)
[2023-10-18] MEDS: BUDESONIDE/FORMETEROL FUMARATE 160/4.5 mcg INHALER IH SCH (11:06)
[2023-10-18] MEDS: CARVEDILOL 3.125 MG TABLET (FP) PO SCH (11:06)
[2023-10-18] MEDS: HEPARIN NA (PORCINE) 5,000 UNITS/ML 1ML VIAL SQ SCH (14:15)
[2023-10-18] MEDS: MONTELUKAST NA 10 MG TABLET PO SCH (22:05)
[2023-10-19 08:10] VITALS: RESP 18
[2023-10-19 10:47] LABS: HEMATOCRIT 36.4 % (32.4-45.2); HEMOGLOBIN 11.7 GM/dL (10.7-15.3); MCH 23.3 pg (25.7-33.7); MCHC 32.1 g/dl (32.0-36.0); MEAN CELL VOLUME 72.8 fl (80-96); MEAN PLT VOLUME 8.6 fl (7.5-11.1); PLATELET COUNT 447 10^3/uL (134-434); RDW 23.4 % (11.6-15.6); WHITE BLOOD COUNT 6.3 K/mm3 (4.0-10.0)
[2023-10-19 11:21] LABS: ALBUMIN 2.8 g/dl (3.4-5.0); CALCIUM 9.1 mg/dL (8.5-10.1)
[2023-10-19 11:22] LABS: MAGNESIUM 1.5 mg/dL (1.8-2.4)
[2023-10-19 11:23] LABS: BLOOD UREA NITROGEN 13.5 mg/dL (7-18)
[2023-10-19 11:25] LABS: CREATININE 0.9 mg/dL (0.55-1.3); PHOSPHOROUS 3.5 mg/dL (2.5-4.9)
[2023-10-19 11:26] LABS: BILIRUBIN,TOTAL 0.5 mg/dL (0.2-1); TOT PROT 6.9 g/dl (6.4-8.2)
[2023-10-19] MEDS: MAGNESIUM SULFATE IN WATER 2 GM/50 ML IVPB IVPB ONE (16:40)
[2023-10-20] MEDS ORDERED: ENOXAPARIN NA (PORCINE) 40 MG/0.4 ML DISP.SYRIN SQ SCH (10:00)
[2023-10-21 11:06] VITALS: BP 148/89; PULSE 93; TEMP 98.4
== END 2023-10-21 13:18 | disposition home or self-care (01) | DRG 563 ==
LOC: JER 00:07 → JERBED 07:27 → J6S 09:35
PROVIDERS: ADMIT Internal Medicine; ATTEND Internal Medicine
DX: S82.141A Displaced bicondylar fracture of right tibia, initial encounter for closed fracture (principal); I50.32 Chronic diastolic (congestive) heart failure; I69.354 Hemiplegia and hemiparesis following cerebral infarction affecting left non-dominant side; W01.0XXA Fall on same level from slipping, tripping and stumbling without subsequent striking against object, initial encounter; Y93.89 Activity, other specified; Y92.009 Unspecified place in unspecified non-institutional (private) residence as the place of occurrence of the external cause; Y99.8 Other external cause status; I11.0 Hypertensive heart disease with heart failure; E11.9 Type 2 diabetes mellitus without complications; E78.5 Hyperlipidemia, unspecified; J44.9 Chronic obstructive pulmonary disease, unspecified; K21.9 Gastro-esophageal reflux disease without esophagitis; E83.42 Hypomagnesemia; F10.90 Alcohol use, unspecified, uncomplicated
CPT/HCPCS: 36415; 71045-TC-FY; 73562-TC-RT-FY; 73700-TC-RT; 80053; 83735; 84100; 85027; 93005; 93010; 97116-GP; 97162-GP; 99285-25; J1644

== ENCOUNTER 2023-10-26 18:40 | Emergency (ER) | payer OTHER ==
[2023-10-26 19:08] VITALS: BP 124/72; PULSE 92; RESP 16; TEMP 98.2; BMI 22.8
[2023-10-26] MEDS ORDERED: ACETAMINOPHEN 325 MG TABLET (FP) ONE (19:42)
[2023-10-26] MEDS: ACETAMINOPHEN 500 MG TABLET (FP) PO ONE (19:50)
== END 2023-10-27 02:41 | disposition home or self-care (01) ==
LOC: JER 18:40
DX: K59.00 Constipation, unspecified (principal); M54.50 Low back pain, unspecified
CPT/HCPCS: 72131-TC; 99284-25

== ENCOUNTER 2023-10-29 21:58 | Inpatient (IN) | payer OTHER ==
[2023-10-29] MEDS ORDERED: LIDOCAINE 5% TOPICAL PATCH ONE (23:45)
[2023-10-29] MEDS ORDERED: ACETAMINOPHEN INJECTION 100 ML IVPB ONE (23:45)
[2023-10-30 00:29] LABS: BASO % 1.3 % (0-2.0); HEMATOCRIT 37.6 % (32.4-45.2); HEMOGLOBIN 12.1 GM/dL (10.7-15.3); LYMPH % 41.4 % (8-40); MCH 23.8 pg (25.7-33.7); MCHC 32.1 g/dl (32.0-36.0); MEAN CELL VOLUME 74.1 fl (80-96); MEAN PLT VOLUME 7.2 fl (7.5-11.1); MONO % 7.1 % (3.8-10.2); NEUT % 49.2 % (42.8-82.8); PLATELET COUNT 394 10^3/uL (134-434); RBC 5.07 M/mm3 (3.60-5.2); RDW 24.2 % (11.6-15.6); WHITE BLOOD COUNT 10.6 K/mm3 (4.0-10.0)
[2023-10-30 00:33] LABS: VENOUS BASE EXCESS -5.6 mmol/L (-2-2); VENOUS O2 SATURATION 69.9 % (70-80); VENOUS PCO2 37.6 mmHg (38-52); VENOUS PH 7.336 (7.310-7.410)
[2023-10-30] MEDS: ACETAMINOPHEN 1000 MG/100 ML BAG IVPB ONE (00:34)
[2023-10-30] MEDS: SODIUM CHLORIDE 0.9% 500 ML INFUS.BAG IV ONE (00:34)
[2023-10-30 00:48] LABS: POTASSIUM 4.7 mmol/L (3.5-5.1)
[2023-10-30] MEDS ORDERED: ALBUTEROL SO4 2.5/IPRATROPIUM 0.5 INH SOL 3 ML VIAL.NEB. NEB ONE ×4 (00:49→19:07)
[2023-10-30] MEDS ORDERED: methylPREDNISolone NA SUCC 125 MG/2 ML VIAL ONE (00:49)
[2023-10-30 00:51] LABS: CALCIUM 8.9 mg/dL (8.5-10.1)
[2023-10-30 00:52] LABS: ALBUMIN 3.3 g/dl (3.4-5.0); BLOOD UREA NITROGEN 10.5 mg/dL (7-18)
[2023-10-30 00:55] LABS: CREATININE 1.2 mg/dL (0.55-1.3)
[2023-10-30 00:57] LABS: BILIRUBIN,TOTAL 0.3 mg/dL (0.2-1)
[2023-10-30] MEDS: methylPREDNISolone NA SUCC 125 MG/2 ML VIAL IVPB ONE (00:58)
[2023-10-30] MEDS: ALBUTEROL SO4 2.5/IPRATROPIUM 0.5 INH SOL 3 ML VIAL.NEB. NEB ONE (00:58)
[2023-10-30] MEDS: LIDOCAINE 5% TOPICAL PATCH TP ONE (01:03)
[2023-10-30 02:15] LABS: ANISOCYTOSIS 2+
[2023-10-30 04:23] LABS: URINE APPEARANCE CLEAR; URINE BILIRUBIN NEGATIVE (NEGATIVE); URINE COLOR YELLOW; URINE GLUCOSE (UA) NEGATIVE (NEGATIVE); URINE KETONE NEGATIVE (NEGATIVE); URINE LEUK ESTERASE 1+ (NEGATIVE); URINE NITRITE NEGATIVE (NEGATIVE); URINE PROTEIN NEGATIVE (NEGATIVE); URINE UROBILINOGEN 0.2 mg/dL (0.2-1.0)
[2023-10-30] MEDS: MAGNESIUM CITRATE 300 ML BOTTLE PO ONE (05:28)
[2023-10-30] MEDS: MINERAL OIL ENEMA 133 ML ENEMA RC ONE (05:29)
[2023-10-30] MEDS: POLYETHYLENE GLYCOL (HEALTHYLAX) 3350 17 GM PACKET PO SCH (05:39)
[2023-10-30] MEDS: ALBUTEROL SO4 2.5/IPRATROPIUM 0.5 INH SOL 3 ML VIAL.NEB. NEB SCH (05:40)
[2023-10-30 09:23] LABS: EPI CELLS 6 /uL (0-25.1); HYALINE CASTS 0 /uL (0-3.1); URINE BACTERIA 20881 /uL (0-1359); URINE RBC 6 /uL (0-23.9); URINE WBC 24 /uL (0-25.8)
[2023-10-30] MEDS: NICOTINE 14 MG/24 HOURS TOPICAL PATCH TD SCH (10:40)
[2023-10-30] MEDS: CARVEDILOL 12.5 MG TABLET (FP) PO SCH (10:40)
[2023-10-30] MEDS ORDERED: FOLIC ACID 1 MG TABLET (FP) ONE (11:40)
[2023-10-30] MEDS ORDERED: predniSONE 20 MG TABLET (UD) ONE (11:40)
[2023-10-30] MEDS ORDERED: amLODIPine BESYLATE 10 MG TABLET (FP) ONE (11:40)
[2023-10-30] MEDS ORDERED: MIRTAZAPINE 15 MG TABLET (FP) ONE (11:41)
[2023-10-30] MEDS ORDERED: THIAMINE 100 MG TABLET ONE (11:41)
[2023-10-30] MEDS ORDERED: LISINOPRIL 10 MG TABLET ONE (11:41)
[2023-10-30] MEDS: THIAMINE 100 MG TABLET PO SCH (11:45)
[2023-10-30] MEDS: DULoxetine HCL 30 MG CAPSULE.DR PO SCH (11:45)
[2023-10-30] MEDS: BUDESONIDE/FORMETEROL FUMARATE 160/4.5 mcg INHALER IH SCH (11:45)
[2023-10-30] MEDS: LISINOPRIL 10 MG TABLET PO SCH (11:45)
[2023-10-30] MEDS: predniSONE 20 MG TABLET (UD) PO SCH (11:45)
[2023-10-30] MEDS: FOLIC ACID 1 MG TABLET (FP) PO SCH (11:45)
[2023-10-30] MEDS: TIOTROPIUM BROMIDE 2.5 MCG (SPIRIVA) RESPIMAT INHALER IH SCH (11:45)
[2023-10-30] MEDS: MIRTAZAPINE 15 MG TABLET (FP) PO SCH (11:45)
[2023-10-30] MEDS: amLODIPine BESYLATE 10 MG TABLET (FP) PO SCH (11:45)
[2023-10-30] MEDS ORDERED: DULoxetine HCL 30 MG CAPSULE.DR PO ONE (16:44)
[2023-10-30] MEDS: DULoxetine HCL 30 MG CAPSULE.DR PO ONE (16:50)
[2023-10-30] MEDS ORDERED: ACETAMINOPHEN 500 MG TABLET (FP) ONE (19:08)
[2023-10-30] MEDS: ACETAMINOPHEN 500 MG TABLET (FP) PO SCH (19:11)
[2023-10-30] MEDS: MONTELUKAST NA 10 MG TABLET PO SCH (22:44)
[2023-10-31 02:36] VITALS: BMI 23.5
[2023-10-31] MEDS: ALBUTEROL SO4 2.5/IPRATROPIUM 0.5 INH SOL 3 ML VIAL.NEB. NEB SCH (07:55)
[2023-10-31 08:24] LABS: BASO % 0.3 % (0-2.0); HEMOGLOBIN 11.2 GM/dL (10.7-15.3); LYMPH % 15.9 % (8-40); MCH 23.6 pg (25.7-33.7); MCHC 32.1 g/dl (32.0-36.0); MEAN CELL VOLUME 73.4 fl (80-96); MEAN PLT VOLUME 7.6 fl (7.5-11.1); MONO % 7.2 % (3.8-10.2); NEUT % 76.6 % (42.8-82.8); PLATELET COUNT 378 10^3/uL (134-434); RBC 4.76 M/mm3 (3.60-5.2); WHITE BLOOD COUNT 15.5 K/mm3 (4.0-10.0)
[2023-10-31 08:42] LABS: POTASSIUM 4.2 mmol/L (3.5-5.1)
[2023-10-31 08:43] LABS: CALCIUM 8.9 mg/dL (8.5-10.1)
[2023-10-31 08:44] LABS: BLOOD UREA NITROGEN 17.2 mg/dL (7-18)
[2023-10-31] MEDS: DULoxetine HCL 30 MG CAPSULE.DR PO SCH (09:41)
[2023-10-31] MEDS ORDERED: DULoxetine HCL 60 MG CAPSULE.DR PO SCH (10:00)
[2023-10-31] MEDS: AZTREONAM 1 GM in DEXTROSE 5%-WATER - 50 ML IVPB SCH ×3 (12:36→17:21)
[2023-11-01 09:44] LABS: POTASSIUM 4.4 mmol/L (3.5-5.1)
[2023-11-01 09:48] LABS: CALCIUM 8.9 mg/dL (8.5-10.1)
[2023-11-01 09:49] LABS: BASO % 0.9 % (0-2.0); BLOOD UREA NITROGEN 16.2 mg/dL (7-18); EOS % 0.5 % (0-4.5); HEMATOCRIT 37.3 % (32.4-45.2); LYMPH % 35.7 % (8-40); MEAN CELL VOLUME 75.1 fl (80-96); MONO % 8.2 % (3.8-10.2); NEUT % 54.7 % (42.8-82.8); PLATELET COUNT 379 10^3/uL (134-434); RBC 4.97 M/mm3 (3.60-5.2); RDW 23.8 % (11.6-15.6); WHITE BLOOD COUNT 10.1 K/mm3 (4.0-10.0)
[2023-11-01 09:52] LABS: CREATININE 1.1 mg/dL (0.55-1.3)
[2023-11-01] MEDS: ENOXAPARIN NA (PORCINE) 40 MG/0.4 ML DISP.SYRIN SQ SCH (09:53)
[2023-11-01] MEDS: predniSONE 20 MG TABLET (UD) PO SCH (14:06)
[2023-11-01] MEDS: NITROFURANTOIN MONOHYD/M-CRYST 100 MG CAPSULE PO SCH (20:00)
[2023-11-02 06:21] VITALS: TEMP 98.2
[2023-11-02 14:38] VITALS: BP 140/78; PULSE 83; RESP 18
== END 2023-11-02 14:39 | disposition home health service (06) | DRG 191 ==
LOC: JER 21:58 → JERBED 10-30 02:09 → OBSVTOIN 10-30 03:10 → J8W 10-30 21:15
PROVIDERS: ADMIT Internal Medicine; ATTEND Nurse Practitioner Acute Care
DX: J44.1 Chronic obstructive pulmonary disease with (acute) exacerbation (principal); G81.94 Hemiplegia, unspecified affecting left nondominant side; S82.141A Displaced bicondylar fracture of right tibia, initial encounter for closed fracture; I50.32 Chronic diastolic (congestive) heart failure; N39.0 Urinary tract infection, site not specified; E78.5 Hyperlipidemia, unspecified; I11.0 Hypertensive heart disease with heart failure; N28.1 Cyst of kidney, acquired; R29.6 Repeated falls; F32.A Depression, unspecified; K46.9 Unspecified abdominal hernia without obstruction or gangrene; E78.00 Pure hypercholesterolemia, unspecified; K59.00 Constipation, unspecified; R32 Unspecified urinary incontinence; K21.9 Gastro-esophageal reflux disease without esophagitis; B96.1 Klebsiella pneumoniae [K. pneumoniae] as the cause of diseases classified elsewhere; W05.0XXA Fall from non-moving wheelchair, initial encounter; Y92.092 Bedroom in other non-institutional residence as the place of occurrence of the external cause; Y99.9 Unspecified external cause status; Z99.3 Dependence on wheelchair
CPT/HCPCS: 36415; 70450-TC; 71045-TC-FY; 72131-TC; 80048; 80053; 81003; 82550; 82803; 82962; 83880; 84484; 85025; 87086; 87186; 93005; 93010; 94640; 97116-GP; 97161-GP; 99285-25; G0378; J0131

== ENCOUNTER 2023-12-21 20:16 | Emergency (ER) | payer OTHER ==
[2023-12-21 20:39] VITALS: TEMP 97.7; BMI 24.3
[2023-12-21] MEDS ORDERED: ACETAMINOPHEN INJECTION 100 ML ONE (21:07)
[2023-12-21] MEDS ORDERED: METOCLOPRAMIDE HCL INJECTION 10 MG/2 ML VIAL ONE (21:07)
[2023-12-21] MEDS ORDERED: FAMOTIDINE 20 MG/50 ML IVPB 20 MG/50 ML MG IVPB ONE (21:08)
[2023-12-21] MEDS: ACETAMINOPHEN 1000 MG/100 ML BAG IVPB ONE (21:36)
[2023-12-21] MEDS: METOCLOPRAMIDE HCL INJECTION 10 MG/2 ML VIAL IVPB ONE (21:36)
[2023-12-21] MEDS: FAMOTIDINE 20 MG/50 ML IVPB 20 MG/50 ML MG IVPB ONE (21:36)
[2023-12-21] MEDS: SODIUM CHLORIDE 0.9% 500 ML INFUS.BAG IV ONE (21:36)
[2023-12-21 21:41] LABS: BASO % 0.9 % (0-2.0); EOS % 0.9 % (0-4.5); HEMATOCRIT 36.9 % (32.4-45.2); HEMOGLOBIN 11.8 GM/dL (10.7-15.3); LYMPH % 32.8 % (8-40); MCH 23.7 pg (25.7-33.7); MCHC 31.9 g/dl (32.0-36.0); MEAN CELL VOLUME 74.1 fl (80-96); MEAN PLT VOLUME 7.3 fl (7.5-11.1); MONO % 10.4 % (3.8-10.2); PLATELET COUNT 373 10^3/uL (134-434); RBC 4.97 M/mm3 (3.60-5.2); RDW 18.6 % (11.6-15.6); WHITE BLOOD COUNT 9.7 K/mm3 (4.0-10.0)
[2023-12-21] MEDS ORDERED: THIAMINE HCL 200 MG/2 ML VIAL ONE (21:46)
[2023-12-21] MEDS: THIAMINE HCL 200 MG/2 ML VIAL IVPB ONE (21:53)
[2023-12-21 22:04] LABS: CALCIUM 8.9 mg/dL (8.5-10.1); POTASSIUM 3.8 mmol/L (3.5-5.1)
[2023-12-21 22:06] LABS: MAGNESIUM 1.6 mg/dL (1.8-2.4)
[2023-12-21 22:07] LABS: ALBUMIN 2.9 g/dl (3.4-5.0); BLOOD UREA NITROGEN 9.2 mg/dL (7-18)
[2023-12-21 22:11] LABS: TOT PROT 6.7 g/dl (6.4-8.2)
[2023-12-21 22:12] LABS: BILIRUBIN,TOTAL 0.3 mg/dL (0.2-1)
[2023-12-21] MEDS ORDERED: MAGNESIUM 1GM/D5W - 1 GM/100 ML IVPB IVPB ONE (23:03)
[2023-12-21] MEDS: MAGNESIUM 1GM/D5W - 1 GM/100 ML IVPB IVPB ONE (23:15)
[2023-12-22 00:33] VITALS: BP 144/81; PULSE 84; RESP 21
== END 2023-12-22 02:59 | disposition home or self-care (01) ==
LOC: JER 20:16
PROC: 3E033GC Introduction of Other Therapeutic Substance into Peripheral Vein, Percutaneous Approach (ICD-10-PCS; principal; 2023-12-21)
PROC: 3E033GC Introduction of Other Therapeutic Substance into Peripheral Vein, Percutaneous Approach (ICD-10-PCS; 2023-12-21)
PROC: 3E033GC Introduction of Other Therapeutic Substance into Peripheral Vein, Percutaneous Approach (ICD-10-PCS; 2023-12-21)
PROC: 3E033GC Introduction of Other Therapeutic Substance into Peripheral Vein, Percutaneous Approach (ICD-10-PCS; 2023-12-21)
DX: F10.929 Alcohol use, unspecified with intoxication, unspecified (principal); E04.1 Nontoxic single thyroid nodule; R53.1 Weakness; R11.0 Nausea; R51.9 Headache, unspecified; Y90.8 Blood alcohol level of 240 mg/100 ml or more
CPT/HCPCS: 36415; 70450-TC; 71045-TC-FY; 72125-TC; 80053; 80307; 82550; 83690; 83735; 84484; 85025; 93005; 93010; 99285-25

== ENCOUNTER 2023-12-27 18:39 | Emergency (ER) | payer OTHER ==
[2023-12-27 19:12] VITALS: RESP 18; TEMP 98.6; BMI 33.4
[2023-12-28 06:37] VITALS: BP 130/82; PULSE 66
== END 2023-12-28 07:18 | disposition home or self-care (01) ==
LOC: JER 18:39
DX: F10.920 Alcohol use, unspecified with intoxication, uncomplicated (principal); R53.1 Weakness; M54.50 Low back pain, unspecified; G89.29 Other chronic pain; R11.0 Nausea
CPT/HCPCS: 99283-25

== ENCOUNTER 2024-01-12 19:29 | Observation (INO) | payer OTHER ==
[2024-01-12 20:36] LABS: BASO % 0.4 % (0-2.0); EOS % 1.2 % (0-4.5); HEMATOCRIT 34.5 % (32.4-45.2); LYMPH % 39.9 % (8-40); MCH 23.4 pg (25.7-33.7); MCHC 31.9 g/dl (32.0-36.0); MEAN CELL VOLUME 73.5 fl (80-96); MEAN PLT VOLUME 7.9 fl (7.5-11.1); MONO % 8.8 % (3.8-10.2); NEUT % 49.7 % (42.8-82.8); PLATELET COUNT 448 10^3/uL (134-434); RBC 4.69 M/mm3 (3.60-5.2); RDW 18.7 % (11.6-15.6); WHITE BLOOD COUNT 9.2 K/mm3 (4.0-10.0)
[2024-01-12 20:42] LABS: INR 0.92 (0.83-1.09); PROTHROMBIN TIME (PATIENT) 10.6 SEC (9.7-13.0)
[2024-01-12] MEDS ORDERED: ONDANSETRON *ODT* 4 MG TABLET ONE (20:42)
[2024-01-12] MEDS: ONDANSETRON *ODT* 4 MG TABLET SL ONE (20:44)
[2024-01-12 20:45] LABS: ACTIVATED PTT 30.5 SECONDS (25.2-36.5)
[2024-01-12 20:58] LABS: POTASSIUM 3.9 mmol/L (3.5-5.1)
[2024-01-12 21:01] LABS: ALBUMIN 2.6 g/dl (3.4-5.0); BLOOD UREA NITROGEN 17.1 mg/dL (7-18); CALCIUM 8.8 mg/dL (8.5-10.1)
[2024-01-12 21:04] LABS: CREATININE 1.3 mg/dL (0.55-1.3)
[2024-01-12 21:06] LABS: BILIRUBIN,TOTAL 0.2 mg/dL (0.2-1); TOT PROT 6.5 g/dl (6.4-8.2)
[2024-01-12] MEDS ORDERED: ASPIRIN 81 MG CHEWABLE TABLETS ONE (23:55)
[2024-01-13] MEDS: ASPIRIN 81 MG CHEWABLE TABLETS PO ONE (00:01)
[2024-01-13] MEDS ORDERED: chlordiazePOXIDE HCL 25 MG CAPSULE PO PRN ×2 (00:19→06:53)
[2024-01-13] MEDS: chlordiazePOXIDE HCL 25 MG CAPSULE PO ONE (00:30)
[2024-01-13] MEDS: PANTOPRAZOLE 40 MG TABLET PO ONE (02:00)
[2024-01-13] MEDS: MAG HYDROX/AL HYDROX/SIMETH 30 ML UNIT-DOSE CUP PO ONE (02:00)
[2024-01-13] MEDS ORDERED: ALBUTEROL SO4 2.5/IPRATROPIUM 0.5 INH SOL 3 ML VIAL.NEB. NEB PRN (02:23)
[2024-01-13 03:14] VITALS: BMI 23.6
[2024-01-13] MEDS: ACAMPROSATE CALCIUM 333 MG TABLET.DR PO SCH (06:54)
[2024-01-13 06:56] LABS: HEMATOCRIT 35.9 % (32.4-45.2); HEMOGLOBIN 11.2 GM/dL (10.7-15.3); MCHC 31.1 g/dl (32.0-36.0); PLATELET COUNT 424 10^3/uL (134-434); RBC 4.85 M/mm3 (3.60-5.2); RDW 18.6 % (11.6-15.6); WHITE BLOOD COUNT 7.9 K/mm3 (4.0-10.0)
[2024-01-13 07:07] LABS: CHLORIDE 111 mmol/L (98-107); POTASSIUM 4.1 mmol/L (3.5-5.1); SODIUM 141 mmol/L (136-145)
[2024-01-13 07:08] LABS: CALCIUM 8.7 mg/dL (8.5-10.1)
[2024-01-13 07:09] LABS: ANION GAP 3 mmol/L (4-13); BLOOD UREA NITROGEN 16.6 mg/dL (7-18); CO2 27 mmol/L (21-32); GLUCOSE,RANDOM 86 mg/dL (74-106); MAGNESIUM 1.8 mg/dL (1.8-2.4)
[2024-01-13 07:12] LABS: CREATININE 1.2 mg/dL (0.55-1.3); PHOSPHOROUS 4.6 mg/dL (2.5-4.9)
[2024-01-13] MEDS ORDERED: PANTOPRAZOLE 40 MG TABLET PO SCH ×2 (10:00→22:00)
[2024-01-13] MEDS ORDERED: PANTOPRAZOLE SODIUM 40 MG VIAL IVPUSH SCH (10:00)
[2024-01-13] MEDS: TIOTROPIUM BROMIDE 2.5 MCG (SPIRIVA) RESPIMAT INHALER IH SCH (10:01)
[2024-01-13] MEDS: ENOXAPARIN NA (PORCINE) 40 MG/0.4 ML DISP.SYRIN SQ SCH (10:05)
[2024-01-13] MEDS: FOLIC ACID 1 MG TABLET (FP) PO SCH (10:06)
[2024-01-13] MEDS: CARVEDILOL 12.5 MG TABLET (FP) PO SCH (10:06)
[2024-01-13] MEDS: BUDESONIDE/FORMETEROL FUMARATE 160/4.5 mcg INHALER IH SCH (10:06)
[2024-01-13] MEDS: THIAMINE 100 MG TABLET PO SCH (10:07)
[2024-01-13] MEDS: LISINOPRIL 10 MG TABLET PO SCH (10:07)
[2024-01-13] MEDS: amLODIPine BESYLATE 10 MG TABLET (FP) PO SCH (10:07)
[2024-01-13] MEDS: DULoxetine HCL 30 MG CAPSULE.DR PO SCH (10:07)
[2024-01-13] MEDS: PANTOPRAZOLE 40 MG TABLET PO SCH (10:07)
[2024-01-13] MEDS: ASPIRIN COATED 81 MG TABLET.EC PO SCH (10:07)
[2024-01-13] MEDS ORDERED: chlordiazePOXIDE HCL 25 MG CAPSULE PO SCH ×2 (11:00→23:00)
[2024-01-13] MEDS: MONTELUKAST NA 10 MG TABLET PO SCH (21:24)
[2024-01-13] MEDS: MIRTAZAPINE 15 MG TABLET (FP) PO SCH (21:24)
[2024-01-15] MEDS ORDERED: chlordiazePOXIDE HCL 25 MG CAPSULE PO SCH ×2 (05:00)
[2024-01-15 15:14] VITALS: BP 137/71; PULSE 80; RESP 18; TEMP 98.4
[2024-01-16] MEDS ORDERED: chlordiazePOXIDE HCL 10 MG CAPSULE PO PRN ×2
[2024-01-16] MEDS ORDERED: chlordiazePOXIDE HCL 10 MG CAPSULE PO SCH ×2 (05:00)
[2024-01-17] MEDS ORDERED: chlordiazePOXIDE HCL 10 MG CAPSULE PO SCH ×2 (05:00)
[2024-01-18] MEDS ORDERED: chlordiazePOXIDE HCL 10 MG CAPSULE PO ONE ×2 (05:00)
== END 2024-01-15 15:10 | disposition home or self-care (01) ==
LOC: JER 19:29 → JERBED 22:45 → J4W 01-13 02:15
PROVIDERS: ADMIT Internal Medicine; ATTEND Internal Medicine
DX: R07.89 Other chest pain (principal); R11.0 Nausea; F10.99 Alcohol use, unspecified with unspecified alcohol-induced disorder; J44.9 Chronic obstructive pulmonary disease, unspecified; N18.9 Chronic kidney disease, unspecified; I69.354 Hemiplegia and hemiparesis following cerebral infarction affecting left non-dominant side; Z99.3 Dependence on wheelchair; Z87.738 Personal history of other specified (corrected) congenital malformations of digestive system; Z90.79 Acquired absence of other genital organ(s); Z90.49 Acquired absence of other specified parts of digestive tract; F17.210 Nicotine dependence, cigarettes, uncomplicated
CPT/HCPCS: 36415; 71045-TC-FY; 80048; 80053; 80307; 83690; 83735; 84100; 84484; 85025; 85027; 85610; 85730; 93005; 93010; 99285-25; G0378; Q0162

== ENCOUNTER 2025-02-08 22:27 | Inpatient (IN) | payer OTHER ==
[2025-02-08 22:47] VITALS: BMI 28.1
[2025-02-08] MEDS ORDERED: ACETAMINOPHEN 325 MG TABLET (FP) ONE (23:08)
[2025-02-08] MEDS: ACETAMINOPHEN 500 MG TABLET (FP) PO ONE (23:15)
[2025-02-09 00:22] LABS: MCHC 30.9 g/dl (32.2-35.5); MEAN CELL VOLUME 85.1 fl (79.4-94.8); MEAN PLT VOLUME 9.4 fl (9.4-12.3); RDW 17.8 % (12.4-16.6)
[2025-02-09 00:42] LABS: GLUCOSE,RANDOM 106.0 mg/dL (74-106); TOT PROT 6.2 g/dl (6.4-8.2)
[2025-02-09 00:43] LABS: CO2 21.0 mmol/L (21-32)
[2025-02-09 00:45] LABS: ALK PHOS 104.0 U/L (40-150)
[2025-02-09 00:47] LABS: SGPT/ALT 11.0 U/L (0-55)
[2025-02-09 00:48] LABS: CREATININE 1.13 mg/dL (0.55-1.3); SGOT/AST 21.0 U/L (5-34)
[2025-02-09] MEDS: MAGNESIUM SULFATE IN WATER 2 GM/50 ML IVPB IVPB ONE (01:02)
[2025-02-09 01:08] LABS: HCV DIAGNOSTIC IN-HOUSE W/RFLX NON-REACTIVE (NONREACTIVE)
[2025-02-09 01:09] LABS: HIV INTERPRETATION NEGATIVE (NEGATIVE)
[2025-02-09] MEDS ORDERED: POTASSIUM CHLORIDE TABS 20 MEQ TABLET.ER (FP) PO ONE (01:46)
[2025-02-09] MEDS: POTASSIUM CHLORIDE TABS 20 MEQ TABLET.ER (FP) PO ONE (01:47)
[2025-02-09] MEDS: POTASSIUM CHLORIDE ORAL LIQUID 20 MEQ/15 ML PO ONE (02:13)
[2025-02-09 04:16] LABS: URINE APPEARANCE Clear; URINE BILIRUBIN Negative (NEGATIVE); URINE COLOR Yellow; URINE GLUCOSE (UA) Negative (NEGATIVE); URINE KETONE Negative (NEGATIVE); URINE LEUK ESTERASE Trace (NEGATIVE); URINE NITRITE Positive (NEGATIVE); URINE PROTEIN 3+ (NEGATIVE); URINE UROBILINOGEN 0.2 mg/dL (0.2-1.0)
[2025-02-09] MEDS ORDERED: TIOTROPIUM BROMIDE 2.5 MCG (SPIRIVA) RESPIMAT INHALER IH PRN (05:37)
[2025-02-09] MEDS ORDERED: ACETAMINOPHEN 325 MG TABLET (FP) PO PRN (05:39)
[2025-02-09 05:55] VITALS: TEMP 97.3
[2025-02-09] MEDS ORDERED: amLODIPine BESYLATE 10 MG TABLET (FP) ONE (06:21)
[2025-02-09] MEDS: amLODIPine BESYLATE 10 MG TABLET (FP) PO ONE (06:25)
[2025-02-09 07:57] LABS: ABSOLUTE IMMATURE GRANULOCYTES 0.07 x10^3/uL (0.0-0.031); BASOPHILS # 0.07 x10^3/uL (0.01-0.08); EOSINOPHIL % 1.2 % (0.7-5.8); EOSINOPHILS # 0.10 x10^3/uL (0.04-0.36); MCHC 30.2 g/dl (32.2-35.5); MEAN CELL VOLUME 85.1 fl (79.4-94.8); MEAN PLT VOLUME 9.4 fl (9.4-12.3); MONOCYTE # 0.94 x10^3/uL (0.24-0.86); MONOCYTE % 11.5 % (4.7-12.5); RDW 17.7 % (12.4-16.6)
[2025-02-09 08:23] LABS: GLUCOSE,RANDOM 94.0 mg/dL (74-106); TOT PROT 6.2 g/dl (6.4-8.2)
[2025-02-09 08:24] LABS: CO2 24.0 mmol/L (21-32)
[2025-02-09 08:26] LABS: ALK PHOS 95.0 U/L (40-150)
[2025-02-09 08:28] LABS: SGOT/AST 28.0 U/L (5-34); SGPT/ALT 9.0 U/L (0-55)
[2025-02-09 08:29] LABS: CREATININE 1.14 mg/dL (0.55-1.3)
[2025-02-09] MEDS ORDERED: ASPIRIN 81 MG CHEWABLE TABLETS ONE (09:31)
[2025-02-09] MEDS ORDERED: LISINOPRIL 10 MG TABLET ONE (09:31)
[2025-02-09] MEDS ORDERED: ENOXAPARIN NA (PORCINE) 40 MG/0.4 ML DISP.SYRIN SQ ONE (09:32)
[2025-02-09] MEDS: ASPIRIN 81 MG CHEWABLE TABLETS PO SCH (09:35)
[2025-02-09] MEDS: ENOXAPARIN NA (PORCINE) 40 MG/0.4 ML DISP.SYRIN SQ SCH (09:35)
[2025-02-09] MEDS: LISINOPRIL 10 MG TABLET PO SCH (09:35)
[2025-02-09] MEDS: CARVEDILOL 12.5 MG TABLET (FP) PO SCH (11:06)
[2025-02-09 13:05] VITALS: RESP 18
[2025-02-09 19:27] VITALS: BP 153/84; PULSE 83
== END 2025-02-09 19:40 | disposition home or self-care (01) | DRG 556 ==
LOC: JER 22:27 → JERBED 02-09 01:09
PROVIDERS: ADMIT Hospitalist; ATTEND Internal Medicine
DX: M25.551 Pain in right hip (principal); I50.32 Chronic diastolic (congestive) heart failure; I69.354 Hemiplegia and hemiparesis following cerebral infarction affecting left non-dominant side; M54.50 Low back pain, unspecified; I11.0 Hypertensive heart disease with heart failure; E11.9 Type 2 diabetes mellitus without complications; J44.9 Chronic obstructive pulmonary disease, unspecified; W19.XXXA Unspecified fall, initial encounter; Y93.9 Activity, unspecified; Y92.89 Other specified places as the place of occurrence of the external cause; Y99.9 Unspecified external cause status; Z99.3 Dependence on wheelchair
CPT/HCPCS: 36415; 71045-TC-FY; 72170-TC-FY; 80053; 81003; 83036; 83735; 84100; 84484; 85025; 86803; 87086; 87389; 93005; 93010; 99285-25